=== PATIENT | female | born 1945 | race Caucasian/White ===

== ENCOUNTER 2016-12-01 08:07 | Inpatient (IN) | payer OTHER ==
[2016-10-30 11:27] VITALS: BMI 27.0
--- NOTE | 2016-10-30 12:11 | PAT Medication Instructions ---
Service Date Oct 30, 2016. Current Home Medication List Albuterol Sulfate (Proair Respiclick), 2 PUFF INH Q4 PRN for SOB/Wheezing Aspirin (Aspirin Ec), 81 MG PO HS Atorvastatin (Lipitor), 10 MG PO QPM Calcium Carbonate-Vitamin D (Calcium + D3 600-200 mg-Unit), 1 TAB PO BID Fluoxetine (Prozac), 20 MG PO HS Fluticasone Prop/Salmeterol (Advair Diskus 250/50 60 Dose), 1 PUFF INH BID PRN for BRONCHITIS Ibuprofen (Motrin), 400 MG PO TID PRN for Pain Levothyroxine Sodium (Synthroid), 1 TAB PO QAM Metoprolol Succ (Toprol Xl) (Toprol-Xl), 25 MG PO HS Mycophenolate Mofetil (Cellcept), 1,000 MG PO BID Omeprazole (Prilosec), 20 MG PO QAM Potassium Ext Rel (Klor-Con), 20 MEQ PO BID Torsemide (Demadex *), 20 MG PO QAM Tramadol (Ultram), 50 MG PO Q8H PRN for Pain Medication Instructions For Your Scheduled Surgery - Hold the following medications 7 days prior to surgery per surgeon instructions: Mycophenolate Mofetil (Cellcept), 1,000 MG PO BID Ibuprofen (Motrin), 400 MG PO TID PRN for Pain - Hold the following medications the morning of surgery: Torsemide (Demadex *), 20 MG PO QAM Potassium Ext Rel (Klor-Con), 20 MEQ PO BID Calcium Carbonate-Vitamin D (Calcium + D3 600-200 mg-Unit), 1 TAB PO BID - Take the following medications the morning of surgery with a sip of water: Tramadol (Ultram), 50 MG PO Q8H PRN for Pain (can take up to fours prior to surgery if needed) Omeprazole (Prilosec), 20 MG PO QAM Levothyroxine Sodium (Synthroid), 1 TAB PO QAM Fluticasone Prop/Salmeterol (Advair Diskus 250/50 60 Dose), 1 PUFF INH BID PRN for BRONCHITIS Albuterol Sulfate (Proair Respiclick), 2 PUFF INH Q4 PRN for SOB/Wheezing ( bring with you to hospital on day of surgery) - Take the following medications as scheduled the night before surgery: Tramadol (Ultram), 50 MG PO Q8H PRN for Pain Potassium Ext Rel (Klor-Con), 20 MEQ PO BID Metoprolol Succ (Toprol Xl) (Toprol-Xl), 25 MG PO HS Fluticasone Prop/Salmeterol (Advair Diskus 250/50 60 Dose), 1 PUFF INH BID PRN for BRONCHITIS Fluoxetine (Prozac), 20 MG PO HS Calcium Carbonate-Vitamin D (Calcium + D3 600-200 mg-Unit), 1 TAB PO BID Aspirin (Aspirin Ec), 81 MG PO HS Atorvastatin (Lipitor), 10 MG PO QPM Albuterol Sulfate (Proair Respiclick), 2 PUFF INH Q4 PRN for SOB/Wheezing If you have any questions please call us at [phone] or [phone] ( Jen) or [phone]
[2016-10-30 13:03] LABS: URINE APPEARANCE CLEAR (CLEAR); URINE BILIRUBIN NEG (NEG); URINE COLOR YELLOW; URINE NITRITE NEG (NEG); URINE SPECIFIC GRAVITY 1.024 (1.000-1.030); UROBILINOGEN NEG (NEG); ZZUR CULT IF INDIC CLEAN CATCH NO
[2016-10-30 13:03] LABS: BASO % 0.3 %; BASO ABS # 0.01 K/uL (0-0.2); COMPLETE YES; EOS % 1.3 %; HEMATOCRIT 34.6 % (37-47); IG% 0.3 %; LYMPH % 28.9 %; LYMPH ABS # 1.13 K/uL (1.2-3.4); MEAN CELL VOLUME 85.4 fL (80-100); MEAN CORPUSCULAR HEMOGLOBIN 27.9 pg (25-34); MEAN CORPUSCULAR HGB CONC 32.7 g/dl (32-36); MEAN PLATELET VOLUME 10.7 fL (7.4-10.4); MONO % 11.5 %; NEUT % 57.7 %; PLATELET COUNT 253 K/uL (130-400); RED BLOOD COUNT 4.05 M/uL (4.2-5.4); WHITE BLOOD COUNT 3.91 K/uL (4.8-10.8)
[2016-10-30 13:05] LABS: MANUAL MICROSCOPIC REQUIRED? NO; REVIEW REQ? NO
[2016-10-30 13:29] LABS: PARTIAL THROMBOPLASTIN RATIO 1.2; PROTHROMBIN TIME (PATIENT) 10.7 SECONDS (9.0-12.0)
--- NOTE | 2016-11-28 11:50 | HISTORY & PHYSICAL EXAMINATION ---
DATE OF ADMISSION: 12/01/2016 PRIMARY CARE PHYSICIAN: Dr. Carol Cade. CHIEF COMPLAINT: Right knee pain. HISTORY OF PRESENT ILLNESS: Mr. Becerra is a 71-year-old female with a 20-year history of pain in her right knee. The patient rates her pain a 9/10. She has pain with her daily activities. She has limited standing and walking tolerance. Pain is worse with weightbearing. The patient has had injections, anti-inflammatories, and bracing without relief. She has failed conservative treatment and is scheduled for right knee replacement. PAST MEDICAL HISTORY: Thyroid disease, hypercholesterolemia, acid reflux, hypertension, mitral valve prolapse, autoimmune hepatitis and atrial fibrillation. She denies heart disease, diabetes or DVT. PAST SURGICAL HISTORY: Parotidectomy, cholecystectomy, carpal tunnel release, left total hip replacement, cataract extraction, appendectomy, T\T\A and hernia repair. SOCIAL HISTORY: She denies alcohol or tobacco use. She lives in a 2-sepideh home. She is and retired. FAMILY HISTORY: Negative for DVT. MEDICATIONS: Demadex 20 mg daily, aspirin 81 mg daily, metoprolol 25 mg daily, K-Dur b.i.d., Levoxyl 75 mcg, CellCept 500 mg b.i.d., Lipitor 10 mg, omeprazole 20 mg, Prozac 20 mg, Motrin 800 mg b.i.d. ALLERGIES: SULFA CAUSES HIVES, CODEINE AND MORPHINE CAUSE VOMITING. REVIEW OF SYSTEMS: See HPI. Ten other systems reviewed, all negative. PHYSICAL EXAMINATION: VITAL SIGNS: Height 5 feet 6 inches, weight 169 pounds. BMI 27. GENERAL: This is a well-developed, well-nourished female who is alert and oriented x3. Mood and affect are appropriate. HEENT: Normocephalic, atraumatic. Mucous membranes are moist and intact. LUNGS: Neck supple without lymphadenopathy. HEART: Regular rate and rhythm without murmurs, rubs or gallops. LUNGS: Clear to auscultation without wheezes or rhonchi. ABDOMEN: Soft and nontender. Bowel sounds are equal and active. EXTREMITIES: No ecchymosis, redness or warmth. She has neutral alignment. Range of motion is from 0-115 degrees with no laxity. She is neurovascularly intact with +5/5 strength. X-RAY EXAMINATION: AP and lateral views show joint space narrowing and osteophyte formation. IMPRESSION: Degenerative joint disease, right knee. PLAN: The patient will be admitted for a right total knee arthroplasty. We will plan on aspirin for DVT prophylaxis. The patient is using [facility] for home physical therapy.
[~2016-12-01] VITALS: Ht 167.6 cm; Wt 76.8 kg
[2016-12-01] VITALS (9 sets, daily range): BP systolic 116–145; BP diastolic 69–83; PULSE 45–68; TEMP 35.7–36.8; O2SAT 97–100; Ht 167.6 cm; Wt 76.8 kg
[2016-12-01] MEDS: TRANEXAMIC ACID INJ 1,000 MG in SODIUM CHLORIDE 0.9% 100ML 100 ML IV SCH ×2 (06:30→10:17)
[~2016-12-01 08:07] MED LIST: ACETAMINOPHEN 500 MG TAB PO SCH; ADVIN25/60 INH; ALBU18002 INH; ASPI81TA28 PO; ATOR10TA88 PO; BUPIVACAINE 0.25% 30 ML VIAL ONE; BUPIVACAINE 0.5 % 5 MG/1 ML PF 10ML VIAL ONE; CALC-388 PO; CEFAZOLIN 2000 MG/60 ML D5W 60 ML IV SCH; DEXAMETHASONE 4 MG TAB PO SCH; DMD20 PO; FAMOTIDINE 20 MG TAB PO SCH; FENTANYL CITRATE INJ 50 MCG/1 ML 2 ML VIAL ONE; FLUO20CA35 PO; GABAPENTIN 300 MG CAP PO SCH; IBUP-1459 PO; LACTATED RINGER'S 1000ML 1,000 ML IV SCH; LACTATED RINGER'S 1000ML IV SCH; METO25TA3 PO; METOCLOPRAMIDE HCL 10 MG TAB PO SCH; MIDAZOLAM HCL 1 MG/ML 2ML VIAL ONE; MYCO500T4 PO; POLYMYXIN B SULFATE 100,000 UNITS in NSS 100ML IR SCH; POTA-327 PO; PRLSR20 PO; PROPOFOL IV EMULSION 10 MG/ML 20 ML VIAL IV ONE; ROPIVACAINE 5MG/ML 30 ML 150 MG, BUPIVACAINE/EPINEPHR 0.5% MPF 30 ML, KETOROLAC TROMETH... INFIL SCH; SYN75 PO; TRAM-10 PO; TRAMADOL HCL 50 MG TAB PO SCH; VANCOMYCIN INJ 400 MG in NSS 100ML IR SCH
--- NOTE | 2016-12-01 09:46 | History & Physical Bridge Note ---
H&P Re-Evaluation Bridge Note: I have examined the patient, reviewed the History & Physical and in the interval since the performance of the History & Physical I have noted the following changes of clinical significance: No changes noted
[2016-12-01] MEDS ORDERED: ORTHO JOINT ANESTHETIC ONE (10:23)
[2016-12-01] MEDS ORDERED: LIDOCAINE HCL 2% 2 ML VIAL (20MG/ML) ONE (11:27)
[2016-12-01] MEDS ORDERED: LABETALOL HCL IV 5 MG/ML 20ML ONE (11:31)
[2016-12-01] MEDS ORDERED: MIDAZOLAM HCL 1 MG/ML 2ML VIAL ONE (11:39)
[2016-12-01] MEDS ORDERED: BUPIVACAINE/EPINEPHRINE 0.25% 1:200,000 30 ML VIAL INJ ONE (12:23)
--- NOTE | 2016-12-01 12:23 | [facility] Post Operative Brief Note ---
Immediate Operative Summary Operative Date Dec 01, 2016. Pre-Operative Diagnosis Right Knee Degenerative Joint Disease Post-Operative Diagnosis Right Knee Degenerative Joint Disease Procedure(s) Performed Right Total Knee Arthroplasty Cemented Surgeon Dr. Lb White Landscape Crew Leader Surgeon(s) Gaetano Murguia PA-C Estimated Blood Loss 75ml Findings SEVERE DZ Specimens A. Right Knee Bone and Tissue Complication(s) None Disposition Recovery Room / PACU
[2016-12-01] MEDS ORDERED: POVIDONE-IODINE OP SOLN 30 ML BTL TOP ONE (12:27)
[2016-12-01] MEDS ORDERED: BACITRACIN 50000 UNIT VIAL IR ONE (12:27)
[2016-12-01] MEDS ORDERED: MAGNESIUM HYDROXIDE SUSP 30 ML UDC PO PRN (12:30)
[2016-12-01] MEDS ORDERED: OXYCODONE HCL IR 5 MG TAB (IMMEDIATE RELEASE) PO PRN (12:30)
[2016-12-01] MEDS ORDERED: ONDANSETRON INJ 2 MG/ML 2 ML VIAL IV PRN (12:30)
[2016-12-01] MEDS ORDERED: TRAMADOL HCL 50 MG TAB PO PRN ×2 (12:30)
[2016-12-01] MEDS ORDERED: ZOLPIDEM TARTRATE 5 MG TAB PO PRN (12:30)
[2016-12-01] MEDS ORDERED: DiphenhydrAMINE HCL 50 MG/ML VIAL IV PRN (12:30)
[2016-12-01] MEDS ORDERED: ALBUTEROL HFA INHALER 18 GM INH PRN (12:30)
[2016-12-01] MEDS ORDERED: BISACODYL 10 MG SUPP PR PRN (12:30)
[2016-12-01] MEDS ORDERED: FLUTICASONE/SALMETEROL 250/50 (ADVAIR) 14 PUFF/1 INHALER INH PRN (12:30)
[2016-12-01] MEDS ORDERED: METOCLOPRAMIDE HCL INJ 5 MG/ML 2 ML VIAL IV PRN (12:30)
[2016-12-01] MEDS ORDERED: ALUMINUM/MAGNESIUM/SIMETH (MAALOX MAX) 30 ML UDC PO PRN (12:30)
[2016-12-01] MEDS ORDERED: SOD PHOSPHATE/SOD BIPHOSPHATE ENEMA 132 ML BTL PR PRN (12:30)
--- NOTE | 2016-12-01 13:52 | DIAGNOSTIC IMAGING REPORT ---
TWO VIEWS RIGHT KNEE CLINICAL HISTORY: Postoperative examination. FINDINGS: AP and crosstable lateral portable views of the right knee are obtained. A right knee arthroplasty is in near anatomic alignment. There has been undersurface remodeling of the patella. No acute fracture is seen. There are expected postoperative changes around the knee including a surgical drain, soft tissue edema, and subcutaneous gas. IMPRESSION: Expected postoperative changes status post right knee arthroplasty. No acute fracture is seen. Electronically signed by: Foster Katz M.D. 12/01/2016 1:50 PM Dictated Date/Time: 12/01/2016 1:49 PM
--- NOTE | 2016-12-01 14:40 | Anesthesiology Progress Note ---
Anesthesia Post Op Note Date & Time Dec 01, 2016 at 14:40 Vital Signs Pain Intensity: 0 Vital Signs Past 12 Hours Date Time Temp Pulse Resp B/P Pulse Ox O2 Delivery O2 Flow Rate FiO2 12/01/16 14:16 60 21 99 12/01/16 14:16 55 21 12/01/16 14:15 36.4 61 13 111/53 99 Nasal Cannula 2 12/01/16 14:14 111/53 12/01/16 14:11 56 13 12/01/16 14:11 61 13 100 12/01/16 14:08 116/63 12/01/16 14:06 60 16 12/01/16 14:06 59 16 99 12/01/16 14:03 113/59 12/01/16 14:01 58 17 12/01/16 14:01 57 17 99 12/01/16 13:59 111/71 12/01/16 13:56 57 15 12/01/16 13:56 61 15 99 12/01/16 13:53 128/71 12/01/16 13:51 56 15 12/01/16 13:51 58 15 98 12/01/16 13:49 106/57 12/01/16 13:46 61 14 97 12/01/16 13:46 65 14 12/01/16 13:44 112/63 12/01/16 13:41 60 14 99 12/01/16 13:41 62 14 12/01/16 13:38 122/64 12/01/16 13:36 59 13 98 12/01/16 13:36 62 13 12/01/16 13:34 115/60 12/01/16 13:31 59 14 12/01/16 13:31 58 14 97 12/01/16 13:29 119/61 12/01/16 13:26 54 15 12/01/16 13:26 53 15 100 12/01/16 13:23 120/66 12/01/16 13:21 51 15 12/01/16 13:21 54 15 98 12/01/16 13:18 108/74 12/01/16 13:16 54 16 100 12/01/16 13:16 54 16 12/01/16 13:13 134/65 12/01/16 13:11 53 19 12/01/16 13:11 57 19 100 12/01/16 13:08 125/67 12/01/16 13:06 54 12 12/01/16 13:06 53 12 100 12/01/16 13:03 107/76 12/01/16 13:01 36.4 53 14 122/64 96 Nasal Cannula 2 12/01/16 13:01 54 14 12/01/16 13:01 54 14 100 12/01/16 08:48 36.8 59 20 145/83 97 Room Air Notes Mental Status: alert / awake / arousable, participated in evaluation Pt Amnestic to Procedure: Yes Nausea / Vomiting: adequately controlled Pain: adequately controlled Airway Patency, RR, SpO2: stable & adequate BP & HR: stable & adequate Hydration State: stable & adequate Neuraxial Anesthesia: was administered, sensory block is resolving Anesthetic Complications: no major complications apparent
[2016-12-01] MEDS ORDERED: ATROPINE SULFATE 0.1 MG/ML 5ML SYR IV PRN (14:45)
[2016-12-01] MEDS ORDERED: EpHEDrine SULFATE INJ 50 MG/ML AMP IV PRN (14:45)
[2016-12-01] MEDS: KETOROLAC TROMETHAMINE 15 MG/ML VIAL IV. SCH ×2 (15:52→22:35)
[2016-12-01] MEDS: ACETAMINOPHEN 500 MG TAB PO SCH ×2 (16:00→21:02)
[2016-12-01] MEDS: D5W AND 1/2NSS + 20MEQ KCL 1,000 ML IV SCH (16:35)
[2016-12-01] MEDS: CEFAZOLIN IV 1,000 MG in DEXTROSE 5% 50ML 50 ML IV SCH (18:37)
[2016-12-01] MEDS ORDERED: TRANEXAMIC ACID INJ 1,000 MG in SODIUM CHLORIDE 0.9% 100ML 100 ML IV SCH (19:00)
--- NOTE | 2016-12-01 19:06 | OPERATIVE REPORT ---
DATE OF OPERATION: 12/01/2016 PREOPERATIVE DIAGNOSIS: Degenerative arthritis, right knee. POSTOPERATIVE DIAGNOSIS: Same. PROCEDURE: Right total knee patient matched implant. SURGEON: Dr. White. PAINTER SHIPYARD: FANNY John. ANESTHESIA: Spinal. BLOOD LOSS: 75 mL. REPLACEMENT FLUIDS: 1800 mL of crystalloid. DRAINS: Hemovac x2. CULTURES: None. COMPLICATIONS: None. COMPONENTS USED: Patel \T\ Nephew Journey Knee System: Femur size 5, tibia size 4 x 11, patella size 32. NOTE: FANNY John was present and assisted throughout due to the complicated nature of this case. He helped with preparation and setup, first assisted throughout and personally closed the capsule, subcutaneous and skin layers and applied the postoperative dressing. DESCRIPTION: Following satisfactory spinal, the patient was supine. A tourniquet was placed but not inflated. The lower extremity was prepared with ChloraPrep and draped sterilely. Following a surgical time-out, a midline incision was made with a trivector approach. The knee showed severe grade 4 changes, most marked in the patellofemoral compartment and lateral compartment. The anterior cruciate ligament was absent. The posterior cruciate ligament was excised. The patient matched femoral block was applied. Femoral distal rotation and resection were set and completed. The 4-in-1 block was used to finish preparation of the femur. The patient matched tibial block was applied. Tibial resection was completed. The patella was freehand cut. Soft tissue balancing was completed and a trial reduction showed good tension and stability on the collateral ligaments, stable range of motion, and the patella tracked well. The trial components were removed. The capsule was prepared with the orthopedic cocktail and after irrigation, the components were cemented using Simplex G cement. A Betadine soak was performed. When the cement had hardened, the Betadine was irrigated. Two drains were placed. The arthrotomy was closed with a running suture of 0 V-Loc, subcutaneous tissues with 2-0 Vicryl and the skin with a running subcuticular stitch of 3-0 V-Loc. Dermabond and a dry dressing were applied. The patient was returned to her bed in stable condition. I attest to the content of the Intraoperative Record and any orders documented therein. Any exceptio ns are noted below.
[2016-12-01] MEDS ORDERED: FLUOXETINE HCL 20 MG CAP PO SCH (21:00)
[2016-12-01] MEDS: MYCOPHENOLATE MOFETIL 250 MG CAP (CELLCEPT) PO SCH (21:00)
[2016-12-01] MEDS ORDERED: SENNA 8.6 MG TAB PO SCH (21:00)
[2016-12-01] MEDS ORDERED: METOPROLOL SUCC 25MG EXT REL TAB PO SCH (21:00)
[2016-12-01] MEDS ORDERED: ATORVASTATIN 10 MG TAB PO SCH (21:00)
[2016-12-01] MEDS: POTASSIUM CHLORIDE 10 MEQ TABCR PO SCH (21:01)
[2016-12-01] MEDS: OXYCODONE HCL 10 MG TABCR (OXYCONTIN) PO SCH (21:01)
[2016-12-01] MEDS: ASPIRIN 81 MG ECTAB PO SCH (21:01)
[2016-12-02] MEDS: CEFAZOLIN IV 1,000 MG in DEXTROSE 5% 50ML 50 ML IV SCH (01:29)
[2016-12-02] MEDS: D5W AND 1/2NSS + 20MEQ KCL 1,000 ML IV SCH ×2 (01:29→12:00)
[2016-12-02 03:07] VITALS: BP 131/75; PULSE 58; TEMP 36.4; O2SAT 99
[2016-12-02] MEDS: KETOROLAC TROMETHAMINE 15 MG/ML VIAL IV. SCH ×2 (03:39→09:59)
[2016-12-02] MEDS: ACETAMINOPHEN 500 MG TAB PO SCH (05:38)
[2016-12-02] MEDS ORDERED: LEVOTHYROXINE 75 MCG TAB PO SCH (06:00)
[2016-12-02 06:52] LABS: HEMATOCRIT 29.8 % (37-47); MEAN CELL VOLUME 83.2 fL (80-100); MEAN CORPUSCULAR HEMOGLOBIN 28.2 pg (25-34); MEAN CORPUSCULAR HGB CONC 33.9 g/dl (32-36); MEAN PLATELET VOLUME 10.8 fL (7.4-10.4); PLATELET COUNT 198 K/uL (130-400); RED BLOOD COUNT 3.58 M/uL (4.2-5.4); WHITE BLOOD COUNT 6.88 K/uL (4.8-10.8)
[2016-12-02 07:23] LABS: BUN/CREATININE RATIO 17.3 (10-20); CALCIUM 8.5 mg/dl (8.5-10.1); POTASSIUM 4.3 mmol/L (3.5-5.1)
[2016-12-02 07:28] VITALS: BP 150/77; PULSE 52; TEMP 36.5; O2SAT 100
--- NOTE | 2016-12-02 07:55 | Discharge Instructions ---
Discharge Instructions Admission Reason for Admission: Right Knee Degenerative Arthritis Discharge Discharge Diagnosis / Problem: sp right TKA Discharge Goals Goal(s): Decrease discomfort, Improve function, Increase independence Activity Recommendations Activity Limitations: per Instructions/Follow-up section ACTIVITY RECOMMENDATIONS: SELF CARE INSTRUCTIONS AFTER TOTAL KNEE REPLACEMENT A. You may need to continue a physical therapy program after discharge from the hospital. There are several options available to you. Your doctor will assist you in selecting the best one for you. 1. An out-patient facility 2 to 3 times a week for therapy or home therapy. 2. Continue working on all exercises taught to you in the hospital. Your goals should be to increase bending of your knee to 90 degrees and beyond and to fully straighten your knee. B. You may progress at your own pace from walking with a walker or crutches to a cane; then to no assistive devices. C. Make walking a part of your daily routine. Be up as much as comfortable with rest periods throughout the day. Rest with leg elevation is very important. Use the ice wrap frequently for the first 3-4 weeks. D. There are no restrictions on activities. You may ride in a car, shop, participate in legal recruiter and all social activities. E. Wear the long elastic stockings (CAMPOS hose) 20 hours a day for 2 weeks after surgery. They can be removed several times a day for laundering and for a bath. F. You may shower, no tub baths until cleared by your doctor. SPECIAL CARE INSTRUCTIONS: VERY IMPORTANT TO READ AND REVIEW A. There are a few signs you need to watch for after you are home. Call [facility] if you notice any of the followin. Increased severe knee pain. Some pain is expected especially when you exercise. 2. Increased swelling in your leg or knee; pain or swelling of the calf muscle in either lower leg. 3. Any fluid drainage from the incision. 4. Shortness of breath or chest pain. B. Please call [facility] at if you have any concerns or questions about your operation or recovery. The doctor or his nurse will return your call promptly. C. You must take antibiotics before dental work, bladder, bowel or other surgery. Your doctor will provide you with a permanent care to carry describing this precaution. IMPORTANT: * REMEMBER TO TAKE ASPIRIN, 81 MG, TWICE DAILY FOR 4 WEEKS UNLESS OTHERWISE DIRECTED. THIS IS YOUR BLOOD THINNER. * HIGH RISK PATIENTS MAY BE PRESCRIBED A STRONGER BLOOD THINNER. THIS WILL BE PROVIDED AT DISCHARGE. * CALL IF INCREASED PAIN, REDNESS, DRAINAGE OR FEVER GREATER THAT 101. * WEAR CAMPOS HOSE 20 HOURS PER DAY FOR 2 WEEKS. DERMABOND Prineo- This is a mesh tape dressing that is covered with glue. It should remain in place until the incision is properly healed, usually 10-14 days. This dressing is designed to naturally slough off. You may trim the excess mesh tape as it peels off. Incision may be briefly wet in a shower. Dry immediately by blotting with a clean, dry towel. Do not bath or swim until instructed by your doctor. Do not scratch, rub, or pick at the dressing. Do not apply any topical ointments or lotions until dressing is completely removed and/or instructed by your doctor. There may be a small piece of suture material at one end of your incision. Do not pull or trim this. If it is bothersome or catching on clothing, you may cover it with a band-aid. FOLLOW UP VISIT: If appointment is not already scheduled: Please call [facility] to make a follow-up appointment for 2 weeks after your surgery at . . Current Hospital Diet Patient's current hospital diet: Regular Diet Discharge Diet Recommended Diet: Regular Diet Procedures Procedures Performed: Right Total Knee Arthroplasty Cemented Pending Studies Studies pending at discharge: no Laboratory Results Lipid Panel Test 10/30/16 12:10 Range/Units Triglycerides Level 103 0-150 mg/dl Cholesterol Level 134 0-200 mg/dl HDL Cholesterol 53 mg/dl Cholesterol/HDL Ratio 2.5 LDL Cholesterol, Calculated 60 mg/dl Medical Emergencies . Who to Call and When: Medical Emergencies: If at any time you feel your situation is an emergency, please call 911 immediately. . Non-Emergent Contact Non-Emergency issues call your: Primary Care Provider . "Provider Documentation" section prepared by Abby Waldron. VTE Core Measure Inpt VTE Proph given/why not?: Other Anticoagulation, T.E.D. Stockings, SCD's
--- NOTE | 2016-12-02 07:57 | Anesthesiology Progress Note ---
Anesthesia Post Op Note Date & Time Dec 02, 2016 at 07:56 Vital Signs Pain Intensity: 0.0 Vital Signs Past 12 Hours Date Time Temp Pulse Resp B/P Pulse Ox O2 Delivery O2 Flow Rate FiO2 12/02/16 07:28 36.5 52 18 150/77 100 Room Air 12/02/16 03:07 36.4 58 16 131/75 99 Room Air 12/01/16 23:34 36.5 56 16 142/79 100 Room Air 12/01/16 23:15 Room Air 12/01/16 20:43 52 129/73 12/01/16 20:03 35.7 59 18 116/69 100 Room Air Notes Mental Status: alert / awake / arousable, participated in evaluation Pt Amnestic to Procedure: Yes Nausea / Vomiting: adequately controlled Pain: adequately controlled Airway Patency, RR, SpO2: stable & adequate BP & HR: stable & adequate Hydration State: stable & adequate Neuraxial Anesthesia: sensory block resolved Anesthetic Complications: no major complications apparent
[2016-12-02] MEDS ORDERED: SNK PO (07:58)
[2016-12-02] MEDS ORDERED: ONDA8TAB6 PO (07:58)
[2016-12-02] MEDS ORDERED: RXC5 PO (07:58)
[2016-12-02] MEDS ORDERED: MORP-157 PO (07:58)
[2016-12-02] MEDS ORDERED: ASPI81TA28 PO (07:58)
--- NOTE | 2016-12-02 08:14 | Orthopedic Progress Note ---
Orthopedic Progress Note Date of Service Dec 02, 2016. Subjective Post OP Day: 1 Reports: feeling well, Denies: SOB, calf pain, chest pain, light headedness, nausea / vomiting Objective calves soft nontender, N/V intact, dressing C/D/I, A&O x3, toes mobile, hemovac drainage (70/5 CC) Date Time Temp Pulse Resp B/P Pulse Ox O2 Delivery O2 Flow Rate FiO2 12/02/16 07:28 36.5 52 18 150/77 100 Room Air 12/02/16 03:07 36.4 58 16 131/75 99 Room Air 12/01/16 23:34 36.5 56 16 142/79 100 Room Air 12/01/16 23:15 Room Air 12/01/16 20:43 52 129/73 12/01/16 20:03 35.7 59 18 116/69 100 Room Air 12/01/16 17:34 36.4 57 18 144/79 100 Room Air 12/01/16 16:31 36.5 58 18 138/81 100 Nasal Cannula 2.0 12/01/16 15:45 Nasal Cannula 4.0 12/01/16 15:33 36.5 45 18 119/74 98 Nasal Cannula 2.0 12/01/16 15:00 36.4 54 16 117/78 100 Nasal Cannula 2.0 12/01/16 14:30 Nasal Cannula 2.0 12/01/16 14:30 100 Nasal Cannula 2.0 12/01/16 14:30 36.5 68 16 118/74 100 Nasal Cannula 2.0 12/01/16 14:16 60 21 99 12/01/16 14:16 55 21 12/01/16 14:15 36.4 61 13 111/53 99 Nasal Cannula 2 12/01/16 14:14 111/53 12/01/16 14:11 56 13 12/01/16 14:11 61 13 100 12/01/16 14:08 116/63 12/01/16 14:06 60 16 12/01/16 14:06 59 16 99 12/01/16 14:03 113/59 12/01/16 14:01 58 17 12/01/16 14:01 57 17 99 12/01/16 13:59 111/71 12/01/16 13:56 57 15 12/01/16 13:56 61 15 99 12/01/16 13:53 128/71 12/01/16 13:51 56 15 12/01/16 13:51 58 15 98 12/01/16 13:49 106/57 12/01/16 13:46 61 14 97 12/01/16 13:46 65 14 12/01/16 13:44 112/63 12/01/16 13:41 60 14 99 12/01/16 13:41 62 14 12/01/16 13:38 122/64 12/01/16 13:36 59 13 98 12/01/16 13:36 62 13 12/01/16 13:34 115/60 12/01/16 13:31 59 14 12/01/16 13:31 58 14 97 12/01/16 13:29 119/61 12/01/16 13:26 54 15 12/01/16 13:26 53 15 100 12/01/16 13:23 120/66 12/01/16 13:21 51 15 12/01/16 13:21 54 15 98 12/01/16 13:18 108/74 12/01/16 13:16 54 16 100 12/01/16 13:16 54 16 12/01/16 13:13 134/65 12/01/16 13:11 53 19 12/01/16 13:11 57 19 100 12/01/16 13:08 125/67 12/01/16 13:06 54 12 12/01/16 13:06 53 12 100 12/01/16 13:03 107/76 12/01/16 13:01 36.4 53 14 122/64 96 Nasal Cannula 2 12/01/16 13:01 54 14 12/01/16 13:01 54 14 100 12/01/16 08:48 36.8 59 20 145/83 97 Room Air Laboratory Results 24 Hours: Test 12/02/16 06:12 Hematocrit 29.8 % Hemoglobin 10.1 g/dL Assessment & Plan Assessment: POD#1 SP RIGHT TKA Inhouse Planning Pain Management: Oxycontin, Oxy IR DVT Prophylaxis: TEDs, SCDs, ASA Discharge Planning Discharge Planning: home with home health (DC HOME TODAY)
[2016-12-02] MEDS ORDERED: MULTIVITAMIN TAB PO SCH (09:00)
[2016-12-02] MEDS ORDERED: PANTOprazole SOD 40 MG TAB PO SCH (09:00)
[2016-12-02] MEDS ORDERED: TORSEMIDE 20 MG TAB PO SCH (09:00)
[2016-12-02] MEDS: POTASSIUM CHLORIDE 10 MEQ TABCR PO SCH (09:01)
[2016-12-02] MEDS: ASPIRIN 81 MG ECTAB PO SCH (09:01)
[2016-12-02] MEDS: MYCOPHENOLATE MOFETIL 250 MG CAP (CELLCEPT) PO SCH (09:01)
[2016-12-02] MEDS: OXYCODONE HCL 10 MG TABCR (OXYCONTIN) PO SCH (09:06)
[2016-12-02 10:13] VITALS: BP 150/77; PULSE 52; TEMP 36.5; O2SAT 100
[2016-12-02 10:58] VITALS: BP 139/79; PULSE 57; TEMP 36.4; O2SAT 92
--- NOTE | 2016-12-03 15:40 | DISCHARGE SUMMARY ---
DISCHARGE DIAGNOSIS: Degenerative joint disease, right knee. SECONDARY DIAGNOSES: History of thyroid disease, hypercholesterolemia, gastroesophageal reflux disease, hypertension, mitral valve prolapse, autoimmune hepatitis and atrial fibrillation. CONSULTS: None. COMPLICATIONS: None. PROCEDURES: Right total knee arthroplasty performed by Dr. Elgin White on 12/01/2016. BRIEF HISTORY: As dictated in history and physical. HOSPITAL SUMMARY: The patient was admitted on the above date and had the above-noted surgery performed which he tolerated well. On her first postoperative day, she was feeling well without any complaints. Calves were soft, nontender, neurovascularly intact. Dressings clean, dry and intact. Toes were mobile. Vital signs were stable. She is afebrile and hemoglobin was 10.1. She was started on physical therapy protocol and continued on DVT prophylaxis and pain management of which she continued to progress well. She was otherwise remaining stable. Pain was controlled and it was felt that she could be discharged to home on 12/02/2016. For further review, please see chart. LAB AND X-RAY DATA: As per chart. DISCHARGE INSTRUCTIONS: The patient was discharged to home in satisfactory condition on 12/02/2016. DIET: Regular. ACTIVITY INSTRUCTIONS: Follow TKA instruction sheets and special care instructions as noted. Follow up with Dr. Elgin White in 2 weeks from the day of surgery. The patient to call for appointment if one has not been made for you. DISCHARGE MEDICATIONS: MS Contin 15 mg p.o. q. 12 hours, Zofran 8 mg p.o. q. 8 hours p.r.n. nausea, oxycodone 5-10 mg p.o. q. 4 hours p.r.n., senna 17.2 mg at bedtime. Resume taking albuterol sulfate 2 puffs inhaled q. 4 hours p.r.n., atorvastatin 10 mg p.o. q.p.m., calcium plus D 1 tab p.o. b.i.d., fluoxetine 20 mg at bedtime, Advair Diskus 250/50 one puff inhaled b.i.d. p.r.n., levothyroxine 75 mcg 1 tab p.o. q.a.m., metoprolol 25 mg p.o. at bedtime, CellCept 1000 mg p.o. b.i.d., omeprazole 20 mg p.o. q.a.m., Klor-Con 20 mEq p.o. b.i.d., torsemide 20 mg p.o. q.a.m. and aspirin 81 mg p.o. b.i.d. After 30 days resume taking aspirin once daily.
[2017-04-02] MEDS ORDERED: IBUP-1451 PO (11:30)
[2017-04-02] MEDS ORDERED: ASPI81TA28 PO (11:30)
[2017-04-02] MEDS ORDERED: GLYCDRO6 OPB (11:45)
== END 2016-12-02 14:02 | disposition home health service (06) | DRG 470 ==
LOC: ENRESERVDT → ENRESERVTM → C.ACU 08:07 → C.3E 08:52
PROVIDERS: ADMIT Orthopaedic Surgery; ATTEND Orthopaedic Surgery
PROC: 0SRC0J9 Replacement of Right Knee Joint with Synthetic Substitute, Cemented, Open Approach (ICD-10-PCS; principal; 2016-12-01 10:45)
DX: M17.11 Unilateral primary osteoarthritis, right knee (principal); E78.00 Pure hypercholesterolemia, unspecified; K21.9 Gastro-esophageal reflux disease without esophagitis; I34.1 Nonrheumatic mitral (valve) prolapse; I48.91 Unspecified atrial fibrillation; I10 Essential (primary) hypertension; Z96.642 Presence of left artificial hip joint; Z88.2 Allergy status to sulfonamides

== ENCOUNTER → 2016-12-04 | Outpatient (CLI) | payer OTHER ==
[~2016-12-04] MED LIST changes: -ACETAMINOPHEN 500 MG TAB PO SCH; +ASPEC81 PO; -BUPIVACAINE 0.25% 30 ML VIAL ONE; -BUPIVACAINE 0.5 % 5 MG/1 ML PF 10ML VIAL ONE; -CEFAZOLIN 2000 MG/60 ML D5W 60 ML IV SCH; -DEXAMETHASONE 4 MG TAB PO SCH; -FAMOTIDINE 20 MG TAB PO SCH; -FENTANYL CITRATE INJ 50 MCG/1 ML 2 ML VIAL ONE; -GABAPENTIN 300 MG CAP PO SCH; +GLYCDRO6 OPB; +IBUP-1451 PO; -IBUP-1459 PO; -LACTATED RINGER'S 1000ML 1,000 ML IV SCH; -LACTATED RINGER'S 1000ML IV SCH; -METOCLOPRAMIDE HCL 10 MG TAB PO SCH; -MIDAZOLAM HCL 1 MG/ML 2ML VIAL ONE; +MORP-157 PO; +ONDA8TAB6 PO; -POLYMYXIN B SULFATE 100,000 UNITS in NSS 100ML IR SCH; -PROPOFOL IV EMULSION 10 MG/ML 20 ML VIAL IV ONE; -ROPIVACAINE 5MG/ML 30 ML 150 MG, BUPIVACAINE/EPINEPHR 0.5% MPF 30 ML, KETOROLAC TROMETH... INFIL SCH; +RXC5 PO; +SNK PO; -TRAMADOL HCL 50 MG TAB PO SCH; -VANCOMYCIN INJ 400 MG in NSS 100ML IR SCH
--- NOTE | 2016-12-04 15:19 | DIAGNOSTIC IMAGING REPORT ---
ULTRASOUND RIGHT VENOUS DOPP LOWER EXT UNILAT CLINICAL HISTORY: Right calf pain COMPARISON STUDY: No previous studies for comparison. FINDINGS: Real-time and color flow Doppler imaging were performed. Flow was seen within the femoral, popliteal and calf veins with no intraluminal thrombus demonstrated. The saphenous vein is patent. IMPRESSION: No evidence of right lower extremity DVT. Electronically signed by: Miguel Flores M.D. 12/04/2016 3:17 PM Dictated Date/Time: 12/04/2016 3:16 PM
== END | disposition home or self-care (01) ==
LOC: C.ULTRBC 14:32
PROVIDERS: ATTEND Orthopaedic Surgery
DX: M79.661 Pain in right lower leg (principal)

== ENCOUNTER → 2016-12-18 | Outpatient (CLI) | payer OTHER ==
[~2016-12-18] MED LIST changes: -MORP-157 PO
[2016-12-18 16:46] LABS: BASO % 0.1 %; BASO ABS # 0.01 K/uL (0-0.2); COMPLETE YES; EOS % 0.1 %; IG% 0.3 %; LYMPH % 12.6 %; LYMPH ABS # 0.89 K/uL (1.2-3.4); MEAN CELL VOLUME 82.9 fL (80-100); MEAN CORPUSCULAR HEMOGLOBIN 28.3 pg (25-34); MEAN CORPUSCULAR HGB CONC 34.2 g/dl (32-36); MEAN PLATELET VOLUME 9.4 fL (7.4-10.4); MONO % 12.3 %; NEUT % 74.6 %; PLATELET COUNT 393 K/uL (130-400); RED BLOOD COUNT 3.74 M/uL (4.2-5.4); WHITE BLOOD COUNT 7.08 K/uL (4.8-10.8)
== END | disposition home or self-care (01) ==
LOC: C.LAB 15:55
PROVIDERS: ATTEND Orthopaedic Surgery
DX: Z47.1 Aftercare following joint replacement surgery (principal)

== ENCOUNTER 2017-05-01 05:33 | Inpatient (IN) | payer OTHER ==
[2017-04-02 11:34] VITALS: BMI 26.0
--- NOTE | 2017-04-02 12:09 | PAT Medication Instructions ---
Service Date April 02, 2017. Current Home Medication List Albuterol Sulfate (Proair Respiclick), 2 PUFF INH Q4 PRN for SOB/Wheezing Aspirin (Aspirin Ec), 81 MG PO QPM Atorvastatin (Lipitor), 10 MG PO QPM Calcium Carbonate-Vitamin D (Calcium + D3 600-200 mg-Unit), 1 TAB PO BID Fluoxetine (Prozac), 20 MG PO QPM Fluticasone Prop/Salmeterol (Advair Diskus 250/50 60 Dose), 1 PUFF INH BID PRN for BRONCHITIS Ztcjdwgw-Vogwjhzuklyd-Osbqzjrx (Artificial Tears), 1 DROP OPB PRN Ibuprofen Tab (Motrin), 800 MG PO PRN PRN for Pain Levothyroxine Sodium (Synthroid), 1 TAB PO QAM Metoprolol Succ (Toprol Xl) (Toprol-Xl), 25 MG PO QPM Mycophenolate Mofetil (Cellcept), 1,000 MG PO BID Omeprazole (Prilosec), 20 MG PO QAM Potassium Ext Rel (Klor-Con), 20 MEQ PO BID Torsemide (Demadex *), 20 MG PO QAM Medication Instructions For Your Scheduled Surgery - Hold the following medications the morning of surgery: Torsemide (Demadex *), 20 MG PO QAM Mycophenolate Mofetil (Cellcept), 1,000 MG PO BID Calcium Carbonate-Vitamin D (Calcium + D3 600-200 mg-Unit), 1 TAB PO BID Potassium Ext Rel (Klor-Con), 20 MEQ PO BID Ibuprofen Tab (Motrin), 800 MG PO PRN PRN for Pain (otherwise okay to continue per surgeon) - Take the following medications the morning of surgery with a sip of water: Albuterol Sulfate (Proair Respiclick), 2 PUFF INH Q4 PRN for SOB/Wheezing (use if needed; BRING TO HOSPITAL) Fluticasone Prop/Salmeterol (Advair Diskus 250/50 60 Dose), 1 PUFF INH BID PRN Levothyroxine Sodium (Synthroid), 1 TAB PO QAM Omeprazole (Prilosec), 20 MG PO QAM Zyrdmhgi-Tlxwjhozuxvy-Eokfgqxw (Artificial Tears), 1 DROP OPB PRN - Take the following medications as scheduled the night before surgery: Fluoxetine (Prozac), 20 MG PO QPM Aspirin (Aspirin Ec), 81 MG PO QPM Atorvastatin (Lipitor), 10 MG PO QPM Mycophenolate Mofetil (Cellcept), 1,000 MG PO BID Calcium Carbonate-Vitamin D (Calcium + D3 600-200 mg-Unit), 1 TAB PO BID Potassium Ext Rel (Klor-Con), 20 MEQ PO BID Albuterol Sulfate (Proair Respiclick), 2 PUFF INH Q4 PRN for SOB/Wheezing Fluticasone Prop/Salmeterol (Advair Diskus 250/50 60 Dose), 1 PUFF INH BID PRN Metoprolol Succ (Toprol Xl) (Toprol-Xl), 25 MG PO QPM Rhzbscoy-Dmayzrxsbbhf-Txgnkiuy (Artificial Tears), 1 DROP OPB PRN If you have any questions please call us at [phone] or [phone] or [phone]
[2017-04-02 12:35] LABS: URINE APPEARANCE CLEAR (CLEAR); URINE BILIRUBIN NEG (NEG); URINE COLOR YELLOW; URINE NITRITE NEG (NEG); URINE PH 6.5 (4.5-7.5); URINE SPECIFIC GRAVITY 1.017 (1.000-1.030); UROBILINOGEN NEG (NEG); ZZUR CULT IF INDIC CLEAN CATCH NO
[2017-04-02 12:39] LABS: MANUAL MICROSCOPIC REQUIRED? NO; REVIEW REQ? NO
[2017-04-02 12:41] LABS: PARTIAL THROMBOPLASTIN RATIO 1.2; PROTHROMBIN TIME (PATIENT) 10.7 SECONDS (9.0-12.0)
[2017-04-02 12:43] LABS: BASO % 0.5 %; BASO ABS # 0.02 K/uL (0-0.2); COMPLETE YES; EOS % 2.9 %; HEMATOCRIT 33.4 % (37-47); LYMPH ABS # 1.11 K/uL (1.2-3.4); MEAN CELL VOLUME 83.9 fL (80-100); MEAN CORPUSCULAR HEMOGLOBIN 27.4 pg (25-34); MEAN CORPUSCULAR HGB CONC 32.6 g/dl (32-36); MEAN PLATELET VOLUME 9.9 fL (7.4-10.4); MONO % 16.4 %; NEUT % 51.2 %; PLATELET COUNT 298 K/uL (130-400); RED BLOOD COUNT 3.98 M/uL (4.2-5.4); WHITE BLOOD COUNT 3.83 K/uL (4.8-10.8)
[2017-04-02 13:20] LABS: BLOOD UREA NITROGEN 30 mg/dl (7-18); C-REACTIVE PROTEIN < 0.29 mg/dl (0-0.29); CARBON DIOXIDE 27 mmol/L (21-32); CHLORIDE 103 mmol/L (98-107); GLUCOSE 90 mg/dl (70-99); POTASSIUM 4.4 mmol/L (3.5-5.1); SODIUM 137 mmol/L (136-145)
[2017-04-02 13:24] LABS: CALCIUM 8.9 mg/dl (8.5-10.1)
--- NOTE | 2017-04-28 09:23 | HISTORY & PHYSICAL EXAMINATION ---
DATE OF ADMISSION: 05/01/2017 CHIEF COMPLAINT: Painful right total knee replacement. HISTORY OF PRESENT ILLNESS: Ms. Becerra is a 71-year-old female who had her right knee replaced in November of 2015. The patient was seen after diagnosed with a lateral femoral condyle fracture. The patient was having 10/10 pain at that time. She has since healed the fracture, but is left with a moderate deformity. She is now scheduled for a revision knee arthroplasty. PAST MEDICAL HISTORY: History of anemia, thyroid disease, palpitations, AFib, MVP, and rheumatoid arthritis. She denies heart disease, diabetes or DVT. PAST SURGICAL HISTORY: Left total hip arthroplasty, right total knee arthroplasty, parathyroidectomy, appendectomy, right oophorectomy, cholecystectomy, right carpal tunnel, bilateral hernia repair, and cataract extraction. SOCIAL HISTORY: The patient denies alcohol or tobacco use. She lives in a 2-story home. She is and retired. FAMILY HISTORY: Negative for DVT. MEDICATIONS: Demadex 20 mg daily, metoprolol 25 mg daily, aspirin 81 mg daily, CellCept 500 mg 3 tablets 2 times a day, omeprazole 20 mg daily, Prozac 20 mg 3 capsules daily, Motrin 200 mg p.r.n., Lipitor 10 mg daily, ProAir HFA 90 mcg 2 puffs q. 4-6 hours p.r.n., and Tylenol p.r.n. ALLERGIES: SULFA, CODEINE, MORPHINE, AND IV CONTRAST DYE. REVIEW OF SYSTEMS: See HPI. Ten other systems reviewed, all negative. PHYSICAL EXAMINATION: VITAL SIGNS: Height 5 feet 7, weight 162 pounds, and BMI 26. GENERAL: This is a well-developed and well-nourished female who is alert and oriented x3. Mood and affect are appropriate. HEENT: Normocephalic and atraumatic. Mucous membranes are moist and intact. NECK: Supple without lymphadenopathy. HEART: Regular rate and rhythm without murmurs, rubs or gallops. LUNGS: Clear to auscultation without wheezes or rhonchi. ABDOMEN: Soft and nontender. Bowel sounds are equal and active. EXTREMITIES: No ecchymosis, redness or warmth. She has a midline incision that is well healed. She does have a varus deformity. She walks with a limp. She has 10-120 degrees of range of motion. She has +1 laxity and moderate effusion. She is neurovascularly intact. X-RAY EXAMINATION: AP and lateral views show a Journey knee replacement. She has an evidence of her condyle fracture and mild deformity. IMPRESSION: Painful right total knee replacement. PLAN: The patient will be admitted for revision of the right femoral component. We will plan on aspirin for DVT prophylaxis. The patient will have home therapy with [facility]. PCP is Dr. Cade in [facility].
[~2017-05-01] VITALS: Ht 170.2 cm; Wt 75.8 kg
[2017-05-01] VITALS (10 sets, daily range): BP systolic 100–153; BP diastolic 65–81; PULSE 50–64; TEMP 36.3–37; O2SAT 95–99; Ht 170.2 cm; Wt 75.8 kg
[~2017-05-01 05:33] MED LIST changes: -ASPEC81 PO; +ATOR10TA82 PO; -ATOR10TA88 PO; -ONDA8TAB6 PO; -RXC5 PO; -SNK PO; -TRAM-10 PO
[2017-05-01] MEDS ORDERED: LACTATED RINGER'S 1000ML 1,000 ML IV SCH ×2 (06:00)
[2017-05-01] MEDS ORDERED: ACETAMINOPHEN 500 MG TAB PO SCH (06:00)
[2017-05-01] MEDS ORDERED: VANCOMYCIN INJ 1,150 MG in SODIUM CHLORIDE 0.9% 250ML 250 ML IV SCH (06:00)
[2017-05-01] MEDS ORDERED: VANCOMYCIN INJ 400 MG in NSS 100ML IR SCH (06:00)
[2017-05-01] MEDS ORDERED: OXYCODONE HCL 10 MG TABCR (OXYCONTIN) PO SCH (06:00)
[2017-05-01] MEDS ORDERED: FAMOTIDINE 20 MG TAB PO SCH (06:00)
[2017-05-01] MEDS ORDERED: DEXAMETHASONE 4 MG TAB PO SCH (06:00)
[2017-05-01] MEDS ORDERED: ROPIVACAINE 5MG/ML 30 ML 150 MG, BUPIVACAINE/EPINEPHR 0.5% MPF 30 ML, KETOROLAC TROMETH... INFIL SCH ×7 (06:00)
[2017-05-01] MEDS ORDERED: CEFAZOLIN 2000 MG/60 ML D5W 60 ML IV SCH (06:00)
[2017-05-01] MEDS ORDERED: POLYMYXIN B SULFATE 100,000 UNITS in NSS 100ML IR SCH (06:00)
[2017-05-01] MEDS ORDERED: METOCLOPRAMIDE HCL 10 MG TAB PO SCH (06:00)
[2017-05-01] MEDS ORDERED: GABAPENTIN 300 MG CAP PO SCH (06:00)
[2017-05-01] MEDS ORDERED: LACTATED RINGER'S 1000ML 500 ML IV ONE (06:00)
[2017-05-01] MEDS: TRANEXAMIC ACID INJ 1,000 MG in SODIUM CHLORIDE 0.9% 100ML 100 ML IV SCH ×2 (06:30→07:10)
[2017-05-01] MEDS ORDERED: BUPIVACAINE 0.5 % 5 MG/1 ML PF 10ML VIAL ONE (06:33)
[2017-05-01] MEDS ORDERED: BUPIVACAINE/EPINEPHRINE 0.25% 1:200,000 30 ML VIAL ONE ×2 (06:33→07:02)
[2017-05-01] MEDS ORDERED: MIDAZOLAM HCL 1 MG/ML 2ML VIAL ONE (06:54)
[2017-05-01] MEDS ORDERED: FENTANYL CITRATE INJ 50 MCG/1 ML 2 ML VIAL ONE (06:54)
[2017-05-01] MEDS ORDERED: ORTHO JOINT ANESTHETIC ONE (07:02)
[2017-05-01] MEDS ORDERED: BACITRACIN 50000 UNIT VIAL ONE (07:03)
[2017-05-01] MEDS ORDERED: POVIDONE-IODINE OP SOLN 30 ML BTL ONE (07:03)
[2017-05-01] MEDS ORDERED: EpHEDrine SULFATE INJ 50 MG/ML AMP IV PRN (08:00)
[2017-05-01] MEDS ORDERED: ONDANSETRON INJ 2 MG/ML 2 ML VIAL IV PRN ×2 (08:00→09:00)
[2017-05-01] MEDS ORDERED: PROMETHAZINE HCL INJ 6.25 MG in SODIUM CHLORIDE 0.9% 50ML 50 ML IV PRN (08:00)
[2017-05-01] MEDS ORDERED: FENTANYL CITRATE INJ 50 MCG/1 ML 2 ML VIAL IV PRN (08:00)
[2017-05-01] MEDS ORDERED: ATROPINE SULFATE 0.1 MG/ML 5ML SYR IV PRN (08:00)
[2017-05-01] MEDS ORDERED: PROPOFOL IV EMULSION 10 MG/ML 20 ML VIAL IV ONE (08:35)
[2017-05-01] MEDS ORDERED: LIDOCAINE HCL 2% 2 ML VIAL (20MG/ML) ONE (08:35)
--- NOTE | 2017-05-01 08:52 | [facility] Post Operative Brief Note ---
Immediate Operative Summary Operative Date May 01, 2017. Pre-Operative Diagnosis Painful Right Knee Replacement Post-Operative Diagnosis Painful Right Knee Replacement with healed femoral condyle fx with deformity Procedure(s) Performed Right Total Knee Revision Surgeon Dr. Ghassan White Financial Services Specialist Surgeon(s) Natacha Chavarria PA-C Estimated Blood Loss 5ml Findings as above fx healed tibia patella ok Specimens A) right knee- synovial fluid- culture (sent out at approx 0810) B) right knee- removed hardware Complication(s) None Disposition Recovery Room / PACU
[2017-05-01] MEDS ORDERED: TRAMADOL HCL 50 MG TAB PO PRN (09:00)
[2017-05-01] MEDS ORDERED: ALUMINUM/MAGNESIUM/SIMETH (MAALOX MAX) 30 ML UDC PO PRN (09:00)
[2017-05-01] MEDS ORDERED: ZOLPIDEM TARTRATE 5 MG TAB PO PRN (09:00)
[2017-05-01] MEDS: MULTIVITAMIN TAB PO SCH (09:00)
[2017-05-01] MEDS ORDERED: BISACODYL 10 MG SUPP PR PRN (09:00)
[2017-05-01] MEDS ORDERED: ALBUTEROL HFA 8 GM INHALER INH PRN (09:00)
[2017-05-01] MEDS: CALCIUM 600MG + VIT D 400 IU TAB PO SCH ×2 (09:00→20:46)
[2017-05-01] MEDS ORDERED: METOCLOPRAMIDE HCL INJ 5 MG/ML 2 ML VIAL IV PRN (09:00)
[2017-05-01] MEDS ORDERED: DiphenhydrAMINE HCL 50 MG/ML VIAL IV PRN (09:00)
[2017-05-01] MEDS ORDERED: MAGNESIUM HYDROXIDE SUSP 30 ML UDC PO PRN (09:00)
[2017-05-01] MEDS ORDERED: SOD PHOSPHATE/SOD BIPHOSPHATE ENEMA 132 ML BTL PR PRN (09:00)
[2017-05-01] MEDS ORDERED: FLUTICASONE/SALMETEROL 250/50 (ADVAIR) 14 PUFF/1 INHALER INH PRN (09:00)
[2017-05-01] MEDS: PANTOprazole SOD 40 MG TAB PO SCH (09:00)
[2017-05-01] MEDS: MYCOPHENOLATE MOFETIL 250 MG CAP (CELLCEPT) PO SCH ×2 (09:00→20:47)
--- NOTE | 2017-05-01 09:23 | OPERATIVE REPORT ---
DATE OF OPERATION: 05/01/2017 PREOPERATIVE DIAGNOSIS: Supracondylar fracture, right, status post right total knee with deformity. POSTOPERATIVE DIAGNOSIS: Same. PROCEDURE: Right revision femoral component and tibial polyethylene insert. SURGEON: Lb White MD [employer] RAMPMAN: FANNY Gavin ANESTHESIA: Spinal. TOURNIQUET TIME: 75 minutes at 300 mmHg. DRAINS: Hemovacs x2. CULTURES: None. COMPLICATIONS: None. COMPONENTS USED: [employer] revision knee system: Femur size 5, 6-mm offset, and 20 x 120 stem. Tibial insert size 11 high flex. NOTE: Abby Waldron was present and assisted throughout due to the complicated nature of this case. She helped with preparation and set up, first assisted throughout and personally closed the capsule, subcutaneous and skin layers and applied the postoperative dressing. INDICATION FOR PROCEDURE: This patient is a 71-year-old female who underwent uncomplicated total knee replacement surgery approximately 6 months prior. She began developing pain in the postop period and it was found that she had a medial condylar fracture that gradually displaced. Of note, the patient has multiple risk factors with an extensive history including rheumatoid disease, liver disease, and thyroid disease. She is on CellCept and a number of remittive agents and has moderate osteopenia, although at the time of surgery, this was not felt to be that severe. She developed increasing varus deformity. We waited to allow the fracture to heal and she returns today for revision of the femoral component, evaluation and repair. DESCRIPTION OF PROCEDURE: Following satisfactory spinal, the patient was supine. A tourniquet was placed. The lower extremity was prepared with ChloraPrep and draped sterilely. Following a surgical timeout, the tourniquet was inflated. A midline incision using the old knee incision with a median parapatellar arthrotomy was performed. There was a significant varus deformity with medial instability, although the inside of the knee was completely benign and the components were still well fixed. The tibial polyethylene was removed. This allowed better access. The ultrasonic cement removal system was then used to loosen the femur, which was removed with essentially no bone loss. There was obviously a defect medially from the healed medial condyle fracture. Using the IM reaming and alignment system, the distal femur was trimmed. It was obvious that the medial augmentation would be necessary. Cuts were completed and balancing was completed. The knee needed a medial 15 x 10 L-shaped augment with the 6-mm offset. The knee actually balanced well as the varus deformity had not stiffened and was not contractured. No major releases were necessary. The trial reduction showed good tensioning stability on the collateral ligaments, stable range of motion, and the patella tracked well. The trial component was removed. The cement restriction plug was placed. The capsule was infiltrated with local anesthetic and after irrigation, the components were cemented using Simplex G cement. A Betadine soak was performed for 3 minutes and then irrigated. Two drains were placed. The knee showed good stability and patellar tracking. The arthrotomy was closed with a running suture of 0 V-Loc and reinforced with #1 Vicryl. The subcutaneous tissues with 2-0 Vicryl and the skin with a running subcuticular stitch of 3-0 V-Loc. A surface wound VAC and dry dressing were applied. The tourniquet was deflated. The patient was returned to her bed in stable condition. I attest to the content of the Intraoperative Record and any orders documented therein. Any exception s are noted below.
--- NOTE | 2017-05-01 09:55 | DIAGNOSTIC IMAGING REPORT ---
RIGHT KNEE 1 OR 2 VIEWS ROUTINE CLINICAL HISTORY: AP/LATERAL IN PACU RIGHT KNEE Right COMPARISON: 12/01/2016 DISCUSSION: Total joint region. Femoral prosthetic has been positioned. Good contact between prosthetic and underlying bone and/or cement material. Expected soft tissue postoperative change IMPRESSION: Anatomic alignment status post total right knee revision Electronically signed by: Raza Steinberg M.D. 05/01/2017 9:53 AM Dictated Date/Time: 05/01/2017 9:53 AM
--- NOTE | 2017-05-01 10:20 | Anesthesiology Progress Note ---
Anesthesia Post Op Note Date & Time May 01, 2017 at 10:19 Vital Signs Pain Intensity: 0 Vital Signs Past 12 Hours Date Time Temp Pulse Resp B/P (MAP) Pulse Ox O2 Delivery O2 Flow Rate FiO2 05/01/17 10:15 36.2 61 16 101/55 95 Nasal Cannula 2 05/01/17 10:10 61 14 101/58 95 Nasal Cannula 2 05/01/17 10:00 60 15 97/56 96 Nasal Cannula 2 05/01/17 09:50 61 16 99/58 95 Nasal Cannula 2 05/01/17 09:40 62 14 106/57 97 Nasal Cannula 2 05/01/17 09:30 63 14 109/60 97 Nasal Cannula 2 05/01/17 09:24 36.8 65 16 116/52 98 Nasal Cannula 2 05/01/17 05:55 37 55 20 141/79 97 Room Air Notes Mental Status: alert / awake / arousable, participated in evaluation Pt Amnestic to Procedure: Yes Nausea / Vomiting: adequately controlled Pain: adequately controlled Airway Patency, RR, SpO2: stable & adequate BP & HR: stable & adequate Hydration State: stable & adequate Neuraxial Anesthesia: was administered, sensory block is resolving Anesthetic Complications: no major complications apparent
[2017-05-01] MEDS: D5W AND 1/2NSS + 20MEQ KCL 1,000 ML IV SCH ×2 (12:40→22:21)
[2017-05-01] MEDS: KETOROLAC TROMETHAMINE 15 MG/ML VIAL IV. SCH ×2 (12:40→17:49)
[2017-05-01] MEDS: ACETAMINOPHEN 500 MG TAB PO SCH ×2 (14:07→20:46)
[2017-05-01] MEDS: CEFAZOLIN IV 2,000 MG in DEXTROSE 5% 50ML 50 ML IV SCH (16:12)
[2017-05-01] MEDS: POTASSIUM CHLORIDE 20 MEQ TABCR PO SCH (17:47)
[2017-05-01] MEDS: ASPIRIN 81 MG ECTAB PO SCH (20:47)
[2017-05-01] MEDS ORDERED: METOPROLOL SUCC 25MG EXT REL TAB PO SCH (21:00)
[2017-05-01] MEDS ORDERED: ATORVASTATIN 10 MG TAB PO SCH (21:00)
[2017-05-01] MEDS ORDERED: SENNA 8.6 MG TAB PO SCH (21:00)
[2017-05-02] MEDS: CEFAZOLIN IV 2,000 MG in DEXTROSE 5% 50ML 50 ML IV SCH (00:12)
[2017-05-02] MEDS: KETOROLAC TROMETHAMINE 15 MG/ML VIAL IV. SCH ×3 (00:13→14:51)
[2017-05-02 03:26] VITALS: BP 145/76; PULSE 62; TEMP 36.6; O2SAT 95
[2017-05-02] MEDS: ACETAMINOPHEN 500 MG TAB PO SCH (05:43)
[2017-05-02] MEDS ORDERED: LEVOTHYROXINE 75 MCG TAB PO SCH (06:00)
[2017-05-02 06:23] LABS: MEAN CELL VOLUME 83.6 fL (80-100); MEAN CORPUSCULAR HEMOGLOBIN 26.4 pg (25-34); MEAN CORPUSCULAR HGB CONC 31.6 g/dl (32-36); MEAN PLATELET VOLUME 10.9 fL (7.4-10.4); PLATELET COUNT 232 K/uL (130-400); RED BLOOD COUNT 3.71 M/uL (4.2-5.4); WHITE BLOOD COUNT 12.26 K/uL (4.8-10.8)
[2017-05-02 06:56] LABS: BUN/CREATININE RATIO 24.2 (10-20); CALCIUM 8.4 mg/dl (8.5-10.1); CREATININE 1.1 mg/dl (0.60-1.20); POTASSIUM 4.6 mmol/L (3.5-5.1)
[2017-05-02 07:39] VITALS: BP 155/60; PULSE 62; TEMP 36.6; O2SAT 98
[2017-05-02 08:08] VITALS: O2SAT 98
--- NOTE | 2017-05-02 08:30 | Orthopedic Progress Note ---
Orthopedic Progress Note Date of Service May 02, 2017. Subjective Post OP Day: 1 Reports: feeling well, pain controlled w PO medications, Denies: complaints, chest pain, SOB, nausea / vomiting, light headedness, calf pain Additional Notes: patient states she is feeling well with no complaints at the time of examination. Objective calves soft nontender, N/V intact, capillary refill less than 2 sec., dressing C /D/I, A&O x3, toes mobile, hemovac drainage (D/C) patient was sitting comfortable at bedside. She had no tenderness to palpation. No erythema or warmth. Good ROM. Dressing was C/D/I. Date Time Temp Pulse Resp B/P (MAP) Pulse Ox O2 Delivery O2 Flow Rate FiO2 05/02/17 08:08 98 Room Air 05/02/17 07:39 36.6 62 18 155/60 (91) 98 Room Air 05/02/17 03:26 36.6 62 18 145/76 (99) 95 Room Air 05/02/17 00:10 Room Air 05/01/17 23:17 36.7 58 15 153/77 (102) 95 Room Air 05/01/17 20:45 62 152/81 (104) 05/01/17 18:54 36.6 61 16 148/76 (100) 97 Room Air 05/01/17 15:44 36.7 58 16 105/68 (80) 97 Room Air 05/01/17 15:15 Room Air 05/01/17 14:00 55 16 120/74 (89) 97 Room Air 05/01/17 12:56 51 16 106/70 (82) 98 Nasal Cannula 2.0 05/01/17 12:02 36.3 50 20 100/65 (77) 99 Nasal Cannula 2.0 05/01/17 12:00 Nasal Cannula 2.0 05/01/17 11:30 53 16 115/74 (88) 99 Nasal Cannula 2.0 05/01/17 10:56 97 Nasal Cannula 2.0 05/01/17 10:54 36.4 64 20 107/65 (79) 97 Nasal Cannula 2.0 05/01/17 10:45 62 16 97/56 97 Nasal Cannula 2 05/01/17 10:30 62 15 98/60 95 Nasal Cannula 2 05/01/17 10:15 36.2 61 16 101/55 95 Nasal Cannula 2 05/01/17 10:10 61 14 101/58 95 Nasal Cannula 2 05/01/17 10:00 60 15 97/56 96 Nasal Cannula 2 05/01/17 09:50 61 16 99/58 95 Nasal Cannula 2 05/01/17 09:40 62 14 106/57 97 Nasal Cannula 2 05/01/17 09:30 63 14 109/60 97 Nasal Cannula 2 05/01/17 09:24 36.8 65 16 116/52 98 Nasal Cannula 2 Laboratory Results 24 Hours: Test 05/02/17 05:26 Hematocrit 31.0 % Hemoglobin 9.8 g/dL Assessment & Plan Assessment: 71 y/o female POD#1 S/P Revision Right TKA Plan: 1. Medical management 2. DVT prox - ASA SCD TENs 3. Discharge - Home with Home Health. Inhouse Planning Pain Management: Ultram, PO Tylenol, Oxy IR DVT Prophylaxis: TEDs, SCDs, ASA Discharge Planning Discharge Planning: home with home health DVT Prophylaxis: ASA
[2017-05-02] MEDS: D5W AND 1/2NSS + 20MEQ KCL 1,000 ML IV SCH (08:45)
[2017-05-02] MEDS: MYCOPHENOLATE MOFETIL 250 MG CAP (CELLCEPT) PO SCH (08:47)
[2017-05-02] MEDS: PANTOprazole SOD 40 MG TAB PO SCH (08:48)
[2017-05-02] MEDS: CALCIUM 600MG + VIT D 400 IU TAB PO SCH (08:48)
[2017-05-02] MEDS: MULTIVITAMIN TAB PO SCH (08:48)
[2017-05-02] MEDS: ASPIRIN 81 MG ECTAB PO SCH (08:49)
[2017-05-02] MEDS: POTASSIUM CHLORIDE 20 MEQ TABCR PO SCH (08:49)
[2017-05-02] MEDS ORDERED: TORSEMIDE 20 MG TAB PO SCH (09:00)
[2017-05-02] MEDS ORDERED: TRAM-10 PO (11:50)
[2017-05-02] MEDS ORDERED: ASPEC81 PO (11:50)
--- NOTE | 2017-05-02 11:54 | Discharge Instructions ---
Discharge Instructions Date of Service May 02, 2017. Admission Reason for Admission: Complications With Internal Joint Prosthesis Right Discharge Discharge Diagnosis / Problem: S/P Revision Right TKA Discharge Goals Goal(s): Decrease discomfort, Improve function Activity Recommendations Activity Limitations: per Instructions/Follow-up section . Instructions / Follow-Up Instructions / Follow-Up ACTIVITY RECOMMENDATIONS: SELF CARE INSTRUCTIONS AFTER TOTAL KNEE REPLACEMENT A. You may need to continue a physical therapy program after discharge from the hospital. There are several options available to you. Your doctor will assist you in selecting the best one for you. 1. An out-patient facility 2 to 3 times a week for therapy or home therapy. 2. Continue working on all exercises taught to you in the hospital. Your goals should be to increase bending of your knee to 90 degrees and beyond and to fully straighten your knee. B. You may progress at your own pace from walking with a walker or crutches to a cane; then to no assistive devices. C. Make walking a part of your daily routine. Be up as much as comfortable with rest periods throughout the day. Rest with leg elevation is very important. Use the ice wrap frequently for the first 3-4 weeks. D. There are no restrictions on activities. You may ride in a car, shop, participate in home care liaison and all social activities. E. Wear the long elastic stockings (CAMPOS hose) 20 hours a day for 2 weeks after surgery. They can be removed several times a day for laundering and for a bath. F. You may shower, no tub baths until cleared by your doctor. SPECIAL CARE INSTRUCTIONS: VERY IMPORTANT TO READ AND REVIEW A. There are a few signs you need to watch for after you are home. Call [facility] if you notice any of the followin. Increased severe knee pain. Some pain is expected especially when you exercise. 2. Increased swelling in your leg or knee; pain or swelling of the calf muscle in either lower leg. 3. Any fluid drainage from the incision. 4. Shortness of breath or chest pain. B. Please call [facility] at if you have any concerns or questions about your operation or recovery. The doctor or his nurse will return your call promptly. C. You must take antibiotics before dental work, bladder, bowel or other surgery. Your doctor will provide you with a permanent care to carry describing this precaution. IMPORTANT: * REMEMBER TO TAKE ASPIRIN, 81 MG, TWICE DAILY FOR 4 WEEKS UNLESS OTHERWISE DIRECTED. THIS IS YOUR BLOOD THINNER. * HIGH RISK PATIENTS MAY BE PRESCRIBED A STRONGER BLOOD THINNER. THIS WILL BE PROVIDED AT DISCHARGE. * CALL IF INCREASED PAIN, REDNESS, DRAINAGE OR FEVER GREATER THAT 101. * WEAR CAMPOS HOSE 20 HOURS PER DAY FOR 2 WEEKS. * YOU MAY HAVE A LARGE BAND-AID LIKE DRESSING (Prevena). THIS WILL REMAIN ON YOUR INCISION FOR 7 DAYS, THEN CAN BE REMOVED. IF INCISION IS LEAKING THROUGH DRESSING, CALL THE OFFICE . FOLLOW UP VISIT: If appointment is not already scheduled: Please call [facility] to make a follow-up appointment for 2 weeks after your surgery at . Current Hospital Diet Patient's current hospital diet: Regular Diet Discharge Diet Recommended Diet: Regular Diet Procedures Procedures Performed: Right Total Knee Revision Pending Studies Studies pending at discharge: no Medical Emergencies . Who to Call and When: Medical Emergencies: If at any time you feel your situation is an emergency, please call [phone] immediately. . Non-Emergent Contact Non-Emergency issues call your: Surgeon Call Non-Emergent contact if: temperature is above 101.5, your pain is worsening, wound has increased drainage, wound has increased redness . "Provider Documentation" section prepared by Alessandro Dill. . VTE Core Measure Inpt VTE Proph given/why not?: Other Anticoagulation (Aspirin 81mg BID) [place] Drug Monitoring Program Search Results: patient reviewed within database, no issues identified
[2017-05-02 11:57] VITALS: BP 150/67; PULSE 65; TEMP 36.5; O2SAT 99
[2017-05-02 13:29] VITALS: BP 150/67; PULSE 65; TEMP 36.5; O2SAT 99
--- NOTE | 2017-05-11 10:33 | DISCHARGE SUMMARY ---
DISCHARGE DIAGNOSIS: Painful right total knee replacement. SECONDARY DIAGNOSIS: None. CONSULTS: None. COMPLICATIONS: None. PROCEDURE: The patient underwent revision right total knee arthroplasty with Dr. White on 05/01/2017. BRIEF HISTORY: Please see previously dictated history and physical. HOSPITAL SUMMARY: The patient was admitted on the above day for the above procedure. Procedure went without complication. Postop day 1, the patient was feeling well without complaints. She denied chest pain or shortness of breath. Vital signs were stable. She was afebrile. Dressing was clean, dry and intact. She was neurovascularly intact. Calves were soft and nontender. Hemoglobin was 9.8. The patient began physical therapy per protocol. She was discharged to home later that day in stable condition. For further review please see the chart. Lab, x-ray data and discharge instructions as per chart.
== END 2017-05-02 14:10 | disposition home health service (06) | DRG 468 ==
LOC: C.ACU 05:33 → C.3E 06:30 → ENRESERV 10:26
PROVIDERS: ADMIT Orthopaedic Surgery; ATTEND Orthopaedic Surgery
PROC: 0SPC09Z Removal of Liner from Right Knee Joint, Open Approach (ICD-10-PCS; principal; 2017-05-01 07:15)
PROC: 0SRT0J9 Replacement of Right Knee Joint, Femoral Surface with Synthetic Substitute, Cemented, Open Approach (ICD-10-PCS; principal; 2017-05-01 07:15)
DX: T84.84XA Pain due to internal orthopedic prosthetic devices, implants and grafts, initial encounter (principal); Z96.651 Presence of right artificial knee joint; Z79.82 Long term (current) use of aspirin; Z79.899 Other long term (current) drug therapy; Y83.1 Surgical operation with implant of artificial internal device as the cause of abnormal reaction of the patient, or of later complication, without mention of misadventure at the time of the procedure; M06.9 Rheumatoid arthritis, unspecified

== ENCOUNTER → 2017-08-24 | Outpatient (CLI) | payer OTHER ==
[~2017-08-24] MED LIST changes: +ASPEC81 PO; -ASPI81TA28 PO; -ATOR10TA82 PO; +ATOR10TA88 PO; +TRAM-10 PO
--- NOTE | 2017-08-24 14:15 | MAMMOGRAPHY REPORT ---
BILATERAL DIGITAL SCREENING MAMMOGRAM WITH CAD: 08/24/2017 CLINICAL HISTORY: Routine screening. Patient has no complaints. TECHNIQUE: Bilateral CC and MLO views were obtained. Current study was also evaluated with a Compute r Aided Detection (CAD) system. COMPARISON: Comparison is made to exams dated: 08/21/2016 mammogram, 08/03/2015 mammogram, 08/02/2014 m ammogram, 08/01/2013 mammogram, 07/29/2012 mammogram, and 07/28/2011 mammogram - [facility] enter. BREAST COMPOSITION: There are scattered areas of fibroglandular density in both breasts. FINDINGS: There are stable asymmetries in the lateral aspect of each breast. A few benign rim calcif ications and mild vascular calcifications bilaterally. No suspicious mass, architectural distortion or cluster of microcalcifications is seen. IMPRESSION: ACR BI-RADS CATEGORY 1: NEGATIVE There is no mammographic evidence of malignancy. A 1 year screening mammogram is recommended. The pa tient will receive written notification of the results. Approximately 10% of breast cancers are not detected with mammography. A negative mammographic report should not delay biopsy if a clinically suggestive mass is present. Sofya Win M.D. ay/:08/24/2017 13:45:03 [employer] Supervisor: Carol ROCA(Windy)(M), [facility] letter sent: Normal 1/2 BI-RADS Code: ACR BI-RADS Category 1: Negative
== END | disposition home or self-care (01) ==
LOC: C.MAMM 11:04
PROVIDERS: ATTEND Family Medicine
DX: Z12.31 Encounter for screening mammogram for malignant neoplasm of breast (principal)

== ENCOUNTER 2020-11-07 14:23 | Observation (INO) ==
--- NOTE | 2020-11-07 14:45 | CT Scan Report ---
CT OF THE HEAD WITHOUT CONTRAST CLINICAL HISTORY: Strokelike symptoms. Right-sided weakness. COMPARISON STUDY: No previous studies for comparison. CT DOSE: 537.48 mGy.cm TECHNIQUE: Helical axial images of the head were obtained without IV contrast. Automated exposure con trol was utilized for the study. A dose lowering technique was utilized adhering to the principles o f ALARA. FINDINGS: No acute intracranial hemorrhage, midline shift or mass effect is present. Mild white matte r hypodensities favor small vessel disease. The ventricular system is unremarkable. The basal cistern s are patent. No extra-axial collections are present. There are no findings to suggest acute dural si nus thrombosis or acute territorial infarct. No significant calvarial abnormalities are present. Visu alized portions of the sinuses and mastoid air cells are clear. IMPRESSION: No acute intracranial findings. ACT 112: Negative or not required by law. Electronically signed by: Peter Feliz M.D. 11/07/2020 2:44 PM
[2020-11-07 14:53] LABS: Basophils # (auto) 0.03 K/uL (0-0.2); Basophils % (auto) 0.4 %; Eosinophils # (auto) 0.11 K/uL (0-0.5); Eosinophils % (auto) 1.6 %; Hematocrit (blood only) 40.6 % (37-47); Hemoglobin 13.6 g/dL (12.0-16.0); Immature Granulocytes # (auto) 0.01 K/uL (0.00-0.02); Immature Granulocytes % (auto) 0.1 %; Lymphocytes # (auto) 1.74 K/uL (1.2-3.4); Lymphocytes % (auto) 25.1 %; Mean Corpuscular Hemoglobin 29.8 pg (25-34); Mean Corpuscular Hgb Conc 33.5 g/dL (32-36); Mean Corpuscular Volume 88.8 fL (80-100); Mean Platelet Volume 10.2 fL (7.4-10.4); Monocytes # (auto) 1.07 K/uL (0.11-0.59); Monocytes % (auto) 15.5 %; Neutrophils # (auto) 3.96 K/uL (1.4-6.5); Neutrophils % (auto) 57.3 %; Platelet Count 284 K/uL (130-400); RDW Coefficient of Variation 13.6 % (11.5-14.5); RDW Standard Deviation 44.4 fL (36.4-46.3); Red Blood Count 4.57 M/uL (4.2-5.4); White Blood Count 6.92 K/uL (4.8-10.8)
[2020-11-07] MEDS ORDERED: ASPIRIN 81 MG CHEW PO STA (15:08)
[2020-11-07 15:10] LABS: Partial Thromboplastin Ratio 1.1; Partial Thromboplastin Time 29.9 Seconds (21.0-31.0); Prothrombin Time 10.7 Seconds (9.0-12.0)
[2020-11-07 15:11] LABS: Alanine Aminotransferase 32 U/L (12-78); Albumin Level 3.8 gm/dl (3.4-5.0); Aspartate Aminotransferase 30 U/L (15-37); BUN Creatinine Ratio 17.9 (10-20); Blood Urea Nitrogen 21 mg/dl (7-18); Calcium 8.9 mg/dl (8.5-10.1); Carbon Dioxide 30 mmol/L (21-32); Chloride 104 mmol/L (98-107); Creatinine Clr Calc Pharmacy 45.4 ml/min; Est GFR (African American) 53.7; Est GFR (Non-African American) 46.3; Glucose 119 mg/dl (70-99); Magnesium 2.4 mg/dl (1.8-2.4); Potassium 3.3 mmol/L (3.5-5.1); Sodium 139 mmol/L (136-145)
[2020-11-07 15:15] LABS: Albumin Globulin Ratio 0.9 (0.9-2); Alkaline Phosphatase 83 U/L (45-117); Bilirubin,Total 0.4 mg/dl (0.2-1); Globulin 4.2 gm/dl (2.5-4.0); Troponin I < 0.015 ng/ml (0-0.045)
--- NOTE | 2020-11-07 15:36 | Emergency Department Note ---
Impression & Plan Brain TIA, Numbness on right side ED Provider Note Provider: Trevor Weinberg MD DATE OF SERVICE:11/07/2020 CHIEF COMPLAINT: Right-sided numbness, headache HISTORY OF PRESENT ILLNESS: Patient is a 75-year-old female history of Sjogren's, CKD, atrial fibrillation on anticoagulation, hypothyroidism, autoimmune hepatitis presenting today from home with the onset this morning when she woke up around 8 AM of some headache and a bit of an aura. Patient states she took some ibuprofen at this point. Around 1 PM had sudden onset of some right-sided numbness of her face right upper extremity/arm and right lower extremity. No significant weakness but states he felt a bit unsteady on her feet. Denies dizziness, visual change, nausea vomiting, or speech issues. Called her doctor's office who referred her here. Did take 4 baby aspirin's prior to arrival today but does normally take a baby aspirin every day. No history of stroke reported. No trauma reported recent fever. Patient states distantly she had some migraines about 40 years ago with somewhat similar aura but never with numbness and has not had any other issues since that time. Patient states now symptoms are very minimal and only her right arm feels a little bit cool but no weakness. The numbness of the leg and face have abated at this point. Was made a stroke alert from triage. REVIEW OF SYSTEMS: A total of 10 review of systems was obtained and negative except as stated above in the HPI. PAST MEDICAL HISTORY: As noted above MEDICATIONS: Reviewed home medications SOCIAL HISTORY: Non-smoker, lives at home Family medical history: Cardiac disease, hypertension PHYSICAL EXAM: GENERAL: alert and oriented in no acute distress on stretcher Head: normocephalic and atraumatic EYES: No injection, discharge or icterus. NECK: Trachea midline. Supple. ENT: Mucous membranes pink and moist. Pharynx without erythema or exudate. LUNGS: Airway patent. No retractions. Breath sounds clear HEART: Regular rate and rhythm. No chest wall tenderness ABDOMEN: Soft and non-tender, without guarding or rebound. SKIN: Acyanotic, warm, dry, without rashes EXTREMITIES: Without swelling, tenderness or deformity NEUROLOGICAL: No aphasia. No facial droop or slurred speech. Tongue midline. No [id number] ataxia. Normal strength and tone in the extremities. Sensation to gross touch normal but states a slight cool feeling on the right upper extremity. No [id number] ataxia. EK bpm normal sinus rhythm without ST segment elevation or depression. Left axis. No PVCs noted. QTc 452. CONTINUOUS CARDIAC MONITORING: was ordered and showed a heart rate of bpm in normal sinus rhythm Patient's laboratory studies and imaging reviewed. Differential includes Infection, dehydration, metabolic abnormality, hypo/hyperglycemia, electrolyte disturbance, anemia, hypoxia, cardiac sources, intracerebral event, toxicologic, neurologic, as well as other pathologies. IMPRESSION/MEDICAL DECISION MAKING: Patient made stroke alert in triage and seen in the CT scanner initially. Patient reports distant history of migraines decades ago but some aura today and then right-sided numbness. Numbness started around 1 PM within the TPA window. Symptoms improved significantly now only reporting some slight coolness of her right arm. Denies speech or aphasia issues. CT head with acute intracranial mass or bleed. Patient symptoms have significantly improved at this point sound NIH is 0. Discussed with telestroke. No indication for TPA given minimal symptoms and significant improvement of her symptoms. Allergy to CT contrast dye. Ordered additional aspirin full dose but the patient has taken some just prior to arrival. EKG, CBC, CMP were unremarkable other than some borderline hypokalemia 3.3. Covid testing negative. Telestroke recommended based on description of story stroke/TIA work up including MRI and further observation here. Patient states she does she need some anxiety medication to handle MRIs. Discussed with her recommendation for further observation and work-up here in the hospital and she was agreeable although not through the aspect for this. Hospitalist team will be contacted. DIAGNOSIS: Right-sided numbness, TIA DISPOSITION: Hospitalist will evaluate Past Med/Surg History Social History Smoking Status: Never smoker Preferred Language: Yakut Feels Safe at Home: Yes Allergies Allergies Allergy/AdvReac Type Severity Reaction Status Date / Time celecoxib Allergy Intermediate HIVES,HAS Verified 11/07/20 16:33 TAKEN TORADOL OK Sulfa (Sulfonamide Allergy Intermediate HIVES Verified 11/07/20 16:33 Antibiotics) diltiazem Allergy Rash Unverified 11/07/20 16:32 codeine AdvReac Mild VOMITING Verified 11/07/20 16:33 morphine AdvReac Mild VOMITING Verified 11/07/20 16:34 Iodinated Contrast Media AdvReac Unknown severe Verified 11/07/20 16:34 headache and projectile vomiting Home Meds Home Medications Medication Instructions Recorded Confirmed aspirin [Aspir-Low] 81 mg PO DAILY 11/07/20 11/07/20 ezetimibe [Zetia] 10 mg PO HS 11/07/20 11/07/20 levothyroxine [Levoxyl] 75 mcg PO 6XWK 11/07/20 11/07/20 magnesium oxide 250 mg PO HS 11/07/20 11/07/20 melatonin 5 mg PO HS PRN 11/07/20 11/07/20 metoprolol succinate [Toprol XL] 25 mg PO BID 11/07/20 11/07/20 mycophenolate mofetil [CellCept] 500 mg PO BID 11/07/20 11/07/20 omeprazole [Prilosec] 20 mg PO QAM 11/07/20 11/07/20 potassium chloride 10 meq PO BID 11/07/20 11/07/20 torsemide [Demadex] 20 mg PO DAILY 11/07/20 11/07/20 Results & Data (ED) Vital Signs Vital Signs - 24 hr 11/07/20 14:26 11/07/20 15:00 11/07/20 15:15 Temperature 36.8 C Temperature Source Oral Pulse Rate 62 66 59 L Pulse Rate from SpO2 Sensor 63 59 L Respiratory Rate 18 21 16 Respiratory Effort / Characteristics Non-Labored Spontaneous Respiratory Depth Normal Respiratory Pattern Regular Blood Pressure 210/92 H 139/68 Blood Pressure Mean 131 92 Blood Pressure Position Sitting Pulse Oximetry 99 98 99 Oxygen Delivery Method Room Air Sepsis Recent Fever Within 48 Hours No Sepsis New/Unexplained Change in Mental Status N/A Sepsis Action Taken by Nursing No Action Required 11/07/20 15:30 11/07/20 16:00 11/07/20 16:28 Temperature Temperature Source Pulse Rate 58 L 62 59 L Pulse Rate from SpO2 Sensor 58 L 59 L Respiratory Rate 15 17 20 Respiratory Effort / Characteristics Respiratory Depth Respiratory Pattern Blood Pressure 139/71 149/80 H Blood Pressure Mean 80 89 Blood Pressure Position Pulse Oximetry 97 94 96 Oxygen Delivery Method Room Air Room Air Sepsis Recent Fever Within 48 Hours Sepsis New/Unexplained Change in Mental Status Sepsis Action Taken by Nursing 11/07/20 16:30 Temperature Temperature Source Pulse Rate 56 L Pulse Rate from SpO2 Sensor Respiratory Rate 22 Respiratory Effort / Characteristics Respiratory Depth Respiratory Pattern Blood Pressure Blood Pressure Mean Blood Pressure Position Pulse Oximetry 95 Oxygen Delivery Method Room Air Sepsis Recent Fever Within 48 Hours Sepsis New/Unexplained Change in Mental Status Sepsis Action Taken by Nursing Laboratory Data Result diagrams: 11/07/20 14:44 11/07/20 14:44 Lab Results 11/07/20 11/07/20 11/07/20 Range/Units 14:44 14:44 14:44 WBC 6.92 (4.8-10.8) K/uL RBC 4.57 (4.2-5.4) M/uL Hgb 13.6 (12.0-16.0) g/dL Hct 40.6 (37-47) % MCV 88.8 (80-100) fL MCH 29.8 (25-34) pg MCHC 33.5 (32-36) g/dL RDW Std Deviation 44.4 (36.4-46.3) fL RDW Coeff of Destini 13.6 (11.5-14.5) % Plt Count 284 (130-400) K/uL MPV 10.2 (7.4-10.4) fL Immature Gran % (Auto) 0.1 % Neut % (Auto) 57.3 % Lymph % (Auto) 25.1 % [place] % (Auto) 15.5 % Eos % (Auto) 1.6 % Baso % (Auto) 0.4 % Neut # (Auto) 3.96 (1.4-6.5) K/uL Lymph # (Auto) 1.74 (1.2-3.4) K/uL [place] # (Auto) 1.07 H (0.11-0.59) K/uL Eos # (Auto) 0.11 (0-0.5) K/uL Baso # (Auto) 0.03 (0-0.2) K/uL Immature Gran # (Auto) 0.01 (0.00-0.02) K/uL PT 10.7 (9.0-12.0) Seconds INR 1.0 (0.9-1.1) APTT 29.9 (21.0-31.0) Seconds PTT Ratio 1.1 Sodium (136-145) mmol/L Potassium (3.5-5.1) mmol/L Chloride (98-107) mmol/L Carbon Dioxide (21-32) mmol/L Anion Gap (3-11) BUN (7-18) mg/dl Creatinine (0.6-1.2) mg/dl Est Cr Clr Drug Dosing ml/min Est GFR ( Amer) Est GFR (Non-Af Amer) BUN/Creatinine Ratio (10-20) Glucose (70-99) mg/dl POC Glucose (70-99) mg/dl Calcium (8.5-10.1) mg/dl Magnesium (1.8-2.4) mg/dl Total Bilirubin (0.2-1) mg/dl AST (15-37) U/L ALT (12-78) U/L Alkaline Phosphatase (45-117) U/L Troponin I (0-0.045) ng/ml Total Protein (6.4-8.2) gm/dl Albumin (3.4-5.0) gm/dl Globulin (2.5-4.0) gm/dl Albumin/Globulin Ratio (0.9-2) SARS-CoV-2 Ag (Rapid) (Negative) Blood Type O Positive Antibody Screen NEGATIVE 11/07/20 11/07/20 11/07/20 Range/Units 14:44 14:49 15:50 WBC (4.8-10.8) K/uL RBC (4.2-5.4) M/uL Hgb (12.0-16.0) g/dL Hct (37-47) % MCV (80-100) fL MCH (25-34) pg MCHC (32-36) g/dL RDW Std Deviation (36.4-46.3) fL RDW Coeff of Destini (11.5-14.5) % Plt Count (130-400) K/uL MPV (7.4-10.4) fL Immature Gran % (Auto) % Neut % (Auto) % Lymph % (Auto) % [place] % (Auto) % Eos % (Auto) % Baso % (Auto) % Neut # (Auto) (1.4-6.5) K/uL Lymph # (Auto) (1.2-3.4) K/uL [place] # (Auto) (0.11-0.59) K/uL Eos # (Auto) (0-0.5) K/uL Baso # (Auto) (0-0.2) K/uL Immature Gran # (Auto) (0.00-0.02) K/uL PT (9.0-12.0) Seconds INR (0.9-1.1) APTT (21.0-31.0) Seconds PTT Ratio Sodium 139 (136-145) mmol/L Potassium 3.3 L (3.5-5.1) mmol/L Chloride 104 (98-107) mmol/L Carbon Dioxide 30 (21-32) mmol/L Anion Gap 5.0 (3-11) BUN 21 H (7-18) mg/dl Creatinine 1.16 (0.6-1.2) mg/dl Est Cr Clr Drug Dosing 45.4 ml/min Est GFR ( Amer) 53.7 Est GFR (Non-Af Amer) 46.3 BUN/Creatinine Ratio 17.9 (10-20) Glucose 119 H (70-99) mg/dl POC Glucose 125 H (70-99) mg/dl Calcium 8.9 (8.5-10.1) mg/dl Magnesium 2.4 (1.8-2.4) mg/dl Total Bilirubin 0.4 (0.2-1) mg/dl AST 30 (15-37) U/L ALT 32 (12-78) U/L Alkaline Phosphatase 83 (45-117) U/L Troponin I < 0.015 (0-0.045) ng/ml Total Protein 8.0 (6.4-8.2) gm/dl Albumin 3.8 (3.4-5.0) gm/dl Globulin 4.2 H (2.5-4.0) gm/dl Albumin/Globulin Ratio 0.9 (0.9-2) SARS-CoV-2 Ag (Rapid) Negative (Negative) Blood Type Antibody Screen Administered Medications Discontinued Medications Aspirin (Aspirin 81 Mg Chew) 234 mg PO NOW STA Stop: 11/07/20 15:09 Last Admin: 11/07/20 15:33 Dose: Not Given Documented by: [id number] Discharge Plan Visit Data Chief Complaint: Neuro Symptoms/Deficit Stated Complaint: right side weakness, headache, dr sent ED Provider: Trevor Weinberg Discharge Problem: Brain TIA, Numbness on right side Patient Disposition: Being Evaluated by Hospitalist Forms Stand Alone Forms: My [facility] [place] [employer] Prescriptions Prescriptions: No Action metoprolol succinate [Toprol XL] 25 mg Tablet Extended Release 24 Hr 25 mg PO BID RF: 0 torsemide [Demadex] 20 mg Tablet 20 mg PO DAILY RF: 0 omeprazole [Prilosec] 20 mg Capsule,Delayed Release(Dr/Ec) 20 mg PO QAM RF: 0 levothyroxine [Levoxyl] 75 mcg Tablet 75 mcg PO 6XWK RF: 0 melatonin 5 mg Tablet 5 mg PO HS PRN (Reason: Insomnia) RF: 0 magnesium oxide 250 mg magnesium Tablet 250 mg PO HS RF: 0 mycophenolate mofetil [CellCept] 500 mg Tablet 500 mg PO BID RF: 0 potassium chloride 10 mEq Tablet Extended Release 10 meq PO BID RF: 0 ezetimibe [Zetia] 10 mg Tablet 10 mg PO HS RF: 0 aspirin [Aspir-Low] 81 mg Tablet,Delayed Release (Dr/Ec) 81 mg PO DAILY RF: 0 Referrals Referrals: Carol Cade DO [Primary Care Provider] -
--- NOTE | 2020-11-07 17:08 | History & Physical Report ---
Date of Service November 07, 2020 Assessment & Plan (1) Stroke-like symptoms: Report of headache, visual aura, right-sided numbness Differentials include TIA, complex headache CT head was unremarkable. We will get MRI brain According to ER physician, telemetry neurologist evaluated. No indication for TPA given resolution of symptoms. Considering history of paroxysmal atrial fibrillation, will put on air sampling and monitoring and get 2D echo Neurology consult Continue aspirin daily for now Avoid statin due to history of autoimmune hepatitis (2) Autoimmune hepatitis: Stable Continue home CellCept Avoid statin (3) Hypothyroidism: Continue levothyroxine (4) Paroxysmal atrial fibrillation: Currently in normal sinus rhythm Put on telemetry and monitor Continue metoprolol Patient was seen by cardiology on 08/22/2020. Per review of environmental services manager notes, patient had had SVT and past paroxysmal AF. Without recurrence and without anticoagulation. We will follow-up current work-up and may touch base with cardiology regarding any possible adjustments of medication if need be (5) CKD (chronic kidney disease), stage III: Creatinine at baseline Monitor Avoid nephrotoxins Hypokalemia. K 3.3. Replete and continue home potassium DVT prophylaxis-Lovenox subcu Disposition-MedSurg with telemetry History of Present Illness 75-year-old woman with history of hypertension, appointment hepatitis, hypothyroidism, CKD 3, dyslipidemia who presented to the ER this morning complaining of right-sided numbness and headache. Patient reported that she woke up with mild headache and some visual aura. She took some ibuprofen and symptoms resolved. However, around 1 PM, she developed sudden onset right-sided numbness involving the upper extremity, arm, right side of the face and right lower extremity. This was associated with headache. Denied any focal weakness, blurry vision, nausea, vomiting Denied slurred speech Denied loss of consciousness, palpitations, chest pain, shortness of breath She called her doctor's office and took for aspirin 81 mg prior to to the ER. Patient denied any history of stroke, heart attack She does report that she used to have migraines in the past but has not had any for many years now. She stated that her migraines then were not associated with aura. She reported that she has been having some visual auras over the past few months but usually not associated with any headache, numbness or weakness. Patient denies cigarette smoking, alcohol or illicit drug use. Reported family history of CAD in father and hypertension in the mother The time of my evaluation in the ER, all symptoms had resolved. Primary Care Provider: Carol Cade DO Allergies Allergy/AdvReac Type Severity Reaction Status Date / Time celecoxib Allergy Intermediate HIVES,HAS Verified 11/07/20 16:33 TAKEN TORADOL OK Sulfa (Sulfonamide Allergy Intermediate HIVES Verified 11/07/20 16:33 Antibiotics) diltiazem Allergy Rash Unverified 11/07/20 16:32 codeine AdvReac Mild VOMITING Verified 11/07/20 16:33 morphine AdvReac Mild VOMITING Verified 11/07/20 16:34 Iodinated Contrast Media AdvReac Unknown severe Verified 11/07/20 16:34 headache and projectile vomiting Home Medications Medication Instructions Recorded Confirmed Type aspirin [Aspir-Low] 81 mg PO DAILY 11/07/20 11/07/20 History ezetimibe [Zetia] 10 mg PO HS 11/07/20 11/07/20 History levothyroxine [Levoxyl] 75 mcg PO 6XWK 11/07/20 11/07/20 History magnesium oxide 250 mg PO HS 11/07/20 11/07/20 History melatonin 5 mg PO HS PRN 11/07/20 11/07/20 History metoprolol succinate [Toprol XL] 25 mg PO BID 11/07/20 11/07/20 History mycophenolate mofetil [CellCept] 500 mg PO BID 11/07/20 11/07/20 History omeprazole [Prilosec] 20 mg PO QAM 11/07/20 11/07/20 History potassium chloride 10 meq PO BID 11/07/20 11/07/20 History torsemide [Demadex] 20 mg PO DAILY 11/07/20 11/07/20 History Past Med/Surg History Social History Smoking Status: Never smoker Preferred Language: Latvian Feels Safe at Home: Yes Review of Systems Review of Systems: All systems reviewed & are unremarkable except as noted in HPI & below Physical Exam Constitutional: well nourished and + well hydrated; no acute distress Eyes: PERRL, conjunctivae normal, anicteric sclerae ENMT: external ear and nose normal, oropharynx normal Respiratory: normal respiratory effort, lungs clear to auscultation Cardiovascular: Rate/Rhythm: regular rate and regular rhythm S1-S2 Gastrointestinal (Abdomen): normal bowel sounds, soft, nontender, no hepatospl enomegaly Musculoskeletal: no cyanosis or clubbing, extremities motor strength 5/5 Neurologic: PERRL, EOMI, accommodation nl, no face palsy, no dysarthria normal touch/pain/proprioception Motor/Sensory: no pronator drift and no sensory deficit Power is 5/5 in all extremities Psychiatric: A+Ox3, euthymic affect Results & Data Results & Data ([facility]) Vital Signs (Past 12 Hours) Vital Signs Temp Pulse Resp BP Pulse Ox 11/07/20 16:30 56 L 22 95 11/07/20 16:28 59 L 20 149/80 H 96 11/07/20 16:00 62 17 94 11/07/20 15:30 58 L 15 139/71 97 11/07/20 15:15 59 L 16 139/68 99 11/07/20 15:00 66 21 98 11/07/20 14:26 36.8 C 62 18 210/92 H 99 Laboratory Results Laboratory Results - last 24 hr 11/07/20 11/07/20 11/07/20 14:44 14:44 14:44 WBC 6.92 RBC 4.57 Hgb 13.6 Hct 40.6 MCV 88.8 MCH 29.8 MCHC 33.5 RDW Std Deviation 44.4 RDW Coeff of [place] 13.6 Plt Count 284 MPV 10.2 Immature Gran % (Auto) 0.1 Neut % (Auto) 57.3 Lymph % (Auto) 25.1 Carbon % (Auto) 15.5 Eos % (Auto) 1.6 Baso % (Auto) 0.4 Neut # (Auto) 3.96 Lymph # (Auto) 1.74 Carbon # (Auto) 1.07 H Eos # (Auto) 0.11 Baso # (Auto) 0.03 Immature Gran # (Auto) 0.01 PT 10.7 INR 1.0 APTT 29.9 PTT Ratio 1.1 Sodium Potassium Chloride Carbon Dioxide Anion Gap BUN Creatinine Est Cr Clr Drug Dosing Est GFR ( Amer) Est GFR (Non-Af Amer) BUN/Creatinine Ratio Glucose POC Glucose Calcium Magnesium Total Bilirubin AST ALT Alkaline Phosphatase Troponin I Total Protein Albumin Globulin Albumin/Globulin Ratio SARS-CoV-2 Ag (Rapid) Blood Type O Positive Antibody Screen NEGATIVE 11/07/20 11/07/20 11/07/20 14:44 14:49 15:50 WBC RBC Hgb Hct MCV MCH MCHC RDW Std Deviation RDW Coeff of [place]ini Plt Count MPV Immature Gran % (Auto) Neut % (Auto) Lymph % (Auto) Carbon % (Auto) Eos % (Auto) Baso % (Auto) Neut # (Auto) Lymph # (Auto) [place] # (Auto) Eos # (Auto) Baso # (Auto) Immature Gran # (Auto) PT INR APTT PTT Ratio Sodium 139 Potassium 3.3 L Chloride 104 Carbon Dioxide 30 Anion Gap 5.0 BUN 21 H Creatinine 1.16 Est Cr Clr Drug Dosing 45.4 Est GFR ( Amer) 53.7 Est GFR (Non-Af Amer) 46.3 BUN/Creatinine Ratio 17.9 Glucose 119 H POC Glucose 125 H Calcium 8.9 Magnesium 2.4 Total Bilirubin 0.4 AST 30 ALT 32 Alkaline Phosphatase 83 Troponin I < 0.015 Total Protein 8.0 Albumin 3.8 Globulin 4.2 H Albumin/Globulin Ratio 0.9 SARS-CoV-2 Ag (Rapid) Negative Blood Type Antibody Screen Diagnostic Findings CT HEAD No acute intracranial hemorrhage, midline shift or mass effect is present. Mild white matter hypodensities favor small vessel disease. The ventricular system is unremarkable. The basal cisterns are patent. No extra-axial collections are present. There are no findings to suggest acute dural sinus thrombosis or acute territorial infarct. No significant calvarial abnormalities are present. Vis ualized portions of the sinuses and mastoid air cells are clear. IMPRESSION: No acute intracranial findings.
--- NOTE | 2020-11-07 17:18 | Electrocardiogram Report ---
Test Reason : Blood Pressure : / mmHG Vent. Rate : 068 BPM Atrial Rate : 068 BPM P-R Int : 170 ms QRS Dur : 090 ms QT Int : 426 ms P-R-T Axes : 042 -33 031 degrees QTc Int : 452 ms Normal sinus rhythm Left axis deviation Borderline ECG When compared with ECG of 26-FEB-2016 12:42, No significant change was found Confirmed by Artemio Longo ([id number]) on 11/07/2020 5:18:25 PM Referred By: Confirmed By:Artemio Longo
[2020-11-07 18:33] LABS: Appearance Urine Clear (Clear); Bacteria Urine Automated Negative (Negative); Bilirubin Urine Negative (Negative); Blood Urine Negative (Negative); Cast Urine Automated 0 /lpf (0-5); Color Urine Yellow; Epithelial Cell Urine Auto 0-5 /lpf (0-5); Glucose Urine UA Negative (Negative); Ketones Urine Negative (Negative); Leukocyte Esterase Urine Trace (Negative); Nitrite Urine Negative (Negative); Protein Urine Negative (Negative); RBC Urine Automated 0-4 /hpf (0-4); Specific Gravity Urine 1.011 (1.000-1.030); Urobilinogen Urine Negative (Negative)
[2020-11-07] MEDS ORDERED: MELATONIN 3 MG TAB PO PRN (19:03)
[2020-11-07] MEDS ORDERED: POTASSIUM CHLORIDE CRTAB 20 MEQ TABCR PO ONE (19:15)
[2020-11-07] MEDS ORDERED: LORazepam 0.5 MG/1 ML VIAL IV PRN (19:30)
[2020-11-07] MEDS ORDERED: ENOXAPARIN INJ 40 MG/0.4 ML SYR SQ SCH (20:00)
[2020-11-07] MEDS ORDERED: MAGNESIUM OXIDE 400 MG TAB PO SCH (21:00)
[2020-11-07] MEDS ORDERED: EZETIMIBE 10 MG TABLET PO SCH (21:00)
--- NOTE | 2020-11-07 21:15 | Magnetic Resonance Report ---
MR brain wo con HISTORY: 75 years-old Female Rule out CVA acute strokelike symptoms with headache COMPARISON: Head CT 11/07/2020 TECHNIQUE: Multiplanar multisequence MRI of the brain was obtained without the use of IV contrast. FINDINGS: Solar Project Engineer localizer images demonstrate no gross extracranial abnormality. No restricted diffusion to sugg est acute or subacute infarct. Midline structures including the corpus callosum, brainstem, optic chi asm, pituitary and pineal glands appear unremarkable on the sagittal T1 series. No cerebellar tonsill ar herniation. Degenerative changes are noted involving the imaged cervical spine. There is no pathologic blooming artifact on the T2 star series. No acute intracranial hemorrhage, mid line shift, abnormal extra-axial collection, hydrocephalus or intracranial mass. Mild age-related inv olutional changes. Mild patchy T2/FLAIR hyperintensities throughout the white matter. The cerebral ve nous sinuses and major arterial flow voids at the level the skull base appear patent. Mastoid air hillary ls and paranasal sinuses are clear. Prior bilateral lens replacement. IMPRESSION: 1. No acute intracranial abnormality, specifically there is no evidence of acute or subacute infarct. 2. Age-related involutional changes with mild chronic microvascular ischemic disease. ACT 112: Negative or not required by law. The above report was generated using voice recognition software. It may contain grammatical, syntax o r spelling errors. Electronically signed by: Ld Hernandez M.D. 11/07/2020 9:13 PM
[2020-11-07] MEDS: POTASSIUM CHLORIDE 10 MEQ TABCR PO SCH (21:24)
[2020-11-07] MEDS: MYCOPHENOLATE MOFETIL 250 MG CAP PO SCH (21:24)
[2020-11-07] MEDS: METOPROLOL SUCC 25MG EXT REL TAB PO SCH (21:25)
[2020-11-08 05:52] LABS: Estimated Average Glucose 123 mg/dl; Hemoglobin A1C 5.9 % (4.5-5.6)
[2020-11-08] MEDS ORDERED: LEVOTHYROXINE SODIUM 75 MCG TABLET PO SCH (06:30)
[2020-11-08 07:01] LABS: Hematocrit (blood only) 36.3 % (37-47); Hemoglobin 12.2 g/dL (12.0-16.0); Mean Corpuscular Hemoglobin 29.7 pg (25-34); Mean Corpuscular Hgb Conc 33.6 g/dL (32-36); Mean Corpuscular Volume 88.3 fL (80-100); Mean Platelet Volume 11.6 fL (7.4-10.4); Platelet Count 187 K/uL (130-400); RDW Coefficient of Variation 13.6 % (11.5-14.5); RDW Standard Deviation 44.7 fL (36.4-46.3); Red Blood Count 4.11 M/uL (4.2-5.4); White Blood Count 4.48 K/uL (4.8-10.8)
[2020-11-08 07:32] LABS: Albumin Globulin Ratio 0.9 (0.9-2); BUN Creatinine Ratio 18.1 (10-20); Bilirubin,Total 0.5 mg/dl (0.2-1); Calcium 8.7 mg/dl (8.5-10.1); Est GFR (African American) 60.6; Est GFR (Non-African American) 52.3; Globulin 3.5 gm/dl (2.5-4.0); Potassium 3.9 mmol/L (3.5-5.1); Total Protein 6.5 gm/dl (6.4-8.2)
[2020-11-08] MEDS ORDERED: TORSEMIDE 10 MG TAB PO SCH (09:00)
[2020-11-08] MEDS ORDERED: PANTOprazole 40 MG TAB PO SCH (09:00)
[2020-11-08] MEDS ORDERED: ASPIRIN 81 MG ECTAB PO SCH (09:00)
[2020-11-08] MEDS: MYCOPHENOLATE MOFETIL 250 MG CAP PO SCH (10:08)
[2020-11-08] MEDS: METOPROLOL SUCC 25MG EXT REL TAB PO SCH (10:09)
[2020-11-08] MEDS: POTASSIUM CHLORIDE 10 MEQ TABCR PO SCH (10:09)
--- NOTE | 2020-11-08 11:09 | Consultation Report ---
DATE OF CONSULTATION: 11/08/2020 NEUROLOGY CONSULTATION NOTE CHIEF COMPLAINT: Right-sided numbness and headache. HISTORY OF PRESENT ILLNESS: A 75-year-old woman with a history of hypertension, hypothyroidism, chronic kidney disease stage III and hyperlipidemia, admitted from the Emergency Department yesterday morning for complaint of right-sided numbness and headache. The patient reportedly woke up in the morning with a mild headache and some visual aura. She took teid-yeh-wloivho medications and the symptoms resolved. However, around 1:00 p.m., she developed right-sided numbness involving her right arm, right face and right lower extremity. This was also associated with a headache. She had no weakness, blurry vision, nausea or vomiting. No speech changes. She had no loss of consciousness, chest pain, palpitations, or shortness of breath. She has no prior history of cardiovascular accident or a cerebrovascular accident. She does have a prior history of migraine headaches, although has not had any recent migraines in the last several years. She has no prior history of migraine with aura. However, she has been having some visual auras over the last few months, not associated with a headache or numbness. The patient was admitted to the hospital for evaluation of possible transient ischemic attack or stroke. Neurology was consulted on admission. ALLERGIES: CELEBREX, SULFONAMIDE ANTIBIOTICS, DILTIAZEM, CODEINE, MORPHINE, IODINE CONTRAST. HOME MEDICATIONS: Aspirin 81 mg daily, Zetia, Synthroid, magnesium oxide, melatonin, Toprol-XL, CellCept, omeprazole, potassium chloride, torsemide. PAST MEDICAL HISTORY: Hypertension, hypothyroidism, autoimmune hepatitis, paroxysmal atrial fibrillation, chronic kidney disease, dyslipidemia. PAST SURGICAL HISTORY: Reviewed. No recent surgeries. FAMILY HISTORY: Father had coronary artery disease and her mother had hypertension. SOCIAL HISTORY: She is a nonsmoker, denies any alcohol. REVIEW OF SYSTEMS: All review of systems was unremarkable except as noted above in the HPI. PHYSICAL EXAMINATION: VITAL SIGNS: Blood pressure 103/65, pulse is 60, respiratory rate is 18, temperature is 36.4 degrees Celsius, oxygen saturation is 95% on room air. GENERAL: The patient appears her stated age, no distress. HEENT: Face is normocephalic and atraumatic. Normal eyelids. Normal conjunctivae. NECK: Supple. LUNGS: Normal respiratory effort. CARDIOVASCULAR: Normal cardiac pulses. ABDOMEN: Nondistended. SKIN: No skin rash. PSYCHIATRIC: Normal mood. NEUROLOGIC: Awake, alert and oriented to person, place and time. Memory is normal. Attention is normal. Knowledge is appropriate. Language, no aphasia. Comprehension is intact. No dysarthria. No visual defect on confrontation. Pupils are symmetric. Extraocular muscles are intact. Facial sensation intact. No facial asymmetry. Intact hearing. Palate is symmetric. Good shoulder shrug. Tongue is midline. Gait examination deferred. Coordination, no ataxia with elnzjd-pa-hulk testing. No tremor. Sensation intact to light touch. Muscle tone is normal. Muscle strength 5/5. Reflexes, no ankle clonus, negative Johnnie sign. DIAGNOSTIC TESTING AND LABORATORY VALUES: WBC 4.48, hemoglobin 12.2, platelet count 187. INR is 1.0. Sodium is 142, potassium 3.9, chloride 109, BUN 19, creatinine 1.05, glucose 125. Hemoglobin A1c 5.9. Calcium 8.7, magnesium 2.4. AST and ALT are normal. Troponin is negative. Triglycerides are 155, LDL cholesterol is 116, HDL cholesterol is 40. Urinalysis showed trace leukocyte esterase, negative bacteria. COVID testing was negative. MRI of the brain without contrast performed on 11/07/2020: No acute intracranial abnormality. No evidence of acute or subacute ischemic stroke. Age-related involutional changes with mild chronic microvascular ischemic disease. Head CT noncontrast: No acute intracranial findings. ASSESSMENT AND PLAN: A 75-year-old woman with a history of migraine headaches, although recently in remission, autoimmune hepatitis, on CellCept, paroxysmal atrial fibrillation, on aspirin and hypertension, admitted with a mild headache associated with transient right-sided numbness (45 minutes). Recently has noted increased or progression of a visual aura. MRI of the brain was performed and shows no evidence of ischemic stroke. Clinical history and symptoms are suggestive of migraine equivalents or migraine aura.Recommend increasing home MagOx to 500 mg twice daily. Outpatient follow up with neurology in 8-weeks. MTDD
--- NOTE | 2020-11-08 14:22 | Discharge Summary ---
Date of Service November 08, 2020 Admission HPI Per Admitting Provider 75-year-old woman with history of hypertension, appointment hepatitis, hypothyroidism, CKD 3, dyslipidemia who presented to the ER this morning complaining of right-sided numbness and headache. Patient reported that she woke up with mild headache and some visual aura. She took some ibuprofen and symptoms resolved. However, around 1 PM, she developed sudden onset right-sided numbness involving the upper extremity, arm, right side of the face and right lower extremity. This was associated with headache. Denied any focal weakness, blurry vision, nausea, vomiting Denied slurred speech Denied loss of consciousness, palpitations, chest pain, shortness of breath She called her doctor's office and took for aspirin 81 mg prior to to the ER. Patient denied any history of stroke, heart attack She does report that she used to have migraines in the past but has not had any for many years now. She stated that her migraines then were not associated with aura. She reported that she has been having some visual auras over the past few months but usually not associated with any headache, numbness or weakness. Patient denies cigarette smoking, alcohol or illicit drug use. Reported family history of CAD in father and hypertension in the mother The time of my evaluation in the ER, all symptoms had resolved. Admission Exam Per Admitting Provider Constitutional: well nourished and + well hydrated; no acute distress Eyes: PERRL, conjunctivae normal, anicteric sclerae ENMT: external ear and nose normal, oropharynx normal Respiratory: normal respiratory effort, lungs clear to auscultation Cardiovascular: Rate/Rhythm: regular rate and regular rhythm S1-S2 Gastrointestinal (Abdomen): normal bowel sounds, soft, nontender, no hepatosplenomegaly Musculoskeletal: no cyanosis or clubbing, extremities motor strength 5/5 Neurologic: PERRL, EOMI, accommodation nl, no face palsy, no dysarthria normal touch/pain/proprioception Motor/Sensory: no pronator drift and no sensory deficit Power is 5/5 in all extremities Psychiatric: A+Ox3, euthymic affect Principal Diagnosis Migraine with aura Discharge Exam Constitutional well nourished and + well hydrated; no acute distress Eyes PERRL, conjunctivae normal, anicteric sclerae ENMT external ear and nose normal, oropharynx normal Respiratory normal respiratory effort, lungs clear to auscultation Cardiovascular Rate/Rhythm: regular rate and regular rhythm Gastrointestinal (Abdomen) normal bowel sounds, soft, nontender, no hepatosplenomegaly Musculoskeletal no cyanosis or clubbing, extremities motor strength 5/5 Neurologic PERRL, EOMI, accommodation nl, no face palsy, no dysarthria normal touch/pain/proprioception Motor/Sensory: no pronator drift and no sensory deficit Psychiatric A+Ox3, euthymic affect Discharge Data Allergies Allergy/AdvReac Type Severity Reaction Status Date / Time celecoxib Allergy Intermediate HIVES,HAS Verified 11/07/20 16:33 TAKEN TORADOL OK Sulfa (Sulfonamide Allergy Intermediate HIVES Verified 11/07/20 16:33 Antibiotics) diltiazem Allergy Rash Unverified 11/07/20 16:32 codeine AdvReac Mild VOMITING Verified 11/07/20 16:33 morphine AdvReac Mild VOMITING Verified 11/07/20 16:34 Iodinated Contrast Media AdvReac Unknown severe Verified 11/07/20 16:34 headache and projectile vomiting Consultations 11/07/20 16:05 ED Decision to Admit Stat 11/07/20 18:59 Consult Neurology Routine Ordered Studies 11/07/20 14:32 CT head/brain wo con Stat No acute intracranial hemorrhage, midline shift or mass effect is present. Mild white matter hypodensities favor small vessel disease. The ventricular system is unremarkable. The basal cisterns are patent. No extra-axial collections are present. There are no findings to suggest acute dural sinus thrombosis or acute territorial infarct. No significant calvarial abnormalities are present. Visualized portions of the sinuses and mastoid air cells are clear. IMPRESSION: No acute intracranial findings. 11/07/20 18:59 MR brain wo con Stat [employer] localizer images demonstrate no gross extracranial abnormality. No restricted diffusion to suggest acute or subacute infarct. Midline structures including the corpus callosum, brainstem, optic chiasm, pituitary and pineal glands appear unremarkable on the sagittal T1 series. No cerebellar tonsillar herniation. Degenerative changes are noted involving the imaged cervical spine. There is no pathologic blooming artifact on the T2 star series. No acute intracranial hemorrhage, midline shift, abnormal extra-axial collection, hydrocephalus or intracranial mass. Mild age-related involutional changes. Mild patchy T2/FLAIR hyperintensities throughout the white matter. The cerebral venous sinuses and major arterial flow voids at the level the skull base appear patent. Mastoid air cells and paranasal sinuses are clear. Prior bilateral lens replacement. IMPRESSION: 1. No acute intracranial abnormality, specifically there is no evidence of acute or subacute infarct. 2. Age-related involutional changes with mild chronic microvascular ischemic disease. Hospital Course (1) Migraine with aura: (2) Stroke-like symptoms: Report of headache, visual aura, right-sided numbness Likely migraine with aura All symptoms resolved. No focal neurological deficit CT head was unremarkable. MRI unremarkable Discussed with Neurologist Recommended increasing patient's mag oxide to bid Patient reported she does not need a script for this Patient to follow-up with neurologist outpatient for continued management (3) Autoimmune hepatitis: Stable Continue home CellCept (4) Hypothyroidism: Continue levothyroxine (5) Paroxysmal atrial fibrillation: Currently in normal sinus rhythm Continue metoprolol Patient was seen by cardiology on 08/22/2020. Per review of head chef notes, patient had had SVT and past paroxysmal AF. Without recurrence and without anticoagulation. Patient to follow-up with head chef (6) CKD (chronic kidney disease), stage III: Creatinine at baseline Avoid nephrotoxins Hypokalemia. K 3.3 on admission. Repleted and continue home potassium Total Time Total Time Spent Total Time Spent (In Minutes): 35 Total Time Includes: Examination of the Patient, Discharge Planning, Medication Reconciliation and Communication With Other Providers Discharge Plan Discharge Items Patient Disposition: Home - Self-Care Reason For Visit: STROKE LIKE SYMPTOMS Discharge Diagnosis: Migraine aura Activity: Resume your previous activity Non-emergency contact: Primary Care Provider and Neurologist Call non-emergency contact if: you have any medication questions and your symptoms worsen Follow-up/Referrals: Carol Cade DO [Primary Care Provider] - Diet: Heart Healthy Addtl Attending Provider Instructions: Mrs Daugherty You came to the hospital complaining of right sided numbness, aura and headache. You were extensively evaluated with multiple scans which did not show any stroke. Your symptoms resolved. This is likely migraine with aura or its equivalents. Please increase your magnesium oxide to twice daily as recommended by the neurologist. Please follow up with the neurologist. Please continue all your home medications and follow up with your Primary Doctor. It was a pleasure taking care of you. Pending Studies at Discharge: No Stand-Alone Forms: Packet Digital, Smoking Cessation Medications and DC Order Prescriptions: Continued metoprolol succinate [Toprol XL] 25 mg Tablet Extended Release 24 Hr 25 mg PO BID RF: 0 torsemide 20 mg Tablet 20 mg PO DAILY RF: 0 omeprazole 20 mg Capsule,Delayed Release(Dr/Ec) 20 mg PO QAM RF: 0 levothyroxine [Levoxyl] 75 mcg Tablet 75 mcg PO [id number] RF: 0 melatonin 5 mg Tablet 5 mg PO HS PRN (Reason: Insomnia) RF: 0 mycophenolate mofetil [CellCept] 500 mg Tablet 500 mg PO BID RF: 0 potassium chloride 10 mEq Tablet Extended Release 10 meq PO BID RF: 0 ezetimibe [Zetia] 10 mg Tablet 10 mg PO HS RF: 0 aspirin 81 mg Tablet,Delayed Release (Dr/Ec) 81 mg PO DAILY RF: 0 Changed magnesium oxide 250 mg magnesium Tablet 250 mg PO BID Qty: 0 RF: 0 Discharge Orders: Discharge Order (Routine); Ordered 11/08/20 Ordered By: Patricia Wilkinson Admission Data Admit Date/Time: 11/07/20 17:15 Attending Provider: Patricia Wilkinson I. Admit Provider: Patricia Wilkinson I. Primary Care Provider: Carol Cade Other Providers: Patricia Wilkinson I. ; Ralf Coates Other Interventions: Discharge Summary Assessment (RN) Last Done: 11/08/20 14:55
== END 2020-11-08 15:20 | disposition home or self-care (01) ==
LOC: ED 14:23 → 2W 14:23

== ENCOUNTER 2024-05-05 13:40 | Inpatient (IN) ==
[2024-05-05 14:53] LABS: Basophils # (auto) 0.05 K/uL (0.00-0.20); Basophils % (auto) 0.2 %; Eosinophils # (auto) 0.02 K/uL (0.00-0.50); Eosinophils % (auto) 0.1 %; Hematocrit (blood only) 35.3 % (37.0-47.0); Hemoglobin 12.2 g/dl (12.0-16.0); Immature Granulocytes # (auto) 0.51 K/uL (0.01-0.20); Immature Granulocytes % (auto) 2.5 %; Lymphocytes # (auto) 1.78 K/uL (1.20-3.40); Lymphocytes % (auto) 8.6 %; Mean Corpuscular Hemoglobin 27.8 pg (25.0-34.0); Mean Corpuscular Hgb Conc 34.6 g/dL (32.0-36.0); Mean Corpuscular Volume 80.4 fL (80.0-100.0); Mean Platelet Volume 10.2 fL (9.4-12.4); Monocytes # (auto) 1.31 K/uL (0.11-0.59); Monocytes % (auto) 6.3 %; Neutrophils # (auto) 17.14 K/uL (1.40-6.50); Neutrophils % (auto) 82.3 %; Platelet Count 344 K/uL (130-400); RDW Coefficient of Variation 14.2 % (11.5-14.5); RDW Standard Deviation 41.5 fL (36.4-46.3); Red Blood Count 4.39 M/uL (4.20-5.40); White Blood Count 20.81 K/ul (4.8-10.8)
--- NOTE | 2024-05-05 14:58 | Emergency Department Note ---
Impression & Plan Pneumonia, Hyponatremia ED Provider Note ED Provider Note NAME: SANIA STEPHENS AGE:78 SEX: Female : 1945 ARRIVES VIA: Private vehicle INFORMANT: Patient ED PROVIDER(s): Lizeth Lama DO CHIEF COMPLAINT: Restless, weakness, decreased appetite, URI HPI: This is a 78-year-old female who presents emergency room due to concern for increased restlessness and weakness, decreased appetite, in the setting of a recent diagnosis of an upper respiratory infection. Patient states she began having URI symptoms a week ago. She called her PCPs office on Thursday and a prescription for Augmentin was sent in which she started. She states she has had cough productive of green sputum. She states at rest she feels her breathing is fine but is very winded with any exertion. She states she is trying to stay well-hydrated but has no appetite. She denies vomiting or diarrhea. Patient states a week prior to the URI symptoms developing she did have diarrhea but that had resolved. She denies any abdominal pain. She states she has pain in the left anterior ribs that radiates straight through to the left mid back. She states that pain is worse with coughing and movement. She states she has had low-grade fevers of 99.1 at home. No prior history of pneumonia, asthma, or COPD. PAST MEDICAL HISTORY:See Below PAST SURGICAL HISTORY:See Below FAMILY HISTORY:See Below SOCIAL HISTORY:See Below HOME MEDICATIONS:See Below ALLERGIES:See Below VITALS:See Below PHYSICAL EXAMINATION: GENERAL: alert, unwell appearing, well nourished, no distress, non-toxic EYE EXAM: normal conjunctiva, PERRL and EOM's grossly intact OROPHARYNX: no exudate, no erythema, lips, buccal mucosa, and tongue normal and mucous membranes are moist NECK: supple, no nuchal rigidity, no adenopathy, non-tender LUNGS: Clear to auscultation. Normal chest wall mechanics, no w/r, bibasilar Rales HEART: no murmurs, S1 normal and S2 normal ABDOMEN: abdomen soft, non-tender, normo-active bowel sounds, no masses, no rebound or guarding. BACK: Back is symmetrical on inspection and there is no deformity, no midline tenderness, no CVA tenderness. SKIN: no rashes, petechiae, orbruising UPPER EXTREMITIES: upper extremities are grossly normal. FROM, nml pulses b/l. LOWER EXTREMITIES: No pitting edema. FROM, nml pulses b/l. NEURO EXAM: Normal sensorium, cranial nerves II-XII grossly intact, normal speech, no facial droop,nogross weakness of arms, no gross weakness of legs. Gross sensation intact. No ataxia. Vital Signs: reviewed and remarkable Differential Diagnosis: pneumonia, bronchitis, COPD/Asthma exacerbation, pneumothorax, pulmonary embolism, congestive heart failure, acute coronary syndrome, as well as others were considered MEDICAL DECISION MAKING: This is a 78-year-old female presents to the emergency department due to concern for restlessness, weakness, and recent UTI. She was afebrile and hemodynamically stable. No hypoxia noted. Labs drawn and sent, IV established, EKG and chest ray performed bedside interpreted me and patient monitored on telemetry. Patient started on maintenance IV fluid due to concern for decreased oral intake over the course of the last week while on antibiotics. Given patient's clinical findings and questionable chest x-ray I suspect patient with underlying pneumonia. Unfortunately on CMP patient noted to have significant hyponatremia. Patient had no neurologic changes at bedside and verbalized understanding of all results. 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 Patient given additional IV antibiotics for her pneumonia, cultures added additionally. Case discussed with hospitalist team for additional evaluation and management. Consultation(s): 1540: Discussed with Mery Lester hospitalist team, for additional evaluation and mgmt. ER Treatment Provided: See below Diagnostics Interpreted By Me: -ECG: Normal sinus at 96, leftward axis, normal intervals, no acute ST/T wave changes -Cardiac Monitoring: An order was placed for continuous cardiac monitoring. The monitor shows a rate of 80 with normal sinus rhythm. -Laboratory studies: As stated above and show below. -Imaging studies: X-ray Chest: A single view study of the chest was reviewed and was negative for cardiomegaly, effusion, pulmonary edema, or wide mediastinum. Right lower lobe infiltrate. Triage Nursing Note Reviewed Prior/Outside Records Reviewed Critical Care: Critical care of 39 min performed to assess and manage high likelihood of life- threatening hyponatremia, involving labs and imaging performed with assessment to evaluate hyponatremia diagnosis with frequent reassessment. This time includes bedside time, treatment discussions with patient/family/consultants, documentation time and excludes procedure time. Past Med/Surg History Problem List (Updated 05/05/24 @ 20:14 by DIANE Mejia) Electrolyte abnormality Autoimmune hepatitis Hypothyroidism Leukocytosis Hyponatremia (Acute) Pneumonia (Acute) Medical History Depression Paroxysmal SVT (supraventricular tachycardia) Migraine with aura Diverticulosis CKD (chronic kidney disease), stage III Atrial fibrillation "paroxysmal- one episode in per patient" Hypothyroidism Rheumatoid arthritis Autoimmune hepatitis Gastroparesis Surgical History S/P inguinal hernia repair S/P right oophorectomy H/O colonoscopy History of carpal tunnel surgery S/P appendectomy S/P cholecystectomy Family History Other Cancer Heart disease Stroke Social History Smoking Status: Never smoker Hx Alcohol Use: No Hx Substance Use: No Preferred Language: Marshallese Communication Ability: Effective Cigarette Tester Required: No Beliefs That Will Affect Care: None Current Living Situation: Alone Feels Safe at Home: Yes Safety Concerns: Feels Safe At This Time Assistive Devices: None Allergies Allergies Allergy/AdvReac Type Severity Reaction Status Date / Time celecoxib Allergy Intermediate HIVES,HAS Verified 05/05/24 16:05 TAKEN TORADOL OK Sulfa (Sulfonamide Allergy Intermediate HIVES Verified 05/05/24 16:05 Antibiotics) diltiazem Allergy Rash Unverified 05/05/24 16:05 codeine AdvReac Mild VOMITING Verified 05/05/24 16:05 morphine AdvReac Mild VOMITING Verified 05/05/24 16:05 Iodinated Contrast Media AdvReac Unknown severe Verified 05/05/24 16:05 headache and projectile vomiting Home Meds Home Medications Medication Instructions Recorded Confirmed aspirin 81 mg tablet,delayed 81 mg PO DAILY 11/07/20 05/05/24 release ezetimibe 10 mg tablet (Zetia) 10 mg PO HS 11/07/20 05/05/24 levothyroxine 75 mcg tablet 75 mcg PO [id number] 11/07/20 05/05/24 (Levoxyl) melatonin 5 mg tablet 5 mg PO HS PRN Insomnia 11/07/20 05/05/24 metoprolol succinate 25 mg 25 mg PO DAILY 11/07/20 05/05/24 tablet,extended release 24 hr (Toprol XL) mycophenolate mofetil 500 mg 500 mg PO DAILY 11/07/20 05/05/24 tablet (CellCept) omeprazole 20 mg capsule,delayed 20 mg PO QAM 11/07/20 05/05/24 release potassium chloride 10 mEq 20 meq PO BID 11/07/20 05/05/24 tablet,extended release torsemide 20 mg tablet 20 mg PO DAILY 11/07/20 05/05/24 alendronate 70 mg tablet 70 mg PO WK 05/05/24 05/05/24 amoxicillin 875 mg-potassium 1 tab PO BID 05/05/24 05/05/24 clavulanate 125 mg tablet biotin 1 mg tablet 1 mg PO DAILY 05/05/24 05/05/24 docusate sodium 100 mg tablet 100 mg PO BID 05/05/24 05/05/24 ibuprofen 800 mg tablet 800 mg PO BID PRN Pain (Scale 05/05/24 05/05/24 Score 1-3) magnesium oxide 500 mg PO HS 05/05/24 05/05/24 meloxicam 15 mg tablet 15 mg PO DAILY PRN Pain 05/05/24 05/05/24 nortriptyline 10 mg capsule 10 mg PO HS 05/05/24 05/05/24 verapamil 120 mg tablet,extended 120 mg PO HS 05/05/24 05/05/24 release Results & Data (ED) Vital Signs Vital Signs - 24 hr 05/05/24 13:52 05/05/24 15:17 Temperature 36.8 C Temperature Source Temporal Artery Scan Pulse Rate 95 H 81 Respiratory Rate 18 Respiratory Effort / Characteristics Non-Labored Respiratory Depth Normal Respiratory Pattern Regular Blood Pressure 109/80 Blood Pressure Mean 89 Blood Pressure Position Sitting Pulse Oximetry 98 Oxygen Delivery Method Room Air Sepsis Recent Fever Within 48 Hours No Sepsis New/Unexplained Change in Mental Status No Sepsis Action Taken by Nursing No Action Required Laboratory Data 05/05/24 14:12 05/05/24 17:54 Lab Results 05/05/24 05/05/24 05/05/24 Range/Units 14:12 15:15 16:06 WBC 20.81 H (4.8-10.8) K/ul RBC 4.39 (4.20-5.40) M/uL Hgb 12.2 (12.0-16.0) g/dl Hct 35.3 L (37.0-47.0) % MCV 80.4 (80.0-100.0) fL MCH 27.8 (25.0-34.0) pg MCHC 34.6 (32.0-36.0) g/dL RDW Std Deviation 41.5 (36.4-46.3) fL RDW Coeff of Destini 14.2 (11.5-14.5) % Plt Count 344 (130-400) K/uL MPV 10.2 (9.4-12.4) fL Immature Gran % (Auto) 2.5 % Neut % (Auto) 82.3 % Lymph % (Auto) 8.6 % Davie % (Auto) 6.3 % Eos % (Auto) 0.1 % Baso % (Auto) 0.2 % Neut # (Auto) 17.14 H (1.40-6.50) K/uL Lymph # (Auto) 1.78 (1.20-3.40) K/uL Davie # (Auto) 1.31 H (0.11-0.59) K/uL Eos # (Auto) 0.02 (0.00-0.50) K/uL Baso # (Auto) 0.05 (0.00-0.20) K/uL Immature Gran # (Auto) 0.51 H (0.01-0.20) K/uL Sodium 116 L* (136-145) mmol/L Potassium 3.3 L (3.5-5.1) mmol/L Chloride 80 L (98-107) mmol/L Carbon Dioxide 24 (21-32) mmol/L Anion Gap 12 H (3-11) BUN 10 (6-23) mg/dl Creatinine 0.65 (0.6-1.2) mg/dl Est Cr Clr Drug Dosing 70.5 ml/min Est GFR ( Amer) 99.3 ml/min Est GFR (Non-Af Amer) 85.6 ml/min BUN/Creatinine Ratio 15.4 (10-20) Glucose 141 H (70-99(Fasting)) mg/dl Osmolality 243 L (280-300) mOsm/kg Calcium 8.3 L (8.6-10.3) mg/dl Magnesium 1.9 (1.7-2.4) mg/dl Total Bilirubin 0.8 (0.2-1.0) mg/dl AST 28 (13-39) U/L ALT 14 (7-52) U/L Alkaline Phosphatase 73 (34-104) U/L Troponin I High Sens 16.2 H (0-14) pg/ml Total Protein 8.4 H (6.0-8.3) gm/dl Albumin 4.0 (3.4-5.0) gm/dl Globulin 4.4 H (2.5-4.0) gm/dl Albumin/Globulin Ratio 0.9 (0.9-2) Lipase 9 L (11-82) U/L Procalcitonin < 0.02 (0-0.5) ng/ml TSH 9.522 H (0.300-4.500) uIu/ml Free T4 1.84 H (0.61-1.60) ng/dl Urine Color Urine Appearance (Clear) Urine pH (4.5-7.5) Ur Specific [place] (1.000-1.030) Urine Protein (Negative) Urine Glucose (UA) (Negative) Urine Ketones (Negative) Urine Blood (Negative) Urine Nitrite (Negative) Urine Bilirubin (Negative) Urine Urobilinogen (Negative) Ur Leukocyte Esterase (Negative) Urine WBC (Auto) (0-5) /hpf Urine RBC (Auto) (0-2) /hpf U Hyaline Cast (Auto) (0-2) /lpf U Epithel Cells (Auto) (0-2) /hpf Urine Bacteria (Auto) (None Seen) Urine Osmolality (500-800) mOsm/kg Ur Random Sodium mmol/L Ur Random Potassium mmol/L Ur Random Chloride mmol/L Adenovirus (PCR) Not Detected (NotDetected) B. pertussis DNA (PCR) Not Detected (NotDetected) B.parapertussis DNA PCR Not Detected (NotDetected) C. pneumoniae DNA (PCR) Not Detected (NotDetected) Coronavirus OC43 (PCR) Not Detected (NotDetected) Coronavirus HKU1 (PCR) Not Detected (NotDetected) Coronavirus 229E (PCR) Not Detected (NotDetected) SARS-CoV-2 (PCR) Not Detected (NotDetected) Coronavirus NL63 (PCR) Not Detected (NotDetected) Human Metapneumovir PCR Not Detected (NotDetected) Influenza Type A (PCR) Not Detected (NotDetected) Influenza Type B (PCR) Not Detected (NotDetected) M. pneumoniae (PCR) Not Detected (NotDetected) Parainfluenza 1 (PCR) Not Detected (NotDetected) Parainfluenza 2 (PCR) Not Detected (NotDetected) Parainfluenza 3 (PCR) Not Detected (NotDetected) Parainfluenza 4 (PCR) Not Detected (NotDetected) RSV (PCR) Not Detected (NotDetected) Entero/Rhino (PCR) Not Detected (NotDetected) 05/05/24 Range/Units 16:22 WBC (4.8-10.8) K/ul RBC (4.20-5.40) M/uL Hgb (12.0-16.0) g/dl Hct (37.0-47.0) % MCV (80.0-100.0) fL MCH (25.0-34.0) pg MCHC (32.0-36.0) g/dL RDW Std Deviation (36.4-46.3) fL RDW Coeff of Destini (11.5-14.5) % Plt Count (130-400) K/uL MPV (9.4-12.4) fL Immature Gran % (Auto) % Neut % (Auto) % Lymph % (Auto) % Davie % (Auto) % Eos % (Auto) % Baso % (Auto) % Neut # (Auto) (1.40-6.50) K/uL Lymph # (Auto) (1.20-3.40) K/uL Davie # (Auto) (0.11-0.59) K/uL Eos # (Auto) (0.00-0.50) K/uL Baso # (Auto) (0.00-0.20) K/uL Immature Gran # (Auto) (0.01-0.20) K/uL Sodium (136-145) mmol/L Potassium (3.5-5.1) mmol/L Chloride (98-107) mmol/L Carbon Dioxide (21-32) mmol/L Anion Gap (3-11) BUN (6-23) mg/dl Creatinine (0.6-1.2) mg/dl Est Cr Clr Drug Dosing ml/min Est GFR ( Amer) ml/min Est GFR (Non-Af Amer) ml/min BUN/Creatinine Ratio (10-20) Glucose (70-99(Fasting)) mg/dl Osmolality (280-300) mOsm/kg Calcium (8.6-10.3) mg/dl Magnesium (1.7-2.4) mg/dl Total Bilirubin (0.2-1.0) mg/dl AST (13-39) U/L ALT (7-52) U/L Alkaline Phosphatase (34-104) U/L Troponin I High Sens (0-14) pg/ml Total Protein (6.0-8.3) gm/dl Albumin (3.4-5.0) gm/dl Globulin (2.5-4.0) gm/dl Albumin/Globulin Ratio (0.9-2) Lipase (11-82) U/L Procalcitonin (0-0.5) ng/ml TSH (0.300-4.500) uIu/ml Free T4 (0.61-1.60) ng/dl Urine Color Yellow Urine Appearance Clear (Clear) Urine pH 6.5 (4.5-7.5) Ur Specific [place] 1.013 (1.000-1.030) Urine Protein Trace H (Negative) Urine Glucose (UA) Negative (Negative) Urine Ketones 2+ H (Negative) Urine Blood Negative (Negative) Urine Nitrite Negative (Negative) Urine Bilirubin Negative (Negative) Urine Urobilinogen Negative (Negative) Ur Leukocyte Esterase Trace H (Negative) Urine WBC (Auto) 0-5 (0-5) /hpf Urine RBC (Auto) 0-2 (0-2) /hpf U Hyaline Cast (Auto) 0-2 (0-2) /lpf U Epithel Cells (Auto) 0-2 (0-2) /hpf Urine Bacteria (Auto) None Seen (None Seen) Urine Osmolality 363 L (500-800) mOsm/kg Ur Random Sodium 40 mmol/L Ur Random Potassium 48.5 mmol/L Ur Random Chloride 58 mmol/L Adenovirus (PCR) (NotDetected) B. pertussis DNA (PCR) (NotDetected) B.parapertussis DNA PCR (NotDetected) C. pneumoniae DNA (PCR) (NotDetected) Coronavirus OC43 (PCR) (NotDetected) Coronavirus HKU1 (PCR) (NotDetected) Coronavirus 229E (PCR) (NotDetected) SARS-CoV-2 (PCR) (NotDetected) Coronavirus NL63 (PCR) (NotDetected) Human Metapneumovir PCR (NotDetected) Influenza Type A (PCR) (NotDetected) Influenza Type B (PCR) (NotDetected) M. pneumoniae (PCR) (NotDetected) Parainfluenza 1 (PCR) (NotDetected) Parainfluenza 2 (PCR) (NotDetected) Parainfluenza 3 (PCR) (NotDetected) Parainfluenza 4 (PCR) (NotDetected) RSV (PCR) (NotDetected) Entero/Rhino (PCR) (NotDetected) Administered Medications Ezetimibe (Ezetimibe 10 Mg Tab) 10 mg PO HS NYDIA Stop: 06/04/24 20:59 Last Admin: 05/05/24 20:34 Dose: 10 mg Documented By: JACOB Enoxaparin Sodium (Enoxaparin Inj 40 Mg/0.4 Ml Syr) 40 mg SQ Q24H NYDIA Stop: 06/04/24 20:59 Last Admin: 05/05/24 20:35 Dose: 40 mg Documented By: JACOB Potassium Chloride (K Jerome / Wtr) 10 meq in 100 mls @ 100 mls/hr IV Q1H NYDIA Stop: 05/05/24 22:44 Last Admin: 05/05/24 20:34 Dose: 100 mls/hr Documented By: JACOB Magnesium Oxide (Magnesium Oxide 400 Mg Tab) 400 mg PO HS NYDIA Stop: 06/04/24 20:59 Last Admin: 05/05/24 20:34 Dose: 400 mg Documented By: JACOB Melatonin (Melatonin 3 Mg Tab) 3 mg PO HSZ PRN PRN Reason: Sleep Stop: 06/04/24 18:58 Last Admin: 05/05/24 20:34 Dose: 3 mg Documented By: KikoT Nortriptyline HCl (Nortriptyline Hcl 10 Mg Cap) 10 mg PO NYDIA Stop: 06/04/24 20:59 Last Admin: 05/05/24 20:34 Dose: 10 mg Documented By: JT Ondansetron HCl (Ondansetron Inj 2 Mg/Ml 2 Ml Vial) 4 mg IV Q6H PRN PRN Reason: Nausea Stop: 06/04/24 18:50 Last Admin: 05/05/24 19:42 Dose: 4 mg Documented By: ERIKA Verapamil HCl (Verapamil Hcl 120 Mg Tabcr) 120 mg PO NYDIA Stop: 06/04/24 20:59 Last Admin: 05/05/24 20:34 Dose: 120 mg Documented By: KikoT Discontinued Medications Sodium Chloride (Nss) 1,000 mls @ 125 mls/hr IV .Q8H NYDIA Stop: 06/04/24 14:44 Last Infusion: 05/05/24 19:17 Dose: Infused Documented By: Admin: 05/05/24 15:10 Dose: 125 mls/hr Documented By: MATTEO Ceftriaxone Sodium (Rocephin) 2,000 mg in 50 mls @ 100 mls/hr IV NOW STA Stop: 05/05/24 15:57 Last Infusion: 05/05/24 16:05 Dose: Infused Documented By: Admin: 05/05/24 15:37 Dose: 100 mls/hr Documented By: DELON Doxycycline Hyclate 100 mg/ (Dextrose) 100 mls @ 50 mls/hr IV NOW STA Stop: 05/05/24 17:41 Last Infusion: 05/05/24 18:33 Dose: Infused Documented By: Admin: 05/05/24 16:20 Dose: 50 mls/hr Documented By: MATTEO Acetaminophen (Ofirmev) 1,000 mg in 100 mls @ 400 mls/hr IV NOW STA Stop: 05/05/24 16:10 Last Infusion: 05/05/24 16:17 Dose: Infused Documented By: Admin: 05/05/24 16:03 Dose: 400 mls/hr Documented By: MATTEO Famotidine (Pepcid 20mg Iv Push) 20 mg in 5 mls @ 2.5 mls/min IV NOW STA Stop: 05/05/24 15:57 Last Admin: 05/05/24 16:03 Dose: 2.5 mls/min Documented By: MATTEO Sodium Chloride (Nss) 1,000 mls @ 80 mls/hr IV .[id number] NYDIA Stop: 06/04/24 15:59 Last Infusion: 05/05/24 16:17 Dose: Infused Documented By: Admin: 05/05/24 16:03 Dose: 80 mls/hr Documented By: MATTEO Potassium Chloride (Potassium Chloride Crtab 20 Meq Tabcr) 40 meq PO NOW STA Stop: 05/05/24 16:30 Last Admin: 05/05/24 16:38 Dose: 40 meq Documented By: MATTEO Potassium Chloride (Potassium Chloride Crtab 20 Meq Tabcr) 20 meq PO NOW STA Stop: 05/05/24 19:48 Last Admin: 05/05/24 20:34 Dose: 20 meq Documented By: JACOB Imaging Data Radiologist's Impression: Chest X-Ray 05/05/24 14:41 XR chest 1V portable HISTORY: 78 years-old Female cough, weakness COMPARISON: 06/02/2012 TECHNIQUE: AP view the chest FINDINGS: Cardiomediastinal and hilar silhouettes are within normal limits. No pneumothorax, pleural effusion or pulmonary edema. Mild subsegmental bibasilar densities. Right upper quadrant surgical clips. Bones appear grossly intact. IMPRESSION: 1. Mild bibasilar densities favor atelectasis. A mild nonspecific pneumonitis considered less likely. 2. Cardiomegaly. ACT 112: Negative or not required by law. The above report was generated using voice recognition software. It may contain grammatical, syntax or spelling errors. Electronically signed by: Atul Hernandez M.D. 05/05/2024 3:31 PM Discharge Plan Visit Data Chief Complaint: Illness Stated Complaint: COUGH, NAUSEA, WEAKNESS IN ARMS, PAIN IN BACK ED Provider: Lizeth Lama Discharge Problem: Pneumonia, Hyponatremia Patient Disposition: Admitted As Inpatient Discharge Instructions Interventions: ED Discharge Assessment Last Done: 05/05/24 18:42
[2024-05-05] MEDS: SODIUM CHLORIDE 0.9% 1,000 ML IV SCH ×2 (15:10→16:03)
[2024-05-05 15:17] LABS: Albumin Globulin Ratio 0.9 (0.9-2); BUN Creatinine Ratio 15.4 (10-20); Bilirubin,Total 0.8 mg/dl (0.2-1.0); Calcium 8.3 mg/dl (8.6-10.3); Creatinine Clr Calc Pharmacy 70.5 ml/min; Est GFR (African American) 99.3 ml/min; Est GFR (Non-African American) 85.6 ml/min; Globulin 4.4 gm/dl (2.5-4.0); Magnesium 1.9 mg/dl (1.7-2.4); Potassium 3.3 mmol/L (3.5-5.1); Total Protein 8.4 gm/dl (6.0-8.3); Troponin I High Sensitivity 16.2 pg/ml (0-14)
--- NOTE | 2024-05-05 15:32 | XRay Report ---
XR chest 1V portable HISTORY: 78 years-old Female cough, weakness COMPARISON: 06/02/2012 TECHNIQUE: AP view the chest FINDINGS: Cardiomediastinal and hilar silhouettes are within normal limits. No pneumothorax, pleural effusion o r pulmonary edema. Mild subsegmental bibasilar densities. Right upper quadrant surgical clips. Bones appear grossly intact. IMPRESSION: 1. Mild bibasilar densities favor atelectasis. A mild nonspecific pneumonitis considered less likely. 2. Cardiomegaly. ACT 112: Negative or not required by law. The above report was generated using voice recognition software. It may contain grammatical, syntax o r spelling errors. Electronically signed by: Atul Hernandez M.D. 05/05/2024 3:31 PM
[2024-05-05] MEDS: cefTRIAXone SODIUM 2,000 MG/50 ML BAG IV STA (15:37)
[2024-05-05 15:50] LABS: Thyroid Stimulating Hormone 9.522 uIu/ml (0.300-4.500)
--- NOTE | 2024-05-05 15:51 | History & Physical Report ---
Date of Service May 05, 2024 Assessment & Plan (1) Hyponatremia: (2) Pneumonia: (3) Paroxysmal SVT (supraventricular tachycardia): (4) Depression: (5) CKD (chronic kidney disease), stage III: (6) Autoimmune hepatitis: (7) Hypothyroidism: Plan This is a 78-year-old female with PMH of hypertension, autoimmune hepatitis, Sjogren's syndrome, paroxysmal SVT, hypothyroidism, dyslipidemia, CKD 3, depression and other medical problems listed below who presents with URI sympto ms over the past week. Hypotonic hyponatremia Sodium 117 In setting of torsemide use, recent illness Serum osm low at 243, urine osm 363, urine sodium 40 Received approx. 500 ml NSS in ED Suspect SIADH given illness Hold torsemide Discussed with Dr. Hardin of nephro - goal sodium of 120 but not go past 122 by early PM tomorrow. Recs to FR 1.5 L, BMP Q4H With repeat sodium of 113, nephro recommends transfer to ICU for 3% saline for 150ml x 1, neuro checks Q2H, continue BMP Q4H Discussed with ICU team Abnormal thyroid labs H/o Hypothyroidism Likely acute phase reactant with recent illness vs. possible hyperthyroid. TSH 9.52, free T4 1.84 Plan to continue home dose for now, reassess thyroid studies in a few days CAP CXR with Mild bibasilar densities favor atelectasis however WBC 20K, resp viral panel negative Treat with Rocephin, doxy for now Follow blood cultures, legionella urine Autoimmune hepatitis Continue Cellcept Paroxysmal SVT Continue verapamil HS CKD III Cr 0.65 (at baseline). Monitor with daily BMP DVT Ppx: SQ lovenox Code status: FULL PCP: Alyssia Dispo: Admitted to PCU --> transer to ICU this evening Patient seen in collaboration with Dr. Corrales. Please see addendum. I spent a total of 80 minutes coordinating, documenting, and providing care for this patient excluding time spent in the performance of separately billed services. History of Present Illness Chief Complaint: malaise, cough Primary Care Provider: Carol Cade DO This is a 78-year-old female with PMH of hypertension, autoimmune hepatitis, Sjogren's syndrome, paroxysmal SVT, hypothyroidism, dyslipidemia, CKD 3, depression and other medical problems listed below who presents with URI symptoms over the past week. 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 At the beginning of last week, patient had 5 days of diarrhea that has since resolved. Then approx 7 days aog, developed productive cough with green sputum, low-grade fever and worsening dyspnea on exertion. Called into PCPs office on Thursday 05/03 and was prescribed Augmentin, which she has been taking for the past 48 hours. During this time, she is felt progressively worse with decreased appetite, nausea, headache, worsening and malaise, prompting visit to ED today for further evaluation. States she has still been drinking approximately 80- 100oz of water daily despite having much less of an appetite. Takes torsemide 20mg daily. No medication changes. No history of low sodium. Allergies Allergy/AdvReac Type Severity Reaction Status Date / Time celecoxib Allergy Intermediate HIVES,HAS Verified 05/05/24 16:05 TAKEN TORADOL OK Sulfa (Sulfonamide Allergy Intermediate HIVES Verified 05/05/24 16:05 Antibiotics) diltiazem Allergy Rash Unverified 05/05/24 16:05 codeine AdvReac Mild VOMITING Verified 05/05/24 16:05 morphine AdvReac Mild VOMITING Verified 05/05/24 16:05 Iodinated Contrast Media AdvReac Unknown severe Verified 05/05/24 16:05 headache and projectile vomiting Home Medications Medication Instructions Recorded Confirmed Type aspirin 81 mg tablet,delayed 81 mg PO DAILY 11/07/20 05/05/24 History release ezetimibe 10 mg tablet (Zetia) 10 mg PO HS 11/07/20 05/05/24 History levothyroxine 75 mcg tablet 75 mcg PO 6XWK 11/07/20 05/05/24 History (Levoxyl) melatonin 5 mg tablet 5 mg PO HS PRN Insomnia 11/07/20 05/05/24 History metoprolol succinate 25 mg 25 mg PO DAILY 11/07/20 05/05/24 History tablet,extended release 24 hr (Toprol XL) mycophenolate mofetil 500 mg 500 mg PO DAILY 11/07/20 05/05/24 History tablet (CellCept) omeprazole 20 mg capsule,delayed 20 mg PO QAM 11/07/20 05/05/24 History release potassium chloride 10 mEq 20 meq PO BID 11/07/20 05/05/24 History tablet,extended release torsemide 20 mg tablet 20 mg PO DAILY 11/07/20 05/05/24 History alendronate 70 mg tablet 70 mg PO WK 05/05/24 05/05/24 History amoxicillin 875 mg-potassium 1 tab PO BID 05/05/24 05/05/24 History clavulanate 125 mg tablet biotin 1 mg tablet 1 mg PO DAILY 05/05/24 05/05/24 History docusate sodium 100 mg tablet 100 mg PO BID 05/05/24 05/05/24 History ibuprofen 800 mg tablet 800 mg PO BID PRN Pain (Scale 05/05/24 05/05/24 History Score 1-3) magnesium oxide 500 mg PO HS 05/05/24 05/05/24 History meloxicam 15 mg tablet 15 mg PO DAILY PRN Pain 05/05/24 05/05/24 History nortriptyline 10 mg capsule 10 mg PO HS 05/05/24 05/05/24 History verapamil 120 mg tablet,extended 120 mg PO HS 05/05/24 05/05/24 History release Past Med/Surg History Problem List (Updated 05/05/24 @ 20:14 by DIANE Mejia) Electrolyte abnormality Autoimmune hepatitis Hypothyroidism Leukocytosis Hyponatremia (Acute) Pneumonia (Acute) Medical History Depression Paroxysmal SVT (supraventricular tachycardia) Migraine with aura Diverticulosis CKD (chronic kidney disease), stage III Atrial fibrillation "paroxysmal- one episode in per patient" Hypothyroidism Rheumatoid arthritis Autoimmune hepatitis Gastroparesis Surgical History S/P inguinal hernia repair S/P right oophorectomy H/O colonoscopy History of carpal tunnel surgery S/P appendectomy S/P cholecystectomy Family History Other Cancer Heart disease Stroke Social History Smoking Status: Never smoker Hx Alcohol Use: No Hx Substance Use: No Preferred Language: Georgian Communication Ability: Effective Traffic Control Supervisor Required: No Beliefs That Will Affect Care: None Current Living Situation: Alone Feels Safe at Home: Yes Safety Concerns: Feels Safe At This Time Assistive Devices: None Review of Systems Review of Systems: At least ten systems reviewed and negative except as noted in the HPI. Physical Exam Physical Exam: Please see Dr. Corrales's addendum for physical exam. Results & Data Results & Data Vital Signs (Past 12 Hours) Vital Signs Temp Pulse Resp BP Pulse Ox O2 Del Method 05/05/24 15:17 81 05/05/24 13:52 36.8 C 95 H 18 109/80 98 Room Air Laboratory Results Short CBC 05/05/24 Range/Units 14:12 WBC 20.81 H (4.8-10.8) K/ul Hgb 12.2 (12.0-16.0) g/dl Hct 35.3 L (37.0-47.0) % Plt Count 344 (130-400) K/uL BMP 05/05/24 14:12 Sodium 116 L* Potassium 3.3 L Chloride 80 L Carbon Dioxide 24 BUN 10 Creatinine 0.65 Glucose 141 H Calcium 8.3 L Liver Function 05/05/24 Range/Units 14:12 Total Bilirubin 0.8 (0.2-1.0) mg/dl AST 28 (13-39) U/L ALT 14 (7-52) U/L Alkaline Phosphatase 73 (34-104) U/L Albumin 4.0 (3.4-5.0) gm/dl Diagnostic Findings Chest X-Ray 05/05/24 14:41 XR chest 1V portable HISTORY: 78 years-old Female cough, weakness COMPARISON: 06/02/2012 TECHNIQUE: AP view the chest FINDINGS: Cardiomediastinal and hilar silhouettes are within normal limits. No pneumothorax, pleural effusion or pulmonary edema. Mild subsegmental bibasilar densities. Right upper quadrant surgical clips. Bones appear grossly intact. IMPRESSION: 1. Mild bibasilar densities favor atelectasis. A mild nonspecific pneumonitis considered less likely. 2. Cardiomegaly. ACT 112: Negative or not required by law. The above report was generated using voice recognition software. It may contain grammatical, syntax or spelling errors. Electronically signed by: Atul Hernandez M.D. 05/05/2024 3:31 PM Supervising Physician Co-Signing Physician Notes Patient is a 78-year-old female with history of autoimmune hepatitis, Sjogren syndrome, TIA, migraine, hypothyroidism, CKD stage III and other medical problems presents with history of 1 week URI symptoms--cough with greenish expectoration, nausea, headache, dyspnea on exertion, left-sided chest/rib pain with cough, subjective fever. Also reported diarrhea which currently resolved. Patient states that she has been drinking a lot of water to keep herself hydrated. She started taking Augmentin prescribed by PCP 2 days ago. Please review HPI for complete details of presentation. I personally reviewed blood work and imaging studies. Blood work suggestive of leukocytosis 20.8, sodium 116, potassium 3.3, chloride 80, anion gap 12, glucose 141, serum osmolality 243, calcium 8.3, troponin 16.2, normal procalcitonin, TSH 9.5, free T4 1.8, urine osmolality 363, urine sodium 40, respiratory BioFire negative, urine for Legionella antigen pending. Chest x-ray showed mild bibasilar densities, cardiomegaly. EKG showed normal sinus rhythm, left axis deviation, QTc 467. Physical Exam: Vitals signs as noted above General Appearance:Moderately built and nourished, no apparent distress Head: normocephalic, Atraumatic Eyes: normal inspection, EOMI Neck: supple, Trachea midline Respiratory/Chest: Normal breath sounds, basal crackles, No accessory muscle use Cardiovascular: S1, S2, + murmur Abdomen/GI:Soft, Non tender, Bowel sounds present Extremities/Musculoskeletal:normal inspection, Trace pedal edema Neurologic/Psych:AAOX3, grossly no focal neurological deficits Skin: normal color, warm Acute bronchitis Hypotonic hyponatremia Hypokalemia Abnormal thyroid function test Started on empiric antibiotics Hyponatremia likely multifactorial: GI losses, diuretic use, ongoing nausea, increased oral fluid intake, decreased protein intake Discussed with nephrology. Fluid restriction, monitor sodium levels closely, ICU transfer for hypertonic saline Vessel Crew Member consulted Hold diuretics for now Check urine for Legionella Stool studies if patient develops diarrhea again I personally interviewed and examined at bedside. Patient's care is coordinated with Tayler Castellanos PA-C. I have reviewed the advanced practitioner's documentation, and I agree with plan of care. Please refer to the documentation above for details of patient's presentation and for discussion of other issues. I spent a total of40 minutes coordinating, documenting, and providing care for this patient excluding time spent in the performance of separately billed services.
[2024-05-05] MEDS: ACETAMINOPHEN 1,000 MG/100 ML VIAL IV STA (16:03)
[2024-05-05] MEDS: FAMOTIDINE 20MG IV PUSH 20 MG/5 ML SYR IV STA (16:03)
[2024-05-05] MEDS: DOXYCYCLINE HYCLATE 100 MG in DEXTROSE 5% MINI-B 100 ML IV STA (16:20)
[2024-05-05 16:28] LABS: Adenovirus PCR Not Detected (NotDetected); Bordetella parapertussis PCR Not Detected (NotDetected); Bordetella pertussis PCR Not Detected (NotDetected); Chlamydia pneumoniae PCR Not Detected (NotDetected); Coronavirus 229E PCR Not Detected (NotDetected); Coronavirus CoV-2 (COVID19)PCR Not Detected (NotDetected); Coronavirus HKU1 PCR Not Detected (NotDetected); Coronavirus NL63 PCR Not Detected (NotDetected); Coronavirus OC43PCR Not Detected (NotDetected); Human Metapneumovirus PCR Not Detected (NotDetected); Influenza A PCR Not Detected (NotDetected); Influenza B PCR Not Detected (NotDetected); Mycoplasma pneumoniae PCR Not Detected (NotDetected); Parainfluenza Virus 1 PCR Not Detected (NotDetected); Parainfluenza Virus 2 PCR Not Detected (NotDetected); Parainfluenza Virus 3 PCR Not Detected (NotDetected); Parainfluenza Virus 4 PCR Not Detected (NotDetected); Respiratory Syncytial VirusPCR Not Detected (NotDetected); Rhinovirus/Enterovirus PCR Not Detected (NotDetected)
[2024-05-05 16:35] LABS: T4 Free Thyroxine 1.84 ng/dl (0.61-1.60)
[2024-05-05] MEDS: POTASSIUM CHLORIDE CRTAB 20 MEQ TABCR PO STA ×2 (16:38→20:34)
[2024-05-05 16:42] LABS: Appearance Urine Clear (Clear); Bacteria Urine Automated None Seen (None Seen); Bilirubin Urine Negative (Negative); Blood Urine Negative (Negative); Cast Urine Automated 0-2 /lpf (0-2); Color Urine Yellow; Epithelial Cell Urine Auto 0-2 /hpf (0-2); Glucose Urine UA Negative (Negative); Ketones Urine 2+ (Negative); Leukocyte Esterase Urine Trace (Negative); Nitrite Urine Negative (Negative); Protein Urine Trace (Negative); RBC Urine Automated 0-2 /hpf (0-2); Specific Gravity Urine 1.013 (1.000-1.030); Urobilinogen Urine Negative (Negative); WBC Urine Automated 0-5 /hpf (0-5); pH Urine 6.5 (4.5-7.5)
[2024-05-05 17:15] LABS: Potassium Random Urine 48.5 mmol/L
[2024-05-05 18:38] LABS: BUN Creatinine Ratio 14.1 (10-20); Calcium 7.9 mg/dl (8.6-10.3); Creatinine Clr Calc Pharmacy 71.6 ml/min; Est GFR (African American) 99.8 ml/min; Est GFR (Non-African American) 86.1 ml/min; Potassium 3.4 mmol/L (3.5-5.1)
[2024-05-05] MEDS ORDERED: POLYETHYLENE (MIRALAX) 17 GM PACK PO PRN (18:51)
[2024-05-05] MEDS ORDERED: ACETAMINOPHEN 325 MG TAB PO PRN (18:51)
[2024-05-05] MEDS ORDERED: DOCUSATE SODIUM 100 MG CAP PO PRN (19:01)
[2024-05-05] MEDS: ONDANSETRON INJ 2 MG/ML 2 ML VIAL IV PRN (19:42)
[2024-05-05] MEDS ORDERED: STAT IV/IM STA (19:46)
--- NOTE | 2024-05-05 20:05 | Critical Care Consultation ---
Date of Consultation May 05, 2024 Assessment & Plan (1) Hyponatremia: (2) Leukocytosis: (3) Pneumonia: (4) Hypothyroidism: (5) Autoimmune hepatitis: (6) Electrolyte abnormality: Plan Reason Critically Ill: 78 YOF presents with weakness and noted to be hyponatremic with other electrolyte abnormalities associated with cough and diarrheal illness. Neuro - Hyponatremia CAM ICU: NEGATIVE - Hyponatremia- Hypoosmolar hyponatremia symptomatic with weakness and tremors - in setting of diarrheal illness, diuretic use, decrease solute intake- however at this time SIADH from respiratory illness possible as sodium decreased following 500cc sodium in EMD - Fluid restrict to 1L - 1.5 L overnight- likely liberalize some in the morning- definitely no FREE WATER - Replace potassium to 4.0- this will also help increase the NA- Patient has already received 60meq PO and is receiving 30 MEQ IV - Will re-check BMP following Potassium replacements- if remains low will give hypertonic saline- 50-150ml - Goal increase by 6mmol in 24 hours- if over correction provide DDAVP - BMP q3-4 hours - Hold PPI - Continue with Synthroid- could increase dose as well following checking her compliance Cardiac - HTN, NSVT, Aortic Stenosis (mild 2019) - No acute needs- continue with Metoprolol and Verapamil Respiratory - Abnormal CXR/ CAP DDX: Atelectasis vs. viral pneumonitis - Patient with elevated leukocytosis, cough, CXR with basilar changes - continue with Rocephin for concerns of CAP - PCT negative - sputum sample GI - Autoimmune hepatitis, diarrheal illness - Continue CellCept unless infection source worsens - Patient reports that diarrhea has decreased- consider imaging pending clinical course and stool cultures - abd exam benign RENAL/LYTES - Hypokalemia, hypomag, hypochloridemia - Replete electrolytes- appreciate nephrology consultation - Patient appears Euvolemic on exam - No acute needs ENDO - Hypothyroidism - Continue with Synthroid- consider increasing dose- could also be contributing to hyponatremia HEME - No acute needs ID - PNA, Diarrheal illness - CAP continue with Rocephin +/- Doxycycline - Follow stool studies - respiratory biofire negative - LINES/IV ACCESS - PIV Continue use of these lines DVT PROPHYLAXIS - SCDS, Lovenox DISPO: ICU until sodium is trending in positive direction I have personally spent 45 minutes of critical care time in the direct management of this patient. This is a life/limb threatening event. This includes time spent evaluating patient, direct bedside care, chart review, placing orders, interpretation of diagnostic studies, discussion with consultants, patient, and family members, as well as other required patient management activities. This time is exclusive of all separately billable procedures, and teaching time and separate from and in addition to any other critical care service time. Thank you for allowing us to participate in the care of this patient. Please refer to my attending physician's documentation for any further recommendations. History of Present Illness Reason for Consultation: hyponatremia Requesting Physician: hyponatremia Attending Physician: Cedric Corrales MD History of Present Illness 78 YOF with medical history of: Autoimmune hepatitis (on CellCept), PSVT (on metoprolol and verapamil), CKD III, Depression (Nortriptyline), GERD (Omeprazole), HTN (on torsemide). Patient reports 2 week history of diarrheal illness associated with myalgias, that progressed to a cough about 4-7 days ago that was also associated with green sputum and remained with diarrhea. She also notes that she has had a decrease in her appetite and has only been able to keep down crackers and toast. She reports just drinking coffee this morning. She also reports feeling very weak and having some muscle tremors as well as feeling anxious. She came to the EMD for the weakness, and was found to be hyponatremic to the 116 that when rechecked was down to 113, she is also with other electrolyte disturbances as well as leukocytosis although with a negative PCT. Respiratory bio-fire is pending as well as C. Diff. Serum and Urine Osmo are low at 243 and 300 respectively as well as urine sodium of 40 which is consistent with her report of decreased solute intake, diarrhea, diuretic use, and water intake- may also have component of SIADH as 500cc saline decreased sodium. Patient will be admitted to the ICU for correction of her electrolyte derangements as well as fluid restriction. CODE: DNR/DNI on discussion with patient. Allergies Allergy/AdvReac Type Severity Reaction Status Date / Time celecoxib Allergy Intermediate HIVES,HAS Verified 05/05/24 16:05 TAKEN TORADOL OK Sulfa (Sulfonamide Allergy Intermediate HIVES Verified 05/05/24 16:05 Antibiotics) diltiazem Allergy Rash Unverified 05/05/24 16:05 codeine AdvReac Mild VOMITING Verified 05/05/24 16:05 morphine AdvReac Mild VOMITING Verified 05/05/24 16:05 Iodinated Contrast Media AdvReac Unknown severe Verified 05/05/24 16:05 headache and projectile vomiting Home Medications Medication Instructions Recorded Confirmed Type aspirin 81 mg tablet,delayed 81 mg PO DAILY 11/07/20 05/05/24 History release ezetimibe 10 mg tablet (Zetia) 10 mg PO HS 11/07/20 05/05/24 History levothyroxine 75 mcg tablet 75 mcg PO 6XWK 11/07/20 05/05/24 History (Levoxyl) melatonin 5 mg tablet 5 mg PO HS PRN Insomnia 11/07/20 05/05/24 History metoprolol succinate 25 mg 25 mg PO DAILY 11/07/20 05/05/24 History tablet,extended release 24 hr (Toprol XL) mycophenolate mofetil 500 mg 500 mg PO DAILY 11/07/20 05/05/24 History tablet (CellCept) omeprazole 20 mg capsule,delayed 20 mg PO QAM 11/07/20 05/05/24 History release potassium chloride 10 mEq 20 meq PO BID 11/07/20 05/05/24 History tablet,extended release torsemide 20 mg tablet 20 mg PO DAILY 11/07/20 05/05/24 History alendronate 70 mg tablet 70 mg PO WK 05/05/24 05/05/24 History amoxicillin 875 mg-potassium 1 tab PO BID 05/05/24 05/05/24 History clavulanate 125 mg tablet biotin 1 mg tablet 1 mg PO DAILY 05/05/24 05/05/24 History docusate sodium 100 mg tablet 100 mg PO BID 05/05/24 05/05/24 History ibuprofen 800 mg tablet 800 mg PO BID PRN Pain (Scale 05/05/24 05/05/24 History Score 1-3) magnesium oxide 500 mg PO HS 05/05/24 05/05/24 History meloxicam 15 mg tablet 15 mg PO DAILY PRN Pain 05/05/24 05/05/24 History nortriptyline 10 mg capsule 10 mg PO HS 05/05/24 05/05/24 History verapamil 120 mg tablet,extended 120 mg PO HS 05/05/24 05/05/24 History release Patient History Medical History Depression Paroxysmal SVT (supraventricular tachycardia) Migraine with aura Diverticulosis CKD (chronic kidney disease), stage III Atrial fibrillation "paroxysmal- one episode in per patient" Hypothyroidism Rheumatoid arthritis Autoimmune hepatitis Gastroparesis Surgical History S/P inguinal hernia repair S/P right oophorectomy H/O colonoscopy History of carpal tunnel surgery S/P appendectomy S/P cholecystectomy Family History Other Cancer Heart disease Stroke Social History Smoking Status: Never smoker Hx Alcohol Use: No Hx Substance Use: No Preferred Language: Citizen Of [place] Communication Ability: Effective 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 Beliefs That Will Affect Care: None Current Living Situation: Alone Feels Safe at Home: Yes Safety Concerns: Feels Safe At This Time Assistive Devices: None Review of Systems Review of Systems: REVIEW OF SYSTEMS: Constitutional: (+) fever, sweats or chills Eyes: No diplopia, no worsening or blurred vision ENT: normal hearing, no trouble swallowing Respiratory: (+) cough, sputum, dyspnea at rest or on exertion Cardiovascular: No chest pain, tightness or palpitations Abdomen: (+) nausea, vomiting, diarrhea, No pain, or constipation Musculoskeletal: No joint pain, calf pain, swelling Neurologic: balance problems, No weakness, numbness/tingling, or Psychiatric: (+) depression, No anxiety or depression Skin: No rash or itch Physical Exam Physical Exam: PHYSICAL EXAM: General: awake, alert, no apparent distress Head: Normocephalic, atraumatic ENT: PERRLA, EOMI, no pharyngeal exudate, mucous membranes dry Neuro: AAO x 3, speech clear and appropriate, strength intact bilaterally 5/5, sensation intact and equal all extremities and dermatomes, no pronator drift Chest: equal rise and fall of the chest, no accessory muscle use, no heaves or thrills, Clear to auscultation, on room air, Cardiac: Regular rate and rhythm, telemetry reviewed- NSR, skin warm dry, cap refill <3 seconds, peripheral pulses +2 no JVD, 2/6 systolic murmur best heard right sternal border, no edema GI: NABS x 4 quadrants, soft, nontender to palpation, no rebound, guarding or tenderness : Spontaneously voiding, no pain, no CVA tenderness, Extremities: Normal inspection, no peripheral edema or erythema, calfs nontender to palpation Psych: Normal mood and affect Skin: no rash or erythema Results & Data Results & Data Vital Signs (Past 12 Hours) Vital Signs Temp Pulse Pulse Resp BP BP Pulse Ox 05/05/24 18:42 05/05/24 17:06 77 18 169/110 H 96 05/05/24 15:17 81 05/05/24 13:52 36.8 C 95 H 18 109/80 98 O2 Del Method 05/05/24 18:42 Room Air 05/05/24 17:06 Room Air 05/05/24 15:17 05/05/24 13:52 Room Air Laboratory Results Abnormal lab results 05/05/24 05/05/24 05/05/24 Range/Units 14:12 16:06 16:22 WBC 20.81 H (4.8-10.8) K/ul Hct 35.3 L (37.0-47.0) % Neut # (Auto) 17.14 H (1.40-6.50) K/uL [place] # (Auto) 1.31 H (0.11-0.59) K/uL Immature Gran # (Auto) 0.51 H (0.01-0.20) K/uL Sodium 116 L* (136-145) mmol/L Potassium 3.3 L (3.5-5.1) mmol/L Chloride 80 L (98-107) mmol/L Anion Gap 12 H (3-11) Glucose 141 H (70-99(Fasting)) mg/dl Osmolality 243 L (280-300) mOsm/kg Calcium 8.3 L (8.6-10.3) mg/dl Troponin I High Sens 16.2 H (0-14) pg/ml Total Protein 8.4 H (6.0-8.3) gm/dl Globulin 4.4 H (2.5-4.0) gm/dl Lipase 9 L (11-82) U/L TSH 9.522 H (0.300-4.500) uIu/ml Free T4 1.84 H (0.61-1.60) ng/dl Urine Protein Trace H (Negative) Urine Ketones 2+ H (Negative) Ur Leukocyte Esterase Trace H (Negative) Urine Osmolality 363 L (500-800) mOsm/kg 05/05/24 Range/Units 17:54 WBC (4.8-10.8) K/ul Hct (37.0-47.0) % Neut # (Auto) (1.40-6.50) K/uL [place] # (Auto) (0.11-0.59) K/uL Immature Gran # (Auto) (0.01-0.20) K/uL Sodium 113 L* (136-145) mmol/L Potassium 3.4 L (3.5-5.1) mmol/L Chloride 79 L (98-107) mmol/L Anion Gap (3-11) Glucose 144 H (70-99(Fasting)) mg/dl Osmolality (280-300) mOsm/kg Calcium 7.9 L (8.6-10.3) mg/dl Troponin I High Sens (0-14) pg/ml Total Protein (6.0-8.3) gm/dl Globulin (2.5-4.0) gm/dl Lipase (11-82) U/L TSH (0.300-4.500) uIu/ml Free T4 (0.61-1.60) ng/dl Urine Protein (Negative) Urine Ketones (Negative) Ur Leukocyte Esterase (Negative) Urine Osmolality (500-800) mOsm/kg Diagnostic Findings Chest X-Ray 05/05/24 14:41 XR chest 1V portable HISTORY: 78 years-old Female cough, weakness COMPARISON: 06/02/2012 TECHNIQUE: AP view the chest FINDINGS: Cardiomediastinal and hilar silhouettes are within normal limits. No pneumothorax, pleural effusion or pulmonary edema. Mild subsegmental bibasilar densities. Right upper quadrant surgical clips. Bones appear grossly intact. IMPRESSION: 1. Mild bibasilar densities favor atelectasis. A mild nonspecific pneumonitis considered less likely. 2. Cardiomegaly. ACT 112: Negative or not required by law. The above report was generated using voice recognition software. It may contain grammatical, syntax or spelling errors. Electronically signed by: Atul Hernandez M.D. 05/05/2024 3:31 PM Medications Administered Ondansetron HCl (Ondansetron Inj 2 Mg/Ml 2 Ml Vial) 4 mg IV Q6H PRN PRN Reason: Nausea Stop: 06/04/24 18:50 Last Admin: 05/05/24 19:42 Dose: 4 mg Documented By: ERIKA Discontinued Medications Sodium Chloride (Nss) 1,000 mls @ 125 mls/hr IV .Q8H NYDIA Stop: 06/04/24 14:44 Last Infusion: 05/05/24 19:17 Dose: Infused Documented By: Admin: 05/05/24 15:10 Dose: 125 mls/hr Documented By: MATTEO Ceftriaxone Sodium (Rocephin) 2,000 mg in 50 mls @ 100 mls/hr IV NOW STA Stop: 05/05/24 15:57 Last Infusion: 05/05/24 16:05 Dose: Infused Documented By: Admin: 05/05/24 15:37 Dose: 100 mls/hr Documented By: DELON Doxycycline Hyclate 100 mg/ (Dextrose) 100 mls @ 50 mls/hr IV NOW STA Stop: 05/05/24 17:41 Last Infusion: 05/05/24 18:33 Dose: Infused Documented By: Admin: 05/05/24 16:20 Dose: 50 mls/hr Documented By: MATTEO Acetaminophen (Ofirmev) 1,000 mg in 100 mls @ 400 mls/hr IV NOW STA Stop: 05/05/24 16:10 Last Infusion: 05/05/24 16:17 Dose: Infused Documented By: Admin: 05/05/24 16:03 Dose: 400 mls/hr Documented By: MATTEO Famotidine (Pepcid 20mg Iv Push) 20 mg in 5 mls @ 2.5 mls/min IV NOW STA Stop: 05/05/24 15:57 Last Admin: 05/05/24 16:03 Dose: 2.5 mls/min Documented By: MATTEO Sodium Chloride (Nss) 1,000 mls @ 80 mls/hr IV .[id number] NYDIA Stop: 06/04/24 15:59 Last Infusion: 05/05/24 16:17 Dose: Infused Documented By: Admin: 05/05/24 16:03 Dose: 80 mls/hr Documented By: MATTEO Potassium Chloride (Potassium Chloride Crtab 20 Meq Tabcr) 40 meq PO NOW STA Stop: 05/05/24 16:30 Last Admin: 05/05/24 16:38 Dose: 40 meq Documented By: MATTEO Coding Level of Care Code 24658 CRITICAL CARE 1ST 30-74M Diagnoses Hyponatremia E87.1 Leukocytosis D72.829 Pneumonia J18.9 Hypothyroidism E03.9 Autoimmune hepatitis K75.4 Electrolyte abnormality E87.8
[2024-05-05] MEDS: NORTRIPTYLINE HCL 10 MG CAP PO SCH (20:34)
[2024-05-05] MEDS: MAGNESIUM OXIDE 400 MG TAB PO SCH (20:34)
[2024-05-05] MEDS: VERAPAMIL HCL 120 MG TABCR PO SCH (20:34)
[2024-05-05] MEDS: MELATONIN 3 MG TAB PO PRN (20:34)
[2024-05-05] MEDS: POTASSIUM CHLORIDE / WTR 10 MEQ/100 ML PLCT IV SCH (20:34)
[2024-05-05] MEDS: EZETIMIBE 10 MG TAB PO SCH (20:34)
[2024-05-05] MEDS: ENOXAPARIN INJ 40 MG/0.4 ML SYR SQ SCH (20:35)
[2024-05-05] MEDS ORDERED: POTASSIUM CHLORIDE CRTAB 20 MEQ TABCR PO SCH (21:00)
[2024-05-05] MEDS: SODIUM CHLORIDE 3 % 150 ML IV ONE (21:20)
[2024-05-05] MEDS: guaiFENesin SUGAR FREE 100 MG/5 ML UDC PO PRN (23:40)
[2024-05-06 00:45] LABS: BUN Creatinine Ratio 12.9 (10-20); Calcium 8.1 mg/dl (8.6-10.3); Creatinine Clr Calc Pharmacy 73.9 ml/min; Est GFR (African American) 100.8 ml/min; Potassium 4.4 mmol/L (3.5-5.1)
--- OUTSIDE RECORDS SUMMARY | 2024-05-06 02:11 | External Medical Summary | Summary of Care ---
Author Name Unknown Organization [facility] Address [address] [place] [address] Phone [phone] Care Team Providers Care Yard Switch Operator Name Role Phone Carol Gomes DO Primary Care Provider [phone] Reason for Visit * Reason Comments Medication Refill Encounter Details Date Type Department Care Team (Late st Contact Info) Description 04/23/2024 Refill Family Practice [facility] [place], [place] [address] [place] [phone] Carol Gomes [address] [place] [address] Gastroparesis Allergies Active Allergy Reactions Criticality Noted Date Comments Codeine 09/01/2011 Severe Headache/Projectile vomiting Hydromorphone Nausea/vomiting 06/10/2021 Diltiazem Rash 11/22/2020 Iodinated Contrast Media 04/26/2014 Violent headache and projectile vomiting Metoclopramide Hcl Other (Please comment) Medium 11/16/2007 Restless legs Morphine Nausea/vomiting 03/09/2003 Sulfa Antibiotics 03/09/2003 hives documented as of this encounter (statuses as of 04/23/2024) Medications Medication Sig Dispensed Refills Start Date End Date Status ASPIRIN 81 MG OR CHEW Take 1 Tablet by mouth every evening. 30 0 3 Active CALCIUM + D 600-200 MG-IU OR TABS Take 1 Tablet by mouth every evening. 0 0 4 Active Melatonin 5 MG Tablet Take 1 Capsule by mouth at bedtime. Active Magnesium 250 MG Tablet Take 2 Tablets by mouth every evening. Active Docusate Sodium 100 MG Oral Capsule Take 1 Capsule by mouth in the morning and 1 Capsule before bedtime. Active Alendronate Sodium 70 MG Oral Tablet (Fosamax)Indications: Osteoporosis TAKE ONE TABLET BY MOUTH ONCE A WEEK WITH 8OZ OF WATER 30 MINUTES BEFORE FIRST MEAL OF THE DAY. REMAIN UPRIGHT FOR 30 MINUTES AFTER TAKING TABLET 15 Tablet 3 3 06/30/20 24 Active Verapamil HCl ER 120 MG Oral Tablet Extended Release (Isoptin SR)Indications:PSVT (paroxysmal supraventricular tachycardia) (HCC),HTN, goal below 140/90 TAKE ONE TABLET BY MOUTH EVERY MORNING 90 Tablet 3 3 05/24/20 24 Active Additional Information Patient taking differently: HS, Reported on 01/12/2024 Metoprolol Succinate ER 25 MG Oral Tablet Extended Release 24 Hour (toPROL XL)Indications:PSVT (paroxysmal supraventricular tachycardia) (HCC) TAKE ONE TABLET BY MOUTH EVERY DAY AT BEDTIME 90 Tablet 3 3 07/24/20 24 Active Ezetimibe 10 MG Oral Tablet (Zetia)Indications:Dy slipidemia TAKE ONE TABLET BY MOUTH EVERY DAY 90 Tablet 3 3 08/30/20 24 Active Additional Information Patient taking differently: HS, Reported on 01/12/2024 Bromelains 500 MG Oral Tablet Take 1 Tablet by mouth 2 times a day. Active AMBULATORY MISCELLANEOUS MEDICATION Take 10 mg by mouth daily. Domperidone (gets from [facility]hen) Active Mycophenolate Mofetil 500 MG Oral Tablet (Cellcept) Take 1 Tablet by mouth in the morning and 1 Tablet before bedtime. 180 Tablet 4 4 Active Nortriptyline HCl 10 MG Oral Capsule (Pamelor) Take 1 Capsule by mouth at bedtime. 90 Capsule 1 4 Active Ibuprofen 800 MG Oral Tablet (Motrin)Indications:A rthritis, rheumatoid (HCC) TAKE ONE TABLET BY MOUTH TWICE A DAY NEEDED FOR PAIN 180 Tablet 4 12/18/19 25 Active Torsemide 20 MG Oral Tablet (Demadex)Indications: Secondary hypertension with goal blood pressure less than 140/90 TAKE 1 TABLET BY MOUTH EVERY MORNING 90 Tablet 1 4 01/08/20 25 Active Potassium Chloride ER 10 MEQ Oral Tablet Extended Release TAKE TWO TABLETS BY MOUTH EVERY DAY 180 Tablet 1 4 01/08/20 25 Active Levothyroxine Sodium 75 MCG Oral Tablet (Levoxyl) TAKE 1 TABLET BY MOUTH ONE EVERY DAY BUT THURSDAY AT LEAST 30 MINUTES PRIOR TO FIRST MEAL OF THE DAY OR OTHER MEDICATIONS 90 Tablet 3 4 04/23/20 25 Active Omeprazole 20 MG Oral Capsule Delayed Release (PriLOSEC)Indications :Gastroparesis TAKE ONE CAPSULE BY MOUTH IN THE MORNING. 90 Capsule 1 4 04/23/20 25 Active Levothyroxine Sodium 75 MCG Oral Tablet (Levoxyl) TAKE 1 TABLET BY MOUTH ONE EVERY DAY BUT THURSDAY AT LEAST 30 MINUTES PRIOR TO FIRST MEAL OF THE DAY OR OTHER MEDICATIONS 90 Tablet 3 3 04/23/20 24 Discontinu ed(Refill) Omeprazole 20 MG Oral Capsule Delayed Release (PriLOSEC)Indications :Gastroparesis TAKE ONE CAPSULE BY MOUTH IN THE MORNING. 90 Capsule 1 3 04/23/20 24 Discontinu ed(Refill) documented as of this encounter (statuses as of 04/23/2024) Active Problems Problem Noted Date Diagnosed Date Age-related osteoporosis wit hout current pathological fracture 09/18/2023 PSVT (paroxysmal supraventricular tachycardia) 0 03/30/2023 Hypertensive kidney disease with stage 3a chronic kidney disease 03/30/2023 Gastro-esophageal reflux disease without esophag itis 05/27/2022 Pulmonary hypertension 05/27/2022 Nonrheumatic aortic valve stenosis 05/27/2022 Dyslipidemia 09/26/2019 Chronic major depressive disorder, recurrent epi sode 09/26/2019 Acquired hypothyroidism 02/20/2017 Autoimmune hepatitis 05/26/2007 Gastroparesis 05/02/2005 HTN, goal below 140/90 07/18/2003 documented as of this encounter (statuses as of 04/23/2024) Resolved Problems Problem Noted Date Diagnosed Date Resolved Date Hypertensive kidney disease with stage 3b chronic kidney disease 09/23/2021 03/30/2023 Overview: Per CKD protocol Chronic kidney disease, stage 3b 09/23/2021 12/10/2021 Overview: Per CKD protocol Duplicate Chronic kidney disease, stage 3a 03/26/2021 09/26/2021 Overview: Per CKD protocol Hypertensive kidney disease with stage 3a chronic kidney disease 09/24/2020 09/26/2021 Overview: Per CKD protocol Hypertensive kidney disease with chronic kidney disease stage III 09/10/2018 09/27/2020 Overview: Per CKD protocol Encounter for examination fo r normal comparison and control in clinical research program 10/21/2017 06/18/2020 Overview: DO NOT DELETE [facility] DETECT Study: Project # [id number], Pullman Car Repairer: Miko Andino, PhD. SUMMARY: Goal: Establish test characteristics (sensitivity, specificity, PPV, NPV) of a circulating tumor DNA (ctDNA)-based test for cancer. Hypothesis: Circulating tumor DNA (ctDNA) and elevated protein biomarkers (together, the marker panel) can be detected in asymptomatic individuals with early cancer. Specific Aim 1: Determine the prevalence of a positive marker panel test in a prospective clinical cohort of 10,000 asymptomatic women ages 65 to 75 years. Specific Aim 2: Determine the sensitivity, specificity, positive predictive value (PPV) and negative predictive value (NPV) of a marker panel test to identify histologically proven cancers that develop within 5-years of the marker panel evaluation. CONTACTS: During normal business hours, contact study staff at ; after hours Pull[employer] Car Repairer via the [facility] tumbling machine operator . Please contact study team before resolving/deleting from patients problem list. Study phone number: [phone]. Diagnosis changed due to Research Module. Go to Snapshot for study details. Encounter for examination fo r normal comparison and control in clinical research program 10/21/2017 07/17/2022 Overview: DO NOT DELETE [facility] DETECT Study: Project # [id number], Pull[employer] Car Repairer: Sean Pastor, MS, MPH. SUMMARY: Goal: Establish test characteristics (sensitivity, specificity, PPV, NPV) of a circulating tumor DNA (ctDNA)-based test for cancer. - Hypothesis: Circulating tumor DNA (ctDNA) and elevated protein biomarkers (together, the marker panel) can be detected in asymptomatic individuals with early cancer. - Specific Aim 1: Determine the prevalence of a positive marker panel test in a prospective clinical cohort of 10,000 asymptomatic women ages 65 to 75 years. - Specific Aim 2: Determine the sensitivity, specificity, positive predictive value (PPV) and negative predictive value (NPV) of a marker panel test to identify histologically proven cancers that develop within 5-years of the marker panel evaluation. - CONTACTS: During normal business hours, contact study staff at ; after hours Pull[employer] Car Repairer via the [facility] tumbling machine operator . - Please contact study team before resolving/deleting from patients problem list. Study phone number: [phone]. Diagnosis changed due to Research Module. Go to Snapshot for study details. Rheumatoid arthritis involvi ng multiple sites with positive rheumatoid factor 07/24/2016 09/10/20 18 Kidney disease, chronic, sta ge III (GFR 30-59 ml/min) 01/21/2016 10/01/2018 Overview: Per CKD protocol #1 Anemia 02/15/2004 03/08/2018 #[id number]\CORRONA\ENEWMAN 2003 Overview: Renamed Per Clinical Trials Billing Project. Pt is a participant in the CORRONA (Consortium of Rheumatology Researchers of [place]) national data collection study. For further information please call Dr Foster Hare or Tracy Valentin, RN, CCRC at [phone] [facility] RESEARCH OTHER*[id number] 2003 05/13/2010 Overview: Renamed Per Clinical Trials Billing Project. Pt is a participant in the CORRONA (Consortium of Rheumatology Researchers of [place]) national data collection study. For further information please call Dr Foster Hare or Tracy Valentin, RN, CCRC at [phone] ARTHRITIS,RHEUMATOID 03/09/2003 016 Encounter for long-term (cur rent) use of medications 03/09/2003 03/10/2019 Overview: ICD-10 update of inactive term Nausea 02/20/2017 Overview: ICD-10 update of inactive term Autoimmune hepatitis 017 documented as of this encounter (statuses as of 04/23/2024) Immunizations Name Administration Dates Next Due COVID-19 mRNA, LNP-s, No Pre serve, 2-Dose Series (Moderna) 01/12/2021,12/08/2020 COVID-19, MRNA-LNP, 23-24, P F, 30 MCG/0.3 mL, 12 YRS AND ABOVE, IM (PFIZER-Comirnaty) 09/04/2023 COVID-19, mRNA, LNP-s, PF, B ooster, 100mcg/0.5mg (Moderna) 04/24/2022,09/18/2021 Covid-19, Mrna, Lnp-s, Pf, B ivalent, 30 Mcg, IM, 12 yrs and above (Pfizer) 09/17/2022 PPD 07/08/2021 Pneumococcal Conjugate Vacc, 13 Valent (Prevnar) 12/19/2015 Pneumococcal Polysaccharide PPV23 (Pneumovax) 04/15/2013,11/19/2006 RSV Vac., Recomb, Adjuvant, PF,0.5 Ml (Arexvy) 10/03/2023 Season Influenza, Quad, PF, Adjuvanted, 65+ Yrs, IM (FLUAD) 08/22/2020 Seasonal Influenza, PF, 6 M & above, IM , (FluLaval or Fluzone) 09/26/2019,09/10/2018,09/02/2017 09/10/2019 Seasonal Influenza, Quadriva lent Hd (Fluzone Hd) 09/04/2023,09/17/2022,10/02/2021 Seasonal Influenza, Quadriva lent, No Preserve, IM 10/02/2015 Seasonal Influenza, Split, I IV3, With Preserve, Inj 09/11/2016,09/27/2013,09/29/2012,12/02/2010,08/28/2009,09/11/2008,09/22/20 07,09/16/2006 TDAP (age 10 and older)(Boostrix) 02/20/2017 Varicella Zoster Vaccine (Adult) 08/30/2012 Zoster Vaccine Recombinant (Shingrix) 11/22/2020 ,08/22/2020 10/23/2020 documented as of this encounter Social History Tobacco Use Types Packs/Day Years Used Date Smoking Tobacco: Never Passive Smoke Exposure: Past Smokeless Tobacco: Never Comments:Never Alcohol Use Standard Drinks/Week Comments Never 0 (1 standard drink = 0.6 oz pur e alcohol) PHQ-2 Answer Date Recorded PHQ Adult Total Score 0 09/18/2023 Hunger Vital Sign Answer Date Recorded Within the past 12 months, y ou worried that your food would run out before you got the money to buy more. Never true 09/18/20 23 Within the past 12 months, t he food you bought just didn't last and you didn't have money to get more. Never true 09/18/2023 Sex and Gender Information Value Date Recorded Sex Assigned at Female 05/27/2022 9:15 AM EDT Gender Identity Female 05/27/2022 9:15 AM EDT Sexual Orientation Straight 06/18/2021 3: 22 PM EDT Job Start Date Occupation Industry Not on file Not on file Not on file documented as of this encounter Miscellaneous Notes * Telephone Encounter - Emilia Walter RP - 04/23/2024 10:21 AM EDT Signed Prescriptions: Disp Refills Levothyroxine Sodium 75 MCG Oral Tablet (L*90 Tab*3 Sig: TAKE 1 TABLET BY MOUTH ONE EVERY DAY BUT THURSDAY AT LEAST 30 MINUTES PRIOR TO FIRST MEAL OF THE DAY OR OTHER MEDICATIONS Authorizing Provider: CAROL GOMES Ordering User: EMILIA WALTER Omeprazole 20 MG Oral Capsule Delayed Rele*90 Cap*1 Sig: TAKE ONE CA PSULE BY MOUTH IN THE MORNING. Authorizing Provider: CAROL GOMES Ordering User: EMILIA WALETR * Telephone Encounter - Transfer User, Rx Adt - 04/23/2024 12:09 AM EDTPending Prescriptions: Disp Refills Levothyroxine Sodium 75 MCG Oral Tablet (L*90 Tab*3 Sig: TAKE 1TABLET BY MOUTH ONE EVERY DAY BUT THURSDAY AT LEAST 30 MINUTES PRIOR TO FIRST MEAL OF THE DAY OR OTHER MEDICATIONS Omeprazole 20 MG Oral Capsule Delayed Rele*90 Cap*1 Sig: TAKE ONE CAPSULE BY MOUTH IN THE MORNING. documented in this encounter Plan of Treatment Upcoming Encounters Date Type Department Care Team (Late st Contact Info) Description 05/24/2024 11:20 AM EDT Office Visit Family Practice [address] [phone] Carol Gomes DO [address] [place] [address] 09/09/2024 10:00 AM EDT Nurse Only Ancillary [address] [address] [employer], Nurse Annual Wellness Visit [address] [address] Scheduled Procedures Name Priority Associated Diagnoses Date/Ti me COLONOSCOPY FLEXIBLE PROXIMA L DIAGNOSTIC Recall Special screening for malignant neoplasms, colon Health Maintenance Due Date Last Done Comments COVID-19 Vaccine (2022- season) 2024 09/04/2023, 09/17/2022, 04/24/2022, Additional history exists GFR 07/21/2024 01/19/2024, 01/2023, 01/29/2023, Additional history exists CKD PHOS USE SMARTSET 90176 09/18/202401/2023, 05/27/2022, 05/24/2021, Additional history exists TSH 09/18/2024 09/18/2023, 09/16, 02/14/2022, Additional history exists Albumin/Creatinine Ratio 01/18/2025 024, 03/30/2023, 02/14/2022, Additional history exists CKD HGB USE SMARTSET 43369 04/07/202504/07, 04/07/2024, 01/19/2024, Additional history exists DXA Scan 05/05/2025 05/05/2023, 04/17, 12/31/2015, Additional history exists DTaP,Tdap,and Td Vaccines (2 - Td or Tdap) 02/20/2027 02/20/2017 Pneumococcal Vaccine: 65+ Years Completed 12/19/2015, 04/15/2013, 11/19/2006 Zoster Vaccines Completed 11/22/2020, 05/2020, 08/30/2012 Influenza Vaccine (FLU shot) Completed , 09/17/2022, 10/02/2021, Additional history exists VITAMIN D LEVEL ONCE IN A LIFETIME-USE SMARTSET# [id number] Completed 01/19/2024 GARDASIL-HPV IMMUNIZATION SERIES Aged Out No longer eligible based on patient's age to complete this topic Hepatitis B Aged Out No longer eligi ble based on patient's age to complete this topic MENINGOCOCCAL (MENACTRA/MENVEO) Aged Out No longer eligible based on patient's age to complete this topic documented as of this encounter Medical Devices Not on filedocumented as of this encounter Visit Diagnoses Diagnosis Gastroparesis documented in this encounter Advance Directives Documents on File Type Date Recorded Patient Brick Tester Expl anation Advance Directives and Living Will 12/16/2016 LIVING WILL Power of Physician Advisor 12/16/2016 POWER OF A [facility] POA Care Teams Yard Switch Operator Relationship Specialty Start Date End Date Carol Gomes DO [address] [place] [address] PCP - General Family Medicine 09/03/23 documented as of this encounter
--- OUTSIDE RECORDS SUMMARY | 2024-05-06 02:11 | External Medical Summary ---
Author Name Unknown Address Unknown Organization [id number]:LABORATORY [facility] [place] - [address] [facility] [address] Laboratory Report Ordering Provider Test Date Status LOIDA PHAM 04/07/2024 07:55:05 Final Observation Date Value Abnormality Reference (Units ) Status WBC, Total 04/07/2024 07:55:05 7.44 4.00-10.80 (K/uL) Final RBC 04/07/2024 07:55:05 3.64 3.85-5.15 (M/uL) Final Hemoglobin 04/07/2024 07:55:05 10.3 Below low normal 12.0-15.3 (g/dL) Final HCT 04/07/2024 07:55:05 31.8 Below low normal 36.0-45.2 (%) Final MCV 04/07/2024 07:55:05 87.4 81.5-97.5 (fL) Final MCH 04/07/2024 07:55:05 28.3 27.0-34.0 (pg) Final MCHC 04/07/2024 07:55:05 32.4 32.0-36.0 (g/dL) Final RDW 04/07/2024 07:55:05 14.4 11.5-15.5 (%) Final Platelets 04/07/2024 07:55:05 168 140-400 (K/uL) Final MPV 04/07/2024 07:55:05 11.2 6.6-11.1 (fL) Final Nucleated erythrocytes/100 leukocytes [Ratio] in Blood by Automated count 04/07/2024 07:55:05 0 <=0 (/100 WBCs) Final Performing Location LABORATORY [facility] [place] - [address] [place] [address]
--- OUTSIDE RECORDS SUMMARY | 2024-05-06 02:11 | External Medical Summary ---
Author Name Unknown Address Unknown Organization [id number][place] [place] [address] [place] [address] Laboratory Report Ordering Provider Test Date Status MIKO WATERMANASHLEY 01/19/2024 11:39:29 Final Normal: <30 mg/g creatinine< br/>High: 30-300 mg/g creatinine
Very High: >300 mg/g creatinine
Nephrotic: >2200 mg/g creatinine Observation Date Value Abnormality Reference (Units ) Status Albumin, Urine 01/19/2024 11:39:29 <1.20 (mg/dL) Final Creatinine, Urine 01/19/2024 11:39:29 127 (mg/dL) Final Albumin/Creatinine [Mass Ratio] in Urine 01/19/2024 11:39:29 <9 <30 (mg/g Creat) Final Performing Location [facility] [place] [address] [place] [address]
--- OUTSIDE RECORDS SUMMARY | 2024-05-06 02:11 | External Medical Summary ---
Author Name Unknown Address Unknown Organization [id number]:LABORATORY [facility] [place] - [address] [place] [address] [place] [address] Laboratory Report Ordering Provider Test Date Status LOIDA PHAM 04/07/2024 07:55:05 Final Observation Date Value Abnormality Reference (Units ) Status Ferritin 04/07/2024 07:55:05 25 13-150 (ng /mL) Final Postmenopausal women have hi gher ferritin levels than pre-menopausal women. The above reference interval is based on pre-menopausal women. Performing Location LABORATORY [facility] - [address] [place] [address]
--- OUTSIDE RECORDS SUMMARY | 2024-05-06 02:11 | External Medical Summary ---
Author Name Unknown Address Unknown Organization [id number]:[facility]ORY [facility] [place] [address] [facility] [place] [address] Laboratory Report Ordering Provider Test Date Status LOIDA PHAM 01/19/2024 11:37:05 Final Observation Date Value Abnormality Reference (Units ) Status BUN 01/19/2024 11:37:05 20 6-20 (mg/dL) Final Creatinine 01/19/2024 11:37:05 1.1 Above high normal 0.5-1.0 (mg/dL) Final Glomerular filtration rate/1.73 sq M.predicted [Volume Rate/Area] in Serum, Plasma or Blood by Creatinine-based formula (CKD-EPI) 01/19/2024 11:37:05 53 Below low normal >=60 (mL/min) Final eGFR is calculated based on the CKD-EPI 2020 equation SODIUM 01/19/2024 11:37:05 138 135-146 (m mol/L) Final Potassium 01/19/2024 11:37:05 4.7 3.5-5.1 (m mol/L) Final Cl 01/19/2024 11:37:05 102 98-107 (mm ol/L) Final CO2 01/19/2024 11:37:05 26 22-32 (mmo l/L) Final Anion gap 01/19/2024 11:37:05 10 7-15 (mmol /L) Final Glucose 01/19/2024 11:37:05 90 70-120 (mg /dL) Final Albumin 01/19/2024 11:37:05 4.2 3.8-5.0 (g /dL) Final AST (Aspartate aminotransferase) 01/19/2024 11:37:05 28 10-35 (U/L) Final Alk Phos 01/19/2024 11:37:05 44 35-130 (U/ L) Final Bilirubin, Total 01/19/2024 11:37:05 0.3 <=1 .2 (mg/dL) Final Calcium 01/19/2024 11:37:05 9.7 8.4-10.2 ( mg/dL) Final Protein 01/19/2024 11:37:05 7.0 6.0-8.3 (g /dL) Final ALT (Alanine aminotransferase) 01/19/2024 11:37:05 21 10-35 (U/L) Final Performing Location LAB[facility] [place] [facility] [address] [facility] [address]
--- OUTSIDE RECORDS SUMMARY | 2024-05-06 02:11 | External Medical Summary | Summary of Care ---
Author Name Unknown Organization [facility] Address [address] [place] [address] Phone [phone] Care Team Providers Care Operations Research Group Manager Name Role Phone Carol Cade Primary Care Provider [phone] Reason for Visit * Auth/Cert Specialty Diagnoses / Procedures Referred By Jeremie medina Referred To Contact Diagnoses Abnormal partial thromboplastin time (PTT) Autoimmune hepatitis (HCC) Abnormal partial thromboplastin time (PTT) [R79.1] Autoimmune hepatitis (HCC) [K75.4] Procedures EGD, W/ENDOSCOPIC US ESOPHAGOGASTRODUODENOSCOPY (EGD), FLEXIBLE, TRANSORAL, ENDOSCOPIC ULTRASOUND Referral ID Status Reason Start Date Expiration Date Visits Re quested Visits Authorized [id number] [phone] Encounter Details Date Type Department Care Team (Latest Contact Info) Description 01/25/2024 9:25 AM EDT - 01/25/2024 11:40 AM EDT Hospital Encounter ENDO [facility], Endoscopy Room [facility] [address] [place] [phone] Mitra Yan MD [address] [place] [address] Upper Endoscopic US Discharge Disposition: Home - Self Care Allergies Active Allergy Reactions Criticality Noted Date Comments Codeine 09/01/2011 Severe Headache/Projectile vomiting Hydromorphone Nausea/vomiting 06/10/2021 Diltiazem Rash 11/22/2020 Iodinated Contrast Media 04/26/2014 Violent headache and projectile vomiting Metoclopramide Hcl Other (Please comment) Medium 11/16/2007 Restless legs Morphine Nausea/vomiting 03/09/2003 Sulfa Antibiotics 03/09/2003 hives documented as of this encounter (statuses as of 01/26/2024) Medications Medication Sig Dispensed Refills Start Date End Date Status ASPIRIN 81 MG OR CHEW Take 1 Tablet by mouth every evening. 30 0 03/15/2003 Active CALCIUM + D 600-200 MG-IU OR TABS Take 1 Tablet by mouth every evening. 0 0 01/31/2004 Active Melatonin 5 MG Tablet Take 1 Capsule by mouth at bedtime. 0 Active Magnesium 250 MG Tablet Take 2 Tablets by mouth every evening. 0 Active Docusate Sodium 100 MG Oral Capsule Take 1 Capsule by mouth in the morning and 1 Capsule before bedtime. 0 Active Alendronate Sodium 70 MG Oral Tablet (Fosamax)Indications:O steoporosis TAKE ONE TABLET BY MOUTH ONCE A WEEK WITH 8OZ OF WATER 30 MINUTES BEFORE FIRST MEAL OF THE DAY. REMAIN UPRIGHT FOR 30 MINUTES AFTER TAKING TABLET 15 Tablet 3 05/11/2023 4 Active Levothyroxine Sodium 75 MCG Oral Tablet (Levoxyl) TAKE 1 TABLET BY MOUTH ONE EVERY DAY BUT THURSDAY AT LEAST 30 MINUTES PRIOR TO FIRST MEAL OF THE DAY OR OTHER MEDICATIONS 90 Tablet 3 03/31/2023 4 Active Verapamil HCl ER 120 MG Oral Tablet Extended Release (Isoptin SR)Indications:PSVT (paroxysmal supraventricular tachycardia),HTN, goal below 140/90 TAKE ONE TABLET BY MOUTH EVERY MORNING 90 Tablet 3 05/25/2023 4 Active Additional Information Patient taking differently: HS, Reported on 01/12/2024 Metoprolol Succinate ER 25 MG Oral Tablet Extended Release 24 Hour (toPROL XL)Indications:PSVT (paroxysmal supraventricular tachycardia) TAKE ONE TABLET BY MOUTH EVERY DAY AT BEDTIME 90 Tablet 3 06/08/2023 4 Active Ezetimibe 10 MG Oral Tablet (Zetia)Indications:Dys lipidemia TAKE ONE TABLET BY MOUTH EVERY DAY 90 Tablet 3 08/31/2023 4 Active Additional Information Patient taking differently: HS, Reported on 01/12/2024 Bromelains 500 MG Oral Tablet Take 1 Tablet by mouth 2 times a day. 0 Active AMBULATORY MISCELLANEOUS MEDICATION Take 10 mg by mouth daily. Domperidone (gets from [facility]) 0 Active Omeprazole 20 MG Oral Capsule Delayed Release (PriLOSEC)Indications: Gastroparesis TAKE ONE CAPSULE BY MOUTH IN THE MORNING. 90 Capsule 1 10/26/2023 4 Active Mycophenolate Mofetil 500 MG Oral Tablet (Cellcept) Take 1 Tablet by mouth in the morning and 1 Tablet before bedtime. 180 Tablet 4 11/17/2023 Active Nortriptyline HCl 10 MG Oral Capsule (Pamelor) Take 1 Capsule by mouth at bedtime. 90 Capsule 1 12/21/2023 Active Ibuprofen 800 MG Oral Tablet (Motrin)Indications:Ar thritis, rheumatoid (HCC) TAKE ONE TABLET BY MOUTH TWICE A DAY NEEDED FOR PAIN 180 Tablet 0 12/19/2023 5 Active Torsemide 20 MG Oral Tablet (Demadex)Indications:S econdary hypertension with goal blood pressure less than 140/90 TAKE 1 TABLET BY MOUTH EVERY MORNING 90 Tablet 1 01/09/2024 5 Active Potassium Chloride ER 10 MEQ Oral Tablet Extended Release TAKE TWO TABLETS BY MOUTH EVERY DAY 180 Tablet 1 01/09/2024 5 Active Meloxicam 15 MG Oral Tablet (Mobic) Take by mouth daily. 0 01/13/2024 4 Active documented as of this encounter (statuses as of 01/26/2024) Active Problems Problem Noted Date Diagnosed Date [...] as of this encounter (statuses as of 01/26/2024) Resolved Problems Problem Noted Date Diagnosed Date [...] program 10/21/2017 06/18/2020 Overview: DO NOT DELETE [employer] DETECT Study: Project # [id number], Enginehouse Brakeman: Miko Andino, PhD. SUMMARY: Goal: Establish test [...] contact study staff at ; after hours Enginehouse Brakeman via the [facility] automatic paint sprayer operator . Please contact study team before resolving/deleting from patients problem list. Study phone number: [phone]. Diagnosis changed due to Research Module. Go to Snapshot for study details. Encounter for examination fo r normal comparison and control in clinical research program 10/21/2017 07/17/2022 Overview: DO NOT DELETE - [employer] DETECT Study: Project # [id number], Enginehouse Brakeman: Sean Pastor, MS, MPH. SUMMARY: Goal: Establish [...] contact study staff at ; after hours Enginehouse Brakeman via the [facility] automatic paint sprayer operator . - Please contact study team before resolving/deleting from patients problem list. Study phone number: [phone]. Diagnosis changed due to Research Module. Go to Snapshot for study details. Rheumatoid arthritis involvi ng multiple sites with positive rheumatoid factor 07/24/2016 09/10/20 18 Kidney disease, chronic, sta ge III (GFR 30-59 ml/min) 01/21/2016 10/01/2018 Overview: Per CKD protocol #1 Anemia 02/15/2004 03/08/2018 #OOR-[id number]\\CORRONA\\ENEWMAN 2003 Overview: Renamed Per Clinical Trials Billing Project. Pt is a participant in the [employer] (Consortium of [employer]umatology Researchers of [place]) national data collection study. For further information please call Dr Foster Hare or Tracy Valentin, RN, CCRC at [phone] [facility] RESEARCH OTHER*[id number] 2003 05/13/2010 Overview: Renamed Per Clinical Trials Billing Project. Pt is a participant in the [employer] (Consortium of [employer]umatology Researchers of [place]) national data collection study. For further information please call Dr Foster Hare or Tracy Valentin, RN, CCRC at [phone] ARTHRITIS,RHEUMATOID 03/09/2003 016 Encounter for long-term (cur rent) use of medications 03/09/2003 03/10/2019 Overview: ICD-10 update of inactive term Nausea 02/20/2017 Overview: ICD-10 update of inactive term Autoimmune hepatitis 017 documented as of this encounter (statuses as of 01/26/2024) Immunizations Name Administration Dates Next Due COVID-19 [...] Influenza, Split, I IV3, With Preserve, Inj 09/11/2016,09/27/2013,09/29/2012,02/2010,08/28/2009,09/11/2008,09/22/20 07,09/16/2006 TDAP (age 10 and older)(Boostrix) 02/20/2017 [...] on file documented as of this encounter Last Filed Vital Signs Vital Sign Reading Time Taken Comments Blood Pressure 115/53 01/25/2024 11:18 AM EDT Pulse 54 01/25/2024 11:18 AM EDT Temperature 36.2 C (97.1 F) 01/25/2024 10:33 AM E DT Respiratory Rate 18 01/25/2024 11:18 AM EDT Oxygen Saturation 99% 01/25/2024 11:18 AM EDT Inhaled Oxygen Concentration - - Weight 70 kg (154 lb 5.2 oz) 01/25/2024 9:47 AM EDT Height 167.6 cm (5' 5.98") 01/25/2024 9:47 AM ED T Body Mass Index 24.92 01/25/2024 9:47 AM EDT documented in this encounter H&P Notes * Mitra Yan MD - 01/25/2024 9:56 AM EDT Endoscopy Pre-Procedure Assessment Name: Trinh Becerra Date: 01/25/2024 Time: 9:56 AM Procedure(s): Endoscopic Ultrasound; with Indication(s) of FNA/FNB of lesions/tissue within or outside the GI tract Endoscopy Pre-Procedure Assessment: Prior to the procedure, the patient was identified. The patient's history, medications and allergies were reviewed as per the Anesthesia Assessment. The patient is competent. The risks and benefits of the proposed procedure and the planned sedation were discussed with the patient. All questions were answered and informed consent for the procedure was obtained. BP 151/75 | Pulse 56 | Temp 36.1 C (96.9 F) (Tympanic) | Resp 16 | Ht 1.676 m (5' 5.98") | Wt 70 kg (154 lb 5.2 oz) | SpO2 98% | BMI 24.92 kg/m | BSA 1.81 m Review of patient's allergies indicates: Allergen Reactions Metoclopramide Hcl Other (Please comment) Restless legs Codeine Severe Headache/Projectile vomiting Dilaudid [Hydromorphone] Nausea/vomiting Diltiazem Rash Iodinated Contrast Media Violent headache and projectile vomiting Morphine Nausea/vomiting Sulfa Antibiotics hives Prior to Admission medications Medication Sig Last Dose Discont. Meloxicam 15 MG Oral Tablet (Mobic) Take by mouth daily. Held Potassium Chloride ER 10 MEQ Oral Tablet Extended Release TAKE TWO TABLETS BY MOUTH EVERY DAY 01/24/2024 Torsemide 20 MG Oral Tablet (Demadex) TAKE 1 TABLET BY MOUTH EVERY MORNING 01/24/2024 Nortriptyline HCl 10 MG Oral Capsule (Pamelor) Take 1 Capsule by mouth at bedtime. 01/24/2024 Ibuprofen 800 MG Oral Tablet (Motrin) TAKE ONE TABLET BY MOUTH TWICE A DAY NEEDED FOR PAIN 01/15/2024 Mycophenolate Mofetil 500 MG Oral Tablet (Cellcept) Take 1 Tablet by mouth in the morning and 1 Tablet before bedtime. 01/24/2024 Omeprazole 20 MG Oral Capsule Delayed Release (PriLOSEC) TAKE ONE CAPSULE BY MOUTH IN THE MORNING. 01/24/2024 AMBULATORY MISCELLANEOUS MEDICATION Take 10 mg by mouth daily. Domperidone (gets from Zhen) 01/12/2024 Bromelains 500 MG Oral Tablet Take 1 Tablet by mouth 2 times a day. 01/24/2024 Ezetimibe 10 MG Oral Tablet (Zetia) TAKE ONE TABLET BY MOUTH EVERY DAY Patient taking differently: at bedtime. 01/24/2024 Metoprolol Succinate ER 25 MG Oral Tablet Extended Release 24 Hour (toPROL XL) TAKE ONE TABLET BY MOUTH EVERY DAY AT BEDTIME 01/24/2024 Verapamil HCl ER 120 MG Oral Tablet Extended Release (Isoptin SR) TAKE ONE TABLET BY MOUTH EVERY MORNING Patient taking differently: at bedtime. 01/24/2024 Alendronate Sodium 70 MG Oral Tablet (Fosamax) TAKE ONE TABLET BY MOUTH ONCE A WEEK WITH 8OZ OF WATER 30 MINUTES BEFORE FIRST MEAL OF THE DAY. REMAIN UPRIGHT FOR 30 MINUTES AFTER TAKING TABLET 01/18/2024 Levothyroxine Sodium 75 MCG Oral Tablet (Levoxyl) TAKE 1 TABLET BY MOUTH ONE EVERY DAY BUT THURSDAY AT LEAST 30 MINUTES PRIOR TO FIRST MEAL OF THE DAY OR OTHER MEDICATIONS 01/24/2024 Docusate Sodium 100 MG Oral Capsule Take 1 Capsule by mouth in the morning and 1 Capsule before bedtime. 01/24/2024 Magnesium 250 MG Tablet Take 2 Tablets by mouth every evening. 01/24/2024 Melatonin 5 MG Tablet Take 1 Capsule by mouth at bedtime. 01/24/2024 CALCIUM + D 600-200 MG-IU OR TABS Take 1 Tablet by mouth every evening. 01/24/2024 ASPIRIN 81 MG OR CHEW Take 1 Tablet by mouth every evening. 01/19/2024 Physical Exam: Mental Status Examination: alert and oriented. Airway Examination: normal oropharyngeal airway and neck mobility. Respiratory Examination: clear to auscultation. CV Examination: Regular rate and rythm, no murmurs. ASA Grade: II - A patient with mild systemic disease. After reviewing the risks and benefits, the patient was deemed in satisfactory condition to undergothe procedure. The anesthesia plan was to use sedation. Patient was explained in detail regarding risks, benefits, limitations and alternatives of the above endoscopic procedure. Risks of intravenous sedation used for procedure were also explained. Risks include, but not limited to perforation, bleeding, infection, respiratory distress, cardiac arrest and . Risk of acute pancreatitis and necrosis if ERCP is done. Patient is also aware about the possibility of missed lesion. Patient's questions were answered. The patient verbalized understandingthe information and agreed to undergo the procedure. Discussed with the patient that he/she is at an explicit higher risk for complications in comparison to other patients Mitra Yan MD 01/25/2024 documented in this encounter Procedure Notes * Miguel Smith MD - 01/25/2024 9:57 AM EDTAssociated Order(s): UPPER ENDOSCOPIC U/S [facility] Patient Name: Trinh Becerra Procedure Date: 01/25/2024 9:57 AM Date of : 1945 Admit Type: Outpatient Note Status: Finalized Date of : 1945 Admit Type: Outpatient Age: 78 Room: Advanced Endo Gender: Female Note Status: Finalized Procedure: Upper EUS Indications: Elevated liver enzymes Providers: Mitra Yan MD (Doctor), Han Baugh RN Referring MD: Miguel Smith MD (Referring MD), Carol Cade (Referring MD) Medicines: Propofol per Anesthesia Complications: No immediate complications. Procedure: Pre-Anesthesia Assessment: - Prior to the procedure, a History and Physical was performed, and patient medications, allergies and sensitivities were reviewed. The patient's tolerance of previous anesthesia was reviewed. - The risks and benefits of the procedure and the sedation options and risks were discussed with the patient. All questions were answered and informed consent was obtained. - Patient identification and proposed procedure were verified prior to the procedure by the physician and the nurse. The procedure was verified in the procedure room. - Pre-procedure physical examination revealed no contraindications to sedation. After obtaining informed consent, the endoscope was passed under direct vision. All instruments were visually inspected immediately before and after removal from the patient to ensure they are fully intact. Throughout the procedure, the patient's blood pressure, pulse, and oxygen saturations were monitored continuously. The upper EUS was accomplished without difficulty. The patient tolerated the procedure well. The Endoscope was introduced through the mouth, and advanced to the second part of duodenum. Findings & Specimens: ENDOSONOGRAPHIC FINDING: : There was no sign of significant endosonographic abnormality in the ampulla. No masses were identified. There was no sign of significant endosonographic abnormality in the common bile duct. The maximum diameter of the duct was 5 mm. Evidence of a previous cholecystectomy was identified endosonographically. There was no sign of significant endosonographic abnormality in the left lobe of the liver and in the right lobe of the liver. Homogeneous parenchyma was identified. Fine needle biopsy was performed. Color Doppler imaging was utilized prior to needle puncture to confirm a lack of significant vascular structures within the needle path. Two passes were made with the 19 gauge ultrasound core biopsy needle using a transgastric approach and using a transduodenal approach. A visible core of tissue was obtained. Verification of patient identification for the specimen was done by the physician and nurse using the patient's name and date. The pathology specimen was placed into Bottle A. The pathology specimen was placed into Bottle B. There was no sign of significant endosonographic abnormality in the entire pancreas. The pancreatic duct measured up to 2 mm in diameter. Impression: - There was no sign of significant pathology in the ampulla. - There was no sign of significant pathology in the common bile duct. - Evidence of a cholecystectomy. - There was no evidence of significant pathology in the liver. Fine needle biopsy performed. - There was no sign of significant pathology in the entire pancreas. Recommendation: - Discharge patient to home. - Await path results. - Return to referring physician. Mitra Yan MD 01/25/2024 10:34:38 AM This report has been signed electronically. documented in this encounter Nursing Notes * Maggy Gaytan RN - 01/25/2024 11:32 AM EDT Patient is alert, pain free, passing flatus and tolerating po fluids prior to discharge. Patient has been visited by Dr. Yan. Patient has received and demonstrates understanding of discharge instructions. Patient is transported via w/c to private auto accompanied by endo staff. * Maggy Gaytan RN - 01/25/2024 11:23 AM EDT D/C instructions given to pt, verbalized understanding. * Ace Jarrett RN - 01/25/2024 10:44 AM EDT Patient transferred to post endo s/p EUS. Patient awake. Respirations are even and unlabored on room air. NSR in the 60s on the monitor. Abdomen soft and non distended. Vital signs stable. * Krishna Garduno RN - 01/25/2024 10:32 AM EDT See anesthesia record for medication administered during procedure. Krishna Garduno RN Specimen(s) and location(s) verified with physician post procedure 10:32 AM Krishna Garduno RN Pre cleaning of scope at the bedside started by tree trimming line technician. FNA liver biopsy performed by Dr Yan using a AppTrigger 19 gauge acquire needle. One pass made on the left liver lobe and one pass made on the right liver lobe. Specimens placed in formalin per order. Pt tolerated well. * Soheila Glez RN - 01/25/2024 9:50 AM EDT The following pt discharge instructions reviewed with pt prior to prodedure: No driving today. No alcohol today. No signing of legal documents. Rest as much as possible today and can return to normal activities tomorrow. No operating any heavy equipment today. Diet as tolerated. Pt verbalized understanding. documented in this encounter Plan of Treatment Upcoming Encounters Date Type Department Care Team (Late st Contact Info) Description 03/14/2024 11:00 AM EDT Office Visit Gastroenterology, [address] [place] [address] Miguel Smith MD [address] [place] [address] 05/24/2024 11:20 AM EDT Office Visit Family Practice [facility] [address] [facility] [place] [address] Carol Cade DO [address] [facility] [place] [address] 09/09/2024 10:00 AM EDT Nurse Only Ancillary [address] [place] [address] College, Nurse Annual Wellness Visit [address] [place] [address] Pending Results Name Type Priority Associated Diagnoses Date /Time SURGICAL PATHOLOGY Pathology Routine Abnormal partial thromboplastin time (PTT) Autoimmune hepatitis (HCC) 01/25/2024 10:34 AM EDT Scheduled Orders Name Type Priority Associated Diagnoses Orde r Schedule SURGICAL PATHOLOGY Pathology Routine Abnormal partial thromboplastin time (PTT) Autoimmune hepatitis (HCC) Release Upon Ordering for 1 Occurrences starting 01/25/2024, 1 completed Scheduled Procedures Name Priority Associated Diagnoses Date/Ti me COLONOSCOPY FLEXIBLE PROXIMA L DIAGNOSTIC Recall Special screening for malignant neoplasms, colon Health Maintenance Due Date Last Done Comments GFR 07/21/2024 01/19/2024, 01/2023, 01/29/2023, Additional history exists CKD PHOS USE SMARTSET 23596 09/18/202401/2023, 05/27/2022, 05/24/2021, Additional history exists Depression Screening 09/18/2024 09/18/2023 TSH 09/18/2024 09/18/2023, 09/16, 02/14/2022, Additional history exists Albumin/Creatinine Ratio 01/18/20252 024, 03/30/2023, 02/14/2022, Additional history exists CKD HGB USE SMARTSET 04829 01/18/202501/18, 01/19/2024, 09/18/2023, Additional history exists DXA Scan 05/05/2025 05/05/2023, 04/17, 12/31/2015, Additional history exists DTaP,Tdap,and Td Vaccines (2 - Td or Tdap) 02/20/2027 02/20/2017 Pneumococcal Vaccine: 65+ Years Completed 12/19/2015, 04/15/2013, 11/19/2006 Zoster Vaccines Completed 11/22/2020, 05/2020, 08/30/2012 COVID-19 Vaccine Completed 09/04/2023, 12/2021, 04/24/2022, Additional history exists Influenza Vaccine (FLU shot) Completed , 09/17/2022, 10/02/2021, Additional history exists VITAMIN D LEVEL ONCE IN A LIFETIME-USE SMARTSET# [id number] Completed 01/19/2024 GARDASIL-HPV IMMUNIZATION SERIES Aged Out No longer eligible based on patient's age to complete this topic Hepatitis B Aged Out No longer eligi ble based on patient's age to complete this topic MENINGOCOCCAL (MENACTRA/MENVEO) Aged Out No longer eligible based on patient's age to complete this topic documented as of this encounter Medical Devices Not on filedocumented as of this encounter Procedures Procedure Name Priority Date/Time Associated Diagnosis Comments UPPER ENDOSCOPIC U/S 01/25/2024 9:57 AM EDT documented in this encounter Results * UPPER ENDOSCOPIC U/S (01/25/2024 9:57 AM EDT) 01/25/2024 9:57 AM EDT Narrative Procedure Note Miguel Smith MD - 01/25/2024 9:57 AM EDT [facility] Patient Name: Trinh Becerra Procedure Date: 01/25/2024 9:57 AM Date of : 1945 Admit Type: Outpatient Note Status:Finalized Date of : 1945 Admit Type: Outpatient Age: 78 Room: [facility] Gender: Female Note Status: Finalized Procedure: Upper EUS Indications: Elevated liver enzymes Providers: Mitra Yan MD (Doctor), Han Baugh RN Referring MD: Miguel Smith MD (Referring MD), Carol Barajas (Referring MD) Medicines: Propofol per Anesthesia Complications: No immediate complications. Procedure: Pre-Anesthesia Assessment: - Prior to the procedure, a History and Physicalwas performed, and patient medications, allergies and sensitivities werereviewed. The patient's tolerance of previous anesthesia was reviewed. - The risks and benefits of the procedure and thesedation options and risks were discussed with the patient. All questions wereanswered and informed consent was obtained. - Patient identification and proposed procedurewere verified prior to the procedure by the physician and the nurse. The procedure wasverified in the procedure room. - Pre-procedure physical examination revealed nocontraindications to sedation. After obtaining informed consent, the endoscope waspassed under direct vision. All instruments were visually inspected immediatelybefore and after removal from the patient to ensure they are fully intact. Throughout the procedure, the patient's bloodpressure, pulse, and oxygen saturations were monitored continuously. The upper EUS wasaccomplished without difficulty. The patient tolerated the procedure well. The Endoscopewas introduced through the mouth, and advanced to the second part of duodenum. Findings & Specimens: ENDOSONOGRAPHIC FINDING: : There was no sign of significant endosonographic abnormality in theampulla. No masses were identified. There was no sign of significant endosonographic abnormality in thecommon bile duct. The maximum diameter of the duct was 5 mm. Evidence of a previous cholecystectomy was identifiedendosonographically. There was no sign of significant endosonographic abnormality in theleft lobe of the liver and in the right lobe of the liver. Homogeneous parenchyma was identified. Fineneedle biopsy was performed. Color Doppler imaging was utilized prior to needle puncture to confirm alack of significant vascular structures within the needle path. Two passes were made with the 19gauge ultrasound core biopsy needle using a transgastric approach and using a transduodenal approach. Avisible core of tissue was obtained. Verification of patient identification for the specimen wasdone by the physician and nurse using the patient's name and date. The pathology specimen wasplaced into Bottle A. The pathology specimen was placed into Bottle B. There was no sign of significant endosonographic abnormality in theentire pancreas. The pancreatic duct measured up to 2 mm in diameter. Impression: - There was no sign of significant pathology in theampulla. - There was no sign of significant pathology in thecommon bile duct. - Evidence of a cholecystectomy. - There was no evidence of significant pathology inthe liver. Fine needle biopsy performed. - There was no sign of significant pathology in theentire pancreas. Recommendation: - Discharge patient to home. - Await path results. - Return to referring physician. Mitra Yan MD 01/25/2024 10:34:38 AM This report has been signed electronically. Miguel Smith MD GASTRO UPPER documented in this encounter Visit Diagnoses Diagnosis Abnormal partial thromboplastin time (PTT) Abnormal coagulation profile Autoimmune hepatitis (HCC) Autoimmune hepatitis documented in this encounter Administered Medications Inactive Administered Medications - up to 3 most recent administrations Medication Order MAR Action Action Date Dose Rate Site isolyte-S pH 7.4 infusion Intravenous, at 100 mL/hr, Plasma-LYTE 148, isolyte-S, and isolyte-S pH 7.4 are considered equivalent - including for MAR barcode scanning., CONTINUOUS, Starting on Thu01/25/24 at 1015, Until Thu01/25/24 at 1647, Pre-Op Continue from Pre-Op 01/25/2024 10:03 AM EDT 100 mL/hr New Bag 01/25/2024 9:48 AM EDT 100 mL/hr documented in this encounter Active and Recently Administered Medications Due to Daylight Saving Time, this section may contain times in both EST and EDT. 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
--- OUTSIDE RECORDS SUMMARY | 2024-05-06 02:11 | External Medical Summary | Summary of Care ---
Author Name Unknown Organization [facility] Address [address] [place] [address] Phone [phone] Care Team Providers Care Beating Machine Operator Name Role Phone Carol Cade DO Primary Care Provider [phone] Reason for Visit * Reason Comments Follow Up Encounter Details Date Type Department Care Team (Latest Contact Info) Description 01/19/2024 11:00 AM EST Office Visit Family Practice [address] [facility] [address] [place] [address] Carol Cade DO [address] [place] [address] Hypertensive kidney disease with stage 3a chronic kidney disease (HCC)*; Acquired hypothyroidism; Age-related osteoporosis without current pathological fracture; Dyslipidemia; Pulmonary hypertension (HCC); PSVT (paroxysmal supraventricular tachycardia); Autoimmune hepatitis (HCC); Abnormal partial thromboplastin time (PTT) Allergies Active Allergy Reactions Criticality Noted Date Comments Codeine 09/01/2011 Severe Headache/Projectile vomiting Hydromorphone Nausea/vomiting 06/10/2021 Diltiazem Rash 11/22/2020 Iodinated Contrast Media 04/26/2014 Violent headache and projectile vomiting Metoclopramide Hcl Other (Please comment) Medium 11/16/2007 Restless legs Morphine Nausea/vomiting 03/09/2003 Sulfa Antibiotics 03/09/2003 hives documented as of this encounter (statuses as of 01/19/2024) Medications Medication Sig Dispensed Refills Start Date [...] as of this encounter (statuses as of 01/19/2024) Active Problems Problem Noted Date Diagnosed Date [...] as of this encounter (statuses as of 01/19/2024) Resolved Problems Problem Noted Date Diagnosed Date [...] program 10/21/2017 06/18/2020 Overview: DO NOT DELETE [facility] DETECT Study: Project # [id number], Program Coordinator Executive Education: Miko Andino, PhD. SUMMARY: Goal: Establish test [...] contact study staff at ; after hours Program Coordinator Executive Education via the [facility] hospital arc air operator . Please contact study team before resolving/deleting from patients problem list. Study phone number: [phone]. Diagnosis changed due to Research Module. Go to Snapshot for study details. Encounter for examination fo r normal comparison and control in clinical research program 10/21/2017 07/17/2022 Overview: DO NOT DELETE - [facility] DETECT Study: Project # [id number], Program Coordinator Executive Education: Sean Pastor, MS, MPH. SUMMARY: Goal: Establish [...] contact study staff at ; after hours Program Coordinator Executive Education via the [facility] hospital arc air operator . - Please contact study team before resolving/deleting from patients problem list. Study phone number: [phone]. Diagnosis changed due to Research Module. Go [...] Hare or Tracy Valentin, RN, CCRC at [phone] [facility] RESEARCH OTHER*[id number] 2003 05/13/2010 Overview: Renamed Per Clinical Trials Billing Project. Pt is a participant in the [employer] (Consortium of Rheumatology Researchers of [place]) national data collection study. For further information please call Dr Foster Hare or Tracy Valentin, RN, CCRC at [phone] ARTHRITIS,RHEUMATOID 03/09/2003 016 Encounter for long-term (cur rent) use of medications 03/09/2003 03/10/2019 Overview: ICD-10 update of inactive term Nausea 02/20/2017 Overview: ICD-10 update of inactive term Autoimmune hepatitis 017 documented as of this encounter (statuses as of 01/19/2024) Immunizations Name Administration Dates Next Due COVID-19 [...] Passive Smoke Exposure: Past Smokeless Tobacco: Never Tobacco Cessation:Counseling Given: Yes Comments:Never Alcohol Use Standard Drinks/Week Comments Never [...] Sign Reading Time Taken Comments Blood Pressure 112/70 01/19/2024 10:56 AM EST Pulse 66 01/19/2024 10:56 AM EST Temperature 36.4 C (97.5 F) 01/19/2024 10:[address] Respiratory Rate 12 01/19/2024 10:56 AM EST Oxygen Saturation 98% 01/19/2024 10:56 AM EST Inhaled Oxygen Concentration - - Weight 70.8 kg (156 lb 1.6 oz) 01/19/2024 10:56 AM EST Height 167.6 cm (5' 6") 01/19/2024 10:56 AM EST Body Mass Index 25.2 01/19/2024 10:56 AM EST documented in this encounter Progress Notes * Gena Carlson LPN - 01/19/2024 11:37 AM EST LAB DRAWN AND SENT TO [facility]. * Carol Cade DO - 01/19/2024 10:57 AM EST SUBJECTIVE: Chief Complaint Patient presents with Follow Up HPI: Trinh Becerra is a 78 year old female who presents today for regular return. Pt notes thatshe has a liver biopsy scheduled to see if her AIH is in remission. She will consider stopping Cellcept. This is scheduled in January. Pt following with orthopedics for right hip pain. She will have injection on 02/14. She notes no painrecently and may cancel this. Pt notes her sister was recently diagnosed with kidney cancer. She was told it may be genetic. She will let me know the results of that testing. PHM: Patient Active Problem List Diagnosis Code HTN, goal below 140/90 I10 Gastroparesis K31.84 Autoimmune hepatitis (HCC) K75.4 Acquired hypothyroidism E03.9 Dyslipidemia E78.5 Chronic major depressive disorder, recurrent episode (HCC) F33.9 Gastro-esophageal reflux disease without esophagitis K21.9 Pulmonary hypertension (HCC) I27.20 Nonrheumatic aortic valve stenosis I35.0 PSVT (paroxysmal supraventricular tachycardia) I47.10 Hypertensive kidney disease with stage 3a chronic kidney disease (HCC) I12.9, N18.31 Age-related osteoporosis without current pathological fracture M81.0 Current Outpatient Medications Medication Sig Dispense Refill ASPIRIN 81 MG OR CHEW Take 1 Tablet by mouth every evening. 30 0 CALCIUM + D 600-200 MG-IU OR TABS Take 1 Tablet by mouth every evening. 0 0 Melatonin 5 MG Tablet Take 1 Capsule by mouth at bedtime. Magnesium 250 MG Tablet Take 2 Tablets by mouth every evening. Docusate Sodium 100 MG Oral Capsule Take 1 Capsule by mouth in the morning and 1 Capsule before bedtime. Alendronate Sodium 70 MG Oral Tablet (Fosamax) TAKE ONE TABLET BY MOUTH ONCE A WEEK WITH 8OZ OF WATER 30 MINUTES BEFORE FIRST MEAL OF THE DAY. REMAIN UPRIGHT FOR 30 MINUTES AFTER TAKING TABLET 15 Tablet 3 Levothyroxine Sodium 75 MCG Oral Tablet (Levoxyl) TAKE 1 TABLET BY MOUTH ONE EVERY DAY BUT THURSDAY AT LEAST 30 MINUTES PRIOR TO FIRST MEAL OF THE DAY OR OTHER MEDICATIONS 90 Tablet 3 Verapamil HCl ER 120 MG Oral Tablet Extended Release (Isoptin SR) TAKE ONE TABLET BY MOUTH EVERY MORNING (Patient taking differently: at bedtime.) 90 Tablet 3 Metoprolol Succinate ER 25 MG Oral Tablet Extended Release 24 Hour (toPROL XL) TAKE ONE TABLET BY MOUTH EVERY DAY AT BEDTIME 90 Tablet 3 Ezetimibe 10 MG Oral Tablet (Zetia) TAKE ONE TABLET BY MOUTH EVERY DAY (Patient taking differently:at bedtime.) 90 Tablet 3 Bromelains 500 MG Oral Tablet Take 1 Tablet by mouth 2 times a day. AMBULATORY MISCELLANEOUS MEDICATION Take 10 mg by mouth daily. Domperidone (gets from [facility]) Omeprazole 20 MG Oral Capsule Delayed Release (PriLOSEC) TAKE ONE CAPSULE BY MOUTH IN THE MORNING. 90 Capsule 1 Mycophenolate Mofetil 500 MG Oral Tablet (Cellcept) Take 1 Tablet by mouth in the morning and 1 Tablet before bedtime. 180 Tablet 4 Nortriptyline HCl 10 MG Oral Capsule (Pamelor) Take 1 Capsule by mouth at bedtime. 90 Capsule 1 Ibuprofen 800 MG Oral Tablet (Motrin) TAKE ONE TABLET BY MOUTH TWICE A DAY NEEDED FOR PAIN 180 Tablet 0 Torsemide 20 MG Oral Tablet (Demadex) TAKE 1 TABLET BY MOUTH EVERY MORNING 90 Tablet 1 Potassium Chloride ER 10 MEQ Oral Tablet Extended Release TAKE TWO TABLETS BY MOUTH EVERY DAY 180 Tablet 1 Meloxicam 15 MG Oral Tablet (Mobic) Take by mouth daily. No current facility-administered medications for this visit. Past Medical History: Diagnosis Date Atrial fibrillation (HCC) Autoimmune hepatitis (HCC) Gastroparesis Hypothyroidism Nausea alone RA (rheumatoid arthritis) (HCC) Sjogren's syndrome (HCC) Past Surgical History: Procedure Laterality Date CARPAL TUNNEL SURGERY 1990 right COLONOSCOPY 02/29/2004 single diverticulum in the cecum--internal hemmorrhoids COLONOSCOPY, DIAGNOSTIC (RECTUM) 04/26/2014 diverticulosis, tortuous colon, repeat 10 yrs COLONOSCOPY, DIAGNOSTIC (RECTUM) 04/26/2014 COLONOSCOPY FLEXIBLE PROXIMAL DIAGNOSTIC performed by Price Mejia MD at ENDOSCOPY [facility] DENTAL SURGERY PROCEDURE NEC 12/30/2022 DIVERT PAROTID DUCT, REMOVE GLAND 1990 Left parotidectomy EGD, FLEXIBLE, DIAGNOSTIC 06/07/2021 retained food / ESOPHAGOGASTRODUODENOSCOPY (EGD), FLEXIBLE, TRANSORAL, DIAGNOSTIC performed by Mitra Yan MD at ENDOSCOPY [facility] EGD, W/ENDOSCOPIC US 06/07/2021 minimal portal fibrosis / ESOPHAGOGASTRODUODENOSCOPY (EGD), FLEXIBLE, TRANSORAL, ENDOSCOPIC ULTRASOUND performed by Mitra Yan MD at ENDOSCOPY [facility] INFORMATION Removed right ovary NEEDLE BIOPSY OF LIVER 2002 REMOVAL OF APPENDIX 1981 REMOVE GALLBLADDER 1981 TOTAL KNEE REPLACEMENT EDU. 12/01/2016 right UPPER ENDOSCOPY SURGERY REFERRAL OP 02/29/2004 normal--no source of bleeding Review of patient's allergies indicates: Allergen Reactions Metoclopramide Hcl Other (Please comment) Restless legs Codeine Severe Headache/Projectile vomiting Dilaudid [Hydromorphone] Nausea/vomiting Diltiazem Rash Iodinated Contrast Media Violent headache and projectile vomiting Morphine Nausea/vomiting Sulfa Antibiotics hives Family History Problem Relation Age of Onset Cancer Mother Heart Disorder Father Stroke Father post cardiac cath Genitourinary Disorder Sister tumor on her kidney Hypertension Sister Diabetes Grandmother (Maternal) Stroke Grandmother (Paternal) Crohn's disease Daughter Irritable Bowel Syndrome Son Family Status Relation Status Mo at age 86 cancer vulvular Fa at age 56 cva s/p cardiac cath Sis Alive htn Sis (Not Specified) MGMA (Not Specified) PGMA (Not Specified) Flash Alive Flash Alive Flash (Not Specified) Son Alive Son (Not Specified) Social History Tobacco Use Smoking status: Never Passive exposure: Past Smokeless tobacco: Never Tobacco comments: Never Substance Use Topics Alcohol use: Never Vaping/E-Cigarette Use Vaping/E-Cigarette Use Never User Vaping/E-Cigarette Substances Vaping/E-Cigarette Devices REVIEW OF SYSTEMS: Review of Systems Constitutional: Negative for chills, fatigue, fever and unexpected weight change. Respiratory: Negative for cough, chest tightness, shortness of breath and wheezing. Cardiovascular: Negative for chest pain, palpitations and leg swelling. Gastrointestinal: Negative for abdominal pain, constipation, diarrhea, nausea and vomiting. Musculoskeletal: Negative for arthralgias, gait problem and joint swelling. Skin: Negative for color change, pallor and rash. OBJECTIVE: BP 112/70 (BP Site: Left Arm, BP Position: Sitting, BP Cuff Size: Regular) | Pulse 66 | Temp 36.4 C (97.5 F) (Tympanic) | Resp 12 | Ht 1.676 m (5' 6") | Wt 70.8 kg (156 lb 1.6 oz) | SpO2 98% | BMI 25.20 kg/m | BSA 1.82 m PHYSICAL EXAM: Physical Exam Constitutional: General: She is not in acute distress. Appearance: She is well-developed. Cardiovascular: Rate and Rhythm: Normal rate and regular rhythm. Heart sounds: Normal heart sounds. No murmur heard. No friction rub. No gallop. Pulmonary: Effort: Pulmonary effort is normal. No respiratory distress. Breath sounds: Normal breath sounds. No wheezing or rales. Abdominal: General: Bowel sounds are normal. There is no distension. Palpations: Abdomen is soft. Tenderness: There is no abdominal tenderness. There is no guarding. Musculoskeletal: General: No tenderness or deformity. Normal range of motion. Skin: General: Skin is warm and dry. Coloration: Skin is not pale. Findings: No erythema or rash. Neurological: Mental Status: She is alert and oriented to person, place, and time. ASSESSMENT/PLAN: (I12.9, N18.31) Hypertensive kidney disease with stage 3a chronic kidney disease (HCC) (primary encounter diagnosis) Plan: ALBUMIN / CREATININE RATIO, URINE, ALBUMIN / CREATININE RATIO, URINE Pt will complete urine. BP controlled. No changes. (E03.9) Acquired hypothyroidism Plan: pt will remain on levothyroxine. No changes. (M81.0) Age-related osteoporosis without current pathological fracture Plan: 25-HYDROXY VITAMIN D, 25-HYDROXY VITAMIN D Pt will complete vitamin D. She will remain on Fosamax. (E78.5) Dyslipidemia Plan: Pt not currently on statin. (I27.20) Pulmonary hypertension (HCC) Plan: No changes for now. No new issues. (I47.10) PSVT (paroxysmal supraventricular tachycardia) Plan: Pt will remain on metoprolol and verapamil. (K75.4) Autoimmune hepatitis (HCC) Plan: COMPREHENSIVE METABOLIC PANEL, CBC WITH WBC DIFFERENTIAL, PT INR Pt will have liver biopsy. May stop Cellcept pending. Keep f/u with GI. (R79.1) Abnormal partial thromboplastin time (PTT) Plan: COMPREHENSIVE METABOLIC PANEL, CBC WITH WBC DIFFERENTIAL, PT INR Lab studies per GI. Follow-up: 4 months Total time today including reviewing chart before the visit, pertinent labs, imaging reports, face to face time, and documentation time was 37 minutes. Carol Cade DO documented in this encounter Nursing Notes * Maggy Christopher LPN - 01/19/2024 10:54 AM EST Patient here for routine follow up visit. documented in this encounter Plan of Treatment Upcoming Encounters Date Type Department Care Team (Latest Contact Info) Description 01/25/2024 10:15 AM EDT Hospital Encounter [facility], Endoscopy Room [facility] [address] [place] [address] Mitra Yan MD [address] [place] [address] 01/25/2024 10:15 AM EDT - 01/25/2024 11:00 AM EDT Surgery ENDO [facility], Endoscopy Room [facility] [address] [place] [phone] Mitra Yan MD [address] [place] [address] ESOPHAGOGASTRODUODENOSCOPY (EGD), FLEXIBLE, TRANSORAL, ENDOSCOPIC ULTRASOUND 03/14/2024 11:00 AM EDT Office Visit Gastroenterology , [facility] [address] [place] [address] Miguel Smith MD [address] [place] [address] 05/24/2024 11:20 AM EDT Office Visit Family Practice [address] [facility] [address] [facility] [place] [address] Carol Cade DO [address] [facility] [place] [address] 09/09/2024 10:00 AM EDT Nurse Only Ancillary [facility] [address] [facility] [place] [address] College, Nurse Annual Wellness Visit [address] [place] [address] Pending Results Name Type Priority Associated Diagnoses Date /Time ALBUMIN / CREATININE RATIO, URINE Lab Routine Hypertensive kidney disease with stage 3a chronic kidney disease (HCC) 01/19/2024 11:39 AM EST 25-HYDROXY VITAMIN D Lab Routine Age-related osteoporosis without current pathological fracture 01/19/2024 11:37 AM EST COMPREHENSIVE METABOLIC PANEL Lab Routine Abnormal partial thromboplastin time (PTT) Autoimmune hepatitis (HCC) 01/19/2024 11:37 AM EST CBC WITH WBC DIFFERENTIAL Lab Routine Abnormal partial thromboplastin time (PTT) Autoimmune hepatitis (HCC) 01/19/2024 11:37 AM EST PT INR Lab Routine Abnormal partial thromboplastin time (PTT) Autoimmune hepatitis (HCC) 01/19/2024 11:37 AM EST CBC Lab Routine Abnormal partial thromboplastin time (PTT) Autoimmune hepatitis (HCC) 01/19/2024 11:37 AM EST DIFFERENTIAL, AUTOMATED Lab Routine Abnormal partial thromboplastin time (PTT) Autoimmune hepatitis (HCC) 01/19/2024 11:37 AM EST Scheduled Orders Name Type Priority Associated Diagnoses Orde r Schedule ALBUMIN / CREATININE RATIO, URINE Lab Routine Hypertensive kidney disease with stage 3a chronic kidney disease (HCC) Expected: 01/19/2024, Expires: 01/18/2025 25-HYDROXY VITAMIN D Lab Routine Age-related osteoporosis without current pathological fracture Expected: 01/19/2024 (Approximate), Expires: 01/18/2025 Scheduled Procedures Name Priority Associated Diagnoses Date/Ti me ESOPHAGOGASTRODUODENOSCOPY ( EGD), FLEXIBLE, TRANSORAL, ENDOSCOPIC ULTRASOUND Abnormal partial thromboplastin time (PTT) Autoimmune hepatitis (HCC) 01/25/2024 10:15 AM EDT COLONOSCOPY FLEXIBLE PROXIMA L DIAGNOSTIC Recall Special screening for malignant neoplasms, colon Health Maintenance Due Date Last Done Comments VITAMIN D LEVEL ONCE IN A LIFETIME-USE SMARTSET# [id number] 1986 GFR 03/18/2024 09/18/2023, 01/14, 05/27/2022, Additional history exists Albumin/Creatinine Ratio 03/30/2024 023, 02/14/2022, 05/09/2020, Additional history exists CKD HGB USE SMARTSET 08542 09/18/202409/18, 09/18/2023, 05/05/2023, Additional history exists CKD PHOS USE SMARTSET 38615 09/18/202401/2023, 05/27/2022, 05/24/2021, Additional history exists Depression Screening 09/18/2024 09/18/2023 TSH 09/18/2024 09/18/2023, 09/16, 02/14/2022, Additional history exists DXA Scan 05/05/2025 05/05/2023, 04/17, 12/31/2015, Additional history exists DTaP,Tdap,and Td Vaccines (2 - Td or Tdap) 02/20/2027 02/20/2017 Pneumococcal Vaccine: 65+ Years Completed 12/19/2015, 04/15/2013, 11/19/2006 Zoster Vaccines Completed 11/22/2020, 05/2020, 08/30/2012 COVID-19 Vaccine Completed 09/04/2023, 12/2021, 04/24/2022, Additional history exists Influenza Vaccine (FLU shot) Completed , 09/17/2022, 10/02/2021, Additional history exists GARDASIL-HPV IMMUNIZATION SERIES Aged Out No longer [...] as of this encounter Visit Diagnoses Diagnosis Hypertensive kidney disease with stage 3a chronic kidney disease (HCC)- Primary Acquired hypothyroidism Unspecified hypothyroidism Age-related osteoporosis without current pathological fracture Senile osteoporosis Dyslipidemia Other and unspecified hyperlipidemia Pulmonary hypertension (HCC) Other chronic pulmonary heart diseases PSVT (paroxysmal supraventricular tachycardia) Paroxysmal supraventricular tachycardia Autoimmune hepatitis (HCC) Autoimmune hepatitis Abnormal partial thromboplastin time (PTT) Abnormal coagulation profile Abnormal partial thromboplastin time (PTT) Abnormal coagulation profile Autoimmune hepatitis (HCC) Autoimmune hepatitis documented in this encounter Advance Directives Documents on File Type Date Recorded 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
--- OUTSIDE RECORDS SUMMARY | 2024-05-06 02:11 | External Medical Summary | Summary of Care ---
Author Name Unknown Organization [facility] Address [address] [place] [address] Phone [phone] Care Team Providers Care Instrumental Musician Name Role Phone Carol Cade Primary Care Provider + [phone] Reason for Visit * Reason Comments Outpatient Testing Encounter Details Date Type Department Care Team (Late st Contact Info) Description 04/07/2024 8:00 AM EDT Laboratory Laboratory, [facility] [address] [place] [id number] [facility] [address] [place] [address] Autoimmune hepatitis (HCC) Allergies Active Allergy Reactions Criticality Noted Date Comments Codeine 09/01/2011 Severe Headache/Projectile vomiting Hydromorphone Nausea/vomiting 06/10/2021 Diltiazem Rash 11/22/2020 Iodinated Contrast Media 04/26/2014 Violent headache and projectile vomiting Metoclopramide Hcl Other (Please comment) Medium 11/16/2007 Restless legs Morphine Nausea/vomiting 03/09/2003 Sulfa Antibiotics 03/09/2003 hives documented as of this encounter (statuses as of 04/07/2024) Medications Medication Sig Dispensed Refills Start Date [...] mouth daily. Domperidone (gets from [facility]) Active Omeprazole 20 MG Oral Capsule Delayed [...] A DAY NEEDED FOR PAIN 180 Tablet 12/19/2023 Active Torsemide 20 MG Oral Tablet (Demadex)Indications:S econdary hypertension with goal blood pressure less than 140/90 TAKE 1 TABLET BY MOUTH EVERY MORNING 90 Tablet 1 01/09/2024 5 Active Potassium Chloride ER 10 MEQ Oral Tablet Extended Release TAKE TWO TABLETS BY MOUTH EVERY DAY 180 Tablet 1 01/09/2024 5 Active documented as of this encounter (statuses as of 04/07/2024) Active Problems Problem Noted Date Diagnosed Date [...] as of this encounter (statuses as of 04/07/2024) Resolved Problems Problem Noted Date Diagnosed Date [...] 10/21/2017 06/18/2020 Overview: DO NOT DELETE [facility] Study: Project # [id number], Ragman: Miko Andino, PhD. SUMMARY: Goal: Establish test [...] contact study staff at ; after hours Ragman via the [facility] hospital bin tripper operator . Please contact study team before resolving/deleting from patients problem list. Study phone number: [phone]. Diagnosis changed due to Research Module. Go to Snapshot for study details. Encounter for examination fo r normal comparison and control in clinical research program 10/21/2017 07/17/2022 Overview: DO NOT DELETE - [facility] DETECT Study: Project # [id number], Ragman: Sean Pastor, MS, MPH. SUMMARY: Goal: Establish [...] contact study staff at ; after hours Ragman via the [facility] hospital bin tripper operator . - Please contact study team before resolving/deleting from patients problem list. Study phone number: [phone]. Diagnosis changed due to Research Module. Go [...] Hare or Tracy Valentin, RN, CCRC at [phone] [facility] RESEARCH OTHER*[id number] 2003 05/13/2010 Overview: Renamed Per Clinical Trials Billing Project. Pt is a participant in the [facility] (Consortium of Rheumatology Researchers of [place]) national data collection study. For further information please call Dr Foster Hare or Tracy Valentin, RN, CCRC at [phone] ARTHRITIS,RHEUMATOID 03/09/2003 016 Encounter for long-term (cur rent) use of medications 03/09/2003 03/10/2019 Overview: ICD-10 update of inactive term Nausea 02/20/2017 Overview: ICD-10 update of inactive term Autoimmune hepatitis 017 documented as of this encounter (statuses as of 04/07/2024) Immunizations Name Administration Dates Next Due COVID-19 [...] on file documented as of this encounter Plan of Treatment Upcoming Encounters Date Type Department Care Team (Late st Contact Info) Description 05/24/2024 11:20 AM EDT Office Visit Family Practice [address] [address] Carol Cade DO [address] [place] [address] 09/09/2024 10:00 AM EDT Nurse Only Ancillary [address] [address] College, Nurse Annual Wellness Visit [address] [address] Pending Results Name Type Priority Associated Diagnoses Date /Time HEPATIC FUNCTION PANEL Lab Routine Autoimmune hepatitis (HCC) 04/07/2024 7:55 AM EDT CBC WITH WBC DIFFERENTIAL Lab Routine Autoimmune hepatitis (HCC) 04/07/2024 7:55 AM EDT CBC Lab Routine Autoimmune hepatitis (HCC) 04/07/2024 7:55 AM EDT DIFFERENTIAL, AUTOMATED Lab Routine Autoimmune hepatitis (HCC) 04/07/2024 7:55 AM EDT Scheduled Procedures Name Priority Associated Diagnoses Date/Ti me COLONOSCOPY FLEXIBLE PROXIMA L DIAGNOSTIC Recall Special screening for malignant neoplasms, colon Health Maintenance Due Date Last Done Comments COVID-19 Vaccine ( season) 2024 09/04/2023, 09/17/2022, 04/24/2022, Additional history exists GFR 07/21/2024 01/19/2024, 01/2023, 01/29/2023, Additional history exists CKD PHOS USE SMARTSET 43518 09/18/202401/2023, 05/27/2022, 05/24/2021, Additional history exists TSH 09/18/2024 09/18/2023, 09/16, 02/14/2022, Additional history exists Albumin/Creatinine Ratio 01/18/2025 024, 03/30/2023, 02/14/2022, Additional history exists CKD HGB USE SMARTSET 02850 01/18/202501/18, 01/19/2024, 09/18/2023, Additional history exists DXA Scan 05/05/2025 05/05/2023, 04/17, 12/31/2015, Additional history exists DTaP,Tdap,and Td Vaccines (2 - Td or Tdap) 02/20/2027 02/20/2017 Pneumococcal Vaccine: 65+ Years Completed 12/19/2015, 04/15/2013, 11/19/2006 Zoster Vaccines Completed 11/22/2020, 05/2020, 08/30/2012 Influenza Vaccine (FLU shot) Completed , 09/17/2022, 10/02/2021, Additional history exists VITAMIN D LEVEL ONCE IN A LIFETIME-USE SMARTSET# 27610 Completed 01/19/2024 GARDASIL-HPV IMMUNIZATION SERIES Aged Out [...] as of this encounter Visit Diagnoses Diagnosis Autoimmune hepatitis (HCC) Autoimmune hepatitis documented in this encounter Advance Directives Documents on File Type Date Recorded Patient Digester Cook Expl anation Advance Directives and Living Will 12/16/2016 LIVING WILL Power of Automobile And Property Underwriter 12/16/2016 [facility] A Care Teams Instrumental Musician Relationship Specialty Start Date End Date Carol Cade DO [address] [place] [facility] [place] [address] PCP - General Family Medicine 09/03/23 documented as of this encounter
--- OUTSIDE RECORDS SUMMARY | 2024-05-06 02:11 | External Medical Summary | Summary of Care ---
Author Name Unknown Organization [facility] Address [address] [place] [address] Phone [phone] Care Team Providers Care Ethnology Professor Name Role Phone Carol Cade DO Primary Care Provider [phone] Reason for Referral * Ancillary Services (Within 10 days (routine)) - Authorized Specialty Diagnoses / Procedures Referred By Jeremie medina Referred To Contact Audiology Diagnoses Other specified hearing loss of both ears Carol Cade DO [address] [place] [address] Referral ID Status Reason Start Date Expiration Date Visits Requested Visits Authorized [id number] Authorized Ancillary Services Required 05/03/[phone] Question Answer Referral Priority Within 10 days (routine) Where should this appointment be scheduled? External - [facility] Reason for Referral: Other Condition - annual hearing exam Comments Request for referral for yearly hearing exam. Reason for Visit * Reason Onset Date Comments Referral 04/28/2024 Audiology Encounter Details Date Type Department Care Team (Late st Contact Info) Description 04/28/2024 Telephone Family Practice 65 [facility] [place] [address] [place] [address] Carol Cade DO [address] [place] [address] Referral (Audiology) Allergies Active Allergy Reactions Criticality Noted Date Comments Codeine 09/01/2011 Severe Headache/Projectile vomiting Hydromorphone Nausea/vomiting 06/10/2021 Diltiazem Rash 11/22/2020 Iodinated Contrast Media 04/26/2014 Violent headache and projectile vomiting Metoclopramide Hcl Other (Please comment) Medium 11/16/2007 Restless legs Morphine Nausea/vomiting 03/09/2003 Sulfa Antibiotics 03/09/2003 hives documented as of this encounter (statuses as of 05/03/2024) Medications Medication Sig Dispensed Refills Start Date [...] TABLET 15 Tablet 3 05/11/2023 4 Active Verapamil HCl ER 120 MG [...] MOUTH EVERY MORNING 90 Tablet 1 01/09/2024 Active Potassium Chloride ER 10 MEQ Oral Tablet Extended Release TAKE TWO TABLETS BY MOUTH EVERY DAY 180 Tablet 1 01/09/2024 5 Active Levothyroxine Sodium 75 MCG Oral Tablet (Levoxyl) TAKE 1 TABLET BY MOUTH EVERY DAY BUT THURSDAY AT LEAST 30 MINUTES PRIOR TO FIRST MEAL OF THE DAY OR OTHER MEDICATIONS 90 Tablet 3 04/23/2024 5 Active Omeprazole 20 MG Oral Capsule Delayed Release (PriLOSEC)Indications: Gastroparesis TAKE ONE CAPSULE BY MOUTH IN THE MORNING. 90 Capsule 1 04/23/2024 5 Active documented as of this encounter (statuses as of 05/03/2024) Active Problems Problem Noted Date Diagnosed Date [...] as of this encounter (statuses as of 05/03/2024) Resolved Problems Problem Noted Date Diagnosed Date [...] program 10/21/2017 06/18/2020 Overview: DO NOT DELETE [facility] DETECT Study: Project # [id number], Blender / Cook: Miko Andino, PhD. SUMMARY: Goal: Establish test [...] contact study staff at ; after hours Blender / Cook via the [facility] bindery operator . Please contact study team before resolving/deleting from patients problem list. Study phone number: [phone]. Diagnosis changed due to Research Module. Go to Snapshot for study details. Encounter for examination fo r normal comparison and control in clinical research program 10/21/2017 07/17/2022 Overview: DO NOT DELETE - [facility] DETECT Study: Project # [id number], Blender / Cook: Sean Pastor, MS, MPH. SUMMARY: Goal: Establish [...] contact study staff at ; after hours Blender / Cook via the [facility] hospital bindery operator . - Please contact study team before resolving/deleting from patients problem list. Study phone number: [phone]. Diagnosis changed due to Research Module. Go [...] please call Dr Foster Hare or Tracy Valentin RN, CCRC at [phone] [facility] RESEARCH OTHER*[id number] 2003 05/13/2010 Overview: Renamed Per Clinical Trials Billing Project. Pt is a participant in the [employer] (Consortium of Rheumatology Researchers of [place]) national data collection study. For further information please call Dr Foster Hare or Tracy Valentin, RN, CCRC at [phone] ARTHRITIS,RHEUMATOID 03/09/2003 016 Encounter for long-term (cur rent) use of medications 03/09/2003 03/10/2019 Overview: ICD-10 update of inactive term Nausea 02/20/2017 Overview: ICD-10 update of inactive term Autoimmune hepatitis 017 documented as of this encounter (statuses as of 05/03/2024) Immunizations Name Administration Dates Next Due COVID-19 [...] Influenza, Split, I IV3, With Preserve, Inj 09/11/2016,09/27/2013,09/29/2012,12/0 02/2010,08/28/2009,09/11/2008,09/22/20 07,09/16/2006 TDAP (age 10 and older)(Boostrix) 02/20/2017 [...] encounter Miscellaneous Notes * Telephone Encounter - Yazmin Figueroa OSA - 05/03/2024 9:50 AM EDT faxed * Telephone Encounter - Carol Cade DO - 05/03/2024 9:29 AM EDT Referral signed. Please fax. * Telephone Encounter - Maggy Christopher LPN - 04/28/2024 12:02 PM EDT Referral pended. desktop support technician - please fax referral when signed. Thank you. * Telephone Encounter - Yazmin Weaver OSA - 04/28/2024 11:39 AM EDT [facility] calling to request an order for her yearly hearing exam. Pt is scheduled in their office tomorrow for exam Once signed, it can be faxed to [phone]. documented in this encounter Plan of Treatment Upcoming Encounters Date Type Department Care Team (Late st Contact Info) Description 05/24/2024 11:20 AM EDT Office Visit Family Practice [address] [address] Carol Cade [address] [place] [address] 09/09/2024 10:00 AM EDT Nurse Only Ancillary [address] [address] College, Nurse Annual Wellness Visit [address] [address] Scheduled Procedures Name Priority Associated Diagnoses Date/Ti me COLONOSCOPY FLEXIBLE PROXIMA L DIAGNOSTIC Recall Special screening for malignant neoplasms, colon Scheduled Referrals Name Type Priority Associated Diagnoses Orde r Schedule AUDIOLOGY REFERRAL OP Referral Within 10 days (routine) Other specified hearing loss of both ears Ordered: 05/03/2024 Health Maintenance Due Date Last Done Comments COVID-19 Vaccine (2022- season) 2024 09/04/2023, 09/17/2022, 04/24/2022, Additional history exists GFR 07/21/2024 01/19/2024, 01/2023, 01/29/2023, Additional history exists CKD PHOS USE SMARTSET 78808 09/18/202401/2023, 05/27/2022, 05/24/2021, Additional history exists Depression Monitoring 09/18/2024 09/18/2023 TSH 09/18/2024 09/18/2023, 09/16, 02/14/2022, Additional history exists Albumin/Creatinine Ratio 01/18/2025 024, 03/30/2023, 02/14/2022, Additional history exists CKD HGB USE SMARTSET 80162 04/26/202504/26, 04/07/2024, 04/07/2024, Additional history exists DXA Scan 05/05/2025 05/05/2023, 04/17, 12/31/2015, Additional history exists DTaP,Tdap,and Td Vaccines (2 - Td or Tdap) 02/20/2027 02/20/2017 Pneumococcal Vaccine: 65+ Years Completed 12/19/2015, 04/15/2013, 11/19/2006 Zoster Vaccines Completed 11/22/2020, 05/2020, 08/30/2012 Influenza Vaccine (FLU shot) Completed , 09/17/2022, 10/02/2021, Additional history exists VITAMIN D LEVEL ONCE IN A LIFETIME-USE SMARTSET# 08335 Completed 01/19/2024 GARDASIL-HPV IMMUNIZATION SERIES Aged Out [...] as of this encounter Visit Diagnoses Diagnosis Other specified hearing loss of both ears- Primary documented in this encounter Advance Directives Documents on File Type Date Recorded Patient Metallographic Technician Expl anation Advance Directives and Living Will 12/16/2016 LIVING WILL Power of Director Of Field Sales 12/16/2016 POWER OF A [facility]NEY [facility] POA Care Teams Ethnology Professor Relationship Specialty Start Date End Date Carol Cade DO PCP - General Family Medicine 09/03/23 documented as of this encounter
--- OUTSIDE RECORDS SUMMARY | 2024-05-06 02:11 | External Medical Summary ---
Author Name Unknown Address Unknown Organization K01:[facility] - [address] [place] [address] Laboratory Report Ordering Provider Test Date Status LOIDA PHAM 04/07/2024 07:55:05 Final Observation Date Value Abnormality Reference (Units ) Status Albumin 04/07/2024 07:55:05 3.6 Below low normal 3.8-5.0 (g/dL) Final AST (Aspartate aminotransferase) 04/07/2024 07:55:05 27 10-35 (U/L) Final Alk Phos 04/07/2024 07:55:05 53 35-130 (U/L) Final ALT (Alanine aminotransferase) 04/07/2024 07:55:05 19 10-35 (U/L) Final Bilirubin, Total 04/07/2024 07:55:05 0.3 <=1.2 (mg/dL) Final Bilirubin, Direct 04/07/2024 07:55:05 <0.2 0.0-0.3 (mg/dL) Final Protein 04/07/2024 07:55:05 6.7 6.0-8.3 (g/dL) Final Performing Location [facility] - [address] [place] [address]
--- OUTSIDE RECORDS SUMMARY | 2024-05-06 02:11 | External Medical Summary | Summary of Care ---
Author Name Unknown Organization [facility] Address [address] [facility] [address] Phone [phone] Care Team Providers Care Wire Tinner Name Role Phone Carol Cade Primary Care Provider Encounter Details Date Type Department Care Team (Late st Contact Info) Description 02/29/2024 Orders Only PATIENT PORTAL DO NOT DELETE THIS DEPT USED BY FANNY RODRÍGUEZ [id number] Allergies Active Allergy Reactions Criticality Noted Date Comments Codeine 09/01/2011 Severe Headache/Projectile vomiting Hydromorphone Nausea/vomiting 06/10/2021 Diltiazem Rash 11/22/2020 Iodinated Contrast Media 04/26/2014 Violent headache and projectile vomiting Metoclopramide Hcl Other (Please comment) Medium 11/16/2007 Restless legs Morphine Nausea/vomiting 03/09/2003 Sulfa Antibiotics 03/09/2003 hives documented as of this encounter (statuses as of 02/29/2024) Medications Medication Sig Dispensed Refills Start Date [...] as of this encounter (statuses as of 02/29/2024) Active Problems Problem Noted Date Diagnosed Date [...] as of this encounter (statuses as of 02/29/2024) Resolved Problems Problem Noted Date Diagnosed Date [...] 10/21/2017 06/18/2020 Overview: DO NOT DELETE [employer] [employer] DETECT Study: Project # [id number], Model Engine Mechanic: Miko Andino, PhD. SUMMARY: Goal: Establish test [...] contact study staff at ; after hours Model Engine Mechanic via the [facility] scroll saw operator . Please contact study team before resolving/deleting from patients problem list. Study phone number: [phone]. Diagnosis changed due to Research Module. Go to Snapshot for study details. Encounter for examination fo r normal comparison and control in clinical research program 10/21/2017 07/17/2022 Overview: DO NOT DELETE - [facility] [employer] DETECT Study: Project # [id number], Model Engine Mechanic: Sean Pastor, MS, MPH. SUMMARY: Goal: Establish [...] contact study staff at ; after hours Model Engine Mechanic via the [facility] scroll saw operator . - Please contact study team before resolving/deleting from patients problem list. Study phone number: [phone]. Diagnosis changed due to Research Module. Go to Snapshot for study details. Rheumatoid arthritis involvi ng multiple sites with positive rheumatoid factor 07/24/2016 09/10/20 18 Kidney disease, chronic, sta ge III (GFR 30-59 ml/min) 01/21/2016 10/01/2018 Overview: Per CKD protocol #1 Anemia 02/15/2004 03/08/2018 #OOR-192\[facility]\ENEWMAN 2003 Overview: Renamed Per Clinical Trials Billing Project. Pt is a participant in the [facility] (Consortium of Rheumatology Researchers of [place]) national data collection study. For further information please call Dr Foster Hare or Tracy Valentin, RN, CCRC at [phone] [facility] RESEARCH OTHER*[id number] 2003 05/13/2010 Overview: Renamed Per Clinical Trials Billing Project. Pt is a participant in the [employer] (Consortium of Rheumatology Researchers of [place]) national data collection study. For further information please call Dr Foster Hare or Tracy Valentin, RN, CCRC at [phone] ARTHRITIS,RHEUMATOID 03/09/2003 016 Encounter for long-term (cur rent) use of medications 03/09/2003 03/10/2019 Overview: ICD-10 update of inactive term Nausea 02/20/2017 Overview: ICD-10 update of inactive term Autoimmune hepatitis 017 documented as of this encounter (statuses as of 02/29/2024) Immunizations Name Administration Dates Next Due COVID-19 mRNA, LNP-s, No Pre serve, 2-Dose Series (Moderna) 01/12/2021,12/08/2020 COVID-19, MRNA-LNP, 23-24, P F, 30 MCG/0.3 mL, 12 YRS AND ABOVE, IM (PFIZER-Comirnat) 09/04/2023 COVID-19, mRNA, LNP-s, PF, B ooster, [...] AM EDT Office Visit Family Practice [address] [address] Carol Cade [address] [place] [address] 09/09/2024 10:00 AM EDT Nurse Only Ancillary [address] [address] College, Nurse Annual Wellness Visit [address] [address] Scheduled Procedures Name Priority Associated Diagnoses Date/Ti me COLONOSCOPY FLEXIBLE PROXIMA L DIAGNOSTIC Recall Special screening for malignant neoplasms, colon Health Maintenance Due Date Last Done Comments GFR 07/21/2024 01/19/2024, 01/2023, 01/29/2023, Additional history exists CKD PHOS USE SMARTSET 76911 09/18/202401/2023, 05/27/2022, 05/24/2021, Additional history exists TSH 09/18/2024 09/18/2023, 09/16, 02/14/2022, Additional history exists Albumin/Creatinine Ratio 01/18/2025 024, 03/30/2023, 02/14/2022, Additional history exists CKD HGB USE SMARTSET 17981 01/18/202501/18, 01/19/2024, 09/18/2023, Additional history exists DXA [...] D LEVEL ONCE IN A LIFETIME-USE SMARTSET# 70957 Completed 01/19/2024 GARDASIL-HPV IMMUNIZATION SERIES Aged Out No longer eligible based on patient's age to complete this topic Hepatitis B Aged Out No longer eligi ble based on patient's age to complete this topic MENINGOCOCCAL (MENACTRA/MENVEO) Aged Out No longer eligible based on patient's age to complete this topic documented as of this encounter Medical Devices Not on filedocumented as of this encounter Advance Directives Documents on File Type Date Recorded Patient Assistant Therapy Aide Expl anation Advance Directives and Living Will 12/16/2016 LIVING WILL Power of Real Property Evaluator 12/16/2016 POWER OF A TTORNEY DURABLE HE[facility] CARE POA Care Teams Wire Tinner Relationship Specialty Start Date End Date Carol Cade DO [address] [place] [address] PCP - General Family Medicine 09/03/23 documented as of this encounter
--- OUTSIDE RECORDS SUMMARY | 2024-05-06 02:11 | External Medical Summary ---
Author Name Unknown Address Unknown Organization K01:LABORATORY [facility] - [facility] [address] [facility] [address] Laboratory Report Ordering Provider Test Date Status LOIDA PHAM 04/26/2024 13:34:12 Final Observation Date Value Abnormality Reference (Units ) Status WBC, Total 04/26/2024 13:34:12 6.42 4.00-10.80 (K/uL) Final RBC 04/26/2024 13:34:12 3.74 3.85-5.15 (M/uL) Final Hemoglobin 04/26/2024 13:34:12 10.7 Below low normal 12.0-15.3 (g/dL) Final HCT 04/26/2024 13:34:12 33.8 Below low normal 36.0-45.2 (%) Final MCV 04/26/2024 13:34:12 90.4 81.5-97.5 (fL) Final MCH 04/26/2024 13:34:12 28.6 27.0-34.0 (pg) Final MCHC 04/26/2024 13:34:12 31.7 32.0-36.0 (g/dL) Final RDW 04/26/2024 13:34:12 15.6 11.5-15.5 (%) Final Platelets 04/26/2024 13:34:12 200 140-400 (K/uL) Final MPV 04/26/2024 13:34:12 11.1 6.6-11.1 (fL) Final Nucleated erythrocytes/100 leukocytes [Ratio] in Blood by Automated count 04/26/2024 13:34:12 0 <=0 (/100 WBCs) Final Performing Location [facility]ORY [facility] - [address] [facility] [address]
--- OUTSIDE RECORDS SUMMARY | 2024-05-06 02:11 | External Medical Summary ---
Author Name Unknown Address Unknown Organization K01:[facility] - [address] [place] [address] Laboratory Report Ordering Provider Test Date Status ALINA PHAMRJA 04/07/2024 07:55:05 Final Observation Date Value Abnormality Reference (Units ) Status Haptoglobin 04/07/2024 07:55:05 136 30-200 ( mg/dL) Final Performing Location [facility] - [address] [place] [address]
--- OUTSIDE RECORDS SUMMARY | 2024-05-06 02:11 | External Medical Summary | Summary of Care ---
Author Name Unknown Organization [facility] Address [address] [place] [address] Phone [phone] Care Team Providers Care Cleaning Team Member Name Role Phone Carol Cade Primary Care Provider + [phone] Reason for Visit * Reason Comments Outpatient Testing Encounter Details Date Type Department Care Team (Late st Contact Info) Description 04/26/2024 1:30 PM EDT Laboratory Laboratory, [facility] [address] [place] [phone] [facility], [facility] [address], [place] [id number] Anemia Allergies Active Allergy Reactions Criticality Noted Date Comments Codeine 09/01/2011 Severe Headache/Projectile vomiting Hydromorphone Nausea/vomiting 06/10/2021 Diltiazem Rash 11/22/2020 Iodinated Contrast Media 04/26/2014 Violent headache and projectile vomiting Metoclopramide Hcl Other (Please comment) Medium 11/16/2007 Restless legs Morphine Nausea/vomiting 03/09/2003 Sulfa Antibiotics 03/09/2003 hives documented as of this encounter (statuses as of 04/26/2024) Medications Medication Sig Dispensed Refills Start Date [...] DAY NEEDED FOR PAIN 180 Tablet 12/19/2023 5 Active Torsemide 20 MG Oral [...] as of this encounter (statuses as of 04/26/2024) Active Problems Problem Noted Date Diagnosed Date [...] as of this encounter (statuses as of 04/26/2024) Resolved Problems Problem Noted Date Diagnosed Date [...] 10/21/2017 06/18/2020 Overview: DO NOT DELETE [facility] DETECT Study: Project # [id number], Chopping Machine Operator: Miko Andino, PhD. SUMMARY: Goal: Establish test [...] contact study staff at ; after hours Chopping Machine Operator via the [facility] tire recapping machine operator . Please contact study team before resolving/deleting from patients problem list. Study phone number: [phone]. Diagnosis changed due to Research Module. Go to Snapshot for study details. Encounter for examination fo r normal comparison and control in clinical research program 10/21/2017 07/17/2022 Overview: DO NOT DELETE - [facility] DETECT Study: Project # [id number], Chopping Machine Operator: Sean Pastor, MS, MPH. SUMMARY: Goal: Establish [...] contact study staff at ; after hours Chopping Machine Operator via the [facility] tire recapping machine operator . - Please contact study team before resolving/deleting from patients problem list. Study phone number: [phone]. Diagnosis changed due to Research Module. Go [...] Hare or Tracy Valentin, RN, CCRC at [phone] [facility] RESEARCH OTHER*[id number] 2003 05/13/2010 Overview: Renamed Per Clinical Trials Billing Project. Pt is a participant in the [facility] (Consortium of Rheumatology Researchers of [place]) national data collection study. For further information please call Dr Foster Hare or Tracy Valentin, RN, CCRC at [phone] ARTHRITIS,RHEUMATOID 03/09/2003 016 Encounter for long-term (cur rent) use of medications 03/09/2003 03/10/2019 Overview: ICD-10 update of inactive term Nausea 02/20/2017 Overview: ICD-10 update of inactive term Autoimmune hepatitis 017 documented as of this encounter (statuses as of 04/26/2024) Immunizations Name Administration Dates Next Due COVID-19 [...] AM EDT Office Visit Family Practice [address] [phone] Carol Cade DO [address] [place] [address] 09/09/2024 10:00 AM EDT Nurse Only Ancillary [address] [address] College, Nurse Annual Wellness Visit [address] [address] Pending Results Name Type Priority Associated Diagnoses Date /Time CBC Lab Routine Anemia 04/26/2024 1:34 PM EDT Scheduled Procedures Name Priority Associated Diagnoses Date/Ti me COLONOSCOPY FLEXIBLE PROXIMA L DIAGNOSTIC Recall Special screening for malignant neoplasms, colon Health Maintenance Due Date Last Done Comments COVID-19 Vaccine ( season) 2024 09/04/2023, 09/17/2022, 04/24/2022, Additional history exists GFR 07/21/2024 01/19/2024, 01/2023, 01/29/2023, Additional history exists CKD PHOS USE SMARTSET 81795 09/18/20240 01/2023, 05/27/2022, 05/24/2021, Additional history exists Depression Monitoring 09/18/2024 09/18/2023 TSH 09/18/2024 09/18/2023, 09/16, 02/14/2022, Additional history exists Albumin/Creatinine Ratio 01/18/2025 024, 03/30/2023, 02/14/2022, Additional history exists CKD HGB USE SMARTSET 39038 04/07/202504/07, 04/07/2024, 01/19/2024, Additional history exists DXA Scan 05/05/2025 05/05/2023, 04/17, 12/31/2015, Additional history exists DTaP,Tdap,and Td Vaccines (2 - Td or Tdap) 02/20/2027 02/20/2017 Pneumococcal Vaccine: 65+ Years Completed 12/19/2015, 04/15/2013, 11/19/2006 Zoster Vaccines Completed 11/22/2020, 05/2020, 08/30/2012 Influenza Vaccine (FLU shot) Completed , 09/17/2022, 10/02/2021, Additional history exists VITAMIN D LEVEL ONCE IN A LIFETIME-USE SMARTSET# 89695 Completed 01/19/2024 GARDASIL-HPV IMMUNIZATION SERIES Aged Out [...] as of this encounter Visit Diagnoses Diagnosis Anemia Anemia, unspecified documented in this encounter Advance Directives Documents on File Type Date Recorded Patient Vocational Evaluator Expl anation Advance Directives and Living Will 12/16/2016 LIVING WILL Power of Executive Officer 12/16/2016 POWER OF A TTORNEY [facility] Care Teams Cleaning Team Member Relationship Specialty Start Date End Date Carol Cade DO [address] [facility] [place] [address] PCP - General Family Medicine 09/03/23 documented as of this encounter
--- OUTSIDE RECORDS SUMMARY | 2024-05-06 02:11 | External Medical Summary ---
Author Name Unknown Address Unknown Organization K01:LABORATORY [facility] - [address] [place] [address] Laboratory Report Ordering Provider Test Date Status VEROKAYLITROY 04/07/2024 07:55:05 Final Observation Date Value Abnormality Reference (Units ) Status Vitamin B12 04/07/2024 07:55:05 [phone] (pg/mL) Final Performing Location LABORATORY [facility] - [address] [place] [address]
--- OUTSIDE RECORDS SUMMARY | 2024-05-06 02:12 | External Medical Summary | Summary of Care ---
Author Name Unknown Organization [facility] Address [address] [place] [address] Phone [phone] Care Team Providers Care Retort Fireman Name Role Phone Carol Gomes DO Primary Care Provider Reason for Visit * Reason Comments Medication Refill Encounter Details Date Type Department Care Team (Late st Contact Info) Description 12/18/2023 Refill Family Practice [address] [place] [address] [place] [phone] Carol Gomes DO [address] [place] [address] Arthritis, rheumatoid (HCC) Allergies Active Allergy Reactions Criticality Noted Date Comments Codeine 09/01/2011 Severe Headache/Projectile vomiting Hydromorphone Nausea/vomiting 06/10/2021 Diltiazem Rash 11/22/2020 Iodinated Contrast Media 04/26/2014 Violent headache and projectile vomiting Metoclopramide Hcl Other (Please comment) Medium 11/16/2007 Restless legs Morphine Nausea/vomiting 03/09/2003 Sulfa Antibiotics 03/09/2003 hives documented as of this encounter (statuses as of 12/19/2023) Medications Medication Sig Dispensed Refills Start Date [...] AFTER TAKING TABLET 15 Tablet 3 3 05/10/20 24 Active Levothyroxine Sodium 75 MCG Oral Tablet (Levoxyl) TAKE 1 TABLET BY MOUTH ONE EVERY DAY BUT THURSDAY AT LEAST 30 MINUTES PRIOR TO FIRST MEAL OF THE DAY OR OTHER MEDICATIONS 90 Tablet 3 3 03/30/20 24 Active Torsemide 20 MG Oral Tablet (Demadex)Indications: Secondary hypertension with goal blood pressure less than 140/90 TAKE 1 TABLET BY MOUTH EVERY MORNING 90 Tablet 1 3 05/24/20 24 Active Potassium Chloride ER 10 MEQ Oral Tablet Extended Release TAKE TWO TABLETS BY MOUTH EVERY DAY 180 Tablet 1 3 05/23/20 24 Active Verapamil HCl ER 120 MG Oral Tablet Extended Release (Isoptin SR)Indications:PSVT (paroxysmal supraventricular tachycardia),HTN, goal below 140/90 TAKE ONE TABLET BY MOUTH EVERY MORNING 90 Tablet 3 3 05/24/20 24 Active Metoprolol Succinate ER 25 MG Oral Tablet Extended Release 24 Hour (toPROL XL)Indications:PSVT (paroxysmal supraventricular tachycardia) TAKE ONE TABLET BY MOUTH EVERY DAY AT BEDTIME 90 Tablet 3 3 06/07/20 24 Active Ezetimibe 10 MG Oral Tablet (Zetia)Indications:Dy slipidemia TAKE ONE TABLET BY MOUTH EVERY DAY 90 Tablet 3 3 08/30/20 24 Active Bromelains 500 MG Oral Tablet Take 1 Tablet by mouth 2 times a day. 0 Active AMBULATORY MISCELLANEOUS MEDICATION Take 10 mg by mouth daily. Domperidone (gets from [facility]) 0 Active Omeprazole 20 MG Oral Capsule Delayed Release (PriLOSEC)Indications :Gastroparesis TAKE ONE CAPSULE BY MOUTH IN THE MORNING. 90 Capsule 1 3 10/25/20 24 Active Mycophenolate Mofetil 500 MG Oral Tablet (Cellcept) Take 1 Tablet by mouth in the morning and 1 Tablet before bedtime. 180 Tablet 4 4 Active Ibuprofen 800 MG Oral Tablet (Motrin)Indications:A rthritis, rheumatoid (HCC) TAKE ONE TABLET BY MOUTH TWICE A DAY NEEDED FOR PAIN 180 Tablet 0 4 12/18/19 25 Active Ibuprofen 800 MG Oral Tablet (Motrin)Indications:A rthritis, rheumatoid (HCC) TAKE ONE TABLET BY MOUTH TWICE A DAY NEEDED FOR PAIN 180 Tablet 0 3 12/18/19 24 Discontinu ed(Refill) documented as of this encounter (statuses as of 12/19/2023) Active Problems Problem Noted Date Diagnosed Date [...] as of this encounter (statuses as of 12/19/2023) Resolved Problems Problem Noted Date Diagnosed Date [...] 10/21/2017 06/18/2020 Overview: DO NOT DELETE [facility] DETECT Study: Project # [id number], Sludge Filtration Operator: Miko Andino, PhD. SUMMARY: Goal: Establish [...] contact study staff at ; after hours Sludge Filtration Operator via the [facility] label operator . Please contact study team before resolving/deleting from patients problem list. Study phone number: [phone]. Diagnosis changed due to Research Module. Go to Snapshot for study details. Encounter for examination fo r normal comparison and control in clinical research program 10/21/2017 07/17/2022 Overview: DO NOT DELETE - [facility] DETECT Study: Project # [id number], Sludge Filtration Operator: Sean Pastor, MS, MPH. SUMMARY: Goal: [...] contact study staff at ; after hours Sludge Filtration Operator via the [facility] hospital label operator . - Please contact study team before resolving/deleting from patients problem list. Study phone number: [phone]. Diagnosis changed due to Research Module. Go to Snapshot for study details. Rheumatoid arthritis involvi ng multiple sites with positive rheumatoid factor 07/24/2016 09/10/20 18 Kidney disease, chronic, sta ge III (GFR 30-59 ml/min) 01/21/2016 10/01/2018 Overview: Per CKD protocol #1 Anemia 02/15/2004 03/08/2018 #OOR-192\[facility]\ENEWMAN 2003 Overview: Renamed Per Clinical Trials Billing Project. Pt is a participant in the [facility] (Consortium of Rheumatology Researchers of [place]) national data collection study. For further information please call Dr Foster Hare or Tracy Valentin, RN, CCRC at [phone] [facility] RESEARCH OTHER*[id number] 2003 05/13/2010 Overview: Renamed Per Clinical Trials Billing Project. Pt is a participant in the [employer] (Consortium of Rheumatology Researchers of [place]) national data collection study. For further information please call Dr Foster Hare or Tracy Valentin, RN, CCRC at [phone] ARTHRITIS,RHEUMATOID 03/09/2003 016 Encounter for long-term (cur rent) use of medications 03/09/2003 03/10/2019 Overview: ICD-10 update of inactive term Nausea 02/20/2017 Overview: ICD-10 update of inactive term Autoimmune hepatitis 017 documented as of this encounter (statuses as of 12/19/2023) Immunizations Name Administration Dates Next Due COVID-19 mRNA, LNP-s, No Pre serve, 2-Dose Series (Moderna) 01/12/2021,12/08/2020 COVID-19, MRNA-LNP, 23-24, P F, 30 MCG/0.3 mL, 12 YRS AND ABOVE, IM (FlexMinderirnaty) 09/04/2023 COVID-19, mRNA, LNP-s, PF, B ooster, 100mcg/0.5mg (Moderna) 04/24/2022,09/18/2021 Covid-19, Mrna, Lnp-s, Pf, B ivalent, 30 Mcg, IM, 12 yrs and above (Pfizer) 09/17/2022 PPD 07/08/2021 Pneumococcal Conjugate Vacc, 13 Valent (Prevnar) 12/19/2015 Pneumococcal Polysaccharide PPV23 (Pneumovax) 04/15/2013,11/19/2006 Season Influenza, Quad, PF, Adjuvanted, 65+ Yrs, [...] encounter Miscellaneous Notes * Telephone Encounter - Krishna Avilez [facility] - 12/19/2023 9:06 AM EST Signed Prescriptions: Disp Refills Ibuprofen 800 MG Oral Tablet (Motrin) 180 Ta*0 Sig: TAKE ONE TABLET BY MOUTH TWICE A DAY NEEDED FOR PAINAuthorizing Provider: CAROL GOMES User: KRISHNA AVILEZ documented in this encounter Plan of Treatment Upcoming Encounters Date Type Department Care Team (Latest Contact Info) Description 01/19/2024 11:00 AM EST Office Visit Family Practice [address] [place] [address] [address] [place] [address] Carol Gomes, 293 [place] [address] 01/25/2024 10:00 AM EDT Hospital Encounter ENDO O[facility], Endoscopy Room [facility] [address] [phone] Mitra Yan MD [address] [place] [address] 01/25/2024 10:00 AM EDT - 01/25/2024 11:00 AM EDT Surgery ENDO [facility], Endoscopy Room [facility] [address] [place] [phone] Mitra Yan MD [address] [place] [address] ESOPHAGOGASTRODUODENOSCOPY (EGD), FLEXIBLE, TRANSORAL, ENDOSCOPIC ULTRASOUND 03/14/2024 11:00 AM EDT Office Visit Gastroenterology , [facility] [address] [place] [address] Miguel Smith MD [address] [place] [address] 09/09/2024 10:00 AM EDT Nurse Only Ancillary 65 [facility] 293 [place] [address] College, Nurse Annual Wellness Visit [address] [place] [address] Scheduled Procedures Name Priority Associated Diagnoses Date/Ti me ESOPHAGOGASTRODUODENOSCOPY ( EGD), FLEXIBLE, TRANSORAL, ENDOSCOPIC ULTRASOUND Recall Abnormal partial thromboplastin time (PTT) Autoimmune hepatitis (HCC) 01/25/2024 10:00 AM EDT COLONOSCOPY FLEXIBLE PROXIMA L DIAGNOSTIC Recall Special screening for malignant neoplasms, colon Health Maintenance Due Date Last Done Comments VITAMIN D LEVEL ONCE IN A LIFETIME-USE SMARTSET# [id number] 1986 GFR 03/18/2024 09/18/2023, 01/14, 05/27/2022, Additional history exists Albumin/Creatinine Ratio 03/30/2024 023, 02/14/2022, 05/09/2020, Additional history exists CKD HGB USE SMARTSET 38686 09/18/202409/18, 09/18/2023, 05/05/2023, Additional history exists CKD PHOS USE SMARTSET 76063 09/18/2024 1101/2023, 05/27/2022, 05/24/2021, Additional history exists Depression Screening [...] as of this encounter Visit Diagnoses Diagnosis Arthritis, rheumatoid (HCC) Rheumatoid arthritis Abnormal partial thromboplastin time (PTT) Abnormal coagulation profile Autoimmune hepatitis (HCC) Autoimmune hepatitis documented in this encounter Advance Directives Documents on File Type Date Recorded Patient Facilitator Expl anation Advance Directives and Living Will 12/16/2016 LIVING WILL Power of Cartridge Loader 12/16/2016 POWER OF A TTORNEY [facility] Care Teams Retort Fireman Relationship Specialty Start Date End Date Carol Gomes DO [address] [place] [address] PCP - General Family Medicine 09/03/23 documented as of this encounter
--- OUTSIDE RECORDS SUMMARY | 2024-05-06 02:12 | External Medical Summary ---
Author Name Unknown Address Unknown Organization K01:LABORATORY [facility] - [address] [place] [address] Laboratory Report Ordering Provider Test Date Status ELISEO WATERMAN 01/19/2024 11:37:05 Final Deficient: <20 ng/mL
Ins ufficient: 20-29 ng/mL
Recommended/Optimum:30-50 ng/mL

Vitamin D intoxication is rare. If suspicious of Vitamin D toxicity, evaluation of serum Calcium and PTH is recommended. Observation Date Value Abnormality Reference (Units ) Status 25-OH Vitamin D total 01/19/2024 11:37:05 34 >19 (ng/mL) Final Performing Location LABORATORY [facility] - [address] [place] [address]
--- OUTSIDE RECORDS SUMMARY | 2024-05-06 02:12 | External Medical Summary | Summary of Care ---
Author Name Unknown Organization [facility] Address [address] [place] [address] Phone [phone] Care Team Providers Care Ribbon Tier Name Role Phone Carol Gomes DO Primary Care Provider [phone] Reason for Visit * Reason Comments Medication Refill Encounter Details Date Type Department Care Team (Late st Contact Info) Description 01/09/2024 Refill Family Practice [address] [place] [address] [place] [address] Carol Gomes 293 [place] [address] Secondary hypertension with goal blood pressure less than 140/90 Allergies Active Allergy Reactions Criticality Noted Date Comments Codeine 09/01/2011 Severe Headache/Projectile vomiting Hydromorphone Nausea/vomiting 06/10/2021 Diltiazem Rash 11/22/2020 Iodinated Contrast Media 04/26/2014 Violent headache and projectile vomiting Metoclopramide Hcl Other (Please comment) Medium 11/16/2007 Restless legs Morphine Nausea/vomiting 03/09/2003 Sulfa Antibiotics 03/09/2003 hives documented as of this encounter (statuses as of 01/09/2024) Medications Medication Sig Dispensed Refills Start Date [...] 90 Tablet 3 3 03/30/20 24 Active Verapamil HCl ER 120 MG [...] 180 Tablet 0 4 12/18/19 25 Active Torsemide 20 MG Oral Tablet (Demadex)Indications: Secondary hypertension with goal blood pressure less than 140/90 TAKE 1 TABLET BY MOUTH EVERY MORNING 90 Tablet 1 4 01/08/20 25 Active Potassium Chloride ER 10 MEQ Oral Tablet Extended Release TAKE TWO TABLETS BY MOUTH EVERY DAY 180 Tablet 1 4 01/08/20 25 Active Torsemide 20 MG Oral Tablet (Demadex)Indications: Secondary hypertension with goal blood pressure less than 140/90 TAKE 1 TABLET BY MOUTH EVERY MORNING 90 Tablet 1 3 01/09/20 24 Discontinu ed(Refill) Potassium Chloride ER 10 MEQ Oral Tablet Extended Release TAKE TWO TABLETS BY MOUTH EVERY DAY 180 Tablet 1 3 01/09/20 Discontinu ed(Refill) documented as of this encounter (statuses as of 01/09/2024) Active Problems Problem Noted Date Diagnosed Date [...] as of this encounter (statuses as of 01/09/2024) Resolved Problems Problem Noted Date Diagnosed Date [...] program 10/21/2017 06/18/2020 Overview: DO NOT DELETE [email or web address] DETECT Study: Project # [id number], Fingernail Former: Miko Andino, PhD. SUMMARY: Goal: Establish test [...] contact study staff at ; after hours Fingernail Former via the [facility] xerox machine operator . Please contact study team before resolving/deleting from patients problem list. Study phone number: [phone]. Diagnosis changed due to Research Module. Go to Snapshot for study details. Encounter for examination fo r normal comparison and control in clinical research program 10/21/2017 07/17/2022 Overview: DO NOT DELETE - [employer] DETECT Study: Project # [id number], Fingernail Former: Sean Pastor, MS, MPH. SUMMARY: Goal: Establish [...] contact study staff at ; after hours Fingernail Former via the [facility] xerox machine operator . - Please contact study team before resolving/deleting from patients problem list. Study phone number: [phone]. Diagnosis changed due to Research Module. Go [...] Hare or Tracy Valentin, RN, CCRC at [phone] [facility] RESEARCH OTHER*[id number] 2003 05/13/2010 Overview: Renamed Per Clinical Trials Billing Project. Pt is a participant in the [facility] (Consortium of Rheumatology Researchers of [place]) national data collection study. For further information please call Dr Foster Hare or Tracy Valentin, RN, CCRC at [phone] ARTHRITIS,RHEUMATOID 03/09/2003 016 Encounter for long-term (cur rent) use of medications 03/09/2003 03/10/2019 Overview: ICD-10 update of inactive term Nausea 02/20/2017 Overview: ICD-10 update of inactive term Autoimmune hepatitis 017 documented as of this encounter (statuses as of 01/09/2024) Immunizations Name Administration Dates Next Due COVID-19 mRNA, LNP-s, No Pre serve, 2-Dose Series (Moderna) 01/12/2021,12/08/2020 COVID-19, MRNA-LNP, 23-24, P F, 30 MCG/0.3 mL, 12 YRS AND ABOVE, IM ([employer]) 09/04/2023 COVID-19, mRNA, LNP-s, PF, B ooster, [...] file Not on file Not on file Travel History Travel Start Travel End [facility] 12/05/2023 12/12/2023 documented as of this encounter Miscellaneous Notes * Telephone Encounter - Krishna Babin [facility] - 01/09/2024 10:24 AM EST Signed Prescriptions: Disp Refills Torsemide 20 MG Oral Tablet (Demadex) 90 Tab*1 Sig: TAKE 1 TABLET BY MOUTH EVERY MORNING Authorizing Provider: CAROL GOMES Ordering User: KRISHNA BABIN Potassium Chloride ER 10 MEQ Oral Tablet E*180 Ta*1 Sig: TAKE TWO TABLETS BY MOUTH EVERY DAY Authorizing Provider: CAROL GOMES Ordering User: KRISHNA BABIN AM * Telephone Encounter - 01/09/2024 12:11 AM ESTPending Prescriptions: Disp Refills Torsemide 20 MG Oral Tablet (Demadex) 90 Tab*1 Sig: TAKE 1 TABLET BY MOUTH EVERY MORNING Potassium Chloride ER 10 MEQ Oral Tablet E*180 Ta*1 Sig: TAKE TWO TABLETS BY MOUTH EVERY DAY documented in this encounter Plan of Treatment Upcoming Encounters Date Type Department Care Team (Latest Contact Info) Description 01/19/2024 11:00 AM EST Office Visit Family Practice 65 [facility] 293 [facility], [place] [address] Carol Gomes DO 293 [facility], [place] [address] 01/25/2024 10:15 AM EDT Hospital Encounter ENDO OSSC, Endoscopy Room [facility] [address] [place] [address] [phone] Mitra Yan MD [address] [place] [address] 01/25/2024 10:15 AM EDT - 01/25/2024 11:00 AM EDT Surgery ENDO O[facility], Endoscopy Room [facility] [address] [address] [phone] Mitra Yan MD [address] [place] [address] [address] ESOPHAGOGASTRODUODENOSCOPY (EGD), FLEXIBLE, TRANSORAL, ENDOSCOPIC ULTRASOUND 03/14/2024 11:00 AM EDT Office Visit Gastroenterology , [facility] [address] [place] [address] [address] Miguel Smith MD [address] [place] [address] 09/09/2024 10:00 AM EDT Nurse Only Ancillary 65 [facility] 293 [place] [address] College, Nurse Annual Wellness Visit [address] [place] [address] Scheduled Procedures Name Priority Associated Diagnoses Date/Ti me ESOPHAGOGASTRODUODENOSCOPY ( EGD), FLEXIBLE, TRANSORAL, ENDOSCOPIC ULTRASOUND Abnormal partial thromboplastin time (PTT) Autoimmune hepatitis (HCC) 01/25/2024 10:15 AM EDT COLONOSCOPY FLEXIBLE PROXIMA L DIAGNOSTIC Recall Special screening for malignant neoplasms, colon Health Maintenance Due Date Last Done Comments VITAMIN D LEVEL ONCE IN A LIFETIME-USE SMARTSET# [id number] 1986 GFR 03/18/2024 09/18/2023, 01/14, 05/27/2022, Additional history exists Albumin/Creatinine Ratio 03/30/2024 023, 02/14/2022, 05/09/2020, Additional history exists CKD HGB USE SMARTSET 57286 09/18/202409/18, 09/18/2023, 05/05/2023, Additional history exists CKD PHOS USE SMARTSET 20116 09/18/202401/2023, 05/27/2022, 05/24/2021, Additional history exists Depression [...] as of this encounter Visit Diagnoses Diagnosis Secondary hypertension with goal blood pressure less than 140/90 Abnormal partial thromboplastin time (PTT) Abnormal coagulation profile Autoimmune hepatitis (HCC) Autoimmune hepatitis documented in this encounter Advance Directives Documents on File Type Date Recorded Patient General Machine Operator Expl anation Advance Directives and Living Will 12/16/2016 LIVING WILL Power of Program Checker 12/16/2016 POWER OF A TTORNEY [facility] C[facility] POA Care Teams Ribbon Tier Relationship Specialty Start Date End Date Carol Gomes DO 293 [place] [address] PCP - General Family Medicine 09/03/23 documented as of this encounter
--- OUTSIDE RECORDS SUMMARY | 2024-05-06 02:12 | External Medical Summary ---
Author Name Unknown Address Unknown Organization [id number]:[facility] [place] - [address] [facility] [address] Laboratory Report Ordering Provider Test Date Status LOIDA PHAM 01/19/2024 11:37:05 Final Observation Date Value Abnormality Reference (Units ) Status WBC, Total 01/19/2024 11:37:05 4.99 4.00-10.80 (K/uL) Final RBC 01/19/2024 11:37:05 4.17 3.85-5.15 (M/uL) Final Hemoglobin 01/19/2024 11:37:05 12.0 12.0-15.3 (g/dL) Final HCT 01/19/2024 11:37:05 36.5 36.0-45.2 (%) Final MCV 01/19/2024 11:37:05 87.5 81.5-97.5 (fL) Final MCH 01/19/2024 11:37:05 28.8 27.0-34.0 (pg) Final MCHC 01/19/2024 11:37:05 32.9 32.0-36.0 (g/dL) Final RDW 01/19/2024 11:37:05 15.5 11.5-15.5 (%) Final Platelets 01/19/2024 11:37:05 178 140-400 (K/uL) Final MPV 01/19/2024 11:37:05 12.1 6.6-11.1 (fL) Final Nucleated erythrocytes/100 leukocytes [Ratio] in Blood by Automated count 01/19/2024 11:37:05 0 <=0 (/100 WBCs) Final Performing Location [facility] – [place] - [address] [facility] [address]
--- OUTSIDE RECORDS SUMMARY | 2024-05-06 02:12 | External Medical Summary ---
Author Name Unknown Address Unknown Organization [id number]:LABORATORY [facility] – [place] - [address] [place] [address] Laboratory Report Ordering Provider Test Date Status LOIDA PHAM 01/19/2024 11:37:05 Final Observation Date Value Abnormality Reference (Units ) Status SYNC LEUKOCYTES IN BLOOD BY AUTOMATED COUNT 01/19/2024 11:37:05 4.99 4.00-10.80 (K/uL) Final Segs 01/19/2024 11:37:05 49.7 40.0-75.0 (%) Final Lymphs % 01/19/2024 11:37:05 30.5 18.0-42.0 (%) Final Monos 01/19/2024 11:37:05 16.8 Above high normal 1.0-11.0 (%) Final Eosinophils 01/19/2024 11:37:05 1.4 0.0-6.0 (%) Final Basos 01/19/2024 11:37:05 1.2 0.0-2.0 (%) Final Immature Granulocyte, Percent 01/19/2024 11:37:05 0.4 0.0-2.0 (%) Final Absolute Segs 01/19/2024 11:37:05 2.48 1.80-7.70 (K/uL) Final Lymphs, absolute 01/19/2024 11:37:05 1.52 1.00-4.80 (K/ul) Final Monos, Abs 01/19/2024 11:37:05 0.84 0.00-1.10 (K/uL) Final Eos, Abs 01/19/2024 11:37:05 0.07 0.00-0.70 (K/uL) Final Basos, Abs 01/19/2024 11:37:05 0.06 0.00-0.20 (K/uL) Final Immature Granulocytes, Number 01/19/2024 11:37:05 0.02 0.00-0.20 (K/uL) Final Performing Location LABORATORY [facility] [place] - [facility] [place] [address]
--- OUTSIDE RECORDS SUMMARY | 2024-05-06 02:12 | External Medical Summary | Summary of Care ---
Author Name Unknown Organization [facility] Address [address] [address] Phone [phone] Care Team Providers Care Aircraft Worker Name Role Phone Carol Gomes Remberto DALTON Primary Care Provider Reason for Visit * Reason Comments Follow Up Gastroparesis, autoi mmune hepatitis Encounter Details Date Type Department Care Team (Latest Contact Info) Description 11/17/2023 10:40 AM EST Telemedicine Gastroenterology, [facility] [address] [place] [address] Miguel Smith MD [address] [facility] [address] Abnormal partial thromboplastin time (PTT)*; Autoimmune hepatitis (HCC) Allergies Active Allergy Reactions Criticality Noted Date Comments Codeine 09/01/2011 Severe Headache/Projectile vomiting Hydromorphone Nausea/vomiting 06/10/2021 Diltiazem Rash 11/22/2020 Iodinated Contrast Media 04/26/2014 Violent headache and projectile vomiting Metoclopramide Hcl Other (Please comment) Medium 11/16/2007 Restless legs Morphine Nausea/vomiting 03/09/2003 Sulfa Antibiotics 03/09/2003 hives documented as of this encounter (statuses as of 11/24/2023) Medications Medication Sig Dispensed Refills Start Date [...] 90 Tablet 3 3 03/30/20 24 Active Ibuprofen 800 MG Oral Tablet (Motrin)Indications:A rthritis, rheumatoid (HCC) TAKE ONE TABLET BY MOUTH TWICE A DAY NEEDED FOR PAIN 180 Tablet 0 3 01/30/20 24 Active Torsemide 20 MG Oral Tablet [...] before bedtime. 180 Tablet 4 4 Active Mycophenolate Mofetil 500 MG Oral Tablet (Cellcept) Take 1 Tablet by mouth in the morning and 1 Tablet before bedtime. 180 Tablet 1 3 11/17/19 24 Discontinu ed(Refill) documented as of this encounter (statuses as of 11/24/2023) Active Problems Problem Noted Date Diagnosed Date [...] as of this encounter (statuses as of 11/24/2023) Resolved Problems Problem Noted Date Diagnosed Date [...] DELETE Brendan Jennings DESHAUN Study: Project # [id number], Painting Manager: Miko Andino, PhD. SUMMARY: Goal: Establish test [...] contact study staff at ; after hours Painting Manager via the [facility] hospital wet pan operator . Please contact study team before resolving/deleting from patients problem list. Study phone number: [phone]. Diagnosis changed due to Research Module. Go to Snapshot for study details. Encounter for examination fo r normal comparison and control in clinical research program 10/21/2017 07/17/2022 Overview: DO NOT DELETE - [facility] DETECT Study: Project # [id number], Painting Manager: Sean Pastor, MS, MPH. SUMMARY: Goal: Establish [...] contact study staff at ; after hours Painting Manager via the [facility] hospital wet pan operator . - Please contact study team before resolving/deleting from patients problem list. Study phone number: [phone]. Diagnosis changed due to Research Module. Go [...] Hare or Tracy Valentin, RN, CCRC at [phone] [facility] RESEARCH OTHER*[id number] 2003 05/13/2010 Overview: Renamed Per Clinical Trials Billing Project. Pt is a participant in the [employer] (Consortium of Rheumatology Researchers of [place]) national data collection study. For further information please call Dr Foster Hare or Tracy Valentin, RN, CCRC at [phone] ARTHRITIS,RHEUMATOID 03/09/2003 016 Encounter for long-term (cur rent) use of medications 03/09/2003 03/10/2019 Overview: ICD-10 update of inactive term Nausea 02/20/2017 Overview: ICD-10 update of inactive term Autoimmune hepatitis 017 documented as of this encounter (statuses as of 11/24/2023) Immunizations Name Administration Dates Next Due COVID-19 [...] Influenza, Split, I IV3, With Preserve, Inj 09/11/2016,09/27/2013,09/29/2012,1202/2010,08/28/2009,09/11/2008,09/22/20 07,09/16/2006 TDAP (age 10 and older)(Boostrix) 02/20/2017 [...] on file documented as of this encounter Progress Notes * Miguel Smith MD - 11/17/2023 10:52 AM EST I was in a hospital or clinic location. After connecting through televideo, patient was verified with two unique identifiers. Patient (or authorized legal patient care representative) was then informed that this was a Telemedicine visit and being conducted confidentially over secure lines. Methods to assure confidentiality were taken. Patient acknowledged consent and understanding of privacy and security of the Telemedicine visit. The patient agreed to participate. PCP: Ref: CAROL GOMES[[id number]] [address] [place] [address] (office) [phone] (fax) CC: Autoimmune hepatitis, gastroparesis HPI: 74 year old female first seen in consultation on 04/24/05, had a long history of intermittant nausea (over 10 years) associated with vomiting of undigested food and early satiety as well as weightloss; EGD and colonoscopy (02/2004) has been negative. In addition, she has had severe constipation.She had gastric emptying study that showed T 1/2 of 548 minutes. In the past, metoclopramide causedCNS side effects. Zelnorm did not help, and she started domperidone from [facility] in May 2005. She increased the dose to 20 mg ac and hs, but discontinued it after a two month trial because she did not think that it helped. On Miralax, she no longer has bloating. She has intermittant nausea and vomiting with periods of a month or more with minimal symptoms. When she starts to have nausea and vomiting, she takes erythromycin which she thinks helps. If the symptoms continue, she will take Zofran with relief. She had an MRCP done as a volunteer that was not officially read but was abnormal. She has mildly elevated transaminases. ERCP on 06/01/06 showed normalpancreatic and biliary ducts. She has had a significant increase in her transaminases, prompting a liver biopsy on 01/01/07 at [facility]. This demonstrated "marked inflammation both within the portal triads and in the lobules. There cachorro mix of lymphocytes with prominent plasma cells and also neutrophils and eosinophils. . .There is m oderate to severe macrovesicular steatosis. . .The trichrome stain is somewhat suboptimal, but clearly appears to show increased fibrosis with bridging focally." Serological workup shows polyclonal increase in gamma globulins, elevated GEETHA, with normal ASMA, AMA, and viral serologies. On 01/20/07 we started ursadiol 1200 mg daily. Her LFT's have improved. She has had no further nausea, although she continues to experience bloating, gas, and constipation for which she takes Miralax twice a week. She was started on low dose prednisone (5 mg) on 05/03/07 for her RA, when ibuprofen was discontinued. Since then, her nausea has returned with some vomiting. She also has increased flatus. Amitiza has helped with her constipation. 03/14/08: After her prednisone was discontinued last summer, her nausea resolved. Over the past month she has noted a change in bowel habit with many urgent loose BM's clustered in the morning followed by a normal BM later in the day and scybalous stool for 2-3 days before the cycle repeats. There is considerable flatus. She also notes some mild nausea after breakfast (when she takes her meds). 04/25/08: ENTOCORT was started at her last visit with a plan to increase the dose from 3 mg daily to9 mg daily. She developed nausea with occasional vomiting, however and despite continuing 3 mg daily for three weeks her ALT did not go down. After stopping Entocort the nausea improved. She has noted that Ursodiol causes some nausea with the morning but not the nighttime dose. 06/27/08: She was able to slowly increase her Entocort to a full dose of 9 mg daily. She has noted abdominal bloating with increased eructation and flatus. Occasionally, she has diarrhea and cramps, although she is usually constipated and requires Amitiza. (Dr. Zepeda did colonoscopy in 2003). Shehas also noted mild bruisability. 08/03/08: CELLCEPT 500 MG BID STARTED. Humira and Entocort stopped. Ursadiol continued. 09/11/08: No significant GI side effects from Cellcept. Arthritis is flaring somewhat with morning stiffness, wrist and hip pain. Cellcept gradually increased to 1000 mg BID 12/11/07: Starting in early October 2008 she developed non-exertional chest pain that is not clearly related to eating. She was worked up by Dr. Greenwood with a negative stress test and unremarkable UGI series. She has had mild nausea (she no longer takes domperidone), but she has had marked bloating, flatus and eructation. 03/12/09: Her nausea had gradually worsened until she stopped Amitiza which resulted in resolution of her nausea. BM's have remained normal once a day. Bloating and gas have improved but has not resolved. She is taking domperidone twice a day. 08/01/09: No nausea or constipation. Overall feels very good except from bleeding gums and bruisability over the past two months. 12/11/09: She had a transient episode of nausea with occasional vomiting with some mucous and tenesmus that lasted less than a week and resolved. 01/01/10: Liver Biopsy: mild lymphoplasmacytic portal infiltrate with portal to periportal fibrosis but no bridging. Mild steatosis is present. Significant improvement from previous biopsy. After her biopsy, she developed transient chest pressure that resulted in a stress test that showed exercise induced ischemia, but subsequent cardiac catheterization was normal. 05/27/10: She is virtually asymptomatic on Cellept 2 g daily and domperidone. 03/04/11: Her nausea has returned over the past two months. It generally occurs an hour after eatingand feels almost like hunger. It is relieved by eating or by vomiting. She has continued domperidone 10 mg before breakfast and before bed. There is no epigastric pain or heartburn. Her bowel habit is normal once daily. She has noted some fatigue. Domperidone increased to four times daily. 09/01/11: Her nausea improved on the increased dose of domperidone. She has felt exceedingly good. She tolerates Cellcept with no adverse effects. Her fatigue is about the same. 10/17/12: She has continued to do extremely well, without nausea on domperidone 10 mg BID. Her BM'sare normal formed twice daily. She has no side effects from her Cellcept. She has gained weight. 10/04/13: She remains asymptomatic. She is concerned about what will happen if she has to stop domperidone, which she takes twice a day. She ran out of domperidone in 11/2013. 04/26/14: Colonoscopy showed diverticulosis. 10/10/14: Since 05/2014 she has had a return of postprandial symptoms, usually mild nausea, cramps, borborygmi and urgent diarrhea often after a restaurant meal or the first meal of the day. This might be followed by several clustered BM's and resolution of her symptoms. She may have 3-4 episodes per week. No fever or weight loss. She has not been using dicyclomine or hyoscamine. 06/26/15: Cellcept dose lowered to 1500 mg daily because of low WBC (3.1). 10/02/15: She has been having cycles of urgent diarrhea with one to five loose BM's daily for several weeks, often triggered by meals, followed by normal BM's 1-2 times daily. There is no bleeding, cramps, or nocturnal awakening. 01/07/17: After knee replacement, she developed nausea and eructation. She stopped post op analgesics, but symptoms have persisted with retching and vomiting. She has continued on Cellcept 1500 mg daily. Recent LFT's preop were normal. In the past, she did not tolerate metoclopramide (restless legs). 08/12/17: Domperidone has been working well for her. If she misses her evening dose, however, she has AM nausea. LFT's are normal. She has reduced Cellcept to 500 mg BID. 04/26/18: She remains asymptomatic. 01/13/19: She remains on domperidone and Cellcept. 03/26/20: Telephone encounter: She remains asymptomatic. There is no nausea and weight is stable. She has started cholesterol lowering medication. 02/2021: Pt continues on cellcept. Over the past 3-4 weeks, she has had recurrence of dayttime reflux symptoms - she reports chest pain, followed by pyrosis and throat clearing. Taking PPI twice dailywith some relief. Denies bloating, fullness, or nausea with domperidone twice daily. No symptoms ofAIH - no fatigue, abd pain, jt pain. 05/2021 Liver bx: Liver, left lobe, needle biopsy: Mild macrovesicular steatosis and focal mild portal and lobular inflammation, see note Minimal portal fibrosis B. Liver, right lobe, needle biopsy: Mild macrovesicular steatosis and focal mild portal and lobular inflammation, see note Minimal portal fibrosis 08/2021: No complaints. Denies gastroparesis symptoms, GERD symptoms. AST mildly increased on last blood draw, LFT's o/w at baseline. New meds = Pamelor, no alcohol or APAP, + 8 lbs weight gain. 05/07:. No complaints. 12/09: No complaints. ALLERGIES: Review of patient's allergies indicates: Allergen Reactions Metoclopramide Hcl Other (Please comment) Restless legs Codeine Severe Headache/Projectile vomiting Dilaudid [Hydromorphone] Nausea/vomiting Diltiazem Rash Iodinated Contrast Media Violent headache and projectile vomiting Morphine Nausea/vomiting Sulfa Antibiotics hives Past Medical History: Diagnosis Date Atrial fibrillation [...] performed by Price Mejia MD at ENDOSCOPY [facility] DENTAL SURGERY PROCEDURE NEC 12/30/2022 DIVERT PAROTID DUCT, REMOVE GLAND 1990 Left parotidectomy EGD, FLEXIBLE, DIAGNOSTIC 06/07/2021 retained food / ESOPHAGOGASTRODUODENOSCOPY (EGD), FLEXIBLE, TRANSORAL, DIAGNOSTIC performed by Mitra Yan MD at ENDOSCOPY [facility] EGD, W/ENDOSCOPIC US 06/07/2021 minimal portal fibrosis / ESOPHAGOGASTRODUODENOSCOPY (EGD), FLEXIBLE, TRANSORAL, ENDOSCOPIC ULTRASOUND performed by Mitra Yan MD at ENDOSCOPY [facility] INFORMATION Removed right ovary NEEDLE BIOPSY OF LIVER 2002 REMOVAL OF APPENDIX 1980 REMOVE GALLBLADDER 1980 TOTAL KNEE REPLACEMENT EDU. 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 [employer] Social Needs Financial resource strain: Not on file Food insecurity Worry: Never true Inability: Never true Transportation needs Medical: Not on file Non-medical: Not on file Tobacco Use Smoking status: Never Smoker Smokeless tobacco: Never Used Tobacco comment: Never Substance and Sexual Activity Alcohol use: Never Drug use: Never Sexual activity: Not Currently Partners: Male Lifestyle Physical activity Days per week: Not on file Minutes per session: Not on file Stress: Not on file Relationships Social connections Talks on phone: Not on file Gets together: Not on file Attends shinto service: Not on file Active member of club or organization: Not on file Attends meetings of clubs or organizations: Not on file Relationship status: Not on file Intimate partner violence Fear of current or ex partner: Not on file Emotionally abused: Not on file Physically abused: Not on file Forced sexual activity: Not on file Other Topics Concern Service Not Asked Blood Transfusions No Caffeine Concern Yes Comment: 4 cups coffee/day Occupational Exposure Not Asked Hobby Hazards Not Asked Sleep Concern Yes Stress Concern Not Asked Weight Concern Not Asked Special Diet No Back Care Not Asked Exercise Not Asked Bike Helmet Not Asked Seat Belt Yes Self-Exams Yes Social History Narrative Not on file Vaping/E-Cigarette Use Vaping/E-Cigarette Use Never User Vaping/E-Cigarette Substances Vaping/E-Cigarette Devices Current Outpatient Medications Medication Sig Dispense Refill [...] the morning and 1 Capsule before bedtime. Mycophenolate Mofetil 500 MG Oral Tablet (Cellcept) Take 1 Tablet by mouth in the morning and 1 Tablet before bedtime. 180 Tablet 1 Alendronate Sodium 70 MG Oral Tablet (Fosamax) [...] DAY OR OTHER MEDICATIONS 90 Tablet 3 Ibuprofen 800 MG Oral Tablet (Motrin) TAKE ONE TABLET BY MOUTH TWICE A DAY NEEDED FOR PAIN 180 Tablet 0 Torsemide 20 MG Oral Tablet (Demadex) TAKE 1 TABLET BY MOUTH EVERY MORNING 90 Tablet 1 Potassium Chloride ER 10 MEQ Oral Tablet Extended Release TAKE TWO TABLETS BY MOUTH EVERY DAY 180 Tablet 1 Verapamil HCl ER 120 MG Oral Tablet Extended Release (Isoptin SR) TAKE ONE TABLET BY MOUTH EVERY MORNING 90 Tablet 3 Metoprolol Succinate ER 25 MG Oral Tablet Extended Release 24 Hour (toPROL XL) TAKE ONE TABLET BY MOUTH EVERY DAY AT BEDTIME 90 Tablet 3 Ezetimibe 10 MG Oral Tablet (Zetia) TAKE ONE TABLET BY MOUTH EVERY DAY 90 Tablet 3 Bromelains 500 MG Oral Tablet Take 1 Tablet by mouth 2 times a day. AMBULATORY MISCELLANEOUS MEDICATION Take 10 mg by mouth daily. Domperidone (gets from [facility]) Omeprazole 20 MG Oral Capsule Delayed Release (PriLOSEC) TAKE ONE CAPSULE BY MOUTH IN THE MORNING. 90 Capsule 1 No current facility-administered medications for this visit. GENERAL: no acute distress, obese, comfortable, pleasant SKIN: no rashes HEENT: normocephalic, sclerae clear, pharynx normal NECK: no obvious masses LUNGS: no increased work of breathing NEURO: CN intact Labs reviewed - LFT's February WNL, CBC February WNL EKG shows mildly prolonged but stable QT. ASSESSMENT: - AIH + NAFLD. Cont Cellcept for now. Repeat LFTS and CBC/d in 3 mos We discussed repeat liver bx and possible d/c of cellcept with monthly LFT + IgG checks if bx shows that AIH is in remission. We discussed possiblity of relapse requiring steroids if Cellcept is discontinued. - Gastroparesis: Cont domperidone, yearly EKG due now. RTC 6 mos documented in this encounter Nursing Notes * Kelly Diego LPN - 11/17/2023 10:12 AM EST Patient identified by name and date of . Chief Complaint Patient presents with Follow Up Gastroparesis, autoimmune hepatitis documented in this encounter Plan of Treatment Upcoming Encounters Date Type Department Care Team (Latest Contact Info) Description 01/19/2024 11:00 AM EST Office Visit Family Practice [address] [place] [address] [address] [place] [address] Carol Gomes DO [address] [place] [address] 01/25/2024 10:00 AM EDT Hospital Encounter ENDO [facility], Endoscopy Room [facility] [address] [place] [id number] Mitra Yan MD [address] [place] [address] 01/25/2024 10:00 AM EDT - 01/25/2024 11:00 AM EDT Surgery ENDO [facility], Endoscopy Room [facility] [address] [place] [address] Mitra Yan MD [address] [place] [address] ESOPHAGOGASTRODUODENOSCOPY (EGD), FLEXIBLE, TRANSORAL, ENDOSCOPIC ULTRASOUND 03/14/2024 11:00 AM EDT Office Visit Gastroenterology , [facility] [address] [place] [address] Miguel Smith MD [address] [place] [address] 09/09/2024 10:00 AM EDT Nurse Only Ancillary [address] [place] [address] [place] [address] College, Nurse Annual Wellness Visit [address] [facility] [address] [place] [address] Scheduled Orders Name Type Priority Associated Diagnoses Orde r Schedule COMPREHENSIVE METABOLIC PANEL Lab Routine Abnormal partial thromboplastin time (PTT) Autoimmune hepatitis (HCC) Expected: 11/17/2023, Expires: 11/17/2024 CBC WITH WBC DIFFERENTIAL Lab Routine Abnormal partial thromboplastin time (PTT) Autoimmune hepatitis (HCC) Expected: 11/17/2023, Expires: 11/17/2024 PT INR Lab Routine Abnormal partial thromboplastin time (PTT) Autoimmune hepatitis (HCC) Expected: 11/17/2023, Expires: 11/17/2024 US ENDOSCOPIC Medical Imaging Routine Abnormal partial thromboplastin time (PTT) Autoimmune hepatitis (HCC) Expected: 12/18/2023, Expires: 12/18/2024 Scheduled Procedures Name Priority Associated Diagnoses Date/Ti me ESOPHAGOGASTRODUODENOSCOPY ( EGD), FLEXIBLE, TRANSORAL, ENDOSCOPIC ULTRASOUND Recall Abnormal partial thromboplastin time (PTT) Autoimmune hepatitis (HCC) 01/25/2024 10:00 AM EDT COLONOSCOPY FLEXIBLE PROXIMA L DIAGNOSTIC Recall Special screening for malignant neoplasms, colon Health Maintenance Due Date Last Done Comments VITAMIN D LEVEL ONCE IN A LIFETIME-USE SMARTSET# [id number] 1986 GFR 03/18/2024 09/18/2023, 01/14, 05/27/2022, Additional history exists Albumin/Creatinine Ratio 03/30/2024 023, 02/14/2022, 05/09/2020, Additional history exists CKD HGB USE SMARTSET 51948 09/18/202409/18, 09/18/2023, 05/05/2023, Additional history exists CKD PHOS USE SMARTSET 41392 09/18/202401/2023, 05/27/2022, 05/24/2021, Additional history exists Depression Screening 09/18/2024 09/18/2023 TSH 09/18/2024 09/18/2023, 09/16, 02/14/2022, Additional history exists DXA Scan 05/05/2025 05/05/2023, 12/17, 04/17/2008, Additional history exists DTaP,Tdap,and Td Vaccines (2 [...] as of this encounter Visit Diagnoses Diagnosis Abnormal partial thromboplastin time (PTT)- Primary Abnormal coagulation profile Autoimmune hepatitis (HCC) Autoimmune hepatitis Abnormal partial thromboplastin time (PTT) Abnormal coagulation profile Autoimmune hepatitis (HCC) Autoimmune hepatitis documented in this encounter Advance Directives Documents on File Type Date Recorded Patient Certified Medication Aide Expl anation Advance Directives and Living Will 12/16/2016 LIVING WILL Power of Buggy Runner 12/16/2016 POWER OF A [facility] POA Care Teams Aircraft Worker Relationship Specialty Start Date End Date Carol Gomes DO [address] [place] [address] PCP - General Family Medicine 09/03/23 documented as of this encounter
[2024-05-06] MEDS: DOXYCYCLINE HYCLATE 100 MG in DEXTROSE 5% MINI-B 100 ML IV SCH (03:53)
[2024-05-06 04:27] LABS: Hematocrit (blood only) 30.2 % (37.0-47.0); Hemoglobin 10.6 g/dl (12.0-16.0); Mean Corpuscular Hemoglobin 28.1 pg (25.0-34.0); Mean Corpuscular Hgb Conc 35.1 g/dL (32.0-36.0); Mean Corpuscular Volume 80.1 fL (80.0-100.0); Mean Platelet Volume 9.4 fL (9.4-12.4); Platelet Count 369 K/uL (130-400); RDW Coefficient of Variation 14.2 % (11.5-14.5); RDW Standard Deviation 41.2 fL (36.4-46.3); Red Blood Count 3.77 M/uL (4.20-5.40); White Blood Count 16.91 K/ul (4.8-10.8)
[2024-05-06 04:53] LABS: BUN Creatinine Ratio 13.1 (10-20); Calcium 7.9 mg/dl (8.6-10.3); Creatinine Clr Calc Pharmacy 75.1 ml/min; Est GFR (African American) 101.3 ml/min; Est GFR (Non-African American) 87.4 ml/min; Magnesium 1.9 mg/dl (1.7-2.4); Potassium 4.5 mmol/L (3.5-5.1)
[2024-05-06] MEDS ORDERED: STAT IV/IM STA ×3 (04:54→13:29)
[2024-05-06] MEDS: SODIUM CHLORIDE 3 % 100 ML IV ONE (05:03)
[2024-05-06] MEDS: LEVOTHYROXINE SODIUM 75 MCG TABLET PO SCH (06:39)
--- NOTE | 2024-05-06 07:25 | Nephrology Consultation ---
Date of Consultation May 06, 2024 Assessment & Plan (1) Hyponatremia: plateau'd severe hypotonic hyponatremia w/ mild symptoms and likely euvolemic goal is sNa 122 by mid afternoon -trial torsemide given HTN and hyponatremia > 30 mg x 1 and monitor; may need to change to lasix -maintain eukalemia -continue q4h BMP stat; RN to update me when these post through day ->another 150 mL 3% saline now and continue until sNa at least 120 -defer to primary service to address thyroid (2) Hypertensive urgency: no sx; no evidence of end organ damage acutely, in fact renal function markedly better than baseline creat 1.0-1.1, ? d/t poor po goal is to move from SBP 150-170s more to 130s over hours -continue metoprolol, verapamil -torsemide as above (3) Immunosuppression: remains on MMF; agree w/ Legionella assays; low threshold for CT chest and / or head/neck > could consider IV con if needed History of Present Illness Reason for Consultation: hyponatremia Requesting Physician: Dr Corrales Attending Physician: Cedric Corrales MD History of Present Illness 78 y/o F whom I'm asked to see for hyponatremia was admitted yesterday afternoon after presenting with worsening N, poor po, malaise after failing augmentin for URI and found on presentation to have sNa 116. PMH includes autoimmune hepatitis on mycophenolate, gastroparesis, sjoegren's syndrome w/ sicca sx, paroxysmal SVT, hypothyroidism, CKD 3 w/ baseline creatinine 1.0-1.1, HTN, aortic stenosis. last week she had 8 days of diarrhea which eventually resolved. Then she had several days of cough productive of green sputum, low grade fevers, and worsening generalized weakness, exertional dyspnea. She was started on augmentin 05/03 but even with this had worsening ambulatory function, generalized weakness, poor po intake; emesis x 2 NBNB on 05/04. Also endorses some mild confusion which she states her family also noticed. She did continue to drink 80-100 oz daily water and was able to continue all of her medications. No prior hx of hyponatremia. She has ibuprofen on her med list but hasn't taken nsaids for several months. GI No fever since arrival; sbp in 150-170s but some as high as 200s. she is receiving her OP verapamil and metoprolol but torsemide has been held so far. In ER she received about 500 mL NS. I reviewed the pt's care w/ team yesterday afternoon > recommended boluses of 3% saline and eukalemia and 1.5L FR along w/ continued NSAID avoidance and administration of thyroid meds. Her sNa was 116 on presentation, dropped as low as 113 by early evening; was 115 this AM and after second 3% saline bolus up to 116. In addition to sx above, she tells me she feels a bit better overall today than yesterday. She is not dypsneic, has no edema, and denies new/worrisome voiding sx or other GI concerns apart from those above. Denies any falls prior to admission. Allergies Allergy/AdvReac Type Severity Reaction Status Date / Time celecoxib Allergy Intermediate HIVES,HAS Verified 05/05/24 16:05 TAKEN TORADOL OK Sulfa (Sulfonamide Allergy Intermediate HIVES Verified 05/05/24 16:05 Antibiotics) diltiazem Allergy Rash Unverified 05/05/24 16:05 codeine AdvReac Mild VOMITING Verified 05/05/24 16:05 morphine AdvReac Mild VOMITING Verified 05/05/24 16:05 Iodinated Contrast Media AdvReac Unknown severe Verified 05/05/24 16:05 headache and projectile vomiting Home Medications Medication Instructions Recorded Confirmed Type aspirin 81 mg tablet,delayed 81 mg PO DAILY 11/07/20 05/05/24 History release ezetimibe 10 mg tablet (Zetia) 10 mg PO HS 11/07/20 05/05/24 History levothyroxine 75 mcg tablet 75 mcg PO 6XWK 11/07/20 05/05/24 History (Levoxyl) melatonin 5 mg tablet 5 mg PO HS PRN Insomnia 11/07/20 05/05/24 History metoprolol succinate 25 mg 25 mg PO DAILY 11/07/20 05/05/24 History tablet,extended release 24 hr (Toprol XL) mycophenolate mofetil 500 mg 500 mg PO DAILY 11/07/20 05/05/24 History tablet (CellCept) omeprazole 20 mg capsule,delayed 20 mg PO QAM 11/07/20 05/05/24 History release potassium chloride 10 mEq 20 meq PO BID 11/07/20 05/05/24 History tablet,extended release torsemide 20 mg tablet 20 mg PO DAILY 11/07/20 05/05/24 History alendronate 70 mg tablet 70 mg PO WK 05/05/24 05/05/24 History amoxicillin 875 mg-potassium 1 tab PO BID 05/05/24 05/05/24 History clavulanate 125 mg tablet biotin 1 mg tablet 1 mg PO DAILY 05/05/24 05/05/24 History docusate sodium 100 mg tablet 100 mg PO BID 05/05/24 05/05/24 History ibuprofen 800 mg tablet 800 mg PO BID PRN Pain (Scale 05/05/24 05/05/24 History Score 1-3) magnesium oxide 500 mg PO HS 05/05/24 05/05/24 History meloxicam 15 mg tablet 15 mg PO DAILY PRN Pain 05/05/24 05/05/24 History nortriptyline 10 mg capsule 10 mg PO HS 05/05/24 05/05/24 History verapamil 120 mg tablet,extended 120 mg PO HS 05/05/24 05/05/24 History release Patient History Medical History Chronic autoimmune hepatitis Hx of Sjogren's disease Depression Paroxysmal SVT (supraventricular tachycardia) Migraine with aura Diverticulosis CKD (chronic kidney disease), stage III Atrial fibrillation "paroxysmal- one episode in per patient" Gastroparesis Surgical History S/P inguinal hernia repair S/P right oophorectomy H/O colonoscopy History of carpal tunnel surgery S/P appendectomy S/P cholecystectomy Family History Other Cancer Heart disease Stroke Social History Smoking Status: Never smoker Hx Alcohol Use: No Hx Substance Use: No Preferred Language: Frisian Communication Ability: Effective Beader Required: No Beliefs That Will Affect Care: None Current Living Situation: Alone Feels Safe at Home: Yes Assistive Devices: Cane and Walker Review of Systems 2 Review of Systems: All systems reviewed & are unremarkable except as noted in HPI & below Physical Exam 2 Constitutional: well developed (sitting in bed on RA), well nourished and cooperative; no acute distress Eyes: EOM intact bilaterally ENMT: Ears: no external ear abnormality Nose: no external nose abnormality Mouth: + dry oral mucous membranes Neck: no nuchal rigidity Respiratory: normal respiratory effort and + cough (occasional dry) A uscultation: + diminished lung sounds and + crackles (fine bibasilar) Cardiovascular: Rate/Rhythm: regular rate and regular rhythm Heart Sounds: + murmur Extremities: no edema Gastrointestinal (Abdomen): Inspection/Auscultation: normal bowel sounds P ercussion/Palpation: abdomen soft; abdomen nontender Musculoskeletal: Extremities: strength 5/5 throughout Skin: no rashes, warm and dry + ecchymosis (L upper abdomen) Neurologic: hall, fluent speech, no tremor Psychiatric: Orientation: alert and oriented x 3 Speech: normal rate/rhythm/volume of speech Affect: euthymic affect Results & Data Vital Signs (Past 12 Hours) Vital Signs Temp Pulse Pulse Resp BP BP Pulse Ox 05/06/24 06:03 69 21 184/104 H 97 05/06/24 05:18 72 17 96 05/06/24 05:00 180/77 H 05/06/24 04:39 71 18 97 05/06/24 04:00 67 17 172/100 H 95 05/06/24 04:00 36.9 C 05/06/24 04:00 05/06/24 03:12 67 22 111/61 95 05/06/24 02:18 65 17 142/103 H 95 05/06/24 01:00 67 17 116/73 95 05/06/24 00:00 69 17 147/89 H 96 05/06/24 00:00 05/06/24 00:00 36.8 C 05/05/24 23:12 67 05/05/24 23:06 92 H 17 183/97 H 98 05/05/24 23:01 69 15 183/97 H 97 05/05/24 22:06 82 24 168/87 H 95 05/05/24 21:38 05/05/24 21:24 05/05/24 21:07 84 15 195/95 H 97 05/05/24 21:00 73 16 208/94 H 98 05/05/24 20:26 100 H 05/05/24 20:09 76 23 98 06/20/24 19:45 36.8 C 97 H 18 192/97 H 98 Pulse Ox O2 Del Method O2 Del Method 05/06/24 06:03 05/06/24 05:18 05/06/24 05:00 05/06/24 04:39 05/06/24 04:00 05/06/24 04:00 05/06/24 04:00 95 Room Air 05/06/24 03:12 05/06/24 02:18 05/06/24 01:00 05/06/24 00:00 05/06/24 00:00 95 Room Air 05/06/24 00:00 05/05/24 23:12 05/05/24 23:06 05/05/24 23:01 Room Air 05/05/24 22:06 05/05/24 21:38 95 Room Air 05/05/24 21:24 Room Air 05/05/24 21:07 Room Air 05/05/24 21:00 05/05/24 20:26 05/05/24 20:09 05/05/24 19:45 Room Air Laboratory Results 05/06/24 04:00 05/06/24 04:00 [id number], sOsm 243; Edna 40; uCl 58 TSH 9.6; Ft4 1.84 Diagnostic Findings CXR 1. Mild bibasilar densities favor atelectasis. A mild nonspecific pneumonitis considered less likely. 2. Cardiomegaly.
[2024-05-06 08:09] LABS: Estimated Average Glucose 114 mg/dl; Hemoglobin A1C 5.6 % (4.5-5.6)
[2024-05-06] MEDS: ASPIRIN 81 MG ECTAB PO SCH (08:27)
[2024-05-06] MEDS: MYCOPHENOLATE MOFETIL 250 MG CAP PO SCH (08:27)
[2024-05-06] MEDS: cefTRIAXone SODIUM 2,000 MG in DEXTROSE 5% 50 ML IV SCH (08:27)
--- OUTSIDE RECORDS SUMMARY | 2024-05-06 08:29 | External Medical Summary | Summary of Care ---
Author Name Unknown Organization [facility] Address [address] [place] [address] Phone [phone] Care Team Providers Care Cut And Cover Line Worker Name Role Phone Carol Cade DO Primary Care Provider [phone] Reason for Visit * Reason Onset Date Comments Appointment 05/05/2024 Cold Encounter Details Date Type Department Care Team (Late st Contact Info) Description 05/05/2024 Telephone Family Practice [address] [facility] [address] [place] [address] Carol Cade DO [address] [place], [place] [id number] Appointment (Cold) Allergies Active Allergy Reactions Criticality Noted Date Comments Codeine 09/01/2011 Severe Headache/Projectile vomiting Hydromorphone Nausea/vomiting 06/10/2021 Diltiazem Rash 11/22/2020 Iodinated Contrast Media 04/26/2014 Violent headache and projectile vomiting Metoclopramide Hcl Other (Please comment) Medium 11/16/2007 Restless legs Morphine Nausea/vomiting 03/09/2003 Sulfa Antibiotics 03/09/2003 hives documented as of this encounter (statuses as of 05/05/2024) Medications Medication Sig Dispensed Refills Start Date [...] MORNING. 90 Capsule 1 04/23/2024 5 Active Amoxicillin-Pot Clavulanate 875-125 MG Oral Tablet (Augmentin) Take 1 Tablet by mouth in the morning and 1 Tablet before bedtime. Do all this for 10 days. 20 Tablet 05/03/2024 4 Active documented as of this encounter (statuses as of 05/05/2024) Active Problems Problem Noted Date Diagnosed Date [...] as of this encounter (statuses as of 05/05/2024) Resolved Problems Problem Noted Date Diagnosed Date [...] 10/21/2017 06/18/2020 Overview: DO NOT DELETE [facility] DETECT Study: Project # [id number], Manufacturing Quality Technician: Miko Andino, PhD. SUMMARY: Goal: Establish test [...] contact study staff at ; after hours Manufacturing Quality Technician via the [facility] metal riveting machine operator . Please contact study team before resolving/deleting from patients problem list. Study phone number: [phone]. Diagnosis changed due to Research Module. Go to Snapshot for study details. Encounter for examination fo r normal comparison and control in clinical research program 10/21/2017 07/17/2022 Overview: DO NOT DELETE [employer] DETECT Study: Project # [id number], Manufacturing Quality Technician: Sean Pastor, MS, MPH. SUMMARY: Goal: Establish [...] contact study staff at ; after hours Manufacturing Quality Technician via the [facility] metal riveting machine operator . - Please contact study team before resolving/deleting from patients problem list. Study phone number: [phone]. Diagnosis changed due to Research Module. Go [...] Hare or Tracy Valentin, RN, CCRC at [phone] [facility] RESEARCH OTHER*[id number] 2003 05/13/2010 Overview: Renamed Per Clinical Trials Billing Project. Pt is a participant in the [employer] (Consortium of Rheumatology Researchers of [place]) national data collection study. For further information please call Dr Foster Hare or Tracy Valentin, RN, CCRC at [phone] ARTHRITIS,RHEUMATOID 03/09/2003 016 Encounter for long-term (cur rent) use of medications 03/09/2003 03/10/2019 Overview: ICD-10 update of inactive term Nausea 02/20/2017 Overview: ICD-10 update of inactive term Autoimmune hepatitis 04/07/2 017 documented as of this encounter (statuses as of 05/05/2024) Immunizations Name Administration Dates Next Due COVID-19 [...] money to get more. Never true 09/18/2023 Childcare Answer Date Recorded Do you feel overwhelmed with taking care of a child, family member or friend? No 09/18/2023 Does your family need help f inding childcare? (Household - for ages 0-17 years) Not on file 09/18/2023 Clothing Answer Date Recorded Have you been unable to get clothing when it was really needed? No 09/18/2023 Is your family able to get c lothes or diapers when needed? (Household - for ages 0-17 years) Not on file 09/18/2023 Personal Safety Answer Date Recorded Do you feel unsafe or have concerns for your saf ety? No 09/18/2023 Do you have concerns for you r family's safety? (Household - for ages 0-17 years) Not on file 09/18/2023 Utilities Answer Date Recorded Do you have trouble paying y our heating, water, or electric bill? No 09/18/2023 Is your family able to pay t he heat, water, or electric bill? (Household - for ages 0-17 years) Not on file 09/18/2023 Does your family have access to good internet? (Household - for ages 0-17 years) Not on file 09/18/2023 Employment Status Answer Date Recorded Are you unemployed or without regular income? No 09/18/2023 Does the household have a re gular source of income? (Household - for ages 0-17 years) Not on file 09/18/2023 Social Connections Answer Date Recorded How often do you feel lonely or isolated from th ose around you? Never 09/18/2023 Financial Resource Strain Answer Date R ecorded Do you have any trouble payi ng for your medications, or do you think you might in the future? No 09/18/2023 Does your family have troubl e paying for medicine? (Household - for ages 0-17 years) Not on file 09/18/2023 Transportation Needs Answer Date Record ed READ ONLY Do you have troubl e getting a ride to medical visits or work? Never True 09/18/2023 Does your family have a hard time getting a ride to doctors visits? (Household - for ages 0-17 years) Not on file 09/18/2023 Has lack of transportation k ept you from medical appointments, meetings, work, or from getting things needed for daily living? Check all that apply. (Adult - for ages 18 years and over) Not on file 09/18/2023 Do you (or your family) have trouble finding or paying for a ride (transportation)? (Household - for ages 0-17 years) Not on file 09/18/2023 Housing Stability Answer Date Recorded Do you currently live in a s helter or have no steady place to sleep at night? No 09/18/2023 READ ONLY Do you think you a re at risk of becoming homeless? No 09/18/2023 Does your family worry about paying for your home or becoming homeless? (Household - for ages 0-17 years) Not on file 1 11/18/2022 Are you homeless or worried that you might be in the future? (Adult - for ages 18 years and over) Not on file Are you (or your family) suki eless or worried that you might be in the future? (Household - for ages 0-17 years) Not on file Food Insecurity Answer Date Recorded Do you need food for this week? No 09/18/2023 Are you able to get enough f ood for your family? (Household - for ages 0-17 years) Not on file 09/18/2023 Does your family need food t his week? (Household - for ages 0-17 years) Not on file 09/18/2023 Do you always have enough fo od for your family? (Household - for ages 0-17 years) Not on file 09/18/2023 Sex and Gender Information Value Date Recorded Sex Assigned at Female 05/27/2022 9:15 AM EDT Gender Identity Female 05/27/2022 9:15 AM EDT Sexual Orientation Straight 06/18/2021 3: 22 PM EDT Job Start Date Occupation Industry Not on file Not on file Not on file documented as of this encounter Miscellaneous Notes * Telephone Encounter - Gena Carlson LPN - 05/05/2024 12:44 PM EDT Called, advised to use walk in clinic. Patient is aware and will comply. * Telephone Encounter - Carol Cade DO - 05/05/2024 11:37 AM EDT Can be seen at . * Telephone Encounter - Gena Carlson LPN - 05/05/2024 10:57 AM EDT Took mucinex DM started 3 days ago, feeling jittery. Took bp 151/64 P 74 Took 2 days of atb. Jitteriness started yesterday and is now worsening. Denies chest pain or sob . States she is unsteady on her feet due to jitteriness. Negative covid testing done at home. Temp 99.1 Encouraged fluids, do not take the mucinex dm Last dose of mucinex dm was last pm. * Telephone Encounter - Yazmin Figueroa OSA - 05/05/2024 9:57 AM EDT Has had cold for a week, antibiotics not working, actually feeling worse Would like to be seen Please advise documented in this encounter Plan of Treatment Upcoming Encounters Date Type Department Care Team (Late st Contact Info) Description 05/24/2024 11:20 AM EDT Office Visit Family Practice [address] [place] [address] [facility] [address] Carol Cade, [address] [place] [address] 09/09/2024 10:00 AM EDT Nurse Only [facility] [address] [facility] [address] College, Nurse Annual Wellness Visit [address] [place] [address] Scheduled Procedures Name Priority Associated Diagnoses Date/Ti me COLONOSCOPY FLEXIBLE PROXIMA L DIAGNOSTIC Recall Special screening for malignant neoplasms, colon Health Maintenance Due Date Last Done Comments COVID-19 Vaccine ( season) 2024 09/04/2023, 09/17/2022, 04/24/2022, Additional history exists GFR 07/21/2024 01/19/2024, 01/2023, 01/29/2023, Additional history exists CKD PHOS USE SMARTSET 70836 09/18/202401/2023, 05/27/2022, 05/24/2021, Additional history exists Depression Monitoring 09/18/2024 09/18/2023 TSH 09/18/2024 09/18/2023, 09/16, 02/14/2022, Additional history exists Albumin/Creatinine Ratio 01/18/2025 024, 03/30/2023, 02/14/2022, Additional history exists CKD HGB USE SMARTSET 09466 04/26/202504/26, 04/07/2024, 04/07/2024, Additional history exists DXA Scan 05/05/2025 05/05/2023, 04/17, 12/31/2015, Additional history exists DTaP,Tdap,and Td Vaccines (2 - Td or Tdap) 02/20/2027 02/20/2017 Pneumococcal Vaccine: 65+ Years Completed 12/19/2015, 04/15/2013, 11/19/2006 Zoster Vaccines Completed 11/22/2020, 05/2020, 08/30/2012 Influenza Vaccine (FLU shot) Completed , 09/17/2022, 10/02/2021, Additional history exists VITAMIN D LEVEL ONCE IN A LIFETIME-USE SMARTSET# [id number] Completed 01/19/2024 GARDASIL-HPV IMMUNIZATION SERIES Aged Out [...] Documents on File Type Date Recorded Patient Social Scientist Expl anation Advance Directives and Living Will 12/16/2016 LIVING WILL Power of Cake Icer 12/16/2016 POWER OF A [facility] POA Care Teams Cut And Cover Line Worker Relationship Specialty Start Date End Date Carol Cade DO PCP - General Family Medicine 09/03/23 documented as of this encounter
[2024-05-06 08:35] LABS: BUN Creatinine Ratio 11.9 (10-20); Calcium 7.9 mg/dl (8.6-10.3); Creatinine Clr Calc Pharmacy 77.7 ml/min; Est GFR (African American) 102.5 ml/min; Est GFR (Non-African American) 88.4 ml/min; Potassium 3.9 mmol/L (3.5-5.1)
[2024-05-06] MEDS ORDERED: NON-FORMULARY MEDICATION (Biotin 1 mg Tablet) PO SCH (09:00)
[2024-05-06] MEDS ORDERED: METOPROLOL SUCC 25MG EXT REL TAB PO SCH (09:00)
[2024-05-06] MEDS ORDERED: PANTOprazole 40 MG TAB PO SCH (09:00)
--- NOTE | 2024-05-06 09:43 | Critical Care Progress Note ---
Date of Service May 06, 2024 Assessment & Plan (1) Hyponatremia: (2) Leukocytosis: (3) Pneumonia: (4) Hypothyroidism: (5) Autoimmune hepatitis: (6) Electrolyte abnormality: Plan Reason Critically Ill: 78 YOF presents with weakness and noted to be hyponatremic with other electrolyte abnormalities associated with cough and diarrheal illness. Neuro - Hyponatremia [facility] ICU: NEGATIVE - Hyponatremia- Hypoosmolar hyponatremia symptomatic with weakness and tremors -Continue fluid restrict - Hold PPI - Continue with Synthroid- could increase dose as well following checking her compliance Cardiac - HTN, NSVT, Aortic Stenosis (mild 2020) - No acute needs- continue with Metoprolol and Verapamil Respiratory - Abnormal CXR/ CAP DDX: Atelectasis vs. viral pneumonitis - Patient with elevated leukocytosis, cough, CXR with basilar changes - continue with Rocephin for concerns of CAP -Continue Doxy and Rocephin empirically GI - Autoimmune hepatitis, diarrheal illness - Continue CellCept unless infection source worsens RENAL/LYTES - Hypokalemia, hypomag, hypochloridemia -Reviewed with nephrology - No acute needs ENDO - Hypothyroidism -Continue current dosing regimen will need follow-up with PCP HEME - No acute needs ID - PNA, Diarrheal illness - CAP continue with Rocephin and Doxycycline, would empirically treat for atypical pneumonia which could contribute to hyponatremia LINES/IV ACCESS - PIV Continue use of these lines DVT PROPHYLAXIS - SCDS, Lovenox DISPO: ICU Admission and Anticipated Discharge Date Admission Date: May 05, 2024 Subjective No events overnight. Tolerating fluid restriction. Feels improved compared to yesterday with less twitching and restlessness Physical Exam Physical Exam: General: Alert. nontoxic. Skin: Warm, dry, Head: Atraumatic Ears, nose, mouth and throat: airway patent Cardiovascular: Normal peripheral perfusion Respiratory: no respiratory distress Gastrointestinal: Non distended Musculoskeletal: No deformity Results & Data Results & Data Vital Signs (Past 12 Hours) Vital Signs Temp Pulse Pulse Resp BP BP Pulse Ox 05/06/24 08:05 77 18 143/96 H 97 05/06/24 08:00 83 05/06/24 08:00 05/06/24 06:03 69 21 184/104 H 97 05/06/24 05:18 72 17 96 05/06/24 05:00 180/77 H 05/06/24 04:39 71 18 97 05/06/24 04:00 67 17 172/100 H 95 05/06/24 04:00 36.9 C 05/06/24 04:00 05/06/24 03:12 67 22 111/61 95 05/06/24 02:18 65 17 142/103 H 95 05/06/24 01:00 67 17 116/73 95 05/06/24 00:00 69 17 147/89 H 96 05/06/24 00:00 05/06/24 00:00 36.8 C 05/05/24 23:12 67 05/05/24 23:06 92 H 17 183/97 H 98 05/05/24 23:01 69 15 183/97 H 97 05/05/24 22:06 82 24 168/87 H 95 Pulse Ox O2 Del Method O2 Del Method 05/06/24 08:05 Room Air 05/06/24 08:00 05/06/24 08:00 Room Air 05/06/24 06:03 05/06/24 05:18 05/06/24 05:00 05/06/24 04:39 05/06/24 04:00 05/06/24 04:00 05/06/24 04:00 95 Room Air 05/06/24 03:12 05/06/24 02:18 05/06/24 01:00 05/06/24 00:00 05/06/24 00:00 95 Room Air 05/06/24 00:00 05/05/24 23:12 05/05/24 23:06 05/05/24 23:01 Room Air 05/05/24 22:06 Critical Care Results & Data Vital Signs (Past 12 Hours) Vital Signs Temp Pulse Pulse Resp BP BP Pulse Ox 05/06/24 09:00 66 20 151/105 H 96 05/06/24 08:21 74 19 156/115 H 96 05/06/24 08:05 77 18 143/96 H 97 05/06/24 08:00 83 05/06/24 08:00 05/06/24 06:03 69 21 184/104 H 97 05/06/24 05:18 72 17 96 05/06/24 05:00 180/77 H 05/06/24 04:39 71 18 97 05/06/24 04:00 67 17 172/100 H 95 05/06/24 04:00 36.9 C 05/06/24 04:00 05/06/24 03:12 67 22 111/61 95 05/06/24 02:18 65 17 142/103 H 95 05/06/24 01:00 67 17 116/73 95 05/06/24 00:00 69 17 147/89 H 96 05/06/24 00:00 05/06/24 00:00 36.8 C 05/05/24 23:12 67 05/05/24 23:06 92 H 17 183/97 H 98 05/05/24 23:01 69 15 183/97 H 97 Pulse Ox O2 Del Method O2 Del Method 05/06/24 09:00 05/06/24 08:21 05/06/24 08:05 Room Air 05/06/24 08:00 05/06/24 08:00 Room Air 05/06/24 06:03 05/06/24 05:18 05/06/24 05:00 05/06/24 04:39 05/06/24 04:00 05/06/24 04:00 05/06/24 04:00 95 Room Air 05/06/24 03:12 05/06/24 02:18 05/06/24 01:00 05/06/24 00:00 05/06/24 00:00 95 Room Air 05/06/24 00:00 05/05/24 23:12 05/05/24 23:06 05/05/24 23:01 Room Air Lab & Micro Results (Past 24 Hours) RBC 3.77 M/uL (4.20-5.40) L 05/06/24 WBC 16.91 K/ul (4.8-10.8) H 05/06/24 Hgb 10.6 g/dl (12.0-16.0) L 05/06/24 Hct 30.2 % (37.0-47.0) L 05/06/24 MCV 80.1 fL (80.0-100.0) 05/06/24 MCH 28.1 pg (25.0-34.0) 05/06/24 MCHC 35.1 g/dL (32.0-36.0) 05/06/24 RDW Standard Deviation 41.2 fL (36.4-46.3) 05/06/24 RDW Coefficient of Variation 14.2 % (11.5-14.5) 05/06/24 Plt Count 369 K/uL (130-400) 05/06/24 MPV 9.4 fL (9.4-12.4) 05/06/24 Neutrophils (%) (Auto) 82.3 % 05/05/24 Lymphocytes (%) (Auto) 8.6 % 05/05/24 Monocytes # (Auto) 1.31 K/uL (0.11-0.59) H 05/05/24 Eosinophils # (Auto) 0.02 K/uL (0.00-0.50) 05/05/24 Immature Granulocyte % (Auto) 2.5 % 05/05/24 Neutrophils # (Auto) 17.14 K/uL (1.40-6.50) H 05/05/24 Lymphocytes # (Auto) 1.78 K/uL (1.20-3.40) 05/05/24 Monocytes # (Auto) 1.31 K/uL (0.11-0.59) H 05/05/24 Eosinophils # (Auto) 0.02 K/uL (0.00-0.50) 05/05/24 Basophils # (Auto) 0.05 K/uL (0.00-0.20) 05/05/24 Immature Granulocyte # (Auto) 0.51 K/uL (0.01-0.20) H 05/05 Na 116 mmol/L (136-145) L* 05/06/24 K 3.9 mmol/L (3.5-5.1) 05/06/24 Cl 86 mmol/L (98-107) L 05/06/24 CO2 25 mmol/L (21-32) 05/06/24 Anion Gap 5 (3-11) 05/06/24 BUN 7 mg/dl (6-23) 05/06/24 Creatinine 0.59 mg/dl (0.6-1.2) L 05/06/24 Estimated GFR ( Amer) 102.5 ml/min 05/06/24 Estimated GFR (Non-Af Amer) 88.4 ml/min 05/06/24 BUN/Creatinine Ratio 11.9 (10-20) 05/06/24 Glu 127 mg/dl (70-99(Fasting)) H 05/06/24 Ca 7.9 mg/dl (8.6-10.3) L 05/06/24 Total Bilirubin 0.8 mg/dl (0.2-1.0) 05/05/24 AST 28 U/L (13-39) 05/05/24 ALT 14 U/L (7-52) 05/05/24 Alkaline Phosphatase 73 U/L (34-104) 05/05/24 TP 8.4 gm/dl (6.0-8.3) H 05/05/24 Albumin 4.0 gm/dl (3.4-5.0) 05/05/24 Globulin 4.4 gm/dl (2.5-4.0) H 05/05/24 Albumin/Globulin Ratio 0.9 (0.9-2) 05/05/24 Mg 1.9 mg/dl (1.7-2.4) 05/06/24 04:00 Calcium Level 7.9 mg/dl (8.6-10.3) L 05/06/24 07:49 Diagnostic Findings (Past 24 Hours) Chest X-Ray 05/05/24 14:41 XR chest 1V portable HISTORY: 78 years-old Female cough, weakness COMPARISON: 06/02/2012 TECHNIQUE: AP view the chest FINDINGS: Cardiomediastinal and hilar silhouettes are within normal limits. No pneumothorax, pleural effusion or pulmonary edema. Mild subsegmental bibasilar densities. Right upper quadrant surgical clips. Bones appear grossly intact. IMPRESSION: 1. Mild bibasilar densities favor atelectasis. A mild nonspecific pneumonitis considered less likely. 2. Cardiomegaly. ACT 112: Negative or not required by law. The above report was generated using voice recognition software. It may contain grammatical, syntax or spelling errors. Electronically signed by: Atul Hernandez M.D. 05/05/2024 3:31 PM I & O Totals 24 Hours 05/05/24 05/06/24 05/07/24 06:59 06:59 06:59 Intake Total 2017.667 / 2017.667 130 / 130 Output Total 400 / 400 250 / 250 Balance 1618.667 / 1618.667 -120 / -120 Cumulative 05/05/24 13:40 thru 05/06/24 09:24 Intake Total 2148.667 Output Total 650 Balance 1498.667 RT Ventilator Mngmt (Last Documented) Ventilator Ordered Settings Respiratory Rate 20 05/06/24 09:00 Ventilator - PT Measurements Respiratory Rate 20 Coding Level of Care Code 29709 SUB INP/OBS CARE 3/50MIN Diagnoses Hyponatremia E87.1 Leukocytosis D72.829 Pneumonia J18.9 Hypothyroidism E03.9 Autoimmune hepatitis K75.4 Electrolyte abnormality E87.8
[2024-05-06] MEDS: SODIUM CHLORIDE 3 % 150 ML IV ONE ×2 (10:40→14:02)
[2024-05-06] MEDS: ACETAMINOPHEN 500 MG TAB ONE (10:41)
--- NOTE | 2024-05-06 10:52 | Electrocardiogram Report ---
Test Reason : Blood Pressure : / mmHG Vent. Rate : 096 BPM Atrial Rate : 096 BPM P-R Int : 158 ms QRS Dur : 090 ms QT Int : 370 ms P-R-T Axes : 072 -48 045 degrees QTc Int : 467 ms Normal sinus rhythm Left axis deviation Abnormal ECG When compared with ECG of 07-NOV-2020 14:47, No significant change was found Confirmed by Pirce Hanson ([id number]) on 05/06/2024 10:52:17 AM Referred By: REFERRED SELF Confirmed By:Price Hanson
[2024-05-06] MEDS: TORSEMIDE 10 MG TAB PO SCH (11:07)
[2024-05-06 13:14] LABS: BUN Creatinine Ratio 13.3 (10-20); Calcium 7.8 mg/dl (8.6-10.3); Creatinine Clr Calc Pharmacy 76.4 ml/min; Est GFR (African American) 101.9 ml/min; Est GFR (Non-African American) 87.9 ml/min; Potassium 4.2 mmol/L (3.5-5.1)
[2024-05-06 13:15] LABS: Calcium 7.9 mg/dl (8.6-10.3)
[2024-05-06 13:18] LABS: BUN Creatinine Ratio 12.1 (10-20); Creatinine Clr Calc Pharmacy 69.4 ml/min; Est GFR (African American) 98.8 ml/min; Est GFR (Non-African American) 85.2 ml/min
[2024-05-06] MEDS: TORSEMIDE 20 MG TAB PO SCH (14:19)
[2024-05-06] MEDS: POTASSIUM CHLORIDE CRTAB 20 MEQ TABCR PO SCH (14:19)
--- NOTE | 2024-05-06 15:12 | Hospitalist Progress Note ---
Date of Service May 06, 2024 Assessment & Plan (1) Hyponatremia: Plan: This is a 78-year-old female with PMH of hypertension, autoimmune hepatitis, Sjogren's syndrome, paroxysmal SVT, hypothyroidism, dyslipidemia, CKD 3, depression and other medical problems listed below who presents with URI symptoms over the past week. Acute hypotonic hyponatremia Sodium 117 In setting of torsemide use and volume loss with ongoing diarrhea Serum osm low at 243, urine osm 363, urine sodium 40 Received approx. 500 ml NSS in ED Suspect SIADH given illness The admitting team discussed with Dr. Hardin of nephro - goal sodium of 120 but not go past 122 by early PM tomorrow. Recs to FR 1.5 L, BMP Q4H Remains stable in ICU-sodium level is very slowly improving-118 at 12 noon Appreciate conveyancer input and recommendation Appreciate nephrology input and recommendation Will receive torsemide and another dose of hypertonic saline today Checking sodium level every 4-6 hours Patient remains free from any symptoms (2) Pneumonia: Plan: CAP CXR with Mild bibasilar densities favor atelectasis however WBC 20K, resp viral panel negative Treat with Rocephin, doxy for now Follow blood and sputum cultures, legionella urine Clinically better (3) Paroxysmal SVT (supraventricular tachycardia): Plan: Paroxysmal SVT Continue verapamil HS Rate is controlled without any more arrhythmias Denies any cardiac symptoms (4) Depression: (5) CKD (chronic kidney disease), stage III: (6) Autoimmune hepatitis: Plan: Autoimmune hepatitis Continue Cellcept LFTs are normal (7) Hypothyroidism: Plan: Abnormal thyroid labs H/o Hypothyroidism Likely acute phase reactant with recent illness vs. possible hyperthyroid. TSH 9.52, free T4 1.84 Plan to continue home dose for now, reassess thyroid studies in a few weeks Plan CKD III Cr 0.65 (at baseline). Monitor with daily BMP DVT Ppx: SQ lovenox Code status: FULL PCP: Alyssia Dispo: Admitted to PCU --> transer to ICU this evening Discussed with the family member Admission and Anticipated Discharge Date Admission Date: May 05, 2024 Subjective 05/06/2024 The patient was seen and examined in ICU She has been weak but denies any other significant symptoms There is no more diarrhea since admission and denies any abdominal discomfort Remains hemodynamically stable Review of Systems Review of Systems: All systems reviewed and are unremarkable except as noted below Physical Exam Physical Exam: Lying in bed without any acute distress Constitutional: + ill appearing and average body habitus Eyes: PERRL, conjunctivae normal, anicteric sclerae ENMT: external ear and nose normal, oropharynx normal Neck: trachea midline, no thyromegaly Respiratory: no respiratory distress Auscultation: lungs clear to auscultation bilaterally Cardiovascular: Rate/Rhythm: regular rate and regular rhythm; not tachycardic Heart Sounds: normal S1 and normal S2; no murmur Extremities: no edema Gastrointestinal (Abdomen): Inspection/Auscultation: normal bowel sounds; abdomen not distended Percussion/Palpation: abdomen soft; abdomen nontender Musculoskeletal: No acute arthritis involving any of the joints Neurologic: normal touch/pain/proprioception and moves all extremities; no focal motor deficits Remain generally weak Psychiatric: A+Ox3, euthymic affect Lymphatic: no cervical or axillary lymphadenopathy Results & Data Results & Data Vital Signs (Past 12 Hours) Vital Signs Temp Pulse Pulse Resp BP BP Pulse Ox 05/06/24 13:46 05/06/24 13:21 76 20 147/91 H 96 05/06/24 13:03 81 16 173/88 H 05/06/24 12:15 05/06/24 12:00 76 24 161/88 H 96 05/06/24 12:00 36.7 C 05/06/24 11:00 72 27 H 156/82 H 94 05/06/24 09:00 66 20 151/105 H 96 05/06/24 08:21 74 19 156/115 H 96 05/06/24 08:05 77 18 143/96 H 97 05/06/24 08:00 83 05/06/24 08:00 05/06/24 06:03 69 21 184/104 H 97 05/06/24 05:18 72 17 96 05/06/24 05:00 180/77 H 05/06/24 04:39 71 18 97 05/06/24 04:00 67 17 172/100 H 95 05/06/24 04:00 36.9 C 05/06/24 04:00 05/06/24 03:12 67 22 111/61 95 Pulse Ox O2 Del Method O2 Del Method 05/06/24 13:46 Room Air 05/06/24 13:21 05/06/24 13:03 05/06/24 12:15 Room Air 05/06/24 12:00 05/06/24 12:00 05/06/24 11:00 05/06/24 09:00 05/06/24 08:21 05/06/24 08:05 Room Air 05/06/24 08:00 05/06/24 08:00 Room Air 05/06/24 06:03 05/06/24 05:18 05/06/24 05:00 05/06/24 04:39 05/06/24 04:00 05/06/24 04:00 05/06/24 04:00 95 Room Air 05/06/24 03:12 Laboratory Results Short CBC 05/06/24 Range/Units 04:00 WBC 16.91 H (4.8-10.8) K/ul Hgb 10.6 L (12.0-16.0) g/dl Hct 30.2 L (37.0-47.0) % Plt Count 369 (130-400) K/uL BMP 05/05/24 05/05/24 05/06/24 14:12 17:54 00:13 Sodium 116 L* 113 L* 115 L* Potassium 3.3 L 3.4 L 4.4 D Chloride 80 L 79 L 83 L Carbon Dioxide 25 BUN 10 9 8 Creatinine 0.65 0.64 0.62 Glucose 141 H 144 H 125 H Calcium 8.3 L 7.9 L 8.1 L 05/06/24 05/06/24 05/06/24 04:00 07:49 10:26 Sodium 115 L* 116 L* 116 L* Potassium 4.5 3.9 4.2 Chloride 84 L 86 L 85 L Carbon Dioxide 26 25 24 BUN 8 7 8 Creatinine 0.61 0.59 L 0.60 Glucose 101 H 127 H 99 Calcium 7.9 L 7.9 L 7.8 L 05/06/24 11:51 Sodium 118 L* Potassium 4.0 Chloride 86 L Carbon Dioxide 26 BUN 8 Creatinine 0.66 Glucose 107 H Calcium 7.9 L Liver Function 05/05/24 Range/Units 14:12 Total Bilirubin 0.8 (0.2-1.0) mg/dl AST 28 (13-39) U/L ALT 14 (7-52) U/L Alkaline Phosphatase 73 (34-104) U/L Albumin 4.0 (3.4-5.0) gm/dl Urine 05/05/24 Range/Units 16:22 Urine Color Yellow Urine Appearance Clear (Clear) Urine pH 6.5 (4.5-7.5) Ur Specific Triangle 1.013 (1.000-1.030) Urine Protein Trace H (Negative) Urine Glucose (UA) Negative (Negative) Medications Administered Current Inpatient Medications Acetaminophen (Acetaminophen 500 Mg Tab) 1,000 mg PO Q8H PRN PRN Reason: Headache or Pain Stop: 06/05/24 09:56 Aspirin (Aspirin 81 Mg Ectab) 81 mg PO DAILY NYDIA Stop: 06/05/24 08:59 Last Admin: 05/06/24 08:27 Dose: 81 mg Docusate Sodium (Docusate Sodium 100 Mg Cap) 100 mg PO BID PRN PRN Reason: constipation Stop: 06/04/24 19:00 Ezetimibe (Ezetimibe 10 Mg Tab) 10 mg PO HS NYDIA Stop: 06/04/24 20:59 Last Admin: 05/05/24 20:34 Dose: 10 mg Enoxaparin Sodium (Enoxaparin Inj 40 Mg/0.4 Ml Syr) 40 mg SQ Q24H NYDIA Stop: 06/04/24 20:59 Last Admin: 05/05/24 20:35 Dose: 40 mg Guaifenesin (Guaifenesin Sugar Free 100 Mg/5 Ml Udc) 100 mg PO Q6H PRN PRN Reason: Cough Stop: 06/04/24 23:07 Last Admin: 05/06/24 10:00 Dose: 100 mg Ceftriaxone Sodium 2,000 mg/ (Dextrose) 70 mls @ 100 mls/hr IV Q24H NYDIA; Protocol Stop: 05/12/24 09:41 Last Infusion: 05/06/24 09:24 Dose: Infused Doxycycline Hyclate 100 mg/ (Dextrose) 100 mls @ 50 mls/hr IV Q12H NYDIA Stop: 05/12/24 15:59 Last Infusion: 05/06/24 05:55 Dose: Infused Levalbuterol HCl (Levalbuterol Hcl 0.63 Mg/3 Ml Neb) 0.63 mg NEB Q6H PRN; Protocol PRN Reason: Shortness Of Breath Or Wheezin Stop: 06/04/24 18:50 Levothyroxine Sodium (Levothyroxine Sodium 75 Mcg Tablet) 75 mcg PO Kae@0630 [facility] Stop: 06/05/24 06:29 Last Admin: 05/06/24 06:39 Dose: 75 mcg Melatonin (Melatonin 3 Mg Tab) 3 mg PO HSZ PRN PRN Reason: Sleep Stop: 06/04/24 18:58 Last Admin: 05/05/24 20:34 Dose: 3 mg Metoprolol Succinate (Metoprolol Succ 25mg Ext Rel Tab) 25 mg PO DAILY [facility] Stop: 06/05/24 20:59 Mycophenolate Mofetil (Mycophenolate Mofetil 250 Mg Cap) 500 mg PO DAILY [facility] Stop: 06/05/24 08:59 Last Admin: 05/06/24 08:27 Dose: 500 mg Nortriptyline HCl (Nortriptyline Hcl 10 Mg Cap) 10 mg PO HS [facility] Stop: 06/04/24 20:59 Last Admin: 05/05/24 20:34 Dose: 10 mg Ondansetron HCl (Ondansetron Inj 2 Mg/Ml 2 Ml Vial) 4 mg IV Q6H PRN PRN Reason: Nausea Stop: 06/04/24 18:50 Last Admin: 05/06/24 10:00 Dose: 4 mg Pantoprazole Sodium (Pantoprazole 40 Mg Tab) 40 mg PO QAM [facility] Stop: 06/05/24 08:59 Polyethylene Glycol (Polyethylene (Miralax) 17 Gm Pack) 17 gm PO DAILY PRN PRN Reason: Constipation Stop: 06/04/24 18:50 Torsemide (Torsemide 10 Mg Tab) 30 mg PO QAM [facility] Stop: 06/05/24 10:29 Last Admin: 05/06/24 11:07 Dose: 30 mg Torsemide (Torsemide 20 Mg Tab) 40 mg PO QAM [facility] Stop: 06/05/24 13:44 Last Admin: 05/06/24 14:19 Dose: 40 mg Verapamil HCl (Verapamil Hcl 120 Mg Tabcr) 120 mg PO HS [facility] Stop: 06/04/24 20:59 Last Admin: 05/05/24 20:34 Dose: 120 mg
[2024-05-06 15:22] LABS: Adenovirus F 40/41 PCR Not Detected (NotDetected); Astrovirus PCR Not Detected (NotDetected); Campylobacter PCR Not Detected (NotDetected); Cryptosporidium PCR Not Detected (NotDetected); Cyclospora cayetanensis PCR Not Detected (NotDetected); Entamoeba histolytica PCR Not Detected (NotDetected); Enteroaggregative E.coli(EAEC) Not Detected (NotDetected); Enteropathogenic E.coli (EPEC) Not Detected (NotDetected); Enterotoxigenic E.coli (ETEC) Not Detected (NotDetected); Giardia lamblia PCR Not Detected (NotDetected); Norovirus GI/GII PCR Not Detected (NotDetected); Plesiomonas shigelloides PCR Not Detected (NotDetected); Rotavirus A PCR Not Detected (NotDetected); Salmonella PCR Not Detected (NotDetected); Sapovirus PCR Not Detected (NotDetected); Shiga-like Toxin E.coli (STEC) Not Detected (NotDetected); Shigella/Enteroinvasive E.coli Not Detected (NotDetected); Vibrio cholerae PCR Not Detected (NotDetected); Vibrio species PCR Not Detected (NotDetected); Yersinia enterocolitica PCR Not Detected (NotDetected)
[2024-05-06 16:06] LABS: BUN Creatinine Ratio 11.6 (10-20); Calcium 7.8 mg/dl (8.6-10.3); Creatinine Clr Calc Pharmacy 66.4 ml/min; Est GFR (African American) 97.3 ml/min; Potassium 3.9 mmol/L (3.5-5.1)
--- NOTE | 2024-05-06 17:29 | Communication Note ---
Date of Service: May 06, 2024 in contact w/ pt's RN through day today w/ repeated interventions to manage serum sodium As of 3 PM labs, sodium improved to 123 with potassium 3.9 and creatinine 0.7. Patient remains on room air with improved blood pressure at 129/77 Target blood pressure for tomorrow with a.m. labs is no more than 127 serum sodium. Recommend Repeat basic metabolic panel 2100 (orders in) Continue current fluid restriction No further medications at this time If 2100 labs show sodium less than 121 or more than 126, please contact nephrology on-call; otherwise we will follow-up tomorrow for this patient; recommend nocturnal provider follow-up these labs Care coordinated w/ Dr Leo and H[employer] TE[employer]ER
[2024-05-06] MEDS: METOPROLOL SUCC 25MG EXT REL TAB PO SCH (21:03)
[2024-05-06 22:08] LABS: BUN Creatinine Ratio 11.9 (10-20); Calcium 7.6 mg/dl (8.6-10.3); Creatinine Clr Calc Pharmacy 54.5 ml/min; Est GFR (African American) 77.7 ml/min; Potassium 3.7 mmol/L (3.5-5.1)
[2024-05-07] MEDS: LEVALBUTEROL HCL 0.63 MG/3 ML NEB NEB PRN (02:00)
[2024-05-07 05:06] LABS: Hematocrit (blood only) 30.5 % (37.0-47.0); Hemoglobin 10.3 g/dl (12.0-16.0); Mean Corpuscular Hemoglobin 27.5 pg (25.0-34.0); Mean Corpuscular Hgb Conc 33.8 g/dL (32.0-36.0); Mean Corpuscular Volume 81.3 fL (80.0-100.0); Mean Platelet Volume 9.2 fL (9.4-12.4); Platelet Count 345 K/uL (130-400); RDW Coefficient of Variation 14.6 % (11.5-14.5); RDW Standard Deviation 42.7 fL (36.4-46.3); Red Blood Count 3.75 M/uL (4.20-5.40); White Blood Count 11.38 K/ul (4.8-10.8)
[2024-05-07 05:17] LABS: BUN Creatinine Ratio 11.9 (10-20); Calcium 7.8 mg/dl (8.6-10.3); Creatinine Clr Calc Pharmacy 54.5 ml/min; Est GFR (African American) 77.7 ml/min; Potassium 3.7 mmol/L (3.5-5.1)
[2024-05-07] MEDS: POTASSIUM CHLORIDE CRTAB 20 MEQ TABCR PO STA (05:35)
[2024-05-07] MEDS: ACETAMINOPHEN 500 MG TAB PO PRN (06:12)
--- NOTE | 2024-05-07 06:42 | Critical Care Progress Note ---
Date of Service May 07, 2024 Assessment & Plan (1) Hyponatremia: (2) Leukocytosis: (3) Pneumonia: (4) Hypothyroidism: (5) Autoimmune hepatitis: (6) Electrolyte abnormality: Plan Reason Critically Ill: 78 YOF presents with weakness and noted to be hyponatremic with other electrolyte abnormalities associated with cough and diarrheal illness. Neuro - Hyponatremia [facility] ICU: NEGATIVE - Hyponatremia- Hypoosmolar hyponatremia symptomatic with weakness and tremors -Continue fluid restrict - Hold PPI - Continue with Synthroid- Cephalgia: Tylenol as needed Cardiac - HTN, NSVT, Aortic Stenosis (mild 2019) - No acute needs- continue with Metoprolol and Verapamil Respiratory - Abnormal CXR/ CAP DDX: Atelectasis vs. viral pneumonitis - Patient with elevated leukocytosis, cough, CXR with basilar changes - continue with Rocephin for concerns of CAP -Continue Doxy and transition to Augmentin GI - Autoimmune hepatitis, diarrheal illness - Continue CellCept unless infection source worsens RENAL/LYTES - Hypokalemia, hypomag, hypochloridemia -Management by nephrology - No acute needs ENDO - Hypothyroidism -Continue current dosing regimen will need follow-up with PCP HEME - No acute needs ID - PNA, Diarrheal illness - CAP treat with Augmentin and doxycycline LINES/IV ACCESS - PIV Continue use of these lines DVT PROPHYLAXIS - SCDS, Lovenox DISPO: Stable for downgrade out of ICU, critical care will sign off as nephrology is managing electrolytes. Admission and Anticipated Discharge Date Admission Date: May 05, 2024 Subjective Complaint of headache: Mild this morning requested Tylenol does not want anything else at this junction. Feels significantly better desires to go home. We discussed continued stay as sodium needs to continue to climb. Physical Exam Physical Exam: General: Alert. nontoxic. Skin: Warm, dry, Head: Atraumatic Ears, nose, mouth and throat: airway patent Cardiovascular: Normal peripheral perfusion Respiratory: no respiratory distress Gastrointestinal: Non distended Musculoskeletal: No deformity Results & Data Results & Data Vital Signs (Past 12 Hours) Vital Signs Temp Pulse Pulse Resp BP BP Pulse Ox 05/07/24 06:15 05/07/24 04:00 69 20 93/47 L 94 05/07/24 04:00 05/07/24 03:13 36.7 C 76 24 98/59 L 95 05/07/24 03:00 72 20 06/22/24 02:06 75 18 98/59 L 100 05/07/24 02:01 81 17 98 05/07/24 02:00 71 24 113/82 95 05/07/24 01:06 77 24 95 05/07/24 00:36 76 23 95 05/07/24 00:01 70 18 106/70 96 05/07/24 00:00 71 20 97/61 L 95 05/07/24 00:00 05/07/24 00:00 73 05/06/24 23:06 70 21 93 05/06/24 23:00 70 18 101/61 95 05/06/24 22:03 85 18 97 05/06/24 21:06 90 19 96 05/06/24 21:01 151/88 H 05/06/24 20:54 70 19 93 05/06/24 20:09 77 24 95 05/06/24 20:00 05/06/24 20:00 36.6 C 76 24 138/80 95 05/06/24 20:00 05/06/24 19:30 84 23 96 05/06/24 19:27 85 19 97 05/06/24 19:01 115/88 05/06/24 19:00 36.6 C 78 22 115/88 95 05/06/24 19:00 Pulse Ox O2 Del Method O2 Del Method 05/07/24 06:15 Room Air 05/07/24 04:00 Room Air 05/07/24 04:00 94 Room Air 05/07/24 03:13 Room Air 05/07/24 03:00 Room Air 05/07/24 02:06 05/07/24 02:01 Room Air 05/07/24 02:00 Room Air 05/07/24 01:06 05/07/24 00:36 05/07/24 00:01 Room Air 05/07/24 00:00 Room Air 05/07/24 00:00 95 Room Air 05/07/24 00:00 05/06/24 23:06 05/06/24 23:00 Room Air 05/06/24 22:03 Room Air 05/06/24 21:06 05/06/24 21:01 05/06/24 20:54 05/06/24 20:09 Room Air 05/06/24 20:00 Room Air 05/06/24 20:00 Room Air 05/06/24 20:00 95 Room Air 05/06/24 19:30 Room Air 05/06/24 19:27 Room Air 05/06/24 19:01 05/06/24 19:00 Room Air 05/06/24 19:00 96 Room Air Critical Care Results & Data Vital Signs (Past 12 Hours) Vital Signs Temp Pulse Pulse Resp BP BP Pulse Ox 05/07/24 06:15 05/07/24 05:00 71 21 102/53 L 99 05/07/24 04:00 69 20 93/47 L 94 05/07/24 04:00 05/07/24 03:13 36.7 C 76 24 98/59 L 95 05/07/24 03:00 72 20 05/07/24 02:06 75 18 98/59 L 100 05/07/24 02:01 81 17 98 05/07/24 02:00 71 24 113/82 95 05/07/24 01:06 77 24 95 05/07/24 00:36 76 23 95 05/07/24 00:01 70 18 106/70 96 05/07/24 00:00 71 20 97/61 L 95 05/07/24 00:00 05/07/24 00:00 73 05/06/24 23:06 70 21 93 05/06/24 23:00 70 18 101/61 95 05/06/24 22:03 85 18 97 05/06/24 21:06 90 19 96 05/06/24 21:01 151/88 H 05/06/24 20:54 70 19 93 05/06/24 20:09 77 24 95 05/06/24 20:00 05/06/24 20:00 36.6 C 76 24 138/80 95 05/06/24 20:00 05/06/24 19:30 84 23 96 05/06/24 19:27 85 19 97 05/06/24 19:01 115/88 05/06/24 19:00 36.6 C 78 22 115/88 95 05/06/24 19:00 Pulse Ox O2 Del Method O2 Del Method 05/07/24 06:15 Room Air 05/07/24 05:00 Room Air 05/07/24 04:00 Room Air 05/07/24 04:00 94 Room Air 05/07/24 03:13 Room Air 05/07/24 03:00 Room Air 05/07/24 02:06 05/07/24 02:01 Room Air 05/07/24 02:00 Room Air 05/07/24 01:06 05/07/24 00:36 05/07/24 00:01 Room Air 05/07/24 00:00 Room Air 05/07/24 00:00 95 Room Air 05/07/24 00:00 05/06/24 23:06 05/06/24 23:00 Room Air 05/06/24 22:03 Room Air 05/06/24 21:06 05/06/24 21:01 05/06/24 20:54 05/06/24 20:09 Room Air 05/06/24 20:00 Room Air 05/06/24 20:00 Room Air 05/06/24 20:00 95 Room Air 05/06/24 19:30 Room Air 05/06/24 19:27 Room Air 05/06/24 19:01 05/06/24 19:00 Room Air 05/06/24 19:00 96 Room Air Lab & Micro Results (Past 24 Hours) 2 RBC 3.75 M/uL (4.20-5.40) L 05/07/24 WBC 11.38 K/ul (4.8-10.8) H 05/07/24 Hgb 10.3 g/dl (12.0-16.0) L 05/07/24 Hct 30.5 % (37.0-47.0) L 05/07/24 MCV 81.3 fL (80.0-100.0) 05/07/24 MCH 27.5 pg (25.0-34.0) 05/07/24 MCHC 33.8 g/dL (32.0-36.0) 05/07/24 RDW Standard Deviation 42.7 fL (36.4-46.3) 05/07/24 RDW Coefficient of Variation 14.6 % (11.5-14.5) H 05/07/24 Plt Count 345 K/uL (130-400) 05/07/24 MPV 9.2 fL (9.4-12.4) L 05/07/24 Na 123 mmol/L (136-145) L 05/07/24 K 3.7 mmol/L (3.5-5.1) 05/07/24 Cl 90 mmol/L (98-107) L 05/07/24 CO2 28 mmol/L (21-32) 05/07/24 Anion Gap 5 (3-11) 05/07/24 BUN 10 mg/dl (6-23) 05/07/24 Creatinine 0.84 mg/dl (0.6-1.2) 05/07/24 Estimated GFR ( Amer) 77.7 ml/min 05/07/24 Estimated GFR (Non-Af Amer) 67.0 ml/min 05/07/24 BUN/Creatinine Ratio 11.9 (10-20) 05/07/24 Glu 116 mg/dl (70-99(Fasting)) H 05/07/24 Ca 7.8 mg/dl (8.6-10.3) L 05/07/24 Calcium Level 7.8 mg/dl (8.6-10.3) L 05/07/24 04:46 Microbiology 05/05/24 16:06 Aerobic Blood Culture - Preliminary Blood No growth in Aerobic bottle after 24 hours. Anaerobic Blood Culture - Preliminary No growth in Anaerobic bottle after 24 hours. 05/05/24 16:06 Aerobic Blood Culture - Preliminary Blood No growth in Aerobic bottle after 24 hours. Anaerobic Blood Culture - Preliminary No growth in Anaerobic bottle after 24 hours. 05/06/24 08:20 Gram Stain - Final Sputum, Expectorated I & O Totals 24 Hours 05/05/24 05/06/24 05/07/24 06:59 06:59 06:59 Intake Total 2017.667 / 2017.667 1256 / 1256 Output Total 400 / 400 2501 / 2501 Balance 1618.667 / 1618.667 -1245 / -1245 Cumulative 05/05/24 13:40 thru 05/07/24 06:17 Intake Total 3274.667 Output Total 2901 Balance 373.667 RT Ventilator Mngmt (Last Documented) Ventilator Ordered Settings Respiratory Rate 21 05/07/24 05:00 Ventilator - PT Measurements Respiratory Rate 21 Coding Level of Care Code 48225 SUB INP/OBS CARE 2/35MIN Diagnoses Hyponatremia E87.1 Leukocytosis D72.829 Pneumonia J18.9 Hypothyroidism E03.9 Autoimmune hepatitis K75.4 Electrolyte abnormality E87.8
[2024-05-07] MEDS: AMOXICILLIN/CLAVULANATE 875 MG TAB PO SCH (07:37)
--- NOTE | 2024-05-07 09:32 | Nephrology Progress Note ---
Date of Service May 07, 2024 Assessment & Plan (1) Hyponatremia: Plan: plateau'd severe hypotonic hyponatremia w/ mild symptoms and likely euvolemic - Acceptable rate of rise. goal is sNa 132 by am tmrw - maintain eukalemia - q8h BMP ->another 150 mL 3% saline with 40 mg torsemide today -defer to primary service to address thyroid (2) Hypertensive urgency: Plan: no sx; no evidence of end organ damage acutely, in fact renal function markedly better than baseline creat 1.0-1.1, ? d/t poor po -continue metoprolol, verapamil -torsemide as above (3) Immunosuppression: Plan: remains on MMF; agree w/ Legionella assays; low threshold for CT chest and / or head/neck > could consider IV con if needed Admission and Anticipated Discharge Date Admission Date: May 05, 2024 Subjective Complaint of headache: Mild this morning requested Tylenol does not want anything else at this junction. Feels significantly better desires to go home. We discussed continued stay as sodium needs to continue to climb. Review of Systems Review of Systems: Comfortable. Physical Exam Physical Exam: General Appearance:Moderately built and nourished, no apparent distress Head: normocephalic, Atraumatic Eyes: normal inspection, EOMI Neck: supple, Trachea midline Respiratory/Chest: Normal breath sounds, basal crackles, No accessory muscle use Cardiovascular: S1, S2, + murmur Abdomen/GI:Soft, Non tender, Bowel sounds present Extremities/Musculoskeletal:normal inspection, Trace pedal edema Neurologic/Psych:AAOX3, grossly no focal neurological deficits Skin: normal color, warm Results & Data Vital Signs (Past 12 Hours) Vital Signs Temp Pulse Pulse Resp BP BP Pulse Ox 05/07/24 08:00 37.0 C 05/07/24 08:00 05/07/24 08:00 05/07/24 07:17 73 05/07/24 07:00 76 23 116/81 94 05/07/24 06:15 05/07/24 06:00 80 19 94 05/07/24 05:09 68 21 95 05/07/24 05:00 71 21 102/53 L 99 05/07/24 04:00 93/47 L 05/07/24 04:00 69 24 93 05/07/24 04:00 69 20 93/47 L 94 05/07/24 04:00 05/07/24 03:13 36.7 C 76 24 98/59 L 95 05/07/24 03:00 72 20 05/07/24 02:06 75 18 98/59 L 100 05/07/24 02:01 81 17 98 05/07/24 02:00 71 24 113/82 95 05/07/24 01:06 77 24 95 05/07/24 00:36 76 23 95 05/07/24 00:01 70 18 106/70 96 05/07/24 00:00 71 20 97/61 L 95 05/07/24 00:00 05/07/24 00:00 73 05/06/24 23:06 70 21 93 05/06/24 23:00 70 18 101/61 95 05/06/24 22:03 85 18 97 Pulse Ox O2 Del Method O2 Del Method 05/07/24 08:00 05/07/24 08:00 96 Room Air 05/07/24 08:00 Room Air 05/07/24 07:17 05/07/24 07:00 Room Air 05/07/24 06:15 Room Air 05/07/24 06:00 Room Air 05/07/24 05:09 05/07/24 05:00 Room Air 05/07/24 04:00 05/07/24 04:00 Room Air 05/07/24 04:00 Room Air 05/07/24 04:00 94 Room Air 05/07/24 03:13 Room Air 05/07/24 03:00 Room Air 05/07/24 02:06 05/07/24 02:01 Room Air 05/07/24 02:00 Room Air 05/07/24 01:06 05/07/24 00:36 05/07/24 00:01 Room Air 05/07/24 00:00 Room Air 05/07/24 00:00 95 Room Air 05/07/24 00:00 05/06/24 23:06 05/06/24 23:00 Room Air 05/06/24 22:03 Room Air
[2024-05-07] MEDS ORDERED: STAT IV/IM STA (09:40)
[2024-05-07] MEDS: COUGH DROP (SUGAR FREE) LOZ 24 LOZ/1 BOX BUCCAL ONE (09:56)
[2024-05-07] MEDS: SODIUM CHLORIDE 3 % 150 ML IV ONE (09:57)
[2024-05-07] MEDS: COUGH DROP (SUGAR FREE) LOZ 24 LOZ/1 BOX BUCCAL STA (09:58)
--- NOTE | 2024-05-07 11:50 | Hospitalist Progress Note ---
Date of Service May 07, 2024 Assessment & Plan (1) Hyponatremia: Plan: This is a 78-year-old female with PMH of hypertension, autoimmune hepatitis, Sjogren's syndrome, paroxysmal SVT, hypothyroidism, dyslipidemia, CKD 3, depression and other medical problems listed below who presents with URI symptoms over the past week. Acute hypotonic hyponatremia Sodium 117 at presentation In setting of torsemide use and volume loss with ongoing diarrhea Serum osm low at 243, urine osm 363, urine sodium 40 Received approx. 500 ml NSS in ED Suspect SIADH given illness The admitting team discussed with Dr. Hardin of nephro - goal sodium of 120 but not go past 122 by early PM tomorrow. Recs to FR 1.5 L, BMP Q4H Remains stable in ICU-sodium level is very slowly improving-118 at 12 noon Appreciate retail support associate input and recommendation Appreciate nephrology input and recommendation Will receive torsemide and another dose of hypertonic saline today Checking sodium level every 4-6 hours She will receive another dose of hypertonic saline of 3%, 150 mL and her torsemide 40 mg daily p.o. will be continued Check BMP at 4 and also tomorrow (2) Pneumonia: Plan: CAP CXR with Mild bibasilar densities favor atelectasis however WBC 20K, resp viral panel negative Treat with Rocephin, doxy for now Follow blood and sputum cultures, legionella urine Clinically better Antibiotics have been changed to oral Augmentin and doxycycline to finish the course for a total of 7 to 10 days (3) Paroxysmal SVT (supraventricular tachycardia): Plan: Paroxysmal SVT Continue verapamil HS Rate is controlled without any more arrhythmias Denies any cardiac symptoms Rate remains controlled with current medication (4) Depression: (5) CKD (chronic kidney disease), stage III: Plan: Creatinine level has been normal (6) Autoimmune hepatitis: Plan: Autoimmune hepatitis Continue Cellcept LFTs are normal (7) Hypothyroidism: Plan: Abnormal thyroid labs H/o Hypothyroidism Likely acute phase reactant with recent illness vs. possible hyperthyroid. TSH 9.52, free T4 1.84 Plan to continue home dose for now, reassess thyroid studies in a few weeks Plan CKD III Cr 0.65 (at baseline). Monitor with daily BMP DVT Ppx: SQ lovenox Code status: FULL PCP: Alyssia Dispo: Admitted to PCU --> transer to ICU this evening Discussed with the family member Admission and Anticipated Discharge Date Admission Date: May 05, 2024 Subjective 05/06/2024 The patient was seen and examined in ICU She has been weak but denies any other significant symptoms There is no more diarrhea since admission and denies any abdominal discomfort Remains hemodynamically stable 05/07/2024 The patient was seen and examined in the ICU She has been feeling better but remains weak which happens to be occasionally Denies any chest pain, palpitation or shortness of breath Review of Systems Review of Systems: All systems reviewed and are unremarkable except as noted below Physical Exam Physical Exam: Lying in bed without any acute distress Constitutional: + ill appearing and average body habitus Eyes: PERRL, conjunctivae normal, anicteric sclerae ENMT: external ear and nose normal, oropharynx normal Neck: trachea midline, no thyromegaly Respiratory: no respiratory distress Auscultation: lungs clear to auscultation bilaterally Cardiovascular: Rate/Rhythm: regular rate and regular rhythm; not tachycardic Heart Sounds: normal S1 and normal S2; no murmur Extremities: no edema Gastrointestinal (Abdomen): Inspection/Auscultation: normal bowel sounds; abdomen not distended Percussion/Palpation: abdomen soft; abdomen nontender Musculoskeletal: No acute arthritis involving any of the joints Neurologic: normal touch/pain/proprioception and moves all extremities; no focal motor deficits Psychiatric: A+Ox3, euthymic affect Lymphatic: no cervical or axillary lymphadenopathy Results & Data Results & Data Vital Signs (Past 12 Hours) Vital Signs Temp Pulse Pulse Resp BP BP Pulse Ox 05/07/24 11:06 74 24 105/83 97 05/07/24 10:03 74 24 145/77 H 94 05/07/24 09:09 63 23 118/85 95 05/07/24 08:00 88 21 112/63 96 05/07/24 08:00 37.0 C 05/07/24 08:00 05/07/24 08:00 05/07/24 07:17 73 05/07/24 07:00 76 23 116/81 94 05/07/24 06:15 05/07/24 06:00 80 19 94 05/07/24 05:09 68 21 95 05/07/24 05:00 71 21 102/53 L 99 05/07/24 04:00 93/47 L 05/07/24 04:00 69 24 93 05/07/24 04:00 69 20 93/47 L 94 05/07/24 04:00 05/07/24 03:13 36.7 C 76 24 98/59 L 95 05/07/24 03:00 72 20 05/07/24 02:06 75 18 98/59 L 100 05/07/24 02:01 81 17 98 05/07/24 02:00 71 24 113/82 95 05/07/24 01:06 77 24 95 05/07/24 00:36 76 23 95 05/07/24 00:01 70 18 106/70 96 05/07/24 00:00 71 20 97/61 L 95 05/07/24 00:00 05/07/24 00:00 73 Pulse Ox O2 Del Method O2 Del Method 05/07/24 11:06 05/07/24 10:03 05/07/24 09:09 05/07/24 08:00 05/07/24 08:00 05/07/24 08:00 96 Room Air 05/07/24 08:00 Room Air 05/07/24 07:17 05/07/24 07:00 Room Air 05/07/24 06:15 Room Air 05/07/24 06:00 Room Air 05/07/24 05:09 05/07/24 05:00 Room Air 05/07/24 04:00 05/07/24 04:00 Room Air 05/07/24 04:00 Room Air 05/07/24 04:00 94 Room Air 05/07/24 03:13 Room Air 05/07/24 03:00 Room Air 05/07/24 02:06 05/07/24 02:01 Room Air 05/07/24 02:00 Room Air 05/07/24 01:06 05/07/24 00:36 05/07/24 00:01 Room Air 05/07/24 00:00 Room Air 05/07/24 00:00 95 Room Air 05/07/24 00:00 Laboratory Results Short CBC 05/07/24 Range/Units 04:46 WBC 11.38 H (4.8-10.8) K/ul Hgb 10.3 L (12.0-16.0) g/dl Hct 30.5 L (37.0-47.0) % Plt Count 345 (130-400) K/uL BMP 05/06/24 05/06/24 05/06/24 10:26 11:51 15:19 Sodium 116 L* 118 L* 123 L Potassium 4.2 4.0 3.9 Chloride 85 L 86 L 89 L Carbon Dioxide 24 26 27 BUN 8 8 8 Creatinine 0.60 0.66 0.69 Glucose 99 107 H 118 H Calcium 7.8 L 7.9 L 7.8 L 05/06/24 05/07/24 21:38 04:46 Sodium 123 L 123 L Potassium 3.7 3.7 Chloride 89 L 90 L Carbon Dioxide 27 28 BUN 10 10 Creatinine 0.84 0.84 Glucose 126 H 116 H Calcium 7.6 L 7.8 L Medications Administered Current Inpatient Medications Acetaminophen (Acetaminophen 500 Mg Tab) 1,000 mg PO Q8H PRN PRN Reason: Headache or Pain Stop: 06/05/24 09:56 Last Admin: 05/07/24 06:12 Dose: 1,000 mg Amoxicillin/Clavulanate Potassium (Amoxicillin/Clavulanate 875 Mg Tab) 1 tab PO BIDM [facility]; Protocol Stop: 05/14/24 07:59 Last Admin: 05/07/24 07:37 Dose: 1 tab Aspirin (Aspirin 81 Mg Ectab) 81 mg PO DAILY [facility] Stop: 06/05/24 08:59 Last Admin: 05/07/24 07:37 Dose: 81 mg Docusate Sodium (Docusate Sodium 100 Mg Cap) 100 mg PO BID PRN PRN Reason: constipation Stop: 06/04/24 19:00 Doxycycline Hyclate (Doxycycline Hyclate 100 Mg Cap) 100 mg PO BID [facility] Stop: 05/14/24 17:59 Ezetimibe (Ezetimibe 10 Mg Tab) 10 mg PO HS [facility] Stop: 06/04/24 20:59 Last Admin: 05/06/24 21:04 Dose: 10 mg Enoxaparin Sodium (Enoxaparin Inj 40 Mg/0.4 Ml Syr) 40 mg SQ Q24H [facility] Stop: 06/04/24 20:59 Last Admin: 05/06/24 21:04 Dose: 40 mg Guaifenesin (Guaifenesin Sugar Free 100 Mg/5 Ml Udc) 100 mg PO Q6H PRN PRN Reason: Cough Stop: 06/04/24 23:07 Last Admin: 05/07/24 10:04 Dose: 100 mg Levalbuterol HCl (Levalbuterol Hcl 0.63 Mg/3 Ml Neb) 0.63 mg NEB Q6H PRN; Pro tocol PRN Reason: Shortness Of Breath Or Wheezin Stop: 06/04/24 18:50 Last Admin: 05/07/24 02:00 Dose: 0.63 mg Levothyroxine Sodium (Levothyroxine Sodium 75 Mcg Tablet) 75 mcg PO [email or web address] [facility] Stop: 06/05/24 06:29 Last Admin: 05/07/24 05:35 Dose: 75 mcg Melatonin (Melatonin 3 Mg Tab) 3 mg PO HSZ PRN PRN Reason: Sleep Stop: 06/04/24 18:58 Last Admin: 05/06/24 21:02 Dose: 3 mg Metoprolol Succinate (Metoprolol Succ 25mg Ext Rel Tab) 25 mg PO DAILY [facility] Stop: 06/05/24 20:59 Last Admin: 05/07/24 07:37 Dose: 25 mg Mycophenolate Mofetil (Mycophenolate Mofetil 250 Mg Cap) 500 mg PO DAILY [facility] Stop: 06/05/24 08:59 Last Admin: 05/07/24 07:37 Dose: 500 mg Nortriptyline HCl (Nortriptyline Hcl 10 Mg Cap) 10 mg PO HS [facility] Stop: 06/04/24 20:59 Last Admin: 05/06/24 21:02 Dose: 10 mg Ondansetron HCl (Ondansetron Inj 2 Mg/Ml 2 Ml Vial) 4 mg IV Q6H PRN PRN Reason: Nausea Stop: 06/04/24 18:50 Last Admin: 05/06/24 10:00 Dose: 4 mg Pantoprazole Sodium (Pantoprazole 40 Mg Tab) 40 mg PO QAM [facility] Stop: 06/05/24 08:59 Polyethylene Glycol (Polyethylene (Miralax) 17 Gm Pack) 17 gm PO DAILY PRN PRN Reason: Constipation Stop: 06/04/24 18:50 Torsemide (Torsemide 20 Mg Tab) 40 mg PO QAM [facility] Stop: 06/05/24 13:44 Last Admin: 05/07/24 09:24 Dose: 40 mg Verapamil HCl (Verapamil Hcl 120 Mg Tabcr) 120 mg PO [facility] Stop: 06/04/24 20:59 Last Admin: 05/06/24 21:02 Dose: 120 mg
[2024-05-07] MEDS: BENZONATATE 100 MG CAPSULE PO SCH (13:08)
[2024-05-07] MEDS ORDERED: ALBUTEROL HFA 8 GM INHALER INH PRN (14:44)
[2024-05-07] MEDS: HYDROcodone/HOMATROPINE SYRUP 5MG/1.5MG 5ML UDP PO PRN (15:24)
[2024-05-07] MEDS: DOXYCYCLINE HYCLATE 100 MG CAP PO SCH (16:31)
[2024-05-07 17:32] LABS: BUN Creatinine Ratio 13.6 (10-20); Calcium 8.3 mg/dl (8.6-10.3); Creatinine Clr Calc Pharmacy 56.6 ml/min; Est GFR (African American) 81.2 ml/min; Est GFR (Non-African American) 70.1 ml/min; Potassium 3.9 mmol/L (3.5-5.1)
[2024-05-08 04:54] LABS: BUN Creatinine Ratio 18.8 (10-20); Calcium 8.3 mg/dl (8.6-10.3); Creatinine Clr Calc Pharmacy 57.3 ml/min; Est GFR (African American) 82.4 ml/min; Est GFR (Non-African American) 71.1 ml/min; Potassium 3.9 mmol/L (3.5-5.1)
--- NOTE | 2024-05-08 12:54 | Hospitalist Progress Note ---
Date of Service May 08, 2024 Assessment & Plan (1) Hyponatremia: Plan: This is a 78-year-old female with PMH of hypertension, autoimmune hepatitis, Sjogren's syndrome, paroxysmal SVT, hypothyroidism, dyslipidemia, CKD 3, depression and other medical problems listed below who presents with URI symptoms over the past week. Acute hypotonic hyponatremia Sodium 117 at presentation In setting of torsemide use and volume loss with ongoing diarrhea Serum osm low at 243, urine osm 363, urine sodium 40 Received approx. 500 ml NSS in ED Suspect SIADH given illness The admitting team discussed with Dr. Hardin of nephro - goal sodium of 120 but not go past 122 by early PM tomorrow. Recs to FR 1.5 L, BMP Q4H Remains stable in ICU-sodium level is very slowly improving-118 at 12 noon Appreciate medical billing service input and recommendation Appreciate nephrology input and recommendation Will receive torsemide and another dose of hypertonic saline today Checking sodium level every 4-6 hours She will receive another dose of hypertonic saline of 3%, 150 mL and her torsemide 40 mg daily p.o. will be continued Sodium has gone up to 127-discussed with the hide worker and does not require any more hypertonic saline Will give normal saline infusion small amount Monitor PRP tomorrow and likely discharge tomorrow Will get PT and OT evaluation prior to discharge (2) Pneumonia: Plan: CAP CXR with Mild bibasilar densities favor atelectasis however WBC 20K, resp viral panel negative Treat with Rocephin, doxy for now Follow blood and sputum cultures, legionella urine Clinically better Antibiotics have been changed to oral Augmentin and doxycycline to finish the course for a total of 7 to 10 days Cough is better and does not have any shortness of breath at rest and saturating normally on room air (3) Paroxysmal SVT (supraventricular tachycardia): Plan: Paroxysmal SVT Continue verapamil HS Rate is controlled without any more arrhythmias Denies any cardiac symptoms Rate remains controlled with current medication (4) Depression: (5) CKD (chronic kidney disease), stage III: Plan: Creatinine level has been normal (6) Autoimmune hepatitis: Plan: Autoimmune hepatitis Continue Cellcept LFTs are normal (7) Hypothyroidism: Plan: Abnormal thyroid labs H/o Hypothyroidism Likely acute phase reactant with recent illness vs. possible hyperthyroid. TSH 9.52, free T4 1.84 Plan to continue home dose for now, reassess thyroid studies in a few weeks Plan CKD III Cr 0.65 (at baseline). Monitor with daily BMP DVT Ppx: SQ lovenox Code status: FULL PCP: Alyssia Dispo: Admitted to PCU --> transer to ICU this evening Discussed with the family member Admission and Anticipated Discharge Date Admission Date: May 05, 2024 Subjective 05/06/2024 The patient was seen and examined in ICU She has been weak but denies any other significant symptoms There is no more diarrhea since admission and denies any abdominal discomfort Remains hemodynamically stable 05/07/2024 The patient was seen and examined in the ICU She has been feeling better but remains weak which happens to be occasionally Denies any chest pain, palpitation or shortness of breath 05/08/2024 Here the patient was seen and examined in ICU with telemetry status She has been feeling much better Sodium level has gone up to 127 Cough is decreased Will get PT and OT evaluation and likely discharge tomorrow Review of Systems Review of Systems: All systems reviewed and are unremarkable except as noted below Physical Exam Physical Exam: Lying in bed without any acute distress Constitutional: + ill appearing and average body habitus Eyes: PERRL, conjunctivae normal, anicteric sclerae ENMT: external ear and nose normal, oropharynx normal Neck: trachea midline, no thyromegaly Respiratory: no respiratory distress Auscultation: lungs clear to auscultation bilaterally Cardiovascular: Rate/Rhythm: regular rate and regular rhythm; not tachycardic Heart Sounds: normal S1 and normal S2; no murmur Extremities: no edema Gastrointestinal (Abdomen): Inspection/Auscultation: normal bowel sounds; abdomen not distended Percussion/Palpation: abdomen soft; abdomen nontender Musculoskeletal: No acute arthritis involving any of the joints Neurologic: normal touch/pain/proprioception and moves all extremities; no focal motor deficits Psychiatric: A+Ox3, euthymic affect Lymphatic: no cervical or axillary lymphadenopathy Results & Data Results & Data Vital Signs (Past 12 Hours) Vital Signs Temp Pulse Pulse Resp BP BP Pulse Ox 05/08/24 11:50 122/76 94 05/08/24 11:50 36.7 C 05/08/24 11:21 80 18 05/08/24 11:12 73 21 05/08/24 11:00 66 20 05/08/24 10:51 68 17 05/08/24 10:45 75 20 05/08/24 10:36 71 21 05/08/24 10:27 73 19 05/08/24 10:18 81 26 H 05/08/24 09:03 66 22 05/08/24 08:30 68 19 05/08/24 08:18 70 22 94/54 L 95 05/08/24 08:00 36.8 C 05/08/24 07:30 76 16 05/08/24 07:06 76 13 05/08/24 06:17 81 22 112/65 94 05/08/24 04:49 77 18 94 05/08/24 04:00 36.7 C 78 16 117/64 96 05/08/24 04:00 Pulse Ox O2 Del Method O2 Del Method 05/08/24 11:50 Room Air 05/08/24 11:50 05/08/24 11:21 05/08/24 11:12 05/08/24 11:00 05/08/24 10:51 05/08/24 10:45 05/08/24 10:36 05/08/24 10:27 05/08/24 10:18 05/08/24 09:03 05/08/24 08:30 05/08/24 08:18 Room Air 05/08/24 08:00 05/08/24 07:30 05/08/24 07:06 05/08/24 06:17 Room Air 05/08/24 04:49 Room Air 05/08/24 04:00 Room Air 05/08/24 04:00 96 Room Air Laboratory Results [facility] [place] 05/07/24 05/08/24 17:05 04:27 Sodium 126 L 127 L Potassium 3.9 3.9 Chloride 93 L 96 L Carbon Dioxide 27 26 BUN 11 15 Creatinine 0.81 0.80 Glucose 131 H 99 Calcium 8.3 L 8.3 L Medications Administered Current Inpatient Medications Acetaminophen (Acetaminophen 500 Mg Tab) 1,000 mg PO Q8H PRN PRN Reason: Headache or Pain Stop: 06/05/24 09:56 Last Admin: 05/07/24 06:12 Dose: 1,000 mg Albuterol (Albuterol Hfa 8 Gm Inhaler) 2 puffs INH Q6H PRN PRN Reason: Shortness Of Breath Or Wheezing Stop: 06/06/24 14:44 Amoxicillin/Clavulanate Potassium (Amoxicillin/Clavulanate 875 Mg Tab) 1 tab PO BIDM [facility]; Protocol Stop: 05/14/24 07:59 Last Admin: 05/08/24 08:02 Dose: 1 tab Aspirin (Aspirin 81 Mg Ectab) 81 mg PO DAILY [facility] Stop: 06/05/24 08:59 Last Admin: 05/08/24 08:03 Dose: 81 mg Benzonatate (Benzonatate 100 Mg Capsule) 100 mg PO TID [facility] Stop: 06/06/24 13:59 Last Admin: 05/08/24 08:03 Dose: 100 mg Docusate Sodium (Docusate Sodium 100 Mg Cap) 100 mg PO BID PRN PRN Reason: constipation Stop: 06/04/24 19:00 Doxycycline Hyclate (Doxycycline Hyclate 100 Mg Cap) 100 mg PO BID [facility] Stop: 05/14/24 17:59 Last Admin: 05/08/24 08:03 Dose: 100 mg Ezetimibe (Ezetimibe 10 Mg Tab) 10 mg PO HS [facility] Stop: 06/04/24 20:59 Last Admin: 05/07/24 21:13 Dose: 10 mg Enoxaparin Sodium (Enoxaparin Inj 40 Mg/0.4 Ml Syr) 40 mg SQ Q24H [facility] Stop: 06/04/24 20:59 Last Admin: 05/07/24 21:11 Dose: 40 mg Hydrocodone Bit/Homatropine Methylb (Hydrocodone/Homatropine Syrup 5mg/1.5mg 5ml Udp) 5 ml PO Q6H PRN PRN Reason: Cough Stop: 05/21/24 14:43 Last Admin: 05/08/24 04:38 Dose: 5 ml Levalbuterol HCl (Levalbuterol Hcl 0.63 Mg/3 Ml Neb) 0.63 mg NEB Q6H PRN; Protocol PRN Reason: Shortness Of Breath Or Wheezin Stop: 06/04/24 18:50 Last Admin: 05/08/24 04:48 Dose: 0.63 mg Levothyroxine Sodium (Levothyroxine Sodium 75 Mcg Tablet) 75 mcg PO [id number] [facility] Stop: 06/05/24 06:29 Last Admin: 05/08/24 08:03 Dose: 75 mcg Melatonin (Melatonin 3 Mg Tab) 3 mg PO HSZ PRN PRN Reason: Sleep Stop: 06/04/24 18:58 Last Admin: 05/07/24 21:13 Dose: 3 mg Metoprolol Succinate (Metoprolol Succ 25mg Ext Rel Tab) 25 mg PO DAILY NYDIA Stop: 06/05/24 20:59 Last Admin: 05/08/24 08:03 Dose: 25 mg Mycophenolate Mofetil (Mycophenolate Mofetil 250 Mg Cap) 500 mg PO DAILY [facility]DIA Stop: 06/05/24 08:59 Last Admin: 05/08/24 08:03 Dose: 500 mg Nortriptyline HCl (Nortriptyline Hcl 10 Mg Cap) 10 mg PO HS [facility] Stop: 06/04/24 20:59 Last Admin: 05/07/24 21:12 Dose: 10 mg Ondansetron HCl (Ondansetron Inj 2 Mg/Ml 2 Ml Vial) 4 mg IV Q6H PRN PRN Reason: Nausea Stop: 06/04/24 18:50 Last Admin: 05/06/24 10:00 Dose: 4 mg Pantoprazole Sodium (Pantoprazole 40 Mg Tab) 40 mg PO QAM [facility] Stop: 06/05/24 08:59 Polyethylene Glycol (Polyethylene (Miralax) 17 Gm Pack) 17 gm PO DAILY PRN PRN Reason: Constipation Stop: 06/04/24 18:50 Torsemide (Torsemide 20 Mg Tab) 40 mg PO QAM [facility] Stop: 06/05/24 13:44 Last Admin: 05/08/24 08:03 Dose: 40 mg Verapamil HCl (Verapamil Hcl 120 Mg Tabcr) 120 mg PO HS NYDIA Stop: 06/04/24 20:59 Last Admin: 05/07/24 21:11 Dose: 120 mg
--- NOTE | 2024-05-08 13:32 | Nephrology Progress Note ---
Date of Service May 08, 2024 Assessment & Plan (1) Hyponatremia: Plan: plateau'd severe hypotonic hyponatremia w/ mild symptoms and likely euvolemic - Acceptable rate of rise. - Start on normal saline at 75 mls / hr - No diuretic today - maintain eukalemia - q24 BMP -defer to primary service to address thyroid (2) Hypertensive urgency: Plan: no sx; no evidence of end organ damage acutely, in fact renal function markedly better than baseline creat 1.0-1.1, ? d/t poor po -continue metoprolol, verapamil - At target now. no need for diuretic/ (3) Immunosuppression: Plan: remains on MMF; agree w/ Legionella assays Admission and Anticipated Discharge Date Admission Date: May 05, 2024 Subjective She has been feeling much better Sodium level has gone up to 127 Review of Systems 2 Review of Systems: All systems reviewed & are unremarkable except as noted in HPI & below Physical Exam 2 Physical Exam: General Appearance:Moderately built and nourished, no apparent distress Head: normocephalic, Atraumatic Eyes: normal inspection, EOMI Neck: supple, Trachea midline Respiratory/Chest: Normal breath sounds, basal crackles, No accessory muscle use Cardiovascular: S1, S2, + murmur Abdomen/GI:Soft, Non tender, Bowel sounds present Extremities/Musculoskeletal:normal inspection, Trace pedal edema Neurologic/Psych:AAOX3, grossly no focal neurological deficits Skin: normal color, warm Results & Data Vital Signs (Past 12 Hours) Vital Signs Temp Pulse Pulse Resp BP BP Pulse Ox 05/08/24 11:50 122/76 94 05/08/24 11:50 36.7 C 05/08/24 11:21 80 18 05/08/24 11:12 73 21 05/08/24 11:00 66 20 05/08/24 10:51 68 17 05/08/24 10:45 75 20 05/08/24 10:36 71 21 05/08/24 10:27 73 19 05/08/24 10:18 81 26 H 05/08/24 09:03 66 22 05/08/24 08:30 68 19 05/08/24 08:18 70 22 94/54 L 95 05/08/24 08:00 36.8 C 05/08/24 07:30 76 16 05/08/24 07:06 76 13 05/08/24 06:17 81 22 112/65 94 05/08/24 04:49 77 18 94 05/08/24 04:00 36.7 C 78 16 117/64 96 05/08/24 04:00 Pulse Ox O2 Del Method O2 Del Method 05/08/24 11:50 Room Air 05/08/24 11:50 05/08/24 11:21 05/08/24 11:12 05/08/24 11:00 05/08/24 10:51 05/08/24 10:45 05/08/24 10:36 05/08/24 10:27 05/08/24 10:18 05/08/24 09:03 05/08/24 08:30 05/08/24 08:18 Room Air 05/08/24 08:00 05/08/24 07:30 05/08/24 07:06 05/08/24 06:17 Room Air 05/08/24 04:49 Room Air 05/08/24 04:00 Room Air 05/08/24 04:00 96 Room Air Laboratory Results 05/07/24 04:46 05/08/24 04:27
[2024-05-09 07:47] LABS: BUN Creatinine Ratio 15.2 (10-20); Calcium 8.6 mg/dl (8.6-10.3); Creatinine Clr Calc Pharmacy 46.3 ml/min; Est GFR (African American) 63.7 ml/min; Potassium 3.8 mmol/L (3.5-5.1)
--- NOTE | 2024-05-09 08:12 | XRay Report ---
SINGLE VIEW CHEST CLINICAL HISTORY: Cough FINDINGS: An AP, portable, upright chest radiograph is compared to study dated 05/05/2024 and correlat ed with chest CT dated 01/03/2012. The cardiomediastinal silhouette is unremarkable noting atheroscler otic calcification of the thoracic aorta. Chronic interstitial thickening is similar to previous. Bib asilar airspace opacities likely represent scarring/atelectasis. No large pleural effusion or Pneumot horax is seen. The skeletal structures are osteopenic. The bony thorax is grossly intact. Cholecystec sourav clips are seen in the right upper quadrant. IMPRESSION: 1. Dependent airspace opacities likely represent scarring/atelectasis. Correlate clinically. 2. There is a 2.0 cm nodular opacity projecting over the right lung base. This is indeterminant, and a chest CT is recommended to exclude underlying pulmonary lesion ACT 112: Positive. There are findings on this exam that require communication between the performing entity and the patient following Patient Test Result Information Act ([place] Act 112) guidelines. Electronically signed by: Foster Katz M.D. 05/09/2024 8:11 AM
--- NOTE | 2024-05-09 08:48 | Nephrology Progress Note ---
Date of Service May 09, 2024 Assessment & Plan (1) Hyponatremia: Plan: severe hypotonic hyponatremia w/ mild symptoms and likely euvolemic w/ sNa 116 on 05/05 1400 presentation. sNa 131 today. Correction rate acceptable -continue torsemide daily but lower dose to 20 mg daily starting in AM (already had dose today) -will start K 20 mEq daily as well - maintain eukalemia - q24 BMP -defer to primary service to address thyroid Will sign off NEPHRO D/C RECS -d/c on torsemide 20-40 mg daily (as BP and sodium require) and K 20 -40 mEq daily (dose sufficient to maintain K of 4) -hospital d/c appt with DR ORALIA rojas 4-6 wks after d/c w/ bmp, serum and urine osms, urine electrolytes, TSH, free T4 to be ordered by neph nurse and done no more than 72 hrs before appt -check bmp at hospital f/u visit -cont to avoid NSAIDS after d/c (2) Hypertensive urgency: Plan: resolved and in fact relatively hypotensive now. no sx; no evidence of end organ damage acutely, in fact renal function markedly better than baseline creat 1.0-1.1, ? d/t poor po -continue metoprolol, verapamil -as above lowered torsemide dose (3) Immunosuppression: Plan: remains on MMF; agree w/ Legionella assays Admission and Anticipated Discharge Date Admission Date: May 05, 2024 Subjective seen on late AM rounds; pt hoping for d/c; still w/ significant cough but overall feels improved. no edema, no n/v. tolerating po Review of Systems 2 Review of Systems: All systems reviewed & are unremarkable except as noted in Subjective Physical Exam 2 Constitutional: well developed (sitting on side of bed on RA), well nourished and cooperative; no acute distress Eyes: EOM intact bilaterally ENMT: Ears: no external ear abnormality Nose: no external nose abnormality Mouth: + dry oral mucous membranes Neck: no nuchal rigidity Respiratory: normal respiratory effort and + cough (frequent thick) A uscultation: + diminished lung sounds and + crackles (fine bibasilar) Cardiovascular: Rate/Rhythm: regular rate and regular rhythm Heart Sounds: + murmur Extremities: no edema Gastrointestinal (Abdomen): Inspection/Auscultation: normal bowel sounds P ercussion/Palpation: abdomen soft; abdomen nontender Musculoskeletal: Extremities: strength 5/5 throughout Skin: no rashes, warm and dry + ecchymosis (L upper abdomen) Psychiatric: Orientation: alert and oriented x 3 Speech: normal rate/rhythm/volume of speech Affect: euthymic affect Results & Data Vital Signs (Past 12 Hours) Vital Signs Temp Pulse Pulse Resp BP Pulse Ox O2 Del Method 05/09/24 08:20 36.5 C 80 18 105/70 96 Room Air 05/09/24 07:39 63 05/09/24 07:35 Room Air 05/09/24 03:59 36.6 C 84 18 109/69 98 Room Air 05/08/24 23:50 36.8 C 74 16 116/74 94 Room Air 05/08/24 22:05 80 17 96 Room Air 05/08/24 21:15 Room Air 05/08/24 21:15 37.4 C 88 18 108/77 96 Room Air 05/08/24 21:14 93 H Laboratory Results 05/07/24 04:46 05/09/24 06:42
--- NOTE | 2024-05-09 13:03 | Hospitalist Progress Note ---
Date of Service May 09, 2024 Assessment & Plan (1) Hyponatremia: Plan: This is a 78-year-old female with PMH of hypertension, autoimmune hepatitis, Sjogren's syndrome, paroxysmal SVT, hypothyroidism, dyslipidemia, CKD 3, depression and other medical problems listed below who presents with URI symptoms over the past week. Acute hypotonic hyponatremia Sodium 117 at presentation In setting of torsemide use and volume loss with ongoing diarrhea Serum osm low at 243, urine osm 363, urine sodium 40 Received approx. 500 ml NSS in ED Suspect SIADH given illness The admitting team discussed with Dr. Hardin of nephro - goal sodium of 120 but not go past 122 by early PM tomorrow. Recs to FR 1.5 L, BMP Q4H Remains stable in ICU-sodium level is very slowly improving-118 at 12 noon Appreciate recruitment advertising manager input and recommendation Appreciate nephrology input and recommendation Will receive torsemide and another dose of hypertonic saline today Checking sodium level every 4-6 hours She will receive another dose of hypertonic saline of 3%, 150 mL and her torsemide 40 mg daily p.o. will be continued Sodium has gone up to 127-discussed with the employment instructional associate and does not require any more hypertonic saline Will give normal saline infusion small amount Monitor PRP tomorrow and likely discharge tomorrow Will get PT and OT evaluation prior to discharge Sodium levels remains stable at 131 She will be discharged home today with nephrology recommendation as below: -d/c on torsemide 20-40 mg daily (as BP and sodium require) and K 20 -40 mEq daily (dose sufficient to maintain K of 4) -hospital d/c appt with DR ORALIA rojas 4-6 wks after d/c w/ bmp, serum and urine osms, urine electrolytes, TSH, free T4 to be ordered by neph nurse and done no more than 72 hrs before appt -check bmp at hospital f/u visit -cont to avoid NSAIDS after d/c (2) Pneumonia: Plan: CAP CXR with Mild bibasilar densities favor atelectasis however WBC 20K, resp viral panel negative Treat with Rocephin, doxy for now Follow blood and sputum cultures, legionella urine Clinically better Antibiotics have been changed to oral Augmentin and doxycycline to finish the course for a total of 7 to 10 days Cough is better and does not have any shortness of breath at rest and saturating normally on room air Will get a CT of the chest to evaluate suspected mass lesion on the right lower lobe-CT scan of the chest did not show any right lower lobe opacity as was seen by chest x-ray. It shows 4 mm nodule in the right middle lobe. Usual follow-up is recommended (3) Paroxysmal SVT (supraventricular tachycardia): Plan: Paroxysmal SVT Continue verapamil HS Rate is controlled without any more arrhythmias Denies any cardiac symptoms Rate remains controlled with current medication No acute issues (4) Depression: (5) Autoimmune hepatitis: Plan: Autoimmune hepatitis Continue Cellcept LFTs are normal (6) Hypothyroidism: Plan: Abnormal thyroid labs H/o Hypothyroidism Likely acute phase reactant with recent illness vs. possible hyperthyroid. TSH 9.52, free T4 1.84 Plan to continue home dose for now, reassess thyroid studies in a few weeks Plan CKD III Cr 0.65 (at baseline). Monitor with daily BMP DVT Ppx: SQ lovenox Code status: FULL PCP: Alyssia Dispo: Admitted to PCU --> transer to ICU this evening Discussed with the family member Will be discharged home this afternoon Admission and Anticipated Discharge Date Admission Date: May 05, 2024 Subjective 05/06/2024 The patient was seen and examined in ICU She has been weak but denies any other significant symptoms There is no more diarrhea since admission and denies any abdominal discomfort Remains hemodynamically stable 05/07/2024 The patient was seen and examined in the ICU She has been feeling better but remains weak which happens to be occasionally Denies any chest pain, palpitation or shortness of breath 05/08/2024 Here the patient was seen and examined in ICU with telemetry status She has been feeling much better Sodium level has gone up to 127 Cough is decreased Will get PT and OT evaluation and likely discharge tomorrow 05/09/2024 The patient was seen and examined in telemetry unit She has been feeling much better Still has cough but no fever and no chills No shortness of breath and saturating normally on room air She has been ambulating well and wants to go Review of Systems Review of Systems: All systems reviewed and are unremarkable except as noted below Physical Exam Physical Exam: Lying in bed without any acute distress Constitutional: + ill appearing and average body habitus Eyes: PERRL, conjunctivae normal, anicteric sclerae ENMT: external ear and nose normal, oropharynx normal Neck: trachea midline, no thyromegaly Respiratory: no respiratory distress Auscultation: + crackles (Minimal crackles right base) Cardiovascular: Rate/Rhythm: regular rate and regular rhythm; not tachycardic Heart Sounds: normal S1 and normal S2; no murmur Extremities: no edema Gastrointestinal (Abdomen): Inspection/Auscultation: normal bowel sounds; abdomen not distended Percussion/Palpation: abdomen soft; abdomen nontender Neurologic: normal touch/pain/proprioception and moves all extremities; no focal motor deficits Psychiatric: A+Ox3, euthymic affect Lymphatic: no cervical or axillary lymphadenopathy Results & Data Results & Data Vital Signs (Past 12 Hours) Vital Signs Temp Pulse Pulse Resp BP Pulse Ox O2 Del Method 05/09/24 11:51 36.8 C 81 17 108/71 94 Room Air 05/09/24 08:20 36.5 C 80 18 105/70 96 Room Air 05/09/24 07:39 63 05/09/24 07:35 Room Air 05/09/24 03:59 36.6 C 84 18 109/69 98 Room Air Laboratory Results [facility] 05/09/24 06:42 Sodium 131 L Potassium 3.8 Chloride 95 L Carbon Dioxide 31 BUN 15 Creatinine 0.99 Glucose 99 Calcium 8.6 Medications Administered Current Inpatient Medications Acetaminophen (Acetaminophen 500 Mg Tab) 1,000 mg PO Q8H PRN PRN Reason: Headache or Pain Stop: 06/05/24 09:56 Last Admin: 05/07/24 06:12 Dose: 1,000 mg Albuterol (Albuterol Hfa 8 Gm Inhaler) 2 puffs INH Q6H PRN PRN Reason: Shortness Of Breath Or Wheezing Stop: 06/06/24 14:44 Amoxicillin/Clavulanate Potassium (Amoxicillin/Clavulanate 875 Mg Tab) 1 tab PO BIDM [facility]; Protocol Stop: 05/14/24 07:59 Last Admin: 05/09/24 08:12 Dose: 1 tab Aspirin (Aspirin 81 Mg Ectab) 81 mg PO DAILY [facility] Stop: 06/05/24 08:59 Last Admin: 05/09/24 08:13 Dose: 81 mg Benzonatate (Benzonatate 100 Mg Capsule) 100 mg PO TID [facility] Stop: 06/06/24 13:59 Last Admin: 05/09/24 13:44 Dose: 100 mg Docusate Sodium (Docusate Sodium 100 Mg Cap) 100 mg PO BID PRN PRN Reason: constipation Stop: 06/04/24 19:00 Doxycycline Hyclate (Doxycycline Hyclate 100 Mg Cap) 100 mg PO BID [facility] Stop: 05/14/24 17:59 Last Admin: 05/09/24 08:12 Dose: 100 mg Ezetimibe (Ezetimibe 10 Mg Tab) 10 mg PO HS NYDIA Stop: 06/04/24 20:59 Last Admin: 05/08/24 21:01 Dose: 10 mg Enoxaparin Sodium (Enoxaparin Inj 40 Mg/0.4 Ml Syr) 40 mg SQ Q24H NYDIA Stop: 06/04/24 20:59 Last Admin: 05/08/24 21:01 Dose: 40 mg Hydrocodone Bit/Homatropine Methylb (Hydrocodone/Homatropine Syrup 5mg/1.5mg 5ml Udp) 5 ml PO Q6H PRN PRN Reason: Cough Stop: 05/21/24 14:43 Last Admin: 05/08/24 22:07 Dose: 5 ml Levalbuterol HCl (Levalbuterol Hcl 0.63 Mg/3 Ml Neb) 0.63 mg NEB Q6H PRN; Protocol PRN Reason: Shortness Of Breath Or Wheezin Stop: 06/04/24 18:50 Last Admin: 05/08/24 22:05 Dose: 0.63 mg Levothyroxine Sodium (Levothyroxine Sodium 75 Mcg Tablet) 75 mcg PO [id number] [facility] Stop: 06/05/24 06:29 Last Admin: 05/08/24 08:03 Dose: 75 mcg Melatonin (Melatonin 3 Mg Tab) 3 mg PO HSZ PRN PRN Reason: Sleep Stop: 06/04/24 18:58 Last Admin: 05/08/24 22:06 Dose: 3 mg Metoprolol Succinate (Metoprolol Succ 25mg Ext Rel Tab) 25 mg PO DAILY [facility] Stop: 06/05/24 20:59 Last Admin: 05/09/24 08:12 Dose: 25 mg Mycophenolate Mofetil (Mycophenolate Mofetil 250 Mg Cap) 500 mg PO DAILY [facility] Stop: 06/05/24 08:59 Last Admin: 05/09/24 08:13 Dose: 500 mg Nortriptyline HCl (Nortriptyline Hcl 10 Mg Cap) 10 mg PO HS NYDIA Stop: 06/04/24 20:59 Last Admin: 05/08/24 21:00 Dose: 10 mg Ondansetron HCl (Ondansetron Inj 2 Mg/Ml 2 Ml Vial) 4 mg IV Q6H PRN PRN Reason: Nausea Stop: 06/04/24 18:50 Last Admin: 05/06/24 10:00 Dose: 4 mg Pantoprazole Sodium (Pantoprazole 40 Mg Tab) [facility] [place] Stop: 06/05/24 08:59 Polyethylene Glycol (Polyethylene (Miralax) 17 Gm Pack) 17 gm PO DAILY PRN PRN Reason: Constipation Stop: 06/04/24 18:50 Torsemide (Torsemide 20 Mg Tab) [facility] [place] Stop: 06/05/24 13:44 Last Admin: 05/09/24 08:12 Dose: 40 mg Verapamil HCl (Verapamil Hcl 120 Mg Tabcr) 120 mg PO [facility] Stop: 06/04/24 20:59 Last Admin: 05/08/24 21:00 Dose: 120 mg
--- NOTE | 2024-05-09 14:24 | CT Scan Report ---
CT chest diagnostic wo con CLINICAL HISTORY: 1 cm rt base nodule TECHNIQUE: Multidetector row helical CT of the chest was performed. Coronal and sagittal reformations were obtained. Automated dose lowering techniques and/or adjustment according to patient size were u tilized for this exam. CT DOSE: 319.34 mGy.cm Comparison: Comparison is made to CT chest 01/03/2012 FINDINGS: Lungs and pleura: Biapical scarring is seen. Airspace opacities are seen in the bilateral lower lungs . Atelectasis is seen most prominent in the right middle lobe and lingula. There is a 4 mm nodule in the right middle lobe (series 4 image 144) and a 3 mm nodule in the right middle lobe (image 176). Heart and pericardium: Aortic valvular calcifications are seen. Vessels: Mild atherosclerotic changes in the aorta and coronary arteries. Mediastinum and flor: Subcentimeter lymph nodes are seen. Chest wall and lower neck: Unremarkable. Abdomen: Patient is status post cholecystectomy. Bones: Unremarkable. IMPRESSION: Airspace opacities in the bilateral lower lung suspicious for pneumonia and/or aspiration. Stable rig ht middle lobe nodules as above. ACT 112: Negative or not required by law. Electronically signed by: Goldy Madison M.D. 05/09/2024 2:22 PM
--- NOTE | 2024-05-10 07:18 | Discharge Summary ---
Date of Service May 10, 2024 Admission HPI Per Admitting Provider This is a 78-year-old female with PMH of hypertension, autoimmune hepatitis, Sjogren's syndrome, paroxysmal SVT, hypothyroidism, dyslipidemia, CKD 3, depression and other medical problems listed below who presents with URI symptoms over the past week. 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 At the beginning of last week, patient had 5 days of diarrhea that has since resolved. Then approx 7 days aog, developed productive cough with green sputum, low-grade fever and worsening dyspnea on exertion. Called into PCPs office on Thursday 05/03 and was prescribed Augmentin, which she has been taking for the past 48 hours. During this time, she is felt progressively worse with decreased appetite, nausea, headache, worsening and malaise, prompting visit to ED today for further evaluation. States she has still been drinking approximately 80- 100oz of water daily despite having much less of an appetite. Takes torsemide 20mg daily. No medication changes. No history of low sodium. Admission Exam Per Admitting Provider Vitals signs as noted above General Appearance:Moderately built and nourished, no apparent distress Head: normocephalic, Atraumatic Eyes: normal inspection, EOMI Neck: supple, Trachea midline Respiratory/Chest: Normal breath sounds, basal crackles, No accessory muscle use Cardiovascular: S1, S2, + murmur Abdomen/GI:Soft, Non tender, Bowel sounds present Extremities/Musculoskeletal:normal inspection, Trace pedal edema Neurologic/Psych:AAOX3, grossly no focal neurological deficits Skin: normal color, warm Principal Diagnosis Severe hyponatremia, pneumonia Discharge Exam Lying in bed without any acute distress Constitutional + ill appearing and average body habitus Eyes PERRL, conjunctivae normal, anicteric sclerae ENMT external ear and nose normal, oropharynx normal Neck trachea midline, no thyromegaly Respiratory no respiratory distress Auscultation: lungs clear to auscultation bilaterally and + crackles (Minimal crackles right base) Cardiovascular Rate/Rhythm: regular rate and regular rhythm; not tachycardic Heart Sounds: normal S1 and normal S2; no murmur Extremities: no edema Gastrointestinal (Abdomen) Inspection/Auscultation: normal bowel sounds; abdomen not distended Percussion/Palpation: abdomen soft; abdomen nontender Neurologic normal touch/pain/proprioception and moves all extremities; no focal motor deficits Psychiatric A+Ox3, euthymic affect Lymphatic no cervical or axillary lymphadenopathy Discharge Data Allergies Allergy/AdvReac Type Severity Reaction Status Date / Time celecoxib Allergy Intermediate HIVES,HAS Verified 05/05/24 16:05 TAKEN TORADOL OK Sulfa (Sulfonamide Allergy Intermediate HIVES Verified 05/05/24 16:05 Antibiotics) diltiazem Allergy Rash Unverified 05/05/24 16:05 codeine AdvReac Mild VOMITING Verified 05/05/24 16:05 morphine AdvReac Mild VOMITING Verified 05/05/24 16:05 Iodinated Contrast Media AdvReac Unknown severe Verified 05/05/24 16:05 headache and projectile vomiting Consultations 05/05/24 15:42 ED Decision to Admit Stat 05/05/24 16:25 Consult Nephrology Routine 05/05/24 19:37 Consult Hand Mixer Routine Ordered Studies 05/09/24 08:26 CT chest diagnostic wo con Urgent Hospital Course (1) Hyponatremia: This is a 78-year-old female with PMH of hypertension, autoimmune hepatitis, Sjogren's syndrome, paroxysmal SVT, hypothyroidism, dyslipidemia, CKD 3, depression and other medical problems listed below who presents with URI symptoms over the past week. Acute hypotonic hyponatremia Sodium 117 at presentation In setting of torsemide use and volume loss with ongoing diarrhea Serum osm low at 243, urine osm 363, urine sodium 40 Received approx. 500 ml NSS in ED Suspect SIADH given illness The admitting team discussed with Dr. Hardin of nephro - goal sodium of 120 but not go past 122 by early PM tomorrow. Recs to FR 1.5 L, BMP Q4H Remains stable in ICU-sodium level is very slowly improving-118 at 12 noon Appreciate multifold operator input and recommendation Appreciate nephrology input and recommendation Will receive torsemide and another dose of hypertonic saline today Checking sodium level every 4-6 hours She will receive another dose of hypertonic saline of 3%, 150 mL and her torsemide 40 mg daily p.o. will be continued Sodium has gone up to 127-discussed with the junior qa analyst and does not require any more hypertonic saline Will give normal saline infusion small amount Monitor PRP tomorrow and likely discharge tomorrow Will get PT and OT evaluation prior to discharge Sodium levels remains stable at 131 She will be discharged home today with nephrology recommendation as below: -d/c on torsemide 20-40 mg daily (as BP and sodium require) and K 20 -40 mEq daily (dose sufficient to maintain K of 4) -hospital d/c appt with DR ORALIA rojas 4-6 wks after d/c w/ bmp, serum and urine osms, urine electrolytes, TSH, free T4 to be ordered by neph nurse and done no more than 72 hrs before appt -check bmp at hospital f/u visit -cont to avoid NSAIDS after d/c (2) Pneumonia: CAP CXR with Mild bibasilar densities favor atelectasis however WBC 20K, resp viral panel negative Treat with Rocephin, doxy for now Follow blood and sputum cultures, legionella urine Clinically better Antibiotics have been changed to oral Augmentin and doxycycline to finish the course for a total of 7 to 10 days Cough is better and does not have any shortness of breath at rest and saturating normally on room air Will get a CT of the chest to evaluate suspected mass lesion on the right lower lobe-CT scan of the chest did not show any right lower lobe opacity as was seen by chest x-ray. It shows 4 mm nodule in the right middle lobe. Usual follow-up is recommended (3) Paroxysmal SVT (supraventricular tachycardia): Paroxysmal SVT Continue verapamil HS Rate is controlled without any more arrhythmias Denies any cardiac symptoms Rate remains controlled with current medication No acute issues (4) Depression: (5) Autoimmune hepatitis: Autoimmune hepatitis Continue Cellcept LFTs are normal (6) Hypothyroidism: Abnormal thyroid labs H/o Hypothyroidism Likely acute phase reactant with recent illness vs. possible hyperthyroid. TSH 9.52, free T4 1.84 Plan to continue home dose for now, reassess thyroid studies in a few weeks Plan CKD III Cr 0.65 (at baseline). Monitor with daily BMP DVT Ppx: SQ lovenox Code status: FULL PCP: Alyssia Dispo: Admitted to PCU --> transer to ICU this evening Discussed with the family member Will be discharged home this afternoon Total Time Total Time Spent Total Time Spent (In Minutes): 40 minutes Discharge Plan Discharge Items Patient Disposition: Home - Self-Care Reason For Visit: SEVERE HYPONATREMIA, PNA Discharge Diagnosis: Severe hyponatremia, pneumonia Condition on Discharge: Good Activity: Resume your previous activity Non-emergency contact: Primary Care Provider Call non-emergency contact if: you have any medication questions and your symptoms worsen Follow-up/Referrals: Irina Mccallum MD [Physician] - (The Nephrology office will contact you for a follow up appointment.) Carol Cade DO [Primary Care Provider] - (Date & Time 05/17/2024 1:[address] [place] Pharmacist [address] [facility] [facility] [address] [facility] [place] Date & Time 05/17/2024 1:40 PM Provider Carol Cade DO [facility] [address] [facility] [place] ) Diet: Regular Fluids: 1500ml (6 cups) Addtl Attending Provider Instructions: Please take precautions to avoid falls Strongly advised to take medications as advised Please keep appointments with healthcare providers Do not take any NSAIDs other than aspirin as prescribed Pending Studies at Discharge: No Stand-Alone Forms: My [employer] [place], Smoking Cessation Medications and DC Order Prescriptions: New doxycycline hyclate 100 mg Capsule 100 mg PO BID Qty: 12 0RF hydrocodone-homatropine [Hydromet] 5-1.5 mg/5 mL Syrup 5 ml PO Q6H PRN (Reason: cough) Qty: 120 0RF amoxicillin-pot clavulanate 875-125 mg Tablet 1 tab PO BIDM Qty: 12 0RF Continued metoprolol succinate [Toprol XL] 25 mg Tablet Extended Release 24 Hr 25 mg PO DAILY torsemide 20 mg Tablet 20 mg PO DAILY omeprazole 20 mg Capsule,Delayed Release(Dr/Ec) 20 mg PO QAM levothyroxine [Levoxyl] 75 mcg Tablet 75 mcg PO [id number] Rx Instructions: Takes everyday except thursday. melatonin 5 mg Tablet 5 mg PO HS PRN (Reason: Insomnia) mycophenolate mofetil [CellCept] 500 mg Tablet 500 mg PO DAILY potassium chloride 10 mEq Tablet Extended Release 20 meq PO BID ezetimibe [Zetia] 10 mg Tablet 10 mg PO HS aspirin 81 mg Tablet,Delayed Release (Dr/Ec) 81 mg PO DAILY verapamil 120 mg tablet extended release 120 mg PO HS alendronate 70 mg tablet 70 mg PO WK docusate sodium 100 mg Tablet 100 mg PO BID magnesium oxide 250 mg magnesium tablet 500 mg PO HS nortriptyline 10 mg capsule 10 mg PO HS biotin 1 mg Tablet 1 mg PO DAILY Discontinued ibuprofen 800 mg Tablet 800 mg PO BID PRN (Reason: Pain (Scale Score 1-3)) amoxicillin-pot clavulanate 875-125 mg tablet 1 tab PO BID Rx Instructions: started on 05/03 meloxicam 15 mg tablet 15 mg PO DAILY PRN (Reason: Pain) Discharge Orders: Discharge Order (Routine); Ordered 05/09/24 Ordered By: Grupo Vincent Admission Data Admit Date/Time: 05/05/24 16:29 Attending Provider: Grupo Vincent Admit Provider: Cedric Corrales Primary Care Provider: Carol Cade Other Providers: Cedric Corrales; Joanne Hardin; Jeffrey Leo Other Interventions: Discharge Summary Assessment (RN) Last Done: 05/09/24 14:31
== END 2024-05-09 15:33 | disposition home or self-care (01) | DRG 640 ==
LOC: ED 13:40 → 2E 16:29 → SUATTDRO 16:29 → 2E 18:42 → 1E 19:55 → 2S 05-08 21:12